=== PATIENT | male | born 1975 | race Caucasian/White ===

== ENCOUNTER 2017-12-09 19:39 | Emergency (ER) | payer MEDICAID, SELFPAY ==
[2017-12-09 19:40] VITALS: BP 151/96; PULSE 83; RESP 18; TEMP 36.4; O2SAT 95; BMI 36.0
--- NOTE | 2017-12-09 20:23 | ED.DCSUM_ITS ---
- ER Visit Summary Date of Service: 12/09/17 Chief Complaint: Redness of his nose and right ear History of Present Illness: The patient is a 42 M who presents with redness and swelling to his nose and right ear that has been getting worse over the past few days. Patient denies any fevers or chills. Patient denies any discharge or drainage. Patient states he did have some redness in his eyes but this has resolved. Patient denies any visual or hearing changes. Patient denies any rhinorrhea. Patient denies any difficulty breathing or difficulty swallowing. Physical Examination: Vital signs are stable. Patient is afebrile. Patient is in no acute distress. Pupils are equal, round, and reactive to light bilaterally. Extra ocular muscles are intact. Conjunctiva is clear. There is no evidence of any stye. There is no edema of the upper or lower eyelids. Oral mucosa is pink and moist. Tympanic membranes are clear bilaterally. Neck is supple. Trachea is midline. Is no JVD or lymphadenopathy. Heart was regular rate and rhythm. Lungs are clear and equal bilateral. Skin is warm dry. There is a small pustule on the tip of his nose with some surrounding erythema. There is also some mild erythema of the right postauricular area. There is no active discharge or drainage. Patient is alert and oriented ?3. Cranial nerves II through XII are intact. There are no focal motor or sensory deficits noted. Treatment Plan: Patient was given a prescription for Keflex. Patient was instructed to use warm compresses to his nose. Patient was instructed to follow -up with his primary care physician in 7-10 days. Patient understood and was agreeable with the plan. All questions were answered. Disposition: Discharge home Impression: Cellulitis of nose This note was generated with [employer] dictation software. It may contain incorrect words, spelling, and punctuation that were not noted in review of the chart prior to signing ED Disposition - Plan for ED Patient: Disposition: Home or Assisted Living Chief Complaint: General Illness Diagnosis: Cellulitis of nose, external Instructions: ED Cyst Sebaceous Infec Abx Tx Prescriptions: Cephalexin [Keflex] 500 mg PO Q6 #40 cap Referrals: Care Physician,No Primary [Primary Care Provider] -
[2017-12-09 20:28] VITALS: BP 148/70; PULSE 80; RESP 14; O2SAT 99
== END 2017-12-09 20:30 | disposition home or self-care (01) ==
PROVIDERS: Emergency Provider Emergency Medicine
DX: J34.0 Abscess, furuncle and carbuncle of nose (principal); Z87.891 Personal history of nicotine dependence
CPT/HCPCS: 99282

== ENCOUNTER 2018-03-27 15:21 | Emergency (ER) | payer MEDICARE, MEDICAID, SELFPAY ==
[2018-03-27 15:22] VITALS: BP 170/108; PULSE 111; RESP 20; TEMP 37.1; O2SAT 97; BMI 32.5
--- NOTE | 2018-03-27 15:33 | ED.VISSUMM ---
- ER Visit Summary Date of Service: 03/27/18 Chief Complaint: Elevated blood pressure History of Present Illness: The patient is a 42 M presents to the emergency department with asymptomatic elevated blood pressure. The patient states that he went to his dentist today. He was scheduled to have some teeth pulled. He states when he took his blood pressure, it was elevated. He states his dentist made him come in for evaluation. He states that his blood pressures were approximately 150/100. He states that he has never been diagnosed with hypertension. He takes no daily medications. He states that he was very anxious about going to the dentist, but really had no symptoms. He denies headache, visual changes, chest pain, shortness of breath, weakness, numbness, tingling, or other systemic symptoms. He does not have a primary care physician. Physical Examination: Vital signs reviewed General: Well-nourished, well-developed Head: Normocephalic, atraumatic Eyes: Pupils equal and reactive, extraocular muscles intact Neck, supple, no lymphadenopathy Heart: Regular rate and rhythm Respiratory: No distress, clear bilaterally Abdomen: Soft, nontender, nondistended, no peritoneal signs Back: Nontender Extremities: Nontender, no edema, no cords Skin: Normal color no rash Neuro: Alert and oriented, no focal or lateralizing deficits Test Results: [] Emergency Department Course and Treatment: The patient presents with asymptomatic elevated blood pressure. Initially, he was 170/110. Without any intervention, his blood pressure was down to 146/91. EKG was obtained which was unremarkable. Screening labs are also. He did have a long conversation with the patient. He is concerned that with his elevated blood pressure, he will not be able to have his dental procedure done. He has no evidence of Azar angina. He has widespread dental caries. We did discuss option of starting a low-dose antihypertensive which the patient wants to try. He will be given outpatient primary care follow-up. I will also prescribe him anti-inflammatories for his dental pain. He is comfortable with this plan of care. He has no symptoms of hypertensive emergency or other dangerous process. He has no symptoms of heart failure and he has no acute coronary syndrome. I do feel that he is safe for outpatient therapy. Treatment Plan: [] Disposition: Discharge Impression: 1. Hypertension 2. Dental pain This note was generated with [employer] software. It may contain incorrect words, spelling, and punctuation that were not noted in review of the chart prior to signing ED Disposition - Plan for ED Patient: Chief Complaint: Hypertension Instructions: ED Hypertension New Begin Tx Prescriptions: Hydrochlorothiazide [Hctz] 12.5 mg PO DAILY #30 tab Naproxen [Naprosyn] 500 mg PO BID PRN #20 tab Referrals: Ludy Gray [NON-STAFF] -
[2018-03-27 15:54] LABS: Absolute Lymphocyte Count 3.67 X10^3/ul (0.83-4.51); Absolute Neutrophil Count 7.6 X10^3/uL (2.0-7.7); Basophil# 0.07 X10^3/uL; Basophil% 0.6 % (0-1); Eosinophils% 0.8 % (0-5); Hematocrit 48.8 % (40-54); Hemoglobin 17.3 g/dl (13.0-16.5); Lymphocyte # 3.67 X10^3/ul (4.0); Lymphocyte % 29.9 % (19-41); Mean Corp Hgb Conc 35.5 g/gl (32-36); Mean Corpuscular Hgb 33.6 pg (27.0-32.0); Mean Corpuscular Volume 94.8 fL (80-94); Mean Platelet Vol. 8.5 fl (6.2-12.0); Monocyte# 0.76 X10^3/uL; Monocyte% 6.2 % (0-10); Neutrophil # 7.64 X10^3/uL (2.7-7.7); Neutrophil % 62.3 % (47-70); POSITIVE COUNT NO; POSITIVE DIFFERENTIAL NO; POSITIVE MORPHOLOGY NO; Platelet Count 300 K/mm3 (150-450); RBC Distribution Width CV 12.6 % (11.6-14.6); Red Blood Count 5.15 M/mm3 (4.6-6.2); White Blood Count 12.3 K/mm3 (4.4-11.0)
[2018-03-27 16:09] LABS: Anion Gap 9 (5-15); BUN 10 mg/dL (7-18); BUN/Creat Ratio 9.6 RATIO (10-20); Calcium,Total 8.8 mg/dL (8.5-10.1); Chloride 102 mmol/L (98-107); Creatinine, Serum 1.04 mg/dL (0.70-1.30); EST Glomerular Filtration Rate 82 mL/min (>60); Est Glom Filt Rate - Afr Amer 100 mL/min (>60); Estimated Creatinine Clearance 93.59 ml/min; Glucose 127 mg/dL (74-106); Potassium 3.4 mmol/L (3.5-5.1); Sodium Level 139 mmol/L (136-145)
[2018-03-27] MEDS: HYDROcodone Bitartrate/Apap 5/325 Tablet PO (16:50)
[2018-03-27 16:51] VITALS: BP 134/86; RESP 18; O2SAT 95
== END 2018-03-27 16:53 | disposition home or self-care (01) ==
LOC: ED 16:04
PROVIDERS: Emergency Provider Emergency Medicine
DX: I10 Essential (primary) hypertension (principal); K08.89 Other specified disorders of teeth and supporting structures; K02.9 Dental caries, unspecified
CPT/HCPCS: 80048; 85025; 93005; 99284; A4216

== ENCOUNTER → 2019-02-18 | Outpatient (CLI) | payer MEDICARE, MEDICAID, SELFPAY ==
--- NOTE | 2019-02-18 15:51 | EKG12_ITS ---
Test Reason : Blood Pressure : / mmHG Vent. Rate : 077 BPM Atrial Rate : 077 BPM P-R Int : 136 ms QRS Dur : 090 ms QT Int : 360 ms P-R-T Axes : 050 069 021 degrees QTc Int : 407 ms Normal sinus rhythm with sinus arrhythmia Normal ECG Confirmed by DANNIELLE OLEA, KENDRICK ([id number]), avid editor SOHAM MORROW ([id number]) on 02/19/2019 1:41:25 PM Referred By: OUT DOCTOR Confirmed By:MARIA A SPICER MD
[2019-02-18 16:29] LABS: Hemoglobin A1c 5.6 % (4.2-6.3)
[2019-02-18 16:43] LABS: ALB/GLOB Ratio 0.8 RATIO (0.9-2.4); AST(SGOT) 66 U/L (15-37); Alanine Aminotransfer ALT/SGPT 114 U/L (16-61); Albumin, Serum 3.4 g/dL (3.2-5.0); Alkaline Phosphatase 90 U/L (45-117); Anion Gap 5 (5-15); BUN 8 mg/dL (7-18); Bilirubin, Direct 0.12 mg/dL (0.00-0.30); Calcium,Total 8.4 mg/dL (8.5-10.1); Chloride 106 mmol/L (98-107); Cholesterol 204 mg/dL (200); Creatinine, Serum 0.89 mg/dL (0.70-1.30); EST Glomerular Filtration Rate 99 mL/min (>60); Est Glom Filt Rate - Afr Amer 119 mL/min (>60); Globulin 4.1 g/dL (2.2-4.2); Glucose 104 mg/dL (74-106); High Density Lipoprotein 29 mg/dL; Potassium 3.8 mmol/L (3.5-5.1); Protein, Total 7.5 g/dL (6.4-8.2); Sodium Level 140 mmol/L (136-145); Thyroid Stim Hormone (TSH) 2.23 uIU/mL (0.358-3.74); Triglycerides 248 mg/dL; Very Low Density Lipoprotein 50 mg/dL (5-40)
== END | disposition home or self-care (01) ==
DX: F19.10 Other psychoactive substance abuse, uncomplicated (principal); R53.83 Other fatigue; Z79.899 Other long term (current) drug therapy
CPT/HCPCS: 36415; 80053; 80061; 82140; 82248; 83036; 84443; 93005

== ENCOUNTER 2020-08-02 01:14 | Emergency (ER) | payer MEDICARE, MEDICAID, SELFPAY ==
[2020-08-02 01:16] VITALS: BP 177/113; PULSE 94; RESP 16; TEMP 37.3; O2SAT 96; BMI 33.3
--- NOTE | 2020-08-02 01:31 | ED.VIS.GEN ---
History of Present Illness Chief Complaint: Eye Problem Informant: Patient Narrative: Presents with ocular bleeding. Patient stated tonight when he was reading while sitting down he developed subconjunctival hemorrhage. He is never had this before. He did take aspirin for headache earlier in the day. Does not take this chronically. Does have hypertension but has not been on medication for the last year. He stated his blood pressures have been under control. He denies any symptoms at this time just bleeding on the outside portion of his right side. No visual difficulties or pain. Current severity is mild. Past Medical History - Allergies and Home Meds Allergies/Adverse Reactions: Allergies No Known Allergies Allergy (Verified 08/02/20 01:15) Primary Care Physician: Care Physician,No Primary [Primary Care Provider] - Prior records reviewed: Yes Past Medical History: - - Hypertension Surgical History: - - Reviewed Lives: With Family Smoking Status: Current every day smoker Alcohol: None Drugs: None Review of Systems General: Denies: Chills, Fever, Sweats Eyes: Reports: - - See HPI. Denies: Visual changes - left, Visual changes - right, Visual changes - bilaterally, Diplopia ENT: Denies: Rhinorrhea, Sore throat Cardiovascular: Denies: Chest pain, Palpitations Respiratory: Denies: Dyspnea, Cough, Dyspnea on exertion Gastrointestinal: Denies: Abdominal pain, Nausea, Vomiting, Diarrhea, Melena, Hematochezia Genitourinary: Denies: Dysuria, Hematuria, Frequency Musculoskeletal: Denies: Back pain, Extremity Pain Skin: Denies: Rash, Wounds Neurological: Denies: Headache, Weakness, Numbness Physical Exam Vital Signs/Narrative: Vital Signs Temp Pulse Resp BP Pulse Ox 08/02/20 01:16 99.1 F 94 16 177/113 H 96 General: Well nourished, Well developed, No Acute Distress Head: Normocephalic, Atraumatic Eyes: Perrl, EOMI, - - She has a very small subconjunctival hemorrhage right lateral sclera. Pupils are normal. No hyphema. Irises normal. Normal exam otherwise.. Negative for: Pale conjunctiva ENT: Moist mucous membranes, No rhinorrhea Neck: Supple, Nontender Cardiovascular: Regular rate, Regular rhythm, No murmurs Respiratory: No distress, CTA bilaterally, Chest nontender Abdomen: Soft, Nontender, Nondistended, Normal bowel sounds Back: Nontender, Normal Inspection Extremities: Nontender, No edema Skin: Normal color, No rash Neurological: Alert, Oriented x3, Cranial nerves II-XII grossly intact, Normal Strength, Normal Sensation Psychological: Normal affect, Normal Mood Diagnostic/Tx/Re-eval - Medical Decision Making Patient has a small subconjunctival hemorrhage right eye. Is a benign condition. Patient reassured. He does have hypertension upon arrival with a systolic blood pressure 177 over diastolic blood pressure 113. He does not want to stay for further monitoring of this. He will like to follow-up with his family doctor for recheck. He has been on blood pressure medications in the past but does not want a at this time even though offered. He would like to wait and see. I feel this is reasonable given the fact that he does have chronic hypertension. He will avoid aspirin and blood thinners and follow-up as an outpatient ED Disposition - Plan for ED Patient: Disposition: Home or Assisted Living Diagnosis: Subconjunctival hemorrhage of right eye, Hypertension Instructions: ED Subconjunctival Hemorrhage, Taking Your Blood Pressure Referrals: Leoncio Galan MD [STAFF PHYSICIAN] -
== END 2020-08-02 02:10 | disposition home or self-care (01) ==
LOC: ED 01:40
PROVIDERS: Emergency Provider Emergency Medicine
DX: H11.31 Conjunctival hemorrhage, right eye (principal); I10 Essential (primary) hypertension; F17.200 Nicotine dependence, unspecified, uncomplicated
CPT/HCPCS: 99282

== ENCOUNTER 2021-01-05 23:18 | Emergency (ER) | payer MEDICARE, MEDICAID, SELFPAY ==
[2021-01-05 23:18] VITALS: BP 150/80; PULSE 93; RESP 16; TEMP 38.3; O2SAT 96; BMI 30.9
--- NOTE | 2021-01-05 23:28 | EX.ED.DYSGE1 ---
HPI History of Present Illness Chief Complaint: Dental Informant: patient Narrative Narrative: 45-year-old male states that on Friday he began to have a left upper tooth pain. He then developed sinus pressure and purulent drainage on the left side of his face. Now he notes fever. He denies any shortness of breath or significant cough. He is a smoker. No rashes. PFSH PFSH Home Medications asenapine maleate 2.5 mg PO DAILY 08/02/20 [History Last Taken Unknown] amoxicillin-pot clavulanate 875 mg PO Q12H #20 tablet 01/05/21 [Rx Last Taken Unknown] Allergy/AdvReac Type Severity Reaction Status Date / Time No Known Allergies Allergy Verified 01/05/21 23:19 Social History (Updated 01/05/21 @ 23:[address] Sincere Robles, DO) Smoking Status: Current every day smoker substance use type: does not use ROS ROS ED Constitutional Constitutional ED: Reports chills and fever(s); Denies weight loss Eyes Eyes: Denies change in vision or diplopia ENT ENT ED: Reports other Details: Left upper dental pain, left maxillary soreness, purulent drainage from left nares ; Denies ear pain, rhinorrhea or sore throat Cardiovascular Cardiovascular: Denies chest pain, orthopnea, palpitations or racing heartbeat Respiratory/Chest Respiratory/Chest: Denies cough, dyspnea or orthopnea Gastrointestinal Gastrointestinal: Denies abdominal pain, diarrhea, nausea or vomiting Genitourinary Genitourinary ED: Denies dysuria, hematuria or urinary frequency Musculoskeletal Musculoskeletal: Denies arthralgias or myalgias Integumentary Denies abscess or rash Neurologic Neurologic: Denies headache(s) or weakness Psychiatric Psychiatric: Denies anxiety, depression, suicidal ideation or suicidal thoughts Endocrine Endocrinology: Denies polydipsia, polyphagia or polyuria Allergic/Immunologic Allergic/Immunologic ED: Denies mouth swelling, tongue swelling or urticaria EXAM Physical Exam Const Vital Signs: 01/05/21 23:18 Temperature 101 F H Temperature Source Oral Pulse Rate 93 Respiratory Rate 16 Blood Pressure 150/80 H Blood Pressure Mean 103 Pulse Ox 96 Oxygen Delivery Method Room Air Positive well nourished and well developed General Appearance ED: well developed HEENT Reports normocephalic, head/scalp atraumatic and moist mucous membranes HEENT Narrative: Patient with widespread dental decay. There is no focal gum swelling or significant erythema. The left upper tooth that he points to does show some focal decay. The left maxillary sinus is tender to palpation. There is purulence from the left nares. Eyes PERRL and EOMs intact bilaterally Neck no lymphadenopathy, supple and no JVD Resp normal respiratory effort and clear to auscultation bilaterally Cardio regular rate, regular rhythm and no murmurs GI normal to inspection, nondistended, normoactive bowel sounds and non-tender Palpation: soft Back/Spine no CVA tenderness and normal ROM Extremity normal to inspection General Extremety ED: Negative for edema General Extremity: Negative for edema Neuro oriented x3 and CN's II-XII intact bilaterally Sensorium / Orientation: alert Motor Exam: strength 5/5 throughout Psych mental status grossly normal Mood & Affect: Negative for depressed or tearful Skin no rashes or lesions noted and no wounds MDM MDM MDM Narrative Medical decision making narrative: Patient will be given Motrin for fever and a dose of Augmentin. He will be discharged home on the same. Directions to return if worsening or concerns and follow-up with dentistry as soon as possible. This time I think is most likely a sinusitis. Discharge Plan Triage Chief Complaint: Dental ED Provider: Sincere Robles Dx/Rx/DC Orders Clinical Impression: Acute sinusitis Instructions: ED Sinusitis (Antibiotic Treatment) Prescriptions: New amoxicillin-pot clavulanate [amoxicillin-pot clavulanate] 875 MG tablet 875 mg PO Q12H Qty: 20 RF: 0 No Action asenapine maleate 2.5 MG tablet, sublingual 2.5 mg PO DAILY RF: 0 Primary Care Provider: Care Physician,No Primary Referrals: Yogesh Solitario III, MD [STAFF PHYSICIAN] - As Needed (for primary care) Care Physician,No Primary [Primary Care Provider] - Disposition Disposition: Home, self care
[2021-01-05] MEDS: Ibuprofen 400 MG Tablet 800 MG PO (23:37)
[2021-01-05] MEDS: Amox/Clavulanate 875 MG Tablet PO (23:37)
== END 2021-01-05 23:51 | disposition home or self-care (01) ==
LOC: ED 23:43
PROVIDERS: Emergency Provider Emergency Medicine
DX: J01.90 Acute sinusitis, unspecified (principal); F17.200 Nicotine dependence, unspecified, uncomplicated
CPT/HCPCS: 99283

== ENCOUNTER 2022-05-02 20:23 | Emergency (ER) | payer MEDICARE, MEDICAID, SELFPAY ==
[2022-05-02 20:24] VITALS: BP 137/95; PULSE 80; RESP 15; TEMP 36.9; O2SAT 94; BMI 34.2
[2022-05-02 20:41] VITALS: RESP 18
--- NOTE | 2022-05-02 20:42 | ED.VIS.DENTA ---
HPI History of Present Illness Chief Complaint: Other, Pain/Inj Detail of Chief Complaint: Patient concerned he has had an infection Informant: patient Onset/Context/Timing Onset: Days Context: Sudden Onset Timing: Continuous Quality: Pain and swelling right side of the face Location: Right periorbital pain that radiates to the right frontal area Current Severity: Mild Maximum Severity: Moderate Worsened by: Nothing specifically Relieved by: NSAIDs and Topicals Associated Symptoms Assocated Symptom - Dental: face swelling; Negative for fever, jaw swelling, cold sensitivity or hot sensitivity Narrative Narrative: Patient is a 46-year-old male presents with facial pain and swelling. This started several days ago. He states he has poor dentition. He denies fever, chills night sweats. Eyes atraumatic fever, heart murmur, SBE or being immune suppressed. He denies difficulty opening closing his mouth completely. He does not have a dentist. He denies change in voice. Nuys difficulty swallowing. Prior similar symptoms: No Recent Illness/Hospitalization: No PFSH PFS Medical History Schizophrenia Home Medications asenapine maleate 2.5 mg sublingual tablet 2.5 mg PO DAILY 08/02/20 [History Last Taken Unknown] amoxicillin 875 mg-potassium clavulanate 125 mg tablet 875 mg PO Q12H #20 TABLETS 01/05/21 [Rx Last Taken Unknown] clindamycin HCl 300 mg capsule (Cleocin HCl) 300 mg PO Q6H #28 CAPSULES 05/02/22 [Rx Last Taken Unknown] hydrocodone-acetaminophen 5-325mg 5mg-325mg 1 tab PO Q6H PRN PRN Pain 3 days #10 TABLETS 05/02/22 [Rx Last Taken Unknown] naproxen 500 mg tablet 500 mg PO BID #14 tabs 05/02/22 [Rx Last Taken Unknown] Allergy/AdvReac Type Severity Reaction Status Date / Time No Known Allergies Allergy Verified 01/05/21 23:19 Surgical History no surgical history no surgical history Social History (Updated 05/02/22 @ 20:[address] Felix Jacobs MD) household members: none Smoking Status: Current every day smoker tobacco type: cigarettes substance use type: does not use ROS ROS ED Constitutional Constitutional ED: Denies chills, fever(s), subjective or sweats Eyes Eyes: Denies blurry vision or change in vision ENT ENT ED: Reports other Details: Please read HPI narrative ; Denies ear pain, rhinorrhea or sore throat Cardiovascular Cardiovascular: Denies chest pain, palpitations or racing heartbeat Respiratory/Chest Respiratory/Chest: Denies cough or dyspnea Gastrointestinal Gastrointestinal: Denies nausea or vomiting Genitourinary Genitourinary ED: Denies dysuria, hematuria or urinary frequency Musculoskeletal Musculoskeletal: Denies arthralgias, back pain, myalgias or neck pain Psychiatric Psychiatric: Denies anxiety or depression Endocrine Endocrinology: Denies cold intolerance or heat intolerance Hematologic/Lymphatic Hematologic/Lymphatic: Denies easy bleeding or easy bruising Allergic/Immunologic Allergic/Immunologic ED: Denies mouth swelling or tongue swelling EXAM Physical Exam Const Vital Signs: 05/02/22 20:24 Temperature 98.4 F Temperature Source Temporal Pulse Rate 80 Respiratory Rate 15 Blood Pressure 137/95 H Blood Pressure Mean 109 Pulse Ox 94 Oxygen Delivery Method Room Air Positive well nourished, well developed, obese and unkempt General Appearance ED: unkempt, well developed and NAD Nutritional Appearance: obese HEENT HEENT Narrative: Atraumatic normocephalic. Patient does have facial swelling on the right. There is no tenderness over the frontal or maxillary sinuses. Face and Sinus: Negative for sinuses nontender Mouth ED: Yes oral and palatal mucosa normal, Yes lips normal, Yes tongue normal, Yes salivary gland normal, No mouth trauma and No salivary gland abnormal Mouth: oral and palatal mucosa normal, lips normal, tongue normal, salivary gland normal, No mouth trauma and No salivary gland abnormal Teeth and Gingiva: abnormal tooth and associated gingiva, caries, gingiva abnormal, poor dentition and teeth discoloration Throat: posterior oropharynx normal Eyes PERRL and EOMs intact bilaterally General Eye ED: Negative for pale conjunctiva or scleral icterus Neck no lymphadenopathy, supple and no JVD Lymph Lymphatic: no lymphadenopathy noted Chest Wall inspection of chest normal and palpation of chest normal Resp normal respiratory effort, no retractions and clear to auscultation bilaterally Cardio regular rate, regular rhythm, S1 normal heart sound, S2 normal heart sound and no murmurs Psych Appearance: unkempt Skin no rashes or lesions noted and no wounds MDM MDM MDM Narrative Medical decision making narrative: Patient has numerous caries. Tooth #3, 4, 5, 6, 7 have caries involving the pulp. Tooth #3 and 4 are decayed/eroded to the gumline. There is evidence of gingivitis. There is no specific fluctuance appreciated. Patient has no trismus. There is no evidence of facial cellulitis. Patient was treated with clindamycin and oral analgesics for his dental caries and dental abscess. He was given dental sheet for follow-up. Discharge Plan Triage Chief Complaint: Other, Pain/Inj ED Provider: Felix Jacobs Dx/Rx/DC Orders Clinical Impression: Dental abscess, Dental caries extending into pulp, Dental caries extending into dentin, Periodontal disease, Gingivitis due to dental plaque Instructions: ED Dental Cavity, ED Dental Abscess Prescriptions: New clindamycin HCl [Cleocin HCl] 300 mg capsule 300 mg PO Q6H Qty: 28 0RF hydrocodone-acetaminophen [hydrocodone-acetaminophen] 5-325 mg tablet 1 tab PO Q6H PRN PRN (Reason: Pain) 3 Days Qty: 10 0RF naproxen 500 mg tablet 500 mg PO BID Qty: 14 0RF No Action asenapine maleate 2.5 MG tablet, sublingual 2.5 mg PO DAILY amoxicillin-pot clavulanate [amoxicillin-pot clavulanate] 875 MG tablet 875 mg PO Q12H Qty: 20 0RF Primary Care Provider: Care Physician,No Primary Referrals: Care Physician,No Primary [Primary Care Provider] - Dentist,Your [STAFF PHYSICIAN] - As soon as possible Disposition Disposition: Home, Self Care
[2022-05-02] MEDS: HYDROcodone Bitartrate/Apap 5/325 Tablet PO (21:02)
[2022-05-02] MEDS: Clindamycin HCl 150 MG Capsule 300 MG PO (21:02)
[2022-05-02] MEDS: Naproxen 250 MG Tablet 500 MG PO (21:02)
== END 2022-05-02 21:08 | disposition home or self-care (01) ==
LOC: ED 20:57
PROVIDERS: Emergency Provider Emergency Medicine; Visit Provider Emergency Medicine
DX: K04.7 Periapical abscess without sinus (principal); K02.9 Dental caries, unspecified; K05.10 Chronic gingivitis, plaque induced; F17.210 Nicotine dependence, cigarettes, uncomplicated; E66.9 Obesity, unspecified
CPT/HCPCS: 99283

== ENCOUNTER 2022-07-27 05:24 | Emergency (ER) | payer MEDICARE, MEDICAID, SELFPAY ==
[2022-07-27 05:25] VITALS: BP 175/105; PULSE 89; RESP 24; TEMP 35.9; O2SAT 95
[2022-07-27 05:26] VITALS: BP 175/105; PULSE 89; RESP 24; TEMP 35.9; O2SAT 95; BMI 31.5
--- NOTE | 2022-07-27 05:42 | CT_ITS ---
STUDY: CT ABDOMEN AND PELVIS WITHOUT CONTRAST REASON FOR EXAM: Male, 46 years old. flank pain RADIATION DOSAGE (If Supplied By Facility): CTDIvol = ( 14.33 ) mGy, DLP = ( 730.52 ) mGycm TECHNIQUE: Transaxial images were obtained from the dome of the diaphragm to the symphysis pubis without oral contrast, and without intravenous contrast. Sagittal and coronal images were reconstructed. Individualized dose optimization techniques were used for this CT. COMPARISON: None. FINDINGS: The visualized lung bases are unremarkable. The visualized portions of the heart are within normal limits. There is decreased attenuation of the liver consistent with steatosis. Normal gallbladder and extrahepatic biliary system. Normal spleen. Normal pancreas. Normal bilateral adrenal glands. There is severe right hydronephrosis and hydroureter due to 10 mm stone in the distal right ureter at the UVJ. There is also a stone in the lower pole calyx of right kidney measuring 3 mm. Normal left kidney. Normal visualized stomach. Normal small intestine. There are multiple colonic diverticula consistent with diverticulosis. The appendix is visualized and appears normal. Normal abdominal aorta. Normal inferior vena cava. Normal retroperitoneum. Normal urinary bladder. Normal abdominal wall. Normal osseous structures. CT/Abdomen/Pelvis without Cont IMPRESSION: There is decreased attenuation of the liver consistent with steatosis. There is severe right hydronephrosis and hydroureter due to 10 mm stone in the distal right ureter at the UVJ. There is also a stone in the lower pole calyx of right kidney measuring 3 mm. Electronically Signed: Joey Curiel MD at 6:34 EST ,
[2022-07-27 05:52] LABS: Absolute Lymphocyte Count 2.34 X10^3/uL (0.83-4.51); Absolute Neutrophil Count 9.2 X10^3/uL (2.0-7.7); Basophil# 0.08 X10^3/uL; Basophil% 0.6 % (0-1); Eosinophil# 0.14 X10^3/uL; Eosinophils% 1.1 % (0-5); Hematocrit 52.4 % (40-54); Hemoglobin 17.2 g/dL (13.0-16.5); Lymphocyte # 2.34 X10^3/ul (0.83-4.51); Lymphocyte % 18.4 % (19-41); Mean Corp Hgb Conc 32.8 g/dL (32-36); Mean Corpuscular Hgb 31.9 pg (27.0-32.0); Mean Corpuscular Volume 97.2 fL (80-94); Mean Platelet Vol. 8.7 fl (6.2-12.0); Monocyte# 0.88 X10^3/uL; Monocyte% 6.9 % (0-10); NRBC Flagged by Analyzer 0 % (0-5); Neutrophil # 9.19 X10^3/uL (2.7-7.7); Neutrophil % 72.5 % (47-70); Platelet Count 277 K/mm3 (150-450); RBC Distribution Width CV 12.9 % (11.6-14.6); RBC Distribution Width SD 46.4 fl (35.1-43.9); Red Blood Count 5.39 M/mm3 (4.6-6.2); White Blood Count 12.7 K/mm3 (4.4-11.0)
[2022-07-27] MEDS: 0.9% Normal Saline 1,000 ML 999 ML IV (05:57)
[2022-07-27] MEDS: Ondansetron 4 MG/2 ML Vial IV (05:57)
--- NOTE | 2022-07-27 05:57 | EDS_ITS ---
HPI History of Present Illness Chief Complaint: Flank Pain Narrative Narrative: Patient is a 46-year-old male with past medical history of smoking and COPD.. He states that he consider late once his girlfriend gets off work at midnight he reports that he went and got [employer] for dinner this evening and after eating he developed pain in the right flank/back region. He states that the pain radiates into the right side of his abdomen and has caused nausea without vomiting. He denies any hematuria dysuria diarrhea or constipation. He states that there is nothing that makes the pain better or worse and that despite trying [id number] medications the pains been persistent for the past 4 hours and secondary to this he comes in for evaluation [facility] Medical History Schizophrenia Home Medications ketorolac 10 mg tablet 10 mg PO Q6H PRN pain 5 days #20 tabs 07/27/22 [Rx Last Taken Unknown] ondansetron 4 mg disintegrating tablet 4 mg PO TID PRN nausea and vomiting #21 tabs 07/27/22 [Rx Last Taken Unknown] oxycodone-acetaminophen 5 mg-325 mg tablet (Percocet) 1 tab PO Q6H PRN pain 5 days #20 tabs 07/27/22 [Rx Last Taken Unknown] tamsulosin 0.4 mg capsule (Flomax) 0.4 mg PO DAILY #14 caps 07/27/22 [Rx Last Taken Unknown] Allergy/AdvReac Type Severity Reaction Status Date / Time No Known Allergies Allergy Verified 01/05/21 23:19 Social History (Updated 05/02/22 @ 20:[address] Felix Jacobs MD) household members: none Smoking Status: Current every day smoker tobacco type: cigarettes substance use type: does not use ROS ROS ED Constitutional Constitutional ED: Denies chills or fever(s) ENT ENT ED: Denies sore throat Cardiovascular Cardiovascular: Denies chest pain Respiratory/Chest Respiratory/Chest: Denies cough or dyspnea Gastrointestinal Gastrointestinal: Reports abdominal pain and nausea; Denies diarrhea or vomiting Genitourinary Genitourinary ED: Denies dysuria or hematuria Musculoskeletal Musculoskeletal: Reports back pain; Denies myalgias Integumentary Denies rash Neurologic Neurologic: Denies headache(s) Hematologic/Lymphatic Hematologic/Lymphatic: Denies easy bleeding or easy bruising EXAM Physical Exam Const Vital Signs: 07/27/22 05:26 07/27/22 05:25 Temperature 96.7 F L 96.7 F L Temperature Source Temporal Temporal Pulse Rate 89 89 Respiratory Rate 24 H 24 H Blood Pressure 175/105 H 175/105 H Blood Pressure Mean 128 128 Pulse Ox 95 95 Oxygen Delivery Method Room Air Room Air Positive well nourished, well developed and obese General Appearance ED: well developed Nutritional Appearance: obese Eyes PERRL and EOMs intact bilaterally General Eye ED: Negative for scleral icterus Neck supple Neck Narrative: Carotid pulses are equal and symmetric Resp normal respiratory effort Resp Narrative: Breath sounds are diminished throughout with diffuse expiratory wheeze consistent with history of smoking and COPD but no signs of respiratory distress Cardio regular rate and regular rhythm Rate: other Other Details: Radial pulses are +2-4 bilaterally are equal and symmetric GI normal to inspection, nondistended, normoactive bowel sounds, non-tender and non-distended GI Narrative: No voluntary guarding or rigidity. No pulsatile mass or fluid wave noted Auscultation: normoactive bowel sounds Palpation: soft Back/Spine Back/Spine Narrative: Positive right CVA pain Extremity normal to inspection Neuro oriented x3 and CN's II-XII intact bilaterally Sensorium / Orientation: alert Psych mental status grossly normal Skin no rashes or lesions noted Skin Narrative: No overlying soft tissue changes to suggest trauma or infection General Skin Exam: Negative for jaundice MDM MDM MDM Narrative Medical decision making narrative: Patient presented to the ER hypertensive but otherwise with stable vitals. His report of sudden onset pain radiating from the right back into the right side abdomen and nausea that was not changed with any type of motion or position is most consistent with kidney stone. Secondary to this basic labs and a CT scan were ordered. Patient has leukocytosis of 12.7 but there are no signs of infection on imaging or labs indicating this is stress response. The patient CT scan does show a large 10 mm stone in the right UVJ region consistent with his symptoms. He does not have acute kidney injury or severe electrolyte derangement. He was given IV fluids and Toradol and reported his pain reduced to a value of 3. We discussed that with a stone at 10 mm in size chance for passing this is low but not impossible especially as the stone is already migrated down to his UVJ. Therefore at this time as he does not have urosepsis or acute kidney injury and his pain has been controlled we will out the patient to go home on symptomatic medication and he can follow-up with urology in outpatient basis. He does voice understanding that he can return to the hospital anytime if his symptoms worsen despite outpatient therapy Lab Data Attestation: I reviewed the patient's lab results. Labs: Laboratory Results - last 24 hr 07/27/22 07/27/22 07/27/22 05:30 05:30 05:54 WBC 12.7 H RBC 5.39 Hgb 17.2 H Hct 52.4 MCV 97.2 H MCH 31.9 MCHC 32.8 RDW Std Deviation 46.4 H RDW Coeff of Carlene 12.9 Plt Count 277 MPV 8.7 Immature Gran % (Auto) 0.500 Neut % (Auto) 72.5 H Lymph % (Auto) 18.4 [place] % (Auto) 6.9 Eos % (Auto) 1.1 Baso % (Auto) 0.6 Absolute Neuts (auto) 9.2 H Absolute Lymphs (auto) 2.34 Nucleated RBC % 0 Sodium 138 Potassium 3.9 Chloride 105 Carbon Dioxide 28.0 Anion Gap 5 BUN 14 Creatinine 1.09 Estim Creat Clear Calc 85.58 Est GFR (MDRD) Af Amer 93 Est GFR (MDRD) Non-Af 77 BUN/Creatinine Ratio 12.8 Glucose 119 H Calcium 8.9 Total Bilirubin 0.50 Direct Bilirubin 0.16 AST 43 H ALT 80 H Alkaline Phosphatase 80 Total Protein 8.1 Albumin 3.7 Globulin 4.4 H Lipase 76 Urine Color Yellow Urine Clarity Clear Urine pH 5.0 Ur Specific [place] 1.025 Urine Protein 30 H Urine Glucose (UA) Normal Urine Ketones 5 H Urine Occult Blood 150 H Urine Nitrite Negative Urine Bilirubin Negative Urine Urobilinogen Normal Ur Leukocyte Esterase 25 H Urine RBC 0-5 SEEN Urine WBC 0-5 SEEN Ur Squamous Epith Cells 0-5 SEEN Urine Bacteria 0 SEEN Hyaline Casts 0-5 SEEN Urine Mucus 0 SEEN Radiography Diagnostic Testing: Clinical Impression(s) from Imaging Studies Abdomen/Pelvis CT 07/27/22 05:42 IMPRESSION: There is decreased attenuation of the liver consistent with steatosis. There is severe right hydronephrosis and hydroureter due to 10 mm stone in the distal right ureter at the UVJ. There is also a stone in the lower pole calyx of right kidney measuring 3 mm. Electronically Signed: Joey Curiel MD at 6:34 EST , Discharge Plan Triage Chief Complaint: Flank Pain ED Provider: Yobany Corley Dx/Rx/DC Orders Clinical Impression: Kidney stone on right side, Renal colic, Hydronephrosis Instructions: ED Kidney Stone w/ Colic Prescriptions: New tamsulosin [Flomax] 0.4 mg capsule 0.4 mg PO DAILY Qty: 14 0RF ondansetron 4 mg tablet,disintegrating 4 mg PO TID PRN (Reason: nausea and vomiting) Qty: 21 0RF oxycodone-acetaminophen [Percocet] 5-325 mg tablet 1 tab PO Q6H PRN (Reason: pain) 5 Days Qty: 20 0RF ketorolac 10 mg tablet 10 mg PO Q6H PRN (Reason: pain) 5 Days Qty: 20 0RF Primary Care Provider: Care Physician,No Primary Referrals: Amari Andrade MD [Med Staff - Active Staff] - Care Physician,No Primary [Primary Care Provider] - Activity Restrictions/Additional Instructions: Your work-up today shows a 10 mm kidney stone as a cause of your pain. Please take the medication as directed to help control your pain and help facilitate passing the stone. Please keep yourself well-hydrated and stay active as this could help pass the stone as well. If your pain is not controlled with the prescribed medication or you develop a fever over 100.4 please return to the ER for repeat evaluation. Disposition Disposition: Home, Self Care
[2022-07-27] MEDS: Ketorolac 30 MG/ML Syringe IV (05:58)
[2022-07-27 06:03] LABS: Bacteria 0 SEEN /hpf (None Seen); Mucous, Urine 0 SEEN /hpf (<or=2+)
[2022-07-27 06:08] LABS: Color, Urine Yellow (Yellow); Glucose, Dipstick Normal (Normal); Ketone-Dipstick 5 mg/dl (Negative); Leukocyte Esterase-Dipstick 25 /ul (Negative); Nitrite-Dipstick Negative (Negative); Occult Blood-Urine 150 /ul (Negative); Protein-Dipstick 30 mg/dl (Negative); Specific Gravity, Urine 1.025 (1.002-1.030); Urine Bilirubin Dipstick Negative (Negative); Urine Clarity Clear (Clear); Urine Urobilinogen Normal (Normal)
[2022-07-27 06:10] LABS: AST(SGOT) 43 U/L (15-37); Alanine Aminotransfer ALT/SGPT 80 U/L (16-61); Albumin, Serum 3.7 g/dL (3.2-5.0); Alkaline Phosphatase 80 U/L (45-117); Anion Gap 5 (5-15); BUN 14 mg/dL (7-18); BUN/Creat Ratio 12.8 RATIO (10-20); Bilirubin, Direct 0.16 mg/dL (0.00-0.30); Calcium,Total 8.9 mg/dL (8.5-10.1); Chloride 105 mmol/L (98-107); Creatinine, Serum 1.09 mg/dL (0.70-1.30); EST Glomerular Filtration Rate 77 mL/min (>60); Est Glom Filt Rate - Afr Amer 93 mL/min (>60); Estimated Creatinine Clearance 85.58 ml/min; Globulin 4.4 g/dL (2.2-4.2); Glucose 119 mg/dL (74-106); Lipase 76 U/L (73-393); Potassium 3.9 mmol/L (3.5-5.1); Protein, Total 8.1 g/dL (6.4-8.2); Sodium Level 138 mmol/L (136-145)
[2022-07-27 06:23] LABS: Hyaline Cast 0-5 SEEN /lpf (0-5); Red Blood Cells-Urine 0-5 SEEN /hpf (0-5); White Blood Cells 0-5 SEEN /hpf (0-5)
[2022-07-27 06:24] LABS: Squamous Epithelial Cells - UA 0-5 SEEN /hpf (0-5)
[2022-07-27 06:59] VITALS: BP 159/104; PULSE 76; RESP 18; O2SAT 95
== END 2022-07-27 07:29 | disposition home or self-care (01) ==
PROVIDERS: Emergency Provider Emergency Medicine; Visit Provider Emergency Medicine
DX: N13.2 Hydronephrosis with renal and ureteral calculous obstruction (principal); N23 Unspecified renal colic; F17.210 Nicotine dependence, cigarettes, uncomplicated; E66.9 Obesity, unspecified
CPT/HCPCS: 74176; 80048; 80076; 81001; 83690; 85025; 96374; 96375; 99283; J7030; A4216; J2405

== ENCOUNTER 2022-10-07 15:10 | Emergency (ER) | payer MEDICARE, MEDICAID, SELFPAY ==
[2022-10-07 15:11] VITALS: BP 165/89; PULSE 90; RESP 14; TEMP 36.8; O2SAT 93; BMI 33.4
--- NOTE | 2022-10-07 15:20 | CT_ITS ---
STUDY: CT ABDOMEN AND PELVIS WITHOUT CONTRAST REASON FOR EXAM: Male, 46 years old. Kidney Stone RADIATION DOSAGE (If Supplied By Facility): CTDIvol = ( 18.40 ) mGy, DLP = ( 888.05 ) mGycm TECHNIQUE: Transaxial images were obtained from the dome of the diaphragm to the symphysis pubis without oral contrast, and without intravenous contrast. Sagittal and coronal images were reconstructed. Individualized dose optimization techniques were used for this CT. COMPARISON: July 27, 2022 CT abdomen and pelvis FINDINGS: The visualized lung bases are unremarkable. The visualized portions of the heart are within normal limits. There is a diffuse contour abnormality of the liver consistent with cirrhotic changes. Normal gallbladder and extrahepatic biliary system. Normal spleen. Normal pancreas. Normal bilateral adrenal glands. Moderately severe hydronephrosis on the right due to a 7 x 4 mm ureterolith at the ureterovesicular junction unchanged. Punctate nonobstructive nephrolithiasis on the right. Normal left kidney. Normal visualized stomach. Normal small intestine. Normal colon. The appendix is visualized and appears normal. Normal abdominal aorta. Normal inferior vena cava. Normal retroperitoneum. Normal urinary bladder. Bilateral fat-containing inguinal hernias. There is a small umbilical hernia containing fat. Normal osseous structures. CT/Abdomen/Pelvis without Cont IMPRESSION: Moderately severe right hydronephrosis due to a distal right ureterolithiasis unchanged. Electronically Signed: Wayne Briceno MD at 17:45 EST ,
[2022-10-07] MEDS: 0.9% Normal Saline 1,000 ML 250 ML IV (15:33)
[2022-10-07] MEDS: Morphine 4 MG/ML Syringe IV (15:38)
[2022-10-07] MEDS: Ketorolac 15 MG/ML Vial IV (15:38)
[2022-10-07] MEDS: Ondansetron 4 MG/2 ML Vial IV (15:38)
--- NOTE | 2022-10-07 15:54 | EDS_ITS ---
HPI History of Present Illness Chief Complaint: Flank Pain Informant: patient Onset/Context/Timing Onset: Today Current Severity: Mild Maximum Severity: Moderate Narrative Narrative: Patient presents secondary to right flank pain. He states pain started this morning and wraps from the right lower back around into the right groin. This feels like his prior kidney stone. Patient was seen in July with a 10 mm right distal ureter stone. CT scan at that time also revealed a 3 mm stone in the lower pole of the right kidney. Patient denies nausea or vomiting but states he did have a near syncopal episode secondary to severe pain. He did take ibuprofen prior to arrival. [facility] Medical History COPD (chronic obstructive pulmonary disease) Kidney stone Schizophrenia Home Medications brexpiprazole 2 mg tablet (Rexulti) 2 mg PO DAILY 10/07/22 [History Last Taken Unknown] hydrocodone-acetaminophen 5-325mg 5mg-325mg 1 tab PO Q4H PRN PRN Pain 3 days #10 TABLETS 10/07/22 [Rx Last Taken Unknown] ibuprofen 600 mg tablet 600 mg PO Q8H PRN PRN pain #20 TABLETS 10/07/22 [Rx Last Taken Unknown] ondansetron 4 mg disintegrating tablet 4 mg PO Q8H PRN PRN Nausea #10 tabs 10/07 [Rx Last Taken Unknown] tamsulosin 0.4 mg capsule (Flomax) 0.4 mg PO DAILY #7 caps 10/07/22 [Rx Last Taken Unknown] Allergy/AdvReac Type Severity Reaction Status Date / Time No Known Allergies Allergy Verified 10/07/22 15:12 Social History household members: none Smoking Status: Current every day smoker tobacco type: cigarettes substance use type: does not use ROS ROS ED Constitutional Constitutional ED: Denies chills or fever(s) Eyes Eyes: Denies change in vision or discharge from eye(s) ENT ENT ED: Denies discharge from eye(s), rhinorrhea or sore throat Cardiovascular Cardiovascular: Denies chest pain or palpitations Respiratory/Chest Respiratory/Chest: Denies cough or dyspnea Gastrointestinal Gastrointestinal: Reports abdominal pain; Denies diarrhea, nausea or vomiting Genitourinary Genitourinary ED: Reports difficulty urinating; Denies dysuria Musculoskeletal Musculoskeletal: Reports back pain; Denies extremity pain Integumentary Denies Abrasions or rash Neurologic Neurologic: Denies headache(s) or weakness Psychiatric Psychiatric: Denies anxiety or depression Allergic/Immunologic Allergic/Immunologic ED: Denies lip swelling or urticaria EXAM Physical Exam Const Vital Signs: 10/07/22 15:11 Temperature 98.2 F Temperature Source Temporal Pulse Rate 90 Respiratory Rate 14 Blood Pressure 165/89 H Blood Pressure Mean 114 Pulse Ox 93 Oxygen Delivery Method Room Air Positive well nourished and well developed General Appearance ED: well developed HEENT Reports normocephalic and head/scalp atraumatic Eyes PERRL and EOMs intact bilaterally Neck supple Chest Wall inspection of chest normal and palpation of chest normal Resp normal respiratory effort and clear to auscultation bilaterally Cardio regular rate and regular rhythm GI GI Narrative: Mild right lower quadrant tenderness. No guarding or rebound. Palpation: soft Back/Spine General Back: CVA tenderness right Extremity normal to inspection Neuro oriented x3 and no sensory deficits noted Sensorium / Orientation: alert Motor Exam: strength 5/5 throughout Psych mental status grossly normal Skin no rashes or lesions noted MDM MDM MDM Narrative Medical decision making narrative: Patient was given morphine, Toradol, Zofran, IV fluids for pain control. Lab work obtained to evaluate for leukocytosis, anemia, electrolyte derangement, renal function. Urinalysis obtained to evaluate for infection. CT flank obtained given hypermobility of kidney stone. Lab Data Attestation: I reviewed the patient's lab results. Labs: Laboratory Results - last 24 hr 10/07/22 10/07/22 10/07/22 16:40 16:40 16:40 WBC 11.1 H RBC 5.53 Hgb 17.9 H Hct 54.1 H MCV 97.8 H MCH 32.4 H MCHC 33.1 RDW Std Deviation 45.1 H RDW Coeff of Carlene 12.4 Plt Count 242 MPV 9.6 Immature Gran % (Auto) 0.300 Neut % (Auto) 66.9 Lymph % (Auto) 22.3 [place] % (Auto) 8.3 Eos % (Auto) 1.6 Baso % (Auto) 0.6 Absolute Neuts (auto) 7.4 Absolute Lymphs (auto) 2.47 Nucleated RBC % 0 Sodium 140 Potassium 4.0 Chloride 104 Carbon Dioxide 30.0 Anion Gap 6 BUN 15 Creatinine 1.17 Estim Creat Clear Calc 74.70 Est GFR (MDRD) Af Amer 85 Est GFR (MDRD) Non-Af 70 BUN/Creatinine Ratio 12.8 Glucose 159 H Calcium 8.9 Urine Color Yellow Urine Clarity Clear Urine pH 5.0 Ur Specific [place] 1.025 Urine Protein 30 H Urine Glucose (UA) Normal Urine Ketones 5 H Urine Occult Blood 250 H Urine Nitrite Negative Urine Bilirubin Negative Urine Urobilinogen 1 H Ur Leukocyte Esterase 25 H Urine RBC 0-5 SEEN Urine WBC 0 SEEN Ur Squamous Epith Cells 0 SEEN Urine Bacteria 0 SEEN Urine Mucus 0 SEEN Radiography Diagnostic Testing: Clinical Impression(s) from Imaging Studies Abdomen/Pelvis CT 10/07/22 15:20 IMPRESSION: Moderately severe right hydronephrosis due to a distal right ureterolithiasis unchanged. Electronically Signed: Wayne Briceno MD at 17:45 EST Reading Location ID and State: [facility] / [place] , Service support , Treatment and Re-Evaluation :: On repeat evaluation patient is resting comfortably. CBC reveals a white count of 11.1 with no left shift. Hemoglobin is concentrated at 17.9. Chemistry studies reveal normal renal function. Urinalysis reveals blood but no sign of infection. CT flank reveals moderately severe right hydronephrosis due to distal right ureterolithiasis that is unchanged when compared to prior study in late July. Patient had thought he had passed the large kidney stone he had at that time, but appears unchanged in location. He still has a small renal stone noted on the right as well. With patient's pain well under control and normal renal function he will be discharged home with pain medication. He will be referred to Dr. Andrade for follow-up. Discharge Plan Triage Chief Complaint: Flank Pain ED Provider: Ana Jaquez Dx/Rx/DC Orders Clinical Impression: Kidney stone Instructions: ED Kidney Stone w/ Colic Prescriptions: New hydrocodone-acetaminophen 5-325 mg tablet 1 tab PO Q4H PRN PRN (Reason: Pain) 3 Days Qty: 10 0RF ondansetron 4 mg tablet,disintegrating 4 mg PO Q8H PRN PRN (Reason: Nausea) Qty: 10 0RF ibuprofen 600 mg tablet 600 mg PO Q8H PRN PRN (Reason: pain) Qty: 20 0RF tamsulosin [Flomax] 0.4 mg capsule 0.4 mg PO DAILY Qty: 7 0RF No Action Rexulti 2 mg tablet 2 mg PO DAILY Primary Care Provider: Care Physician,No Primary Referrals: Amair Andrade MD [Med Staff - Active Staff] - 3-5 Days Care Physician,No Primary [Primary Care Provider] - Disposition Disposition: Home, Self Care
[2022-10-07 16:47] LABS: Bacteria 0 SEEN /hpf (None Seen); Mucous, Urine 0 SEEN /hpf (<or=2+); Squamous Epithelial Cells - UA 0 SEEN /hpf (0-5); White Blood Cells 0 SEEN /hpf (0-5)
[2022-10-07 16:52] LABS: Absolute Lymphocyte Count 2.47 X10^3/uL (0.83-4.51); Absolute Neutrophil Count 7.4 X10^3/uL (2.0-7.7); Basophil# 0.07 X10^3/uL; Basophil% 0.6 % (0-1); Eosinophil# 0.18 X10^3/uL; Eosinophils% 1.6 % (0-5); Hematocrit 54.1 % (40-54); Hemoglobin 17.9 g/dL (13.0-16.5); Lymphocyte # 2.47 X10^3/ul (0.83-4.51); Lymphocyte % 22.3 % (19-41); Mean Corp Hgb Conc 33.1 g/dL (32-36); Mean Corpuscular Hgb 32.4 pg (27.0-32.0); Mean Corpuscular Volume 97.8 fL (80-94); Mean Platelet Vol. 9.6 fl (6.2-12.0); Monocyte# 0.92 X10^3/uL; Monocyte% 8.3 % (0-10); NRBC Flagged by Analyzer 0 % (0-5); Neutrophil % 66.9 % (47-70); Platelet Count 242 K/mm3 (150-450); RBC Distribution Width CV 12.4 % (11.6-14.6); RBC Distribution Width SD 45.1 fl (35.1-43.9); Red Blood Count 5.53 M/mm3 (4.6-6.2); White Blood Count 11.1 K/mm3 (4.4-11.0)
[2022-10-07 17:00] LABS: Color, Urine Yellow (Yellow); Glucose, Dipstick Normal (Normal); Ketone-Dipstick 5 mg/dl (Negative); Leukocyte Esterase-Dipstick 25 /ul (Negative); Nitrite-Dipstick Negative (Negative); Occult Blood-Urine 250 /ul (Negative); Protein-Dipstick 30 mg/dl (Negative); Specific Gravity, Urine 1.025 (1.002-1.030); Urine Bilirubin Dipstick Negative (Negative); Urine Clarity Clear (Clear); Urine Urobilinogen 1 mg/dl (Normal)
[2022-10-07 17:12] LABS: Red Blood Cells-Urine 0-5 SEEN /hpf (0-5)
[2022-10-07 17:15] LABS: Anion Gap 6 (5-15); BUN 15 mg/dL (7-18); BUN/Creat Ratio 12.8 RATIO (10-20); Calcium,Total 8.9 mg/dL (8.5-10.1); Chloride 104 mmol/L (98-107); Creatinine, Serum 1.17 mg/dL (0.70-1.30); EST Glomerular Filtration Rate 70 mL/min (>60); Est Glom Filt Rate - Afr Amer 85 mL/min (>60); Glucose 159 mg/dL (74-106); Sodium Level 140 mmol/L (136-145)
== END 2022-10-07 18:34 | disposition home or self-care (01) ==
PROVIDERS: Emergency Provider Emergency Medicine; Visit Provider Emergency Medicine
DX: N20.0 Calculus of kidney (principal); F17.210 Nicotine dependence, cigarettes, uncomplicated; Z79.899 Other long term (current) drug therapy
CPT/HCPCS: 74176; 80048; 81001; 85025; 96374; 96375; 99283; J7030; A4216; J2405

== ENCOUNTER 2022-12-11 19:37 | Emergency (ER) | payer MEDICARE, MEDICAID, SELFPAY ==
[2022-12-11 19:37] VITALS: BP 149/96; PULSE 87; RESP 15; TEMP 36.7; O2SAT 92; BMI 31.6
--- NOTE | 2022-12-11 19:55 | CT_ITS ---
EXAM: CT ABDOMEN AND PELVIS WITHOUT INTRAVENOUS CONTRAST CLINICAL INDICATION: right flank pain TECHNIQUE: Helically acquired images were obtained of the abdomen and pelvis without intravenous contrast. This CT exam was performed using one or more of the following dose reduction techniques: automated exposure control, adjustment of the mA and/or kV according to patient size, and/or use of iterative reconstruction technique. COMPARISON: 10/07/2022 FINDINGS: LOWER THORAX: Unremarkable. Lung bases are clear. No cardiomegaly. No significant pericardial effusion. ABDOMEN: LIVER: There is a slight nodularity of the liver margin which may represent early cirrhosis. GALLBLADDER AND BILE DUCTS: Unremarkable. No calcified gallstones. No gallbladder distention or wall edema. No intra- or extrahepatic biliary ductal dilation. PANCREAS: Unremarkable. No focal cystic mass. SPLEEN: Unremarkable. Normal size without focal cystic or solid mass. ADRENALS: Unremarkable. No nodules. KIDNEYS AND URETERS: There is right-sided hydronephrosis and hydroureter. There is a 9 mm stone at the right UVJ. This is unchanged from the reference exam. There is a nonobstructing calyceal stone in the right kidney. Normal renal size and position. STOMACH AND BOWEL: Unremarkable. No stomach or bowel distention. No focal inflammatory change. PELVIS: APPENDIX: No evidence of acute appendicitis. BLADDER: Unremarkable. REPRODUCTIVE: Unremarkable as visualized. No mass. ABDOMEN and PELVIS: INTRAPERITONEAL SPACE: Unremarkable. No ascites or other fluid collection. No free air. BONES/JOINTS: Unremarkable. No suspicious lytic or blastic abnormality. SOFT TISSUES: Unremarkable. No discrete abdominal or pelvic wall hernia. VASCULATURE: Unremarkable. Abdominal aorta is non-dilated. LYMPH NODES: Unremarkable. No enlarged lymph nodes. CT/Abdomen/Pelvis without Cont IMPRESSION: Obstruction right collecting system due to a 9 mm stone at the right UVJ. There is moderate to severe right-sided hydronephrosis and hydroureter. Electronically Signed: Rocky Monaco MD at 20:41 EDT ,
--- NOTE | 2022-12-11 19:56 | EX.ED.DYSGE1 ---
HPI History of Present Illness Chief Complaint: Flank Pain Detail of Chief Complaint: Flank pain Informant: patient Narrative Narrative: Patient presents with right-sided flank pain that started this morning around 10 AM. Pain came on rather suddenly. Patient has had 2 other kidney stone since July 2022. Patient thinks he is passing a kidney stone. He describes decreased urine output. He denies hematuria or frequency. He had nausea but no vomiting. Pain was a 10 out of 10 but after taking some Advil now rates it about an 8 out of 10. Patient denies any fevers. Prior similar symptoms: Yes PFSH PFSH Medical History COPD (chronic obstructive pulmonary disease) Kidney stone Schizophrenia Home Medications brexpiprazole 2 mg tablet (Rexulti) 2 mg PO DAILY 10/07/22 [History Last Taken Unknown] hydrocodone-acetaminophen 5-325mg 5mg-325mg 1 tab PO Q4H PRN PRN Pain 3 days #10 TABLETS 10/07/22 [Rx Last Taken Unknown] ibuprofen 600 mg tablet 600 mg PO Q8H PRN PRN pain #20 TABLETS 10/07/22 [Rx Last Taken Unknown] ondansetron 4 mg disintegrating tablet 4 mg PO Q8H PRN PRN Nausea #10 tabs 10/07/22 [Rx Last Taken Unknown] tamsulosin 0.4 mg capsule (Flomax) 0.4 mg PO DAILY #7 caps 10/07/22 [Rx Last Taken Unknown] hydrocodone-acetaminophen 5-325mg 5mg-325mg 1 tab PO Q4H PRN PRN Pain 3 days #15 TABLETS 12/11/22 [Rx Last Taken Unknown] ondansetron 4 mg disintegrating tablet 4 mg PO Q8H PRN PRN Nausea #10 tabs 12/11/22 [Rx Last Taken Unknown] Allergy/AdvReac Type Severity Reaction Status Date / Time No Known Allergies Allergy Verified 12/11/22 19:40 Social History household members: none Smoking Status: Current every day smoker tobacco type: cigarettes substance use type: does not use ROS ROS ED Review of Systems ROS Unobtainable: other Constitutional Constitutional ED: Reports lethargy; Denies chills, fever(s), sweats or weight loss Eyes Eyes: Denies blurry vision, change in vision or diplopia ENT ENT ED: Denies rhinorrhea or sore throat Cardiovascular Cardiovascular: Denies chest pain, orthopnea or racing heartbeat Respiratory/Chest Respiratory/Chest: Denies cough, dyspnea, dyspnea on exertion, orthopnea or sputum Gastrointestinal Gastrointestinal: Denies abdominal pain, diarrhea, nausea or vomiting Genitourinary Genitourinary ED: Denies dysuria, hematuria or urinary frequency Musculoskeletal Musculoskeletal: Reports back pain; Denies arthralgias, myalgias or neck pain Integumentary Denies abscess, Abrasions or rash Neurologic Neurologic: Denies headache(s) or weakness Psychiatric Psychiatric: Denies anxiety, depression or suicidal thoughts Endocrine Endocrinology: Denies polydipsia, polyphagia or polyuria Hematologic/Lymphatic Hematologic/Lymphatic: Denies easy bleeding, easy bruising or lymphadenopathy Allergic/Immunologic Allergic/Immunologic ED: Denies mouth swelling, tongue swelling or urticaria EXAM Physical Exam Const Vital Signs: 12/11/22 19:37 12/11/22 19:55 12/11/22 21:37 Temperature 98.1 F Temperature Source Temporal Pulse Rate 87 74 Respiratory Rate 15 18 Respiratory Effort Normal Non-Labored Respiratory Pattern Normal Blood Pressure 149/96 H Blood Pressure Mean 113 Pulse Ox 92 94 Oxygen Delivery Method Room Air Room Air Positive well nourished and well developed General Appearance ED: well developed and NAD HEENT Reports TM's clear and moist mucous membranes normocephalic and atraumatic; Negative for trauma or tenderness Tympanic Membrane ED: Yes TM's clear Eyes PERRL and EOMs intact bilaterally General Eye ED: Negative for pale conjunctiva or scleral icterus Neck no lymphadenopathy, supple and no JVD General: Negative for tenderness Chest Wall inspection of chest normal and palpation of chest normal Chest: Negative for tenderness Resp normal respiratory effort and clear to auscultation bilaterally Effort and Inspection: Negative for respiratory distress or pain with movement Auscultation: Negative for rhonchi, wheezes or diminished lung sounds Cardio regular rate, regular rhythm, S1 normal heart sound, S2 normal heart sound and no murmurs Peripheral Pulses: pulses 2+ throughout GI normal to inspection, nondistended, normoactive bowel sounds, soft to palpation, non-tender, non-distended and no masses Back/Spine no thoracic nor lumbar tenderness Back/Spine Narrative: Mild CVA tenderness on the right. Extremity normal to inspection General Extremety ED: Negative for edema General Extremity: Negative for edema Neuro oriented x3, CN's II-XII intact bilaterally, no sensory deficits noted and gait normal Sensorium / Orientation: awake, alert, oriented to person, oriented to place and oriented to time Motor Exam: strength 5/5 throughout and strength abnormal Psych mental status grossly normal Skin no rashes or lesions noted and no wounds MDM MDM MDM Narrative Medical decision making narrative: Patient presents with right flank pain suspicious for urolithiasis with history of urolithiasis. IV line was established. Patient was medicated with morphine and Zofran and Toradol and he had some pain relief with that however he continued to develop worsening pain and was medicated with Dilaudid 1 mg IV. Patient had a CBC with differential that showed an elevated white count of 12.78 with a hemoglobin of 18 and a hematocrit of 53.6. Platelets were 234. Chemistries were normal. Urinalysis showed 0-5 RBCs and +4 bacteria but negative for nitrites or leukocyte esterase. CT flank obtained showed a 9 mm stone at the right UVJ with hydroureter and hydronephrosis. Patient would like to try to go home to try to pass the stone as he has passed 10 mm stones in the past. He will receive a prescription for [place] and Zofran. I did discuss case with urologist on-call who would be happy to follow-up patient in the office in follow-up. Patient advised to return if worsening pain, fever, vomiting, or condition worsen anyway. Lab Data Attestation: I reviewed the patient's lab results. Labs: Laboratory Results - last 24 hr 12/11/22 12/11/22 12/11/22 20:10 20:10 20:13 WBC 12.7 H RBC 5.58 Hgb 18.1 H* Hct 53.6 MCV 96.1 H MCH 32.4 H MCHC 33.8 RDW Std Deviation 43.6 RDW Coeff of Carlene 12.2 Plt Count 234 MPV 8.6 Immature Gran % (Auto) 0.400 Neut % (Auto) 76.2 H Lymph % (Auto) 15.1 L Smyth % (Auto) 7.2 Eos % (Auto) 0.5 Baso % (Auto) 0.6 Absolute Neuts (auto) 9.7 H Absolute Lymphs (auto) 1.91 Nucleated RBC % 0 Sodium 137 Potassium 4.5 Chloride 103 Carbon Dioxide 26.0 Anion Gap 8 BUN 17 Creatinine 1.20 Estim Creat Clear Calc 74.46 Est GFR (MDRD) Af Amer 83 Est GFR (MDRD) Non-Af 68 BUN/Creatinine Ratio 14.2 Glucose 108 H Calcium 8.7 Urine Color Yellow Urine Clarity Turbid Urine pH 5.0 Ur Specific Sterling 1.020 Urine Protein 30 H Urine Glucose (UA) Normal Urine Ketones 5 H Urine Occult Blood 150 H Urine Nitrite Negative Urine Bilirubin Negative Urine Urobilinogen 1 H Ur Leukocyte Esterase 25 H Urine RBC 0-5 SEEN Urine WBC 0 SEEN Ur Squamous Epith Cells 0 SEEN Urine Bacteria 4+ Urine Mucus 0 SEEN Radiography Diagnostic Testing: Clinical Impression(s) from Imaging Studies Abdomen/Pelvis CT 12/11/22 19:55 IMPRESSION: Obstruction right collecting system due to a 9 mm stone at the right UVJ. There is moderate to severe right-sided hydronephrosis and hydroureter. Electronically Signed: Rocky Monaco MD at 20:41 EDT , Discharge Plan Triage Chief Complaint: Flank Pain ED Provider: Yoon Presley Dx/Rx/DC Orders Clinical Impression: Urolithiasis Instructions: ED Kidney Stone w/ Colic Prescriptions: New hydrocodone-acetaminophen [hydrocodone-acetaminophen] 5-325 mg tablet 1 tab PO Q4H PRN PRN (Reason: Pain) 3 Days Qty: 15 0RF ondansetron [ondansetron] 4 mg tablet,disintegrating 4 mg PO Q8H PRN PRN (Reason: Nausea) Qty: 10 0RF No Action Rexulti 2 mg tablet 2 mg PO DAILY hydrocodone-acetaminophen 5-325 mg tablet 1 tab PO Q4H PRN PRN (Reason: Pain) 3 Days Qty: 10 0RF ondansetron 4 mg tablet,disintegrating 4 mg PO Q8H PRN PRN (Reason: Nausea) Qty: 10 0RF ibuprofen 600 mg tablet 600 mg PO Q8H PRN PRN (Reason: pain) Qty: 20 0RF tamsulosin [Flomax] 0.4 mg capsule 0.4 mg PO DAILY Qty: 7 0RF Primary Care Provider: Care Physician,No Primary Referrals: Amari Andrade MD [Med Staff - Active Staff] - 1-2 Days if not improving Care Physician,No Primary [Primary Care Provider] - Disposition Disposition: Home, Self Care
[2022-12-11] MEDS: Ondansetron 4 MG/2 ML Vial IV (20:08)
[2022-12-11] MEDS: Ketorolac 15 MG/ML Vial IV (20:09)
[2022-12-11] MEDS: Morphine 4 MG/ML Syringe IV (20:10)
[2022-12-11] MEDS: 0.9% Normal Saline 1,000 ML 150 ML IV (20:11)
[2022-12-11 20:16] LABS: Absolute Lymphocyte Count 1.91 X10^3/uL (0.83-4.51); Absolute Neutrophil Count 9.7 X10^3/uL (2.0-7.7); Basophil# 0.08 X10^3/uL; Basophil% 0.6 % (0-1); Eosinophil# 0.06 X10^3/uL; Eosinophils% 0.5 % (0-5); Hematocrit 53.6 % (40-54); Lymphocyte # 1.91 X10^3/ul (0.83-4.51); Lymphocyte % 15.1 % (19-41); Mean Corp Hgb Conc 33.8 g/dL (32-36); Mean Corpuscular Hgb 32.4 pg (27.0-32.0); Mean Corpuscular Volume 96.1 fL (80-94); Mean Platelet Vol. 8.6 fl (6.2-12.0); Monocyte# 0.91 X10^3/uL; Monocyte% 7.2 % (0-10); NRBC Flagged by Analyzer 0 % (0-5); Neutrophil # 9.68 X10^3/uL (2.7-7.7); Neutrophil % 76.2 % (47-70); Platelet Count 234 K/mm3 (150-450); RBC Distribution Width CV 12.2 % (11.6-14.6); RBC Distribution Width SD 43.6 fl (35.1-43.9); Red Blood Count 5.58 M/mm3 (4.6-6.2); White Blood Count 12.7 K/mm3 (4.4-11.0)
[2022-12-11 20:19] LABS: Mucous, Urine 0 SEEN /hpf (<or=2+); Squamous Epithelial Cells - UA 0 SEEN /hpf (0-5); White Blood Cells 0 SEEN /hpf (0-5)
[2022-12-11 20:20] LABS: Hemoglobin 18.1 g/dL (13.0-16.5)
[2022-12-11 20:21] LABS: Color, Urine Yellow (Yellow); Glucose, Dipstick Normal (Normal); Ketone-Dipstick 5 mg/dl (Negative); Leukocyte Esterase-Dipstick 25 /ul (Negative); Nitrite-Dipstick Negative (Negative); Occult Blood-Urine 150 /ul (Negative); Protein-Dipstick 30 mg/dl (Negative); Urine Bilirubin Dipstick Negative (Negative); Urine Clarity Turbid (Clear); Urine Urobilinogen 1 mg/dl (Normal)
[2022-12-11 20:35] LABS: Anion Gap 8 (5-15); BUN 17 mg/dL (7-18); BUN/Creat Ratio 14.2 RATIO (10-20); Calcium,Total 8.7 mg/dL (8.5-10.1); Chloride 103 mmol/L (98-107); EST Glomerular Filtration Rate 68 mL/min (>60); Est Glom Filt Rate - Afr Amer 83 mL/min (>60); Estimated Creatinine Clearance 74.46 ml/min; Glucose 108 mg/dL (74-106); Potassium 4.5 mmol/L (3.5-5.1); Sodium Level 137 mmol/L (136-145)
[2022-12-11 20:37] LABS: Bacteria 4+ /hpf (None Seen); Red Blood Cells-Urine 0-5 SEEN /hpf (0-5)
[2022-12-11 21:37] VITALS: PULSE 74; RESP 18; O2SAT 94
[2022-12-11] MEDS: HYDROmorphone 1 MG/ML Syringe IV (21:45)
== END 2022-12-11 22:23 | disposition home or self-care (01) ==
PROVIDERS: Emergency Provider Emergency Medicine; Visit Provider Emergency Medicine
DX: N13.2 Hydronephrosis with renal and ureteral calculous obstruction (principal); F17.210 Nicotine dependence, cigarettes, uncomplicated
CPT/HCPCS: 74176; 80048; 81001; 85025; 96374; 96375; 99283; J7030; A4216; J2405

== ENCOUNTER → 2023-07-31 | Outpatient (CLI) | payer MEDICARE, MEDICAID, SELFPAY ==
--- OUTSIDE RECORDS SUMMARY | 2023-07-31 08:35 | XMS RPT_ITS | CCD ---
Author Name Unknown Address [address] [place] [address] Organization [facility] Care Team Providers Care Lens Cutter Name Role Phone Unavailable Primary Care Provider Unavailcamila e José Miguel Joe MD Unavailable [phone] JOSÉ MIGUEL JOE Attending Unavailable Medications Current Medications Medication Drug Class(es) Dates Sig (Normalized) Sig (Original) brexpiprazole 2 mg oral tablet (3 sources) Atypical Antipsychotic Start: 01-02-2023 Rexulti 2 MG tablet Completed/Discontinued Medications Medication Drug Class(es) Dates Sig (Normalized) Sig (Original) doxycycline monohydrate 100 mg oral tablet (1 source) Tetracycline-clas s Drug Start: 01-24-2020 take 1 tablet by mouth twice daily doxycycline monohydrate 100 mg tablet Take 1 tablet by mouth twice daily. 20 tablet 0 01/24/2020 Active Problems Problem Classification Problem Date Documented Date Episodic/Chronic Calculus of urinary tract (4 sources) Kidney stone; Translations: [Calculus of kidney] Onset: 01-10-2023 01-10-2023 Episodic Headache; including migraine (1 source) Headache; Translations: [Headache, unspecified headache type] Episodic Hepatitis (1 source) Nonalcoholic steatohepatitis; Translations: [Nonalcoholic steatohepatitis (KEITH)] Onset: 05-22-2019 05-22-2019 Chronic Other eye disorders (1 source) Disorder of eye; Translations: [Unspecified disorder of eye and adnexa] Episodic Schizophrenia and other psychotic disorders (1 source) Schizoaffective disorder; Translations: [Schizoaffective disorder, unspecified] Onset: 05-19-2019 05-19-2019 Chronic Results Test Name Value Interpretation Reference Range Facil ity Vital Signs Date Time Vital Sign Value Performing Clinician Katelynn jensen 01-10-2023 10:07-0400 Body height 175.3 cm José Miguel Joe MD Work Phone: [facility] 3sun 01-10-2023 10:07-0400 Body mass index (BMI) [Ratio] 31.9 kg/m2 José Miguel Joe MD Work Phone: [facility] 01-10-2023 10:07-0400 Body weight 97.98 kg José Miguel Joe MD Work Phone: [facility] 01-10-2023 10:07-0400 Diastolic blood pressure 79 mm[Hg] José Miguel Joe MD Work Phone: [facility] 01-10-2023 10:07-0400 Heart rate 84 /min José Miguel Joe MD Work Phone: [facility] 01-10-2023 10:07-0400 Systolic blood pressure 143 mm[Hg] José Miguel Joe MD Work Phone: [facility] 05-02-2022 19:28-0400 Body temperature 98.91 [degF] Akua Matilda [employer]ARN[employer] SUPPORT TEACHER.REPAIRER PUMP Work Phone: [facility] 05-02-2022 19:28-0400 Body weight 99.7 kg Akua Matilda [employer] LEARNING SUPPORT TEACHER.REPAIRER PUMP Work Phone: [facility] 05-02-2022 19:28-0400 Diastolic blood pressure 80 mm[Hg] Akua Matilda [employer] LEARNING SUPPORT TEACHER.REPAIRER PUMP Work Phone: [facility] 05-02-2022 19:28-0400 Heart rate 84 /min Akua Matilda [employer] LEARNING SUPPORT TEACHER.REPAIRER PUMP Work Phone: [facility] 05-02-2022 19:28-0400 Respiratory rate 16 /min Akua Matilda [employer]CHO[employer] LEARNING SUPPORT TEACHER.REPAIRER PUMP Work Phone: [facility] 05-02-2022 19:28-0400 SaO2% (BldA) [Mass fraction] 96 % Akua Matilda [employer] LEARNING SUPPORT TEACHER.REPAIRER PUMP Work Phone: [facility] 05-02-2022 19:28-0400 Systolic blood pressure 142 mm[Hg] Akua Matilda [employer] LEARNING SUPPORT TEACHER.REPAIRER PUMP Work Phone: [facility] Encounters Encounter Date Encounter Type Care Provider Facility Start: 01-10-2023 End: 01-10-2023 ambulatory JOSÉ MIGUEL JOE [facility] Start: 01-10-2023 End: 01-10-2023 Office outpatient new 30 minutes José Miguel Joe MD Work Phone: [facility] Urology Plan of Treatment Date Care Activity Detail Author Start: 02-19-2024 LIPID SCREEN LIPID SCREEN [facility] Start: 10-17-2023 Zoster Vaccines (1 of 2) Zoste r Vaccines (1 of 2) [facility] Start: 04-04-2023 Influenza vaccination Influenz a Vaccine (Season Ended) [facility] Start: 01-10-2023 End: 01-11-2024 Calcium, Urine Calcium, Urine Lab Routine Calculus, kidney Expected: 01/10/2023 (Approximate), Expires: 01/11/2024 [facility] Work Phone: Payers Date Payer Category Payer Medicare [id number] 2021 Medicare [id number] 2016 Medicaid [place] [id number] 2016-Present [phone] [address] [place] [address] Medicaid [id number] 2016 Medicaid [id number] Social History Date Type Detail Facility Start: [facility]02[facility]22 [facility] Start: 05-02-2022 Tobacco use and exposure Smokeless t obacco non-user [facility] Start: 05-02-2022 Alcohol intake Current drinke r of alcohol (finding) [facility] Start: 05-19-2019 History SDOH Alcohol Comment may have 2 shots of a liquor once a month or even less often. [facility] Start: 1975 Sex Assigned At Not on file [facility] consumption unknown [facility] Gender identity Not on file [facility] Start: 12-31-2022 End: 01-10-2023 Exposure to SARS-CoV-2 (event) Not sure [facility] History of Present illness Narrative 01-10-2023 José Miguel Joe MD - 01/10/2023 10:00 AM Nadya Epps - 01/10/2023 10:00 AM Nadya Epps - 01/10/2023 10:00 AM EDT Note Date & Type Note Facility 01-10-2023 History of Presen t illness Narrative Images from the original note were not included. José Miguel Joe MD 01/10/2023 at 3:54 PM UROLOGY INITIAL OFFICE VISIT Based on review of the 2020 CPT Evaluation and Management Guidelines, I have assigned what I feel to be the correct level of service based on the following : A medically appropriate history was obtained (this may or may not have included review of information obtained from the patient by other personnel). A medically appropriate physical examination was performed. Medical decision-making was performed concerning the diagnoses that were assessed, the clinical data that was reviewed (both in volume & complexity), and risk of morbidity of the conditions treated and therapies proposed. José Miguel Joe M.D. PATIENT NAME: Karl Ramsey DATE OF : 1975 TODAY'S DATE: 01/10/2023 Chief Complaint: Chief Complaint Patient presents with New Patient Hx Kidney stones, Pt states they passed stones in July, October and December, Pt currently asymptomatic HISTORY OF PRESENT ILLNESS: Mr. Ramsey is a 47 y.o. male who presents with renal calculi. He was seen at [facility]. Pain gone now. REVIEW OF SYSTEMS: Review of Systems Past Medical History: No past medical history on file. PastSurgical History: No past surgical history on file. CurrentMedications: Prior to Admission medications Medication Sig Start Date End Date Taking? Authorizing Provider ibuprofen 600 MG tablet Take 1 tablet by mouth every 8 hours as needed. 10/07/22 Yes Historical Provider, Rexulti 2 MG tablet 01/02/23 Yes Historical Provider, Allergies: Patient has no known allergies. Social History: Social History Socioeconomic History Marital status: Single Spouse name: Not on file Number of children: Not on file Years of education: Not on file Highest education level: Not on file Occupational History Not on file Tobacco Use Smoking status: Not on file Smokeless tobacco: Not on file Substance and Sexual Activity Alcohol use: Not on file Drug use: Not on file Sexual activity: Not on file Other Topics Concern Not on file Social History Narrative Not on file Social Determinants of Health Financial Resource Strain: Not on file Food Insecurity: Not on file Transportation Needs: Not on file Physical Activity: Not on file Stress: Not on file Social Connections: Not on file Intimate Partner Violence: Not on file Housing Stability: Not on file Family History: No family history on file. PHYSICAL EXAM: VITALS: BP (!) 143/79 Pulse 84 Ht 5' 9 (1.753 m) Wt 216 lb (98 kg) BMI 31.90 kg/m Physical Exam Constitutional: Appearance: Normal appearance. HENT: Head: Normocephalic and atraumatic. Eyes: Extraocular Movements: Extraocular movements intact. Pulmonary: Effort: Pulmonary effort is normal. Musculoskeletal: General: Normal range of motion. Cervical back: Normal range of motion. Neurological: General: No focal deficit present. Mental Status: He is alert and oriented to person, place, and time. Psychiatric: Mood and Affect: Mood normal. Behavior: Behavior normal. Thought Content: Thought content normal. Judgment: Judgment normal. DATA: Radiology Review: Impression/Plan Karl was seen today for new patient. Diagnoses and all orders for this visit: Calculus, kidney (Primary) - Calcium, Urine; Future - Citric Acid, Urine; Future - Creatinine, urine, 24 hour; Future - Oxalate, urine, 24 hour; Future - Sodium, urine, 24 hour; Future - Uric acid, urine, 24 hour; Future Follow up if symptoms worsen or fail to improve. We will get 24 hr. Urine collections We will try to get the CT report from [facility] Check KUB to see if stones are visible - could possibly do ESWL if so The patient should : Increase oral fluid intake, especially in warmer weather or when physically active Drink lemonade daily (made out of real tana or real lemon juice) Try to make at least 2 quarts of urine per day Reduce salt intake and processed foods Reduce intake of animal protein, while increasing protein intake via other sources José Miguel Joe MD 01/10/23 3:54 PM Faxed record release 01-10-23, 2nd attempt 01-15-23 After multiple faxed requests, CT added to media documented in this encounter [facility] Progress note 05-02-2022 Note Date & Type Note Facility 05-02-2022 Note HNO ID: [id number] Author: Akua Grey APRN.REPAIRER PUMP Service: ? Author Type: Nurse Practitioner Type: Progress Notes Filed: 05/02/2022 7:38 PM Note Text: Triage Note: Patient presented to [facility] with sever headache and pain behind right eye. He denies any blurred vision, loss of vision, or sinus drainage or pressure. He has not been ill in the past month. He has recently been treated by an urgent care for a dental infection, he has not seen a dentist, and is still having a lot of dental pain. BP 142/80 Pulse 84 Temp 37.2 ?C (98.9 ?F) (Tympanic) Resp 16 Wt 99.7 kg (219 lb 12.8 oz) SpO2 96% Due to severity of pain and location and recent dental infection, referred to ED for further imaging and treatment. ASSESSMENT/PLAN: 1. Headache, unspecified headache type - ICD9: 784.0, ICD10: R51.9 (primary diagnosis) 2. Eye pressure - ICD9: 379.99, ICD10: H57.9 Due to nature of patient's complaint and lack of investigative tools available at [facility], and pain out of proportion for sinusitis, recommend patient be seen at nearest ED for further work up. Patient will go to [facility] ED Diagnosis and treatment plan were discussed and questions were answered to the patient's satisfaction. Pt acknowledged understanding of concepts and follow up plan. Specific signs and symptoms that would indicate the need for higher level of care were discussed in detail warranting prompt ER evaluation. Akua Grey APRN.REPAIRER PUMP [facility] History of Present illness Narrative 05-02-2022 Akua Grey APRN.CNP - 05/02/2022 7:34 PM EDT Note Date & Type Note Facility 05-02-2022 History of Presen t illness Narrative Triage Note: Patient presented to [facility] with sever headache and pain behind right eye. He denies any blurred vision, loss of vision, or sinus drainage or pressure. He has not been ill in the past month. He has recently been treated by an urgent care for a dental infection, he has not seen a dentist, and is still having a lot of dental pain. BP 142/80 Pulse 84 Temp 37.2 C (98.9 F) (Tympanic) Resp 16 Wt 99.7 kg (219 lb 12.8 oz) SpO2 96% Due to severity of pain and location and recent dental infection, referred to ED for further imaging and treatment. ASSESSMENT/PLAN: 1. Headache, unspecified headache type - ICD9: 784.0, ICD10: R51.9 (primary diagnosis) 2. Eye pressure - ICD9: 379.99, ICD10: H57.9 Due to nature of patient's complaint and lack of investigative tools available at [facility], and pain out of proportion for sinusitis, recommend patient be seen at nearest ED for further work up. Patient will go to [facility] ED Diagnosis and treatment plan were discussed and questions were answered to the patient's satisfaction. Pt acknowledged understanding of concepts and follow up plan. Specific signs and symptoms that would indicate the need for higher level of care were discussed in detail warranting prompt ER evaluation. Akua Grey APRN.CNP documented in this encounter [facility] Evaluation note Note Date & Type Note Facility documented in this encounter [facility] Evaluation note Note Date & Type Note Facility documented in this encounter [facility] Summary Purpose Family History No Family History Records FoundNo Family History Records Found Advance Directives No Advanced Directives Records FoundNo Advanced Directives Records Found Additional Source Comments Source Comments (unrecognize d section and content) In the event this informatio n is protected by the Federal Confidentiality of Alcohol and Drug Abuse Patient Records regulations: The Federal rules restrict any use of the information to criminally investigate or prosecute any alcohol or drug abuse patient.[facility] Reason for Visit (unrecogniz ed section and content) Reason Comments New Patient Hx Kidney stones, Pt states they passed stones in July, and December, Pt currently asymptomatic (unrecognized sect ion and content) No Status Records FoundNo Status Records Found INFORMATION SOURCE (unrecogn ized section and content) DATE CREATED AUTHOR AUTHOR'S ORGANIZ ATION 01/28/2023 [facility] Care Teams (unrecognized sec tion and content) FOR RECORDS PERTAINING TO PATIENTS WHO ARE OR HAVE BEEN ENROLLED IN A CHEMICAL DEPENDENCY/SUBSTANCEABUSE PROGRAM, SOME INFORMATION MAY BE OMITTED. This clinical summary was aggregated from multiple sources. Caution should be exercised in using it in the provision of clinical care. This summary normalizes information from multiple sources, and as a consequence, information in this document may materially change the coding, format and clinical context of patient data. In addition, data may be omitted in some cases. CLINICAL DECISIONS SHOULD BE BASED ON THE PRIMARY CLINICAL RECORDS. [facility]. provides no warranty or guarantee of the accuracy or completeness of information in this document.
[2023-07-31 08:48] LABS: Absolute Lymphocyte Count 2.91 X10^3/uL (0.83-4.51); Basophil# 0.11 X10^3/uL; Basophil% 1.1 % (0-1); Eosinophil# 0.24 X10^3/uL; Eosinophils% 2.3 % (0-5); Hematocrit 50.4 % (40-54); Hemoglobin 16.3 g/dL (13.0-16.5); Lymphocyte # 2.91 X10^3/ul (0.83-4.51); Lymphocyte % 28.5 % (19-41); Mean Corp Hgb Conc 32.3 g/dL (32-36); Mean Platelet Vol. 8.7 fl (6.2-12.0); Monocyte# 0.94 X10^3/uL; Monocyte% 9.2 % (0-10); NRBC Flagged by Analyzer 0 % (0-5); Neutrophil # 5.95 X10^3/uL (2.7-7.7); Neutrophil % 58.2 % (47-70); Platelet Count 248 K/mm3 (150-450); RBC Distribution Width CV 12.6 % (11.6-14.6); Red Blood Count 5.09 M/mm3 (4.6-6.2); White Blood Count 10.2 K/mm3 (4.4-11.0)
[2023-07-31 09:11] LABS: Vitamin D,25 Hydroxy 13.1 ng/mL
[2023-07-31 09:16] LABS: ALB/GLOB Ratio 0.7 RATIO (0.9-2.4); AST(SGOT) 70 U/L (15-37); Alanine Aminotransfer ALT/SGPT 119 U/L (16-61); Albumin, Serum 3.3 g/dL (3.2-5.0); Alkaline Phosphatase 100 U/L (45-117); Anion Gap 5 (5-15); BUN 11 mg/dL (7-18); BUN/Creat Ratio 12.8 RATIO (10-20); Calcium,Total 8.6 mg/dL (8.5-10.1); Chloride 105 mmol/L (98-107); Cholesterol 192 mg/dL (200); Creatinine, Serum 0.86 mg/dL (0.70-1.30); EST Glomerular Filtration Rate 100 mL/min (>60); Est Glom Filt Rate - Afr Amer 121 mL/min (>60); Free T3 3.1 pg/mL (2.18-3.98); Globulin 4.6 g/dL (2.2-4.2); Glucose 96 mg/dL (74-106); High Density Lipoprotein 32 mg/dL; Potassium 3.8 mmol/L (3.5-5.1); Prolactin 9.7 ng/mL; Protein, Total 7.9 g/dL (6.4-8.2); Sodium Level 140 mmol/L (136-145); T4 Free Direct 0.93 ng/dL (0.76-1.46); Thyroid Stim Hormone (TSH) 3.31 uIU/mL (0.358-3.74); Triglycerides 210 mg/dL; Very Low Density Lipoprotein 42 mg/dL (5-40)
== END | disposition home or self-care (01) ==
LOC: LAB 08:32
PROVIDERS: Referring Provider Registered Nurse; Visit Provider Registered Nurse
DX: F25.9 Schizoaffective disorder, unspecified (principal); F19.10 Other psychoactive substance abuse, uncomplicated; R53.83 Other fatigue; E55.9 Vitamin D deficiency, unspecified; Z79.899 Other long term (current) drug therapy
CPT/HCPCS: 36415; 80053; 80061; 82140; 82306; 84146; 84439; 84443; 84481; 85025

== ENCOUNTER 2023-08-03 11:18 | Emergency (ER) | payer MEDICARE, MEDICAID, SELFPAY ==
[2023-08-03 11:19] VITALS: BP 175/94; PULSE 94; RESP 16; TEMP 36.9; O2SAT 94; BMI 34.6
--- NOTE | 2023-08-03 11:32 | EDS_ITS ---
HPI History of Present Illness Chief Complaint: Cold Sx Informant: patient Narrative Narrative: Patient presents with 1 week history of cold symptoms. He reports sore throat and some sinus congestion, worse around the right frontal and maxillary area. He does not believe he has had fever. He has had a mild cough. He also complains of tenderness over the right breast area and thinks it is slightly swollen. He does not remember striking the area or any injury. [facility] Medical History COPD (chronic obstructive pulmonary disease) Kidney stone Schizophrenia Home Medications brexpiprazole 2 mg tablet (Rexulti) 2 mg PO DAILY 10/07/22 [History Last Taken Unknown] hydrocodone-acetaminophen 5-325mg 5mg-325mg 1 tab PO Q4H PRN PRN Pain 3 days #10 TABLETS 10/07/22 [Rx Last Taken Unknown] ibuprofen 600 mg tablet 600 mg PO Q8H PRN PRN pain #20 TABLETS 10/07/22 [Rx Last Taken Unknown] ondansetron 4 mg disintegrating tablet 4 mg PO Q8H PRN PRN Nausea #10 tabs 10/07/22 [Rx Last Taken Unknown] tamsulosin 0.4 mg capsule (Flomax) 0.4 mg PO DAILY #7 caps 10/07/22 [Rx Last Taken Unknown] hydrocodone-acetaminophen 5-325mg 5mg-325mg 1 tab PO Q4H PRN PRN Pain 3 days #15 TABLETS 12/11/22 [Rx Last Taken Unknown] ondansetron 4 mg disintegrating tablet 4 mg PO Q8H PRN PRN Nausea #10 tabs 12/11/22 [Rx Last Taken Unknown] amoxicillin 875 mg-potassium clavulanate 125 mg tablet 1 tab PO BID #20 tabs 08/03/23 [Rx Last Taken Unknown] Allergy/AdvReac Type Severity Reaction Status Date / Time No Known Allergies Allergy Verified 08/03/23 11:19 Social History household members: none Smoking Status: Current every day smoker tobacco type: cigarettes substance use type: does not use ROS ROS ED Constitutional Constitutional ED: Denies chills or fever(s) Eyes Eyes: Denies change in vision or discharge from eye(s) ENT ENT ED: Reports sore throat and other Details: Sinus pressure ; Denies discharge from eye(s) or rhinorrhea Cardiovascular Cardiovascular: Reports chest pain; Denies palpitations Respiratory/Chest Respiratory/Chest: Reports cough; Denies dyspnea Gastrointestinal Gastrointestinal: Denies abdominal pain, nausea or vomiting Genitourinary Genitourinary ED: Denies dysuria Musculoskeletal Musculoskeletal: Denies back pain or extremity pain Integumentary Denies Abrasions or rash Neurologic Neurologic: Denies headache(s) or weakness Psychiatric Psychiatric: Denies anxiety or depression Allergic/Immunologic Allergic/Immunologic ED: Denies lip swelling or urticaria EXAM Physical Exam Const Vital Signs: 08/03/23 11:19 08/03/23 11:21 Temperature 98.4 F Temperature Source Oral Pulse Rate 94 Respiratory Rate 16 Respiratory Effort Normal Respiratory Pattern Irregular Blood Pressure 175/94 H Blood Pressure Mean 121 Pulse Ox 94 Oxygen Delivery Method Room Air Positive well nourished and well developed General Appearance ED: well developed HEENT Reports moist mucous membranes HEENT Narrative: Posterior pharynx examination reveals uvula midline. Tonsils 3+ bilaterally and symmetric. No exudate noted. Eyes EOMs intact bilaterally Chest Wall inspection of chest normal Chest Narrative: Mild right breast tenderness around the areola. No palpable masses. No erythema or sign of infection. No discharge from the nipple. Resp normal respiratory effort Resp Narrative: Minimal expiratory wheezes at the bases. GI non-tender Palpation: soft Extremity normal to inspection Neuro oriented x3 and no sensory deficits noted Motor Exam: strength 5/5 throughout Psych mental status grossly normal Skin no rashes or lesions noted MDM MDM MDM Narrative Medical decision making narrative: Rapid strep obtained. 2 view chest x-ray obtained to evaluate for lung pathology as well as soft tissue pathology. Radiography Diagnostic Testing: Clinical Impression(s) from Imaging Studies Chest X-Ray 08/03/23 11:40 IMPRESSION: No acute cardiopulmonary disease. Electronically Signed: Baron De La Cruz MD at 12:00 EST , Treatment and Re-Evaluation :: 2 view chest x-ray per my interpretation reveals chronic changes with no focal infiltrate. No obvious masses in the soft tissue noted. Rapid strep returns negative. Patient has had a week of significant pressure to the right maxillary and right frontal sinus. I will cover him with a course of Augmentin for sinusitis. I did recommend that he follow-up with his PCP for potential ultrasound of the right breast as men can develop breast cancer. He voices understanding and agreement. He understands that I was not able to rule this out at today's visit. Discharge Plan Triage Chief Complaint: Cold Sx ED Provider: Ana Jaquez Dx/Rx/DC Orders Clinical Impression: Acute sinusitis Instructions: ED Sinusitis (Antibiotic Treatment) Prescriptions: New amoxicillin-pot clavulanate 875-125 mg tablet 1 tab PO BID Qty: 20 0RF No Action Rexulti 2 mg tablet 2 mg PO DAILY hydrocodone-acetaminophen 5-325 mg tablet 1 tab PO Q4H PRN PRN (Reason: Pain) 3 Days Qty: 10 0RF ondansetron 4 mg tablet,disintegrating 4 mg PO Q8H PRN PRN (Reason: Nausea) Qty: 10 0RF ibuprofen 600 mg tablet 600 mg PO Q8H PRN PRN (Reason: pain) Qty: 20 0RF tamsulosin [Flomax] 0.4 mg capsule 0.4 mg PO DAILY Qty: 7 0RF hydrocodone-acetaminophen [hydrocodone-acetaminophen] 5-325 mg tablet 1 tab PO Q4H PRN PRN (Reason: Pain) 3 Days Qty: 15 0RF ondansetron [ondansetron] 4 mg tablet,disintegrating 4 mg PO Q8H PRN PRN (Reason: Nausea) Qty: 10 0RF Primary Care Provider: Care Physician,No Primary Referrals: Tremaine Gill DO [Med Staff - Accountant Cost] - 1-2 Weeks Care Physician,No Primary [Primary Care Provider] - Disposition Disposition: Home, Self Care
--- NOTE | 2023-08-03 11:40 | RAD_ITS ---
EXAM: XR CHEST, 2 VIEWS CLINICAL INDICATION: pain TECHNIQUE: Frontal and lateral views of the chest. COMPARISON: No relevant prior studies available. FINDINGS: LUNGS AND PLEURAL SPACES: Normal. No consolidation or edema. No pneumothorax. No effusion. HEART: Normal heart size. MEDIASTINUM: No mediastinal or hilar mass. BONES/JOINTS: No acute abnormality. RAD/Chest PA and Lateral IMPRESSION: No acute cardiopulmonary disease. Electronically Signed: Baron De La Cruz MD at 12:00 EST ,
--- OUTSIDE RECORDS SUMMARY | 2023-08-03 11:40 | XMS RPT_ITS | CCD ---
Author Name Unknown Address [address] [place] [address] Organization [facility] Care Team Providers Care Profiling Machine Setup Operator Name Role Phone Unavailable Primary Care Provider Unavailcamila e José Miguel Joe MD Unavailable [phone] JOSÉ MIGUEL JOE Attending Unavailable Medications Current [...] cm José Miguel Joe MD Work Phone: [facility] 01-10-2023 10:07-0400 Body mass index (BMI) [Ratio] 31.9 kg/m2 José Miguel Joe MD Work Phone: [facility] 01-10-2023 10:07-0400 Body weight 97.98 kg José Miguel Joe MD Work Phone: [facility] 01-10-2023 10:07-0400 Diastolic blood pressure 79 mm[Hg] José Miguel Joe MD Work Phone: [facility] 01-10-2023 10:07-0400 Heart rate 84 /min José Miguel Joe MD Work Phone: [facility] 01-10-2023 10:07-0400 Systolic blood pressure 143 mm[Hg] José Miguel Joe MD Work Phone: [facility] 05-02-2022 19:28-0400 Body temperature 98.91 [degF] Akua Matilda CASE MANAGEMENT COORDINATOR.BOTTLING ATTENDANT Work Phone: [facility] 05-02-2022 19:28-0400 Body weight 99.7 kg Akua Matilda CASE MANAGEMENT COORDINATOR.BOTTLING ATTENDANT Work Phone: [facility] 05-02-2022 19:28-0400 Diastolic blood pressure 80 mm[Hg] Akua Matilda CASE MANAGEMENT COORDINATOR.BOTTLING ATTENDANT Work Phone: [facility] 05-02-2022 19:28-0400 Heart rate 84 /min Akua Matilda CASE MANAGEMENT COORDINATOR.BOTTLING ATTENDANT Work Phone: [facility] 05-02-2022 19:28-0400 Respiratory rate 16 /min Akua Matilda CASE MANAGEMENT COORDINATOR.BOTTLING ATTENDANT Work Phone: [facility] 05-02-2022 19:28-0400 SaO2% (BldA) [Mass fraction] 96 % Akua Matilda CASE MANAGEMENT COORDINATOR.BOTTLING ATTENDANT Work Phone: [facility] 05-02-2022 19:28-0400 Systolic blood pressure 142 mm[Hg] Akua Matilda CASE MANAGEMENT COORDINATOR.BOTTLING ATTENDANT Work Phone: [facility] Encounters Encounter Date Encounter Type Care Provider Facility Start: 01-10-2023 End: 01-10-2023 ambulatory JOSÉ MIGUEL JOE [facility] Start: 01-10-2023 End: 01-10-2023 Office outpatient new 30 minutes José Miguel Joe MD Work Phone: [facility] Plan of Treatment Date Care Activity Detail Author Start: 02-19-2024 LIPID SCREEN LIPID SCREEN [facility] Start: 10-17-2023 Zoster Vaccines (1 of 2) Zoste r Vaccines (1 of 2) [facility] Start: 04-04-2023 Influenza vaccination Influenz a Vaccine (Season Ended) [facility] Start: 01-10-2023 End: 01-11-2024 Calcium, Urine Calcium, Urine Lab Routine Calculus, kidney Expected: 01/10/2023 (Approximate), Expires: 01/11/2024 [facility] Work Phone: Payers Date Payer Category Payer Medicare [id number] 2021 Medicare [id number] 2016 Medicaid [place] [id number] 2016-Present [phone] [address] [place] [address] Medicaid [id number] 2016 Medicaid [id number] Social History Date Type Detail Facility [facility]: [facility] Start: 05-02-2022 Tobacco use and exposure Smokeless t obacco non-user [facility] Start: 05-02-2022 Alcohol intake Current drinke r of alcohol (finding) [facility] Start: 05-19-2019 History SDOH Alcohol Comment may have 2 shots of a liquor once a month or even less often. [facility] Start: 1975 Sex Assigned At Not on file [facility] smoking consumption unknown [facility] Gender identity Not on file [facility] Start: 12-31-2022 End: 01-10-2023 Exposure to SARS-CoV-2 (event) Not sure [facility] History of Present illness Narrative 01-10-2023 José [...] with renal calculi. He was seen at [facility]. Pain gone now. REVIEW OF SYSTEMS: [...] try to get the CT report from [place] Check KUB to see if stones are [...] added to media documented in this encounter [facility] Progress note 05-02-2022 Note Date & Type Note Facility 05-02-2022 Note HNO ID: [id number] Author: Akua Grey APRN.BOTTLING ATTENDANT Service: ? Author Type: Nurse Practitioner Type: Progress Notes Filed: 05/02/2022 7:38 PM Note Text: Triage Note: [facility] with sever headache and pain behind [...] and lack of investigative tools available at [facility], and pain out of proportion for sinusitis, recommend patient be seen at nearest ED for further work up. Patient will go to [place] ED Diagnosis and treatment plan were discussed and questions were answered to the patient's satisfaction. Pt acknowledged understanding of concepts and follow up plan. Specific signs and symptoms that would indicate the need for higher level of care were discussed in detail warranting prompt ER evaluation. Akua Grey APRN.BOTTLING ATTENDANT [facility] History of Present illness Narrative 05-02-2022 Akua Grey APRN.CNP - 05/02/2022 7:34 PM EDT Note Date & Type Note Facility 05-02-2022 History of Presen t illness Narrative Triage Note: Patient [facility] with sever headache and pain behind [...] and lack of investigative tools available at [facility], and pain out of proportion for sinusitis, recommend patient be seen at nearest ED for further work up. Patient will go to [place] ED Diagnosis and treatment plan were discussed and questions were answered to the patient's satisfaction. Pt acknowledged understanding of concepts and follow up plan. Specific signs and symptoms that would indicate the need for higher level of care were discussed in detail warranting prompt ER evaluation. Akua Grey APRN.CNP documented in this encounter [facility] Evaluation note Note Date & Type Note Facility documented in this encounter [facility] Evaluation note Note Date & Type Note [...] or prosecute any alcohol or drug abuse patient.[facility] Reason for Visit (unrecogniz ed section and content) Reason Comments New Patient Hx Kidney stones, Pt states they passed stones in July, and December, Pt currently asymptomatic (unrecognized sect ion and content) No Status Records FoundNo Status Records Found INFORMATION SOURCE (unrecogn ized section and content) DATE CREATED AUTHOR AUTHOR'S ORGANIZ ATION 01/28/2023 [facility] Care Teams (unrecognized sec tion and content) [...] BE BASED ON THE PRIMARY CLINICAL RECORDS. [employer] [facility]. provides no warranty or guarantee of the accuracy or completeness of information in this document.
[2023-08-03] MEDS: Amox/Clavulanate 875 MG Tablet PO (12:44)
[2023-08-03 12:45] VITALS: BP 165/86; PULSE 90; RESP 16; O2SAT 94
== END 2023-08-03 12:47 | disposition home or self-care (01) ==
PROVIDERS: Emergency Provider Emergency Medicine; Visit Provider Emergency Medicine
DX: J01.90 Acute sinusitis, unspecified (principal); J44.9 Chronic obstructive pulmonary disease, unspecified; F17.210 Nicotine dependence, cigarettes, uncomplicated
CPT/HCPCS: 71046; 87880; 99283

== ENCOUNTER 2023-11-02 09:15 | Inpatient (IN) | payer MEDICARE, MEDICAID, SELFPAY ==
[2023-11-02] VITALS (19 sets, daily range): BP systolic 115–146; BP diastolic 73–91; PULSE 91–115; RESP 16–33; TEMP 36.3–37; O2SAT 71–96; BMI 35.2; BMI 35.5
--- NOTE | 2023-11-02 09:29 | EKG12_ITS ---
Test Reason : SOB Blood Pressure : / mmHG Vent. Rate : 093 BPM Atrial Rate : 093 BPM P-R Int : 126 ms QRS Dur : 088 ms QT Int : 384 ms P-R-T Axes : 063 075 049 degrees QTc Int : 477 ms Sinus rhythm with marked sinus arrhythmia Otherwise normal ECG Confirmed by Robson Pathak ([id number]), editor at large JOSÉ LUIS LEE ([id number]) on 11/04/2023 10:21:46 AM Referred By: Confirmed By:Robson Pathak
[2023-11-02] MEDS: MethylPREDNISolone 125 MG/2 ML Vial IV (09:35)
[2023-11-02] MEDS: Ipratropium/Albuterol Sulfate 3 ML AMPUL.NEB INHALATION ×2 (09:35→20:05)
[2023-11-02] MEDS: Albuterol 2.5 MG/3 ML VIAL.NEB. INHALATION ×3 (09:39)
--- NOTE | 2023-11-02 09:40 | EDS_ITS ---
HPI History of Present Illness Chief Complaint: Shortness of Breath Informant: patient Onset/Context/Timing Onset: Days (5 days) Context: Gradual Onset Timing: Waxes and wanes Narrative Narrative: Patient presents with a 5-day history of increasing shortness of breath and cough. He is bringing up some yellow-tinged sputum. He states he has some slight left posterior lower chest pain with coughing. No blood in his sputum. Patient does have a history of COPD. He states he does not have any inhalers at home. He continues to smoke. Patient's pulse ox in triage was noted to be 84%. Nursing staff states in the room prior to initiation of oxygen he was 71%. [facility] Medical History COPD (chronic obstructive pulmonary disease) Kidney stone Schizophrenia Home Medications brexpiprazole 2 mg tablet (Rexulti) 2 mg PO DAILY 10/07/22 [History Last Taken Unknown] bupropion HCl 150 mg 24 hr tablet, extended release 150 mg PO DAILY 11/02/23 [History Last Taken Unknown] cholecalciferol (vitamin D3) 50 mcg (2,000 unit) capsule (Vitamin D3) 50 mcg PO DAILY 11/02/23 [History Last Taken Unknown] Allergy/AdvReac Type Severity Reaction Status Date / Time No Known Allergies Allergy Verified 11/02/23 09:19 Social History household members: none Smoking Status: Current every day smoker tobacco type: cigarettes substance use type: does not use ROS ROS ED Constitutional Constitutional ED: Denies chills or fever(s) Eyes Eyes: Denies discharge from eye(s) ENT ENT ED: Denies discharge from eye(s), rhinorrhea or sore throat Cardiovascular Cardiovascular: Reports chest pain; Denies palpitations Respiratory/Chest Respiratory/Chest: Reports cough, dyspnea and sputum Gastrointestinal Gastrointestinal: Denies abdominal pain, nausea or vomiting Musculoskeletal Musculoskeletal: Reports back pain; Denies extremity pain Integumentary Denies Abrasions or rash Neurologic Neurologic: Denies headache(s) or weakness Psychiatric Psychiatric: Denies anxiety or depression Allergic/Immunologic Allergic/Immunologic ED: Denies lip swelling or urticaria EXAM Physical Exam Const Vital Signs: 11/02/23 09:16 11/02/23 09:15 11/02/23 09:17 Temperature 97.6 F L 97.6 F L Temperature Source Temporal Temporal Pulse Rate 115 H 114 H Respiratory Rate 24 H 22 H Respiratory Effort Short of Breath Respiratory Pattern Tachypnea Blood Pressure 146/91 H 115/80 Blood Pressure Mean 109 91 Pulse Ox 84 71 Oxygen Delivery Method Room Air Room Air Room Air Oxygen Flow Rate (L/min) 11/02/23 09:50 11/02/23 10:17 11/02/23 10:00 Temperature 98.1 F Temperature Source Temporal Pulse Rate 100 101 H 102 H Respiratory Rate 16 26 H 18 Respiratory Effort Respiratory Pattern Blood Pressure 132/81 H 118/73 Blood Pressure Mean 98 87 Pulse Ox 92 87 Oxygen Delivery Method Nasal Cannula Oxygen Flow Rate (L/min) 5 11/02/23 10:30 11/02/23 10:45 11/02/23 11:00 Temperature Temperature Source Pulse Rate 102 H 101 H 101 H Respiratory Rate 30 H 24 H 33 H Respiratory Effort Respiratory Pattern Blood Pressure 132/81 H 119/77 133/78 H Blood Pressure Mean 94 92 92 Pulse Ox 90 90 89 Oxygen Delivery Method Oxygen Flow Rate (L/min) 11/02/23 11:00 Temperature 97.4 F L Temperature Source Temporal Pulse Rate 109 H Respiratory Rate 17 Respiratory Effort Respiratory Pattern Blood Pressure 132/85 H Blood Pressure Mean 100 Pulse Ox 92 Oxygen Delivery Method Nasal Cannula Oxygen Flow Rate (L/min) 5 Positive well nourished and well developed General Appearance ED: well developed HEENT Reports moist mucous membranes Eyes EOMs intact bilaterally Chest Wall inspection of chest normal and palpation of chest normal Resp Resp Narrative: Mild tachypnea with decreased air movement bilaterally. Cardio regular rhythm Rate: tachycardic GI non-tender Palpation: soft Extremity normal to inspection Extremity Narrative: No calf tenderness or edema. Neuro oriented x3 and no sensory deficits noted Motor Exam: strength 5/5 throughout Psych mental status grossly normal Skin no rashes or lesions noted MDM MDM MDM Narrative Medical decision making narrative: Patient is on 5 L nasal cannula at the time of my exam with O2 sats in the low 90s. IV line initiated. Aerosol started. Chest x-ray obtained to evaluate for acute lung pathology, cardiac size, or mediastinal abnormality. Labwork obtained to evaluate for leukocytosis, anemia, and electrolyte derangement. Swab for COVID, influenza, and RSV will be obtained. Patient given IV Solu- Medrol secondary to COPD flare. History & Record Review Discussion w/independent historian: Patient and Significant other Lab Data Attestation: I reviewed the patient's lab results. Labs: Laboratory Results - last 24 hr 11/02/23 09:37 WBC 21.6 H RBC 4.89 Hgb 16.1 Hct 50.4 MCV 103.1 H MCH 32.9 H MCHC 31.9 L RDW Std Deviation 49.2 H RDW Coeff of Carlene 12.9 Plt Count 285 MPV 8.8 Immature Gran % (Auto) 0.900 Neut % (Auto) 71.2 H Lymph % (Auto) 16.3 L Hand % (Auto) 10.4 H Eos % (Auto) 0.4 Baso % (Auto) 0.8 Absolute Neuts (auto) 15.4 H Absolute Lymphs (auto) 3.51 Nucleated RBC % 0 Platelet Estimate ADEQUATE Macrocytosis 1+ Sodium 138 Potassium 3.2 L Chloride 100 Carbon Dioxide 33.0 H Anion Gap 5 BUN 9 Creatinine 0.95 Estim Creat Clear Calc 105.87 Est GFR (MDRD) Af Amer 108 Est GFR (MDRD) Non-Af 89 BUN/Creatinine Ratio 9.5 L Glucose 121 H Calcium 8.5 Troponin I High Sens 15 B-Natriuretic Peptide 22.6 Radiography Chest X-Ray - ED: 1 View, Read by ED Physician, Chronic Changes and No Infiltrates Diagnostic Testing: Clinical Impression(s) from Imaging Studies Chest X-Ray 11/02/23 10:05 IMPRESSION: No acute process Electronically Signed: Conrad Velázquez MD at 11:10 EDT Reading Location ID and State: [facility] / [place] , Service support , EKG Initial EKG: Attestation: I personally reviewed and interpreted this EKG as follows: Interpretation: Sinus Rhythm (Sinus at 93 with no acute ischemia.) Treatment and Re-Evaluation :: CBC reveals a white count of 21.6 with 71% neutrophils. Hemoglobin 16.1. Chemistry studies significant for potassium of 3.2. This is replaced orally. Renal function is normal. Glucose is 121. Troponin is normal at 15 and BNP is normal at 22. Swab for COVID, influenza, and RSV is negative. Portable chest x-ray per my interpretation was chronic changes with no obvious infiltrate. Radiology interpretation reviewed and agrees. On repeat examination patient appears much more comfortable. He continues to have decreased air movement bilaterally with mild expiratory wheeze. Overall he does have better air movement than prior to his treatments. Patient is still requiring 5 L nasal cannula with O2 sat of 92%. He will be given Rocephin and Zithromax for his COPD exacerbation and has already received steroids. I will speak with hospitalist regarding admission. Discharge Plan Triage Chief Complaint: Shortness of Breath ED Provider: Ana Jaquez Dx/Rx/DC Orders Clinical Impression: Respiratory failure, COPD exacerbation Prescriptions: No Action Rexulti 2 mg tablet 2 mg PO DAILY bupropion HCl 150 mg tablet extended release 24 hr 150 mg PO DAILY cholecalciferol (vitamin D3) [Vitamin D3] 50 mcg (2,000 unit) capsule 50 mcg PO DAILY Primary Care Provider: Care Physician,No Primary Referrals: Care Physician,No Primary [Primary Care Provider] - Disposition Disposition: Acute Care Hospital [facility]
[2023-11-02 09:53] LABS: Absolute Lymphocyte Count 3.51 X10^3/uL (0.83-4.51); Absolute Neutrophil Count 15.4 X10^3/uL (2.0-7.7); Basophil# 0.17 X10^3/uL; Basophil% 0.8 % (0-1); Eosinophil# 0.09 X10^3/uL; Eosinophils% 0.4 % (0-5); Hematocrit 50.4 % (40-54); Hemoglobin 16.1 g/dL (13.0-16.5); Lymphocyte # 3.51 X10^3/ul (0.83-4.51); Lymphocyte % 16.3 % (19-41); Mean Corp Hgb Conc 31.9 g/dL (32-36); Mean Corpuscular Hgb 32.9 pg (27.0-32.0); Mean Corpuscular Volume 103.1 fL (80-94); Mean Platelet Vol. 8.8 fl (6.2-12.0); Monocyte# 2.24 X10^3/uL; Monocyte% 10.4 % (0-10); NRBC Flagged by Analyzer 0 % (0-5); Neutrophil # 15.37 X10^3/uL (2.7-7.7); Neutrophil % 71.2 % (47-70); POSITIVE DIFFERENTIAL YES; Platelet Count 285 K/mm3 (150-450); RBC Distribution Width CV 12.9 % (11.6-14.6); RBC Distribution Width SD 49.2 fl (35.1-43.9); Red Blood Count 4.89 M/mm3 (4.6-6.2); White Blood Count 21.6 K/mm3 (4.4-11.0)
[2023-11-02 09:54] LABS: Differential Indicated SCAN CRITERIA MET
--- NOTE | 2023-11-02 10:05 | RAD_ITS ---
STUDY: X-RAY CHEST REASON FOR EXAM: Male, 48 years old. sob TECHNIQUE: Single AP portable view of the chest. COMPARISON: August 03, 2023 FINDINGS: The lungs are clear and expanded. There is no demonstrated pleural abnormality. Normal size heart. Normal mediastinum and breezy. Normal visualized pulmonary arteries. Normal visualized aortic arch and descending thoracic aorta. There are diffuse degenerative changes of the visualized thoracic spine. Normal visualized ribs, clavicles, and shoulders. There is no demonstrated abnormality of the visualized soft tissue structures of the upper abdomen. RAD/Chest 1 View (Portable) IMPRESSION: No acute process Electronically Signed: Conrad Velázquez MD at 11:10 EDT ,
[2023-11-02 10:06] LABS: Anion Gap 5 (5-15); BUN 9 mg/dL (7-18); BUN/Creat Ratio 9.5 RATIO (10-20); Calcium,Total 8.5 mg/dL (8.5-10.1); Chloride 100 mmol/L (98-107); Creatinine, Serum 0.95 mg/dL (0.70-1.30); EST Glomerular Filtration Rate 89 mL/min (>60); Est Glom Filt Rate - Afr Amer 108 mL/min (>60); Estimated Creatinine Clearance 105.87 ml/min; Glucose 121 mg/dL (74-106); Potassium 3.2 mmol/L (3.5-5.1); Sodium Level 138 mmol/L (136-145); Troponin-I HS (w/2H Reflex) 15 pg/mL (3.0-78.0)
[2023-11-02 10:57] LABS: BNP,B-Type NATRIURETIC PEPTIDE 22.6 pg/mL (0-100)
[2023-11-02] MEDS: Potassium Chloride Oral Tablet 20 MEQ 40 MEQ PO (11:07)
[2023-11-02 11:13] LABS: Macrocytosis 1+; Platelet Estimate ADEQUATE (ADEQ)
[2023-11-02 11:45] LABS: Reflex Troponin-HS? (from REC) Y
[2023-11-02] MEDS: Ceftriaxone 2 GM in 0.9% Normal Saline (50mL MB+) 50 ML IV (12:24)
--- NOTE | 2023-11-02 12:26 | PCM.HP.STD ---
[facility] - General General Date of Admission: 11/02/23 HPI Narrative HERVE STOCKTON, is a 48 M who presents to the hospital with increasing shortness of breath over the last week or so. He states he does have a history of COPD but he does not use any inhalers. Denies any fevers or chills but he was noted to have a white count of 21,000 when he presented to the ER. Chest x-ray was unremarkable. He has not been on any steroids as an outpatient so he did receive a dose of Rocephin and azithromycin in the ER. He does not chronically wear oxygen at home and when he presented to the hospital he was 71% on room air and is currently maintaining his oxygen saturations on 5 L nasal cannula. [facility] Medical History COPD (chronic obstructive pulmonary disease) Kidney stone Schizophrenia Home Medications brexpiprazole 2 mg tablet (Rexulti) 2 mg PO DAILY uns 10/07/22 [History Last Taken 11/02/23 05:00] bupropion HCl 150 mg 24 hr tablet, extended release 150 mg PO DAILY depres 11/02/23 [History Last Taken Unknown] bupropion HCl 75 mg tablet 75 mg PO DAILY depresison 11/02/23 [History Last Taken 11/02/23 05:00] cholecalciferol (vitamin D3) 50 mcg (2,000 unit) capsule (Vitamin D3) 50 mcg PO DAILY 11/02/23 [History Last Taken Unknown] Allergy/AdvReac Type Severity Reaction Status Date / Time No Known Allergies Allergy Verified 11/02/23 09:19 Social History household members: none Smoking Status: Current every day smoker tobacco type: cigarettes substance use type: does not use ROS Constitutional Constitutional: Denies chills, fatigue, fever(s) or malaise Eyes Eyes: Denies blurry vision ENT HEENT: Denies headache(s) or nasal discharge Cardiovascular Cardiovascular: Reports chest pain; Denies dyspnea on exertion or syncope Respiratory/Chest Respiratory/Chest: Reports productive cough, shortness of breath at rest and shortness of breath with exertion; Denies cough Gastrointestinal Gastrointestinal: Denies constipation, diarrhea, nausea or vomiting Genitourinary Genitourinary: Denies dysuria Neurologic Neurologic: Denies focal weakness, numbness or tremor(s) Psychiatric Psychiatric: Denies anxiety or depression Vital Signs Vital Signs Vital Signs: 11/02/23 09:16 11/02/23 09:15 11/02/23 09:17 Temperature 97.6 F L 97.6 F L Temperature Source Temporal Temporal Pulse Rate 115 H 114 H Respiratory Rate 24 H 22 H Respiratory Effort Short of Breath Respiratory Pattern Tachypnea Blood Pressure 146/91 H 115/80 Blood Pressure Mean 109 91 Pulse Ox 84 71 Oxygen Delivery Method Room Air Room Air Room Air Oxygen Flow Rate (L/min) 11/02/23 09:50 11/02/23 10:17 11/02/23 10:00 Temperature 98.1 F Temperature Source Temporal Pulse Rate 100 101 H 102 H Respiratory Rate 16 26 H 18 Respiratory Effort Respiratory Pattern Blood Pressure 132/81 H 118/73 Blood Pressure Mean 98 87 Pulse Ox 92 87 Oxygen Delivery Method Nasal Cannula Oxygen Flow Rate (L/min) 5 11/02/23 10:30 11/02/23 10:45 11/02/23 11:00 Temperature Temperature Source Pulse Rate 102 H 101 H 101 H Respiratory Rate 30 H 24 H 33 H Respiratory Effort Respiratory Pattern Blood Pressure 132/81 H 119/77 133/78 H Blood Pressure Mean 94 92 92 Pulse Ox 90 90 89 Oxygen Delivery Method Oxygen Flow Rate (L/min) 11/02/23 11:00 11/02/23 12:00 11/02/23 11:30 Temperature 97.4 F L 97.8 F Temperature Source Temporal Temporal Pulse Rate 109 H 97 98 Respiratory Rate 17 26 H 27 H Respiratory Effort Respiratory Pattern Blood Pressure 132/85 H 134/85 H 132/86 H Blood Pressure Mean 100 101 100 Pulse Ox 92 94 91 Oxygen Delivery Method Nasal Cannula Nasal Cannula Oxygen Flow Rate (L/min) 5 5 11/02/23 12:00 Temperature Temperature Source Pulse Rate 95 Respiratory Rate 20 H Respiratory Effort Respiratory Pattern Blood Pressure 134/85 H Blood Pressure Mean 99 Pulse Ox 89 Oxygen Delivery Method Oxygen Flow Rate (L/min) Weight Weight: 224 lb 13.944 oz Body Mass Index (BMI) 35.2 Physical Exam Narrative General: Alert, Oriented x3, Cooperative, mild to moderate respiratory distress HEENT: Atraumatic, PERRLA, EOMI, Normocephalic, left eye with mucousy discharge and what appears to be a hematoma denies trauma Oral: Moist Mucosa, poor dentition Neck: Supple, No JVD Lungs: Diminished, poor air movement, No rhonchi, No wheeze, No rales, tachypneic Cardiovascular: Tachycardic, Regular Rhythm, Normal S1, Normal S2, No murmurs Abdomen: Soft, Non Tender, Non-Distended, No Hepato-splenomegaly Extremities: No edema, Capillary Refill Less than 3 Seconds Skin: No rashes, No breakdown Musculoskeletal: No Tenderness to Palpation of Joints or Extremities Neurological: No focal neurological deficits, Motor Exam 5/5 strength throughout, Sensory exam intact to light touch and pain Psych/Mental Status: Normal Affect, Appropriate Results Lab / Micro Data 11/02/23 09:37 11/02/23 09:37 Labs: Laboratory Results - last 24 hr 11/02/23 09:37: WBC 21.6 H, RBC 4.89, Hgb 16.1, Hct 50.4, MCV 103.1 H, MCH 32.9 H, MCHC 31.9 L, RDW Std Deviation 49.2 H, RDW Coeff of Carlene 12.9, Plt Count 285, MPV 8.8, Immature Gran % (Auto) 0.900, Neut % (Auto) 71.2 H, Lymph % (Auto) 16.3 L, Brewster % (Auto) 10.4 H, Eos % (Auto) 0.4, Baso % (Auto) 0.8, Absolute Neuts (auto) 15.4 H, Absolute Lymphs (auto) 3.51, Nucleated RBC % 0, Platelet Estimate ADEQUATE, Macrocytosis 1+, Sodium 138, Potassium 3.2 L, Chloride 100, Carbon Dioxide 33.0 H, Anion Gap 5, BUN 9, Creatinine 0.95, Estim Creat Clear Calc 105.87, Est GFR (MDRD) Af Amer 108, Est GFR (MDRD) Non-Af 89, BUN/Creatinine Ratio 9.5 L, Glucose 121 H, Calcium 8.5, Troponin I High Sens 15, B-Natriuretic Peptide 22.6 Micro: Microbiology 11/02/23 09:42 Mucosa - Nose SARS-CoV-2, Influenza & RSV (PCR) - Final Imaging Radiology Impression Chest X-Ray 11/02/23 10:05 IMPRESSION: No acute process Electronically Signed: Conrad Velázquez MD at 11:10 EDT Reading Location ID and State: [facility] / [place] , Service support , Assessment & Plan Assessment/Plan (1) COPD exacerbation: (2) Acute respiratory failure with hypoxia: PLAN: Plan 1. Acute hypoxic respiratory failure secondary to COPD exacerbation/tobacco abuse ? Continue with inhalers and steroids ? Will obtain a sputum culture ? Given his elevated white count we will empirically treat with Rocephin and azithromycin ? Viral studies with COVID, flu, RSV were negative ? He will need to follow-up with pulmonology as an outpatient and discontinue tobacco use ? Discussed cessation, he does not feel he will need a nicotine patch ? Does not appear to have conjunctivitis, will provide artificial tears 2. Mood disorder ? He is on Rexulti and Wellbutrin ? Stable, will continue ? Family to bring in Rexulti DVT: Lovenox 75 minutes was spent on direct patient care, including documentation as well as chart review and collaboration with colleagues Charges/Coding Visit Charges Inpatient E&M: 08249 Init Hosp L3
[2023-11-02 12:29] LABS: Troponin-I HS 16 pg/mL (3.0-78.0)
[2023-11-02] MEDS: Azithromycin 500 MG in Dextrose 5%-Water (250mL Bag) 250 ML 250 MG IV (13:53)
[2023-11-02] MEDS: 0.9% Saline Lock 10 ML Syringe IV ×2 (16:43→23:00)
[2023-11-03] VITALS (11 sets, daily range): BP systolic 103–126; BP diastolic 64–96; PULSE 73–115; RESP 16–22; TEMP 36.4–36.9; O2SAT 91–94
[2023-11-03] MEDS: 0.9% Saline Lock 10 ML Syringe IV ×2 (05:45→13:54)
[2023-11-03] MEDS: Ipratropium/Albuterol Sulfate 3 ML AMPUL.NEB INHALATION ×3 (06:58→19:05)
[2023-11-03 07:04] LABS: Absolute Lymphocyte Count 2.01 X10^3/uL (0.83-4.51); Absolute Neutrophil Count 22.5 X10^3/uL (2.0-7.7); Basophil# 0.13 X10^3/uL; Basophil% 0.5 % (0-1); Eosinophil# 0.05 X10^3/uL; Eosinophils% 0.2 % (0-5); Hematocrit 50.2 % (40-54); Hemoglobin 15.7 g/dL (13.0-16.5); Lymphocyte # 2.01 X10^3/ul (0.83-4.51); Lymphocyte % 7.6 % (19-41); Mean Corp Hgb Conc 31.3 g/dL (32-36); Mean Corpuscular Hgb 32.4 pg (27.0-32.0); Mean Corpuscular Volume 103.5 fL (80-94); Mean Platelet Vol. 8.9 fl (6.2-12.0); Monocyte# 1.56 X10^3/uL; Monocyte% 5.9 % (0-10); NRBC Flagged by Analyzer 0 % (0-5); Neutrophil % 84.5 % (47-70); POSITIVE DIFFERENTIAL YES; Platelet Count 316 K/mm3 (150-450); RBC Distribution Width CV 12.8 % (11.6-14.6); RBC Distribution Width SD 49.5 fl (35.1-43.9); Red Blood Count 4.85 M/mm3 (4.6-6.2); White Blood Count 26.6 K/mm3 (4.4-11.0)
[2023-11-03 07:21] LABS: Differential Indicated SCAN CRITERIA MET
[2023-11-03 07:41] LABS: Anion Gap 2 (5-15); BUN 12 mg/dL (7-18); BUN/Creat Ratio 13.6 RATIO (10-20); Calcium,Total 8.8 mg/dL (8.5-10.1); Chloride 101 mmol/L (98-107); Creatinine, Serum 0.88 mg/dL (0.70-1.30); EST Glomerular Filtration Rate 97 mL/min (>60); Est Glom Filt Rate - Afr Amer 117 mL/min (>60); Estimated Creatinine Clearance 114.84 ml/min; Glucose 192 mg/dL (74-106); Sodium Level 139 mmol/L (136-145)
[2023-11-03 07:42] LABS: Reactive Lymphocyte 1+
[2023-11-03] MEDS: Cholecalciferol (VIT D3) 25 MCG TABLET (1,000 UNITS) 50 MCG PO (08:47)
[2023-11-03] MEDS: buPROPion 75 MG Tablet PO (08:47)
[2023-11-03] MEDS: BREXPIPRAZOLE 2 MG TABLET PO (08:47)
[2023-11-03] MEDS: Ceftriaxone 1 GM/50 ML BAG IV (08:48)
[2023-11-03] MEDS: 0.9% Normal Saline (250mL Bag) 250 ML 15 ML IV (08:56)
[2023-11-03] MEDS: Azithromycin 500 MG in Dextrose 5%-Water (250mL Bag) 250 ML 250 MG IV (09:55)
--- NOTE | 2023-11-03 10:05 | CASEMGMT ---
MELANI BRADLEY Assessment Face to Face with patient for initial transition planning/care coordination assessment. MELANI BRADLEY introduced self and role at [facility], pt voices understanding. Pt is A&Ox4 and is resting comfortably in bed and is calm. Pt is currently on 3.5L of O2. Care providers, pharmacy, and demographics verified. Admitting dx: COPD Exacerbation LACE Strata: 2 PCP: None - List given Specialists: Pt states that he sees a Psychiatrist for Schizoaffective disorder Preferred Pharmacy: [facility] During this stay Insurance: [place] [facility] Comm plan [employer] Prescription Benefit: Yes LNOK: Patience Chepe (SO) Living Arrangements: Pt lives with his SO in a single story home with a BM with HR with 3 steps to enter with no issues ADLs/IADLs: Ind. If pt needs help his SO can assist Transportation: Self, SO DME: Denies all DME at home. Pt is currently on 3.5L of Oxygen. A verbal list of local in-network DME companies provided to the pt. Pt chose [facility] for potential home oxygen needs. HHC/SNF: Denies history or needs Pt?s goal: Home Plan: 6-Click is 24. Pt denies the need for HHC or OP therapy at this time. CM to follow oxygen needs for safe DC home from [facility]. Rosana Be RN, CM
--- NOTE | 2023-11-03 12:35 | PCM.PN.HOSP ---
Reason for Visit Reason for Visit: Diagnoses Chronic obstructive pulmonary disease with (acute) exacerbation (11/02/23) Acute respiratory failure with hypoxia (11/02/23) Subjective Subjective No acute events overnight. Patient seen at bedside this morning. Patient sitting comfortably at the edge of the bed, conversing normally, no acute distress. Breathing comfortably on 3 L nasal cannula at rest. Patient reports feeling significantly improved from yesterday from a breathing standpoint. Denies any shortness of breath at rest. Does have some dyspnea on exertion but this is improved. Denies any wheezing. States the inhalers and Pep therapy has been very helpful for him. No other acute concerns at this time. Objective Data Objective Data Vital Signs: Vital Signs Temp Pulse Resp BP Pulse Ox O2 Del Method O2 Flow Rate 97.9 F 92 16 103/64 91 Nasal Cannula 3.5 11/03/23 08:38 11/03/23 11:18 11/03/23 11:18 11/03/23 08:38 11/03/23 11:18 11/03/23 11:18 11/03/23 11:18 Oxygen Flow Rate (L/min) 3.5 Oxygen Delivery Method Nasal Cannula Weight: 102.965 kg Body Mass Index (BMI) 35.5 Intake & Output: Intake and Output for Last 24 Hours 11/01/23 11/02/23 11/03/23 23:59 23:59 23:59 Intake Total 665 / 665 555 / 555 Balance 665 / 665 555 / 555 Lab / Micro Data 11/03/23 06:13 11/03/23 06:13 Labs: Laboratory Results - last 24 hr 11/03/23 06:13: WBC 26.6 H, RBC 4.85, Hgb 15.7, Hct 50.2, MCV 103.5 H, MCH 32.4 H, MCHC 31.3 L, RDW Std Deviation 49.5 H, RDW Coeff of Carlene 12.8, Plt Count 316, MPV 8.9, Immature Gran % (Auto) 1.300 H, Neut % (Auto) 84.5 H, Lymph % (Auto) 7.6 L, Emmons % (Auto) 5.9, Eos % (Auto) 0.2, Baso % (Auto) 0.5, Absolute Neuts (auto) 22.5 H, Absolute Lymphs (auto) 2.01, Nucleated RBC % 0, Diff Path Review May foll, Reactive Lymphocytes 1+, Sodium 139, Potassium 4.0, Chloride 101, Carbon Dioxide 36.0 H, Anion Gap 2 L, BUN 12, Creatinine 0.88, Estim Creat Clear Calc 114.84, Est GFR (MDRD) Af Amer 117, Est GFR (MDRD) Non-Af 97, BUN/Creatinine Ratio 13.6, Glucose 192 H, Calcium 8.8 Micro: Microbiology 11/02/23 14:32 Sputum, Expectorated/Coughed Gram Stain - Final 11/02/23 14:32 Sputum, Expectorated/Coughed Respiratory Culture - Preliminary Appears to be normal respiratory ann-marie. Further studies to follow. 11/02/23 09:42 Mucosa - Nose SARS-CoV-2, Influenza & RSV (PCR) - Final Physical Exam Const alert, oriented x3 and no apparent distress Constitutional Narrative: Middle-age male, obese, unkempt appearing, otherwise sitting up comfortably in bed, conversing normally, no acute distress. General Appearance: cooperative and comfortable HEENT normocephalic, head/scalp atraumatic, hearing grossly normal bilaterally, nasal mucous membranes and turbinates normal and moist oral mucous membranes Eyes PERRL, EOMs intact bilaterally and conjunctivae normal Neck full ROM Chest inspection of chest normal Resp normal respiratory effort and no use of accessory muscles Resp Narrative: Breathing comfortably on 3 L nasal cannula with good oxygen saturations. Mild to moderately decreased breath sounds bilaterally throughout, no wheezing or crackles noted. Cardio regular rate, regular rhythm, no murmurs and peripheral pulses 2+ throughout GI normal to inspection, nondistended, normoactive bowel sounds, soft to palpation, non-tender and non-distended Back/Spine normal ROM Extremity normal to inspection, full ROM and no pedal edema Skin no rashes or lesions noted Neuro moves all extremities and no focal motor deficits Speech: speech normal Psych mental status grossly normal Assessment & Plan Assessment/Plan (1) Acute respiratory failure with hypoxia: (2) COPD exacerbation: PLAN: Plan Patient is a 48-year-old male who presented to [facility] ED on 11/02/2023 with worsening shortness of breath. 1. Acute hypoxic respiratory failure secondary to COPD exacerbation, improving ? Presented with worsening shortness of breath at rest. Reported history of COPD and is a current cigarette smoker, not on any home inhalers. ? Oxygen saturation noted to be in the low 70s on room air at rest in the ED, maintained above 90% on 5 L nasal cannula. Otherwise hemodynamically stable. Chest x-ray with mild hyperinflation, otherwise nonacute. Labs with white count 21,000, otherwise nonacute. COVID/flu/RSV negative. Respiratory culture and Gram stain negative. ? Continue treatment with IV steroids, scheduled DuoNebs and IV ceftriaxone and azithromycin. Requiring 3 L nasal cannula at rest on 11/02. Suspect patient may be ready for discharge in next 1 to 2 days, will likely need supplemental oxygen on discharge. 2. Tobacco abuse ? Current cigarette smoker. Nicotine patch ordered as requested. Chronic medical conditions: ? Obesity: BMI 35 on admit. Complicates hospital course, care and prognosis. ? Mood disorder: Stable. Continue home Wellbutrin and Rexulti. DVT prophylaxis: Lovenox CODE STATUS: Full code, verified Expected disposition: Home, 1 to 2 days Total clinical time spent by myself addressing the patient's medical issues, reviewing all the data, and collaborating with patient's care team: 35 minutes. Charges/Coding Visit Charges Inpatient E&M: 24652 Subs Hosp L2
[2023-11-03 13:11] LABS: Pathologist Review Reviewed
--- NOTE | 2023-11-03 14:50 | CHAPLAIN ---
Type of Pastoral Visit _x__ Initial Visit ___ Follow-up Visit ___ On-call Visit ___ General Patient Visit ___ Spiritual Assessment ___ Family Conference ___ Bereavement ___ Rapid Response ___ Code Blue ___ Other (describe below) Pastoral Care Referral From _x__ Patient ___ Family ___ Nurse ___ Physician ___ Ornamental Metal Erector Apprentice ___ Executive Coach ___ Other (describe below) Sacrament/Intervention _x__ Active listening ___ Anointing ___ Mormon ___ Bereavement ___ Communion ___ Mirta exploration ___ _x__ Life review ___ Prayer ___ Reconciliation ___ Sacrament of Sick _x__ Supportive presence ___ Wedding ___ Other (describe below) Pastoral Comments patient is talkative and gives information on his life and health; pt admits to smoking which has caused some of his health issues; pt talks openly about being in a psych ferrari about 2009 and his new understanding and acceptance of diagnosis; pt wants to ask questions to and also continue talk on casual topics; pt welcomes future visits
[2023-11-04 03:16] VITALS: BP 116/70; PULSE 77; RESP 20; TEMP 36.9; O2SAT 94
[2023-11-04] MEDS: Haloperidol 1 MG Tablet PO (03:54)
[2023-11-04 06:51] LABS: Hematocrit 48.4 % (40-54); Hemoglobin 15.3 g/dL (13.0-16.5); Mean Corp Hgb Conc 31.6 g/dL (32-36); Mean Corpuscular Hgb 32.3 pg (27.0-32.0); Mean Corpuscular Volume 102.3 fL (80-94); Mean Platelet Vol. 8.9 fl (6.2-12.0); Platelet Count 328 K/mm3 (150-450); RBC Distribution Width CV 12.8 % (11.6-14.6); RBC Distribution Width SD 48.4 fl (35.1-43.9); Red Blood Count 4.73 M/mm3 (4.6-6.2); White Blood Count 23.9 K/mm3 (4.4-11.0)
[2023-11-04 08:05] VITALS: BP 122/85; PULSE 69; RESP 18; TEMP 36.8; O2SAT 87; O2SAT 92; O2SAT 94
[2023-11-04] MEDS: BREXPIPRAZOLE 2 MG TABLET PO (08:09)
[2023-11-04] MEDS: Cholecalciferol (VIT D3) 25 MCG TABLET (1,000 UNITS) 50 MCG PO (08:10)
[2023-11-04] MEDS: predniSONE 20 MG Tablet 40 MG PO (08:10)
[2023-11-04] MEDS: buPROPion 75 MG Tablet PO (08:10)
[2023-11-04] MEDS: Azithromycin 500 MG in Dextrose 5%-Water (250mL Bag) 250 ML 250 MG IV (09:42)
[2023-11-04] MEDS: 0.9% Saline Lock 10 ML Syringe IV (09:42)
[2023-11-04] MEDS: Ceftriaxone 1 GM/50 ML BAG IV (11:02)
[2023-11-04] MEDS: Ipratropium/Albuterol Sulfate 3 ML AMPUL.NEB INHALATION (11:18)
--- NOTE | 2023-11-04 11:33 | CASEMGMT ---
Addendum entered by Iraida Be 11/04/23 11:52: [facility] states to take a tank from the floor stock. This RN CM delivered the tank to the pt room at this time. Pt is aware that he is to call [facility] once he gets home for the concentrator to be delivered. Pt RN updated and to provide the pt with education on how to use the oxygen accordingly. Pt denies further needs at this time. Original Note: Pt qualified for home O2 per the engine testing supervisor (4L with exertion). Referral sent to [facility] via [facility] at this time with O2 order (Signed by Dr. Araujo) and O2 testing. DC plan updated.
[2023-11-04 11:55] VITALS: PULSE 101; RESP 19
--- NOTE | 2023-11-04 12:11 | PCM.DC.SUM ---
Providers Date of Admission: 11/02/23 Date of Discharge: 11/04/23 Primary Care Physician: No Primary Care Phys Reason For Visit: COPD EXACERBATION Diagnosis Discharge Diagnosis (1) Acute respiratory failure with hypoxia: Status: Acute Code(s): J96.01 - Acute respiratory failure with hypoxia (2) COPD exacerbation: Status: Chronic Code(s): J44.1 - Chronic obstructive pulmonary disease with (acute) exacerbation Medications at Discharge Home Medications brexpiprazole 2 mg tablet (Rexulti) 2 mg PO DAILY uns 10/07/22 bupropion HCl 75 mg tablet 75 mg PO DAILY depresison 11/02/23 cholecalciferol (vitamin D3) 50 mcg (2,000 unit) capsule (Vitamin D3) 50 mcg PO DAILY 11/02/23 albuterol sulfate 90 mcg/actuation aerosol inhaler 1 inh inhalation Q6H PRN shortness of breath or wheezing #8.5 grams 11/04/23 azithromycin 500 mg tablet 500 mg PO DAILY 3 days #3 tabs 11/04/23 prednisone 20 mg tablet 40 mg (2 x 20 mg) PO BREAKFAST 3 days #6 tabs 11/04/23 Hospital Course Operations None Procedures EKG and - (Chest x-ray) Summary of Care Provided Minutes Spent on Discharge: 35 Hospital Course: Patient is a 48-year-old male who presented to [facility] ED on 11/02/2023 with worsening shortness of breath. Hospital course as noted below. Patient discharged home with no therapy needs in stable condition on 11/03. 1. Acute hypoxic respiratory failure secondary to COPD exacerbation, improving Presented with worsening shortness of breath at rest. Reported history of COPD and is a current cigarette smoker, not on any home inhalers. No PFTs available in the chart. Oxygen saturation noted to be in the low 70s on room air at rest in the ED, maintained above 90% on 5 L nasal cannula. Otherwise hemodynamically stable. Chest x-ray with mild hyperinflation, otherwise nonacute. Labs with white count 21,000, otherwise nonacute. COVID/flu/RSV negative. Respiratory culture and Gram stain negative. ? Treated with IV steroids, scheduled DuoNebs and IV ceftriaxone and azithromycin while inpatient. Completed O2 ambulatory test on day of discharge, required 4 L nasal cannula with exertion, oxygen prescription sent on discharge. Patient is ambulatory at home and in the community. Discharged on prednisone 40 mg daily and p.o. azithromycin for 3 more days each to complete 5-day courses total. Albuterol inhaler as needed also ordered on discharge. Recommended that patient establish with pulmonology in the outpatient setting to have formal PFTs done soon and to get started on a long-acting inhaler for COPD maintenance therapy. 2. Tobacco abuse ? Current cigarette smoker. Nicotine patch worn while inpatient. Encouraged cessation. Chronic medical conditions: ? Obesity: BMI 35 on admit. Complicated hospital course, care and prognosis. ? Mood disorder: Stable. Continue home Wellbutrin and Rexulti. Total clinical time spent by myself addressing the patient's medical issues, reviewing all the data, and collaborating with patient's care team: 35 minutes. Physical Exam Const alert, oriented x3 and no apparent distress Constitutional Narrative: Middle-age male, obese, unkempt appearing, otherwise sitting up comfortably in bed, conversing normally, no acute distress. General Appearance: cooperative and comfortable HEENT normocephalic, head/scalp atraumatic, hearing grossly normal bilaterally, nasal mucous membranes and turbinates normal and moist oral mucous membranes Eyes PERRL, EOMs intact bilaterally and conjunctivae normal Neck full ROM Chest inspection of chest normal Resp normal respiratory effort and no use of accessory muscles Resp Narrative: Breathing comfortably on 2 L nasal cannula at rest with good oxygen saturations. Mild to moderately decreased breath sounds bilaterally throughout, no wheezing or crackles noted, improved from admission. Cardio regular rate, regular rhythm, no murmurs and peripheral pulses 2+ throughout GI normal to inspection, nondistended, normoactive bowel sounds, soft to palpation, non-tender and non-distended Back/Spine normal ROM Extremity normal to inspection, full ROM and no pedal edema Skin no rashes or lesions noted Neuro moves all extremities and no focal motor deficits Speech: speech normal Psych mental status grossly normal Weight / BMI Weight Weight: 102.965 kg Body Mass Index (BMI) 35.5 ABG / Lab / Microbiology Data 11/04/23 06:02 11/03/23 06:13 Laboratory: Laboratory Results - last 24 hr 11/03/23 06:13: Diff Path Review Reviewed 11/04/23 06:02: WBC 23.9 H, RBC 4.73, Hgb 15.3, Hct 48.4, MCV 102.3 H, MCH 32.3 H, MCHC 31.6 L, RDW Std Deviation 48.4 H, RDW Coeff of Carlene 12.8, Plt Count 328, MPV 8.9 Microbiology: Microbiology 11/02/23 14:32 Sputum, Expectorated/Coughed Gram Stain - Final 11/02/23 14:32 Sputum, Expectorated/Coughed Respiratory Culture - Preliminary Appears to be normal respiratory ann-marie. Further studies to follow. 11/02/23 09:42 Mucosa - Nose SARS-CoV-2, Influenza & RSV (PCR) - Final Meaningful Use Info Meaningful Use Diagnoses (Choose all that apply): None applicable Discharge Plan Admission Admit Date/Time: 11/02/23 12:02 Primary Reason for Your Visit: Shortness of breath Attending Provider: Eber Araujo Primary Care Provider: Care Physician,Samantha Primary Consulting Providers: Mik Rodriguez Instructions Additional Instructions / Restrictions: Please take 3 more days worth of prednisone and azithromycin to complete 5-day courses of steroids and antibiotics total. Use the albuterol inhaler as needed for shortness of breath. Please discuss with your PCP about them placing a pulmonology consult to establish with a lung doctor in the office. Discharge Orders/Prescriptions Prescriptions: New prednisone 20 mg Tablet 40 mg PO BREAKFAST 3 Days Qty: 6 0RF azithromycin 500 mg tablet 500 mg PO DAILY 3 Days Qty: 3 0RF albuterol sulfate 90 mcg/actuation HFA aerosol inhaler 1 inh inhalation Q6H PRN (Reason: shortness of breath or wheezing) Qty: 8.5 1RF Continued Rexulti 2 mg tablet 2 mg PO DAILY cholecalciferol (vitamin D3) [Vitamin D3] 50 mcg (2,000 unit) capsule 50 mcg PO DAILY bupropion HCl 75 mg tablet 75 mg PO DAILY Discontinued bupropion HCl 150 mg tablet extended release 24 hr 150 mg PO DAILY Referrals / Follow Up: Care Physician,No Primary [Primary Care Provider] - Disposition Disposition (needs filled in before D/C Order can be placed): Home, Self Care Charges/Coding Visit Charges Inpatient E&M: 50241 Disch Hosp >30min
[2023-11-04 13:50] VITALS: BP 149/87; PULSE 84; RESP 18; TEMP 36.8; O2SAT 92
== END 2023-11-04 13:55 | disposition home or self-care (01) | DRG 190 ==
LOC: ED 12:04 → MS3 12:37
PROVIDERS: Admitting Provider Family Medicine; Emergency Provider Emergency Medicine; Visit Provider Hospitalist
DX: J44.1 Chronic obstructive pulmonary disease with (acute) exacerbation (principal); J96.01 Acute respiratory failure with hypoxia; F39 Unspecified mood [affective] disorder; F17.210 Nicotine dependence, cigarettes, uncomplicated; E66.9 Obesity, unspecified; Z79.899 Other long term (current) drug therapy; Z68.35 Body mass index [BMI] 35.0-35.9, adult
CPT/HCPCS: 36415; 71045; 80048; 83880; 84484; 85025; 85027; 87070; 87205; 87631; 93005; 94640; 94668; 94762; 99252; 99285; J7050; A4216; G0463

== ENCOUNTER → 2023-12-09 | Outpatient (CLI) | payer MEDICARE, MEDICAID, SELFPAY ==
--- NOTE | 2023-12-09 13:52 | CT_ITS ---
STUDY: LOW DOSE CT LUNG CANCER SCREENING REASON FOR EXAM: Male, 48 years old. Lung cancer screening -- 70 pk yr hx; former smoker; asymptomatic RADIATION DOSAGE (If Supplied By Facility): CTDIvol = ( 4.02 ) mGy, DLP = ( 143.96 ) mGycm TECHNIQUE: No contrast was administered. Low dose technique was utilized (average mAS-38 and kVp 120). 1.25 mm axial source images with a slice interval of 1.25-mm were reconstructed in lung windows. 2.5 mm axial source images with a slice interval of 2.5-mm were reconstructed in lung windows. 5.0 mm axial source images with a slice interval of 5.0-mm were reconstructed in soft tissue windows. COMPARISON: Comparison is made with prior chest radiograph dated November 02, 2023. NODULES: There is a 1 cm x 0.6 cm noncalcified nodule in the posterior medial segment of the left lower lobe as seen on axial image #2015 and coronal image #229. Emphysema: Mild scattered linear scarring in the anteromedial aspect of the right middle lobe. Endobronchial lesion: None Aorta: Unremarkable CORONARY ARTERIES: Coronary artery calcification is not seen. Heart: Unremarkable Pulmonary artery: Remarkable Mediastinal nodes: Small mediastinal lymph nodes. Other chest and abdominal findings: CT/Low Dose CT Lung Screening IMPRESSION: Lung-RADS category 4B - Chest CT with or without contrast, PET/CT and/or tissue sampling can be obtained depending on the probability of malignancy and comorbidities. IMPORTANT NOTES FOR USE: ACR Lung-RADS Version 1.1 Assessment Categories Release Date: 2018 Category: Coded 0-4 bases on nodule(s) with highest degree of suspicion. Negative screen is defined as categories 1 and 2; a positive screen is defined as categories 3 and 4. Category 3 and 4A nodules that are unchanged on interval CT should be coded as category 2, and individuals returned to screening in 12 months. Category 4X: Category 3 or 4 nodules with additional imaging findings that increase the suspicion of lung cancer, such as spiculation, GGN that doubles in size in 1 year, enlarged lymph notes, etc. Category Modifiers: S (significant finding unrelated to lung cancer) Electronically Signed: Too Montana MD at 14:18 EDT ,
== END | disposition home or self-care (01) ==
LOC: CT 12:45
PROVIDERS: PCP Family Medicine; Referring Provider Nurse Practitioner Family; Visit Provider Nurse Practitioner Family
DX: Z12.2 Encounter for screening for malignant neoplasm of respiratory organs (principal); Z87.891 Personal history of nicotine dependence
CPT/HCPCS: 71271

== ENCOUNTER → 2023-12-10 | Outpatient (CLI) | payer MEDICARE, MEDICAID, SELFPAY ==
[2023-12-10 12:48] LABS: Platelet Count 211 K/mm3 (150-450)
[2023-12-10 13:08] LABS: Partial Thromboplast Time 24.9 Seconds (24.1-36.2); Prothrombin Time (Protime)PT. 13.5 SECONDS (11.7-14.9)
== END | disposition home or self-care (01) ==
PROVIDERS: PCP Family Medicine; Referring Provider Internal Medicine Critical Care Medicine; Visit Provider Internal Medicine Critical Care Medicine
DX: J44.1 Chronic obstructive pulmonary disease with (acute) exacerbation (principal)
CPT/HCPCS: 36415; 85049; 85610; 85730

== ENCOUNTER → 2023-12-17 | Outpatient (CLI) | payer MEDICARE, MEDICAID, SELFPAY | END | disposition home or self-care (01) | LOC: PSN 12:52 | PROVIDERS: PCP Family Medicine; Referring Provider Internal Medicine Critical Care Medicine; Visit Provider Internal Medicine Critical Care Medicine | DX: R91.1 Solitary pulmonary nodule (principal); F17.211 Nicotine dependence, cigarettes, in remission | CPT/HCPCS: 94060; 94726; 94729 ==

== ENCOUNTER → 2023-12-18 | Outpatient (CLI) | payer MEDICARE, MEDICAID, SELFPAY ==
[2023-12-18 12:30] VITALS: PULSE 107; PULSE 108; PULSE 114; PULSE 116; PULSE 95; PULSE 99; O2SAT 87; O2SAT 89; O2SAT 90; O2SAT 93
--- NOTE | 2023-12-18 12:56 | CPS ---
Pt was placed on 1 lpm of oxygen 1 minute into walk. Pt needed to take a break at 3 minutes into walk. Pt resumed walk at minute 5. Walk was finished on 1 lpm. Pt states he does not walk this much at any one time. He states that he usually just sits in front of computer. Pt states he currently has oxygen at home and wears it occasionally.
--- NOTE | 2023-12-22 07:22 | PCM.PSN.6M ---
PSN 6 Minute Walk Test 6 Minute Walk Test 6 Minute Walk Test: 6 Minute Walk Test PSN:6-Minute Walk Test Start: 12/18/23 12:53 Freq: Status: Active Protocol: [id number] Document 12/18/23 12:30 AEH (Rec: 12/18/23 13:01 AE [id number]) 6 Minute Walk Test Date Performed 12/18/23 Time Performed 12:30 Height 5 ft 7 in Weight: 230 lb Weight in Pounds 230.[address]: Dr Zhuo Assistive device used: None Pre-test Oxygen Delivery Method Room Air Pulse Ox (%) 90 Pulse Rate (60-100 beats/min) 95 Dyspnea Concetta Scale (0-10) 0 Exertion Concetta Scale (6-20) 6 1st minute Oxygen Delivery Method Room Air Pulse Ox (%) 87 Pulse Rate (60-100 beats/min) 116 H Dyspnea Concetta Scale (0-10) 2 Reported Symptoms Increased Work of Breathing 2nd minute Oxygen Flow Rate (L/min) (L/min) 1 Oxygen Delivery Method Nasal Cannula Pulse Ox (%) 90 Pulse Rate (60-100 beats/min) 108 H Dyspnea Concetta Scale (0-10) 3 Exertion Concetta Scale (6-20) 1 Reported Symptoms Increased Work of Breathing 3rd minute Oxygen Flow Rate (L/min) (L/min) 1 Oxygen Delivery Method Nasal Cannula Dyspnea Concetta Scale (0-10) 3 Number of Rests Taken 1 Reported Symptoms Increased Work of Breathing 4th minute Oxygen Flow Rate (L/min) (L/min) 1 Oxygen Delivery Method Nasal Cannula Dyspnea Concetta Scale (0-10) 2 Number of Rests Taken 1 Reported Symptoms Increased Work of Breathing 5th minute Oxygen Flow Rate (L/min) (L/min) 1 Oxygen Delivery Method Nasal Cannula Pulse Ox (%) 90 Pulse Rate (60-100 beats/min) 107 H 6th minute Oxygen Flow Rate (L/min) (L/min) 1 Oxygen Delivery Method Nasal Cannula Pulse Ox (%) 89 Pulse Rate (60-100 beats/min) 114 H Dyspnea Concetta Scale (0-10) 2 Exertion Concetta Scale (6-20) 14 Post-test Oxygen Flow Rate (L/min) (L/min) 1 Oxygen Delivery Method Nasal Cannula Pulse Ox (%) 93 Pulse Rate (60-100 beats/min) 99 Full Laps Walked 10 Partial Lap, Number of Tiles Walked 0 Total Distance Walked (ft) 590 12/18/23 12:56 Cardiopulmonary Services by Waleska Bui Pt was placed on 1 lpm of oxygen 1 minute into walk. Pt needed to take a break at 3 minutes into walk. Pt resumed walk at minute 5. Walk was finished on 1 lpm. Pt states he does not walk this much at any one time. He states that he usually just sits in front of computer. Pt states he currently has oxygen at home and wears it occasionally. Initialized on 12/18/23 12:56 - END OF NOTE Interpretation Interpretation: The patient ambulated 590 feet over the course of 6 minutes beginning on room air without assistive devices. Pretesting oxygen saturation was noted to be 90% on room air. With ambulation, the nancy oxygen saturation was 87%, requiring 1 L/min of supplemental oxygen. The patient took an approximate 2-minute break in the middle of testing. This testing indicated the presence of exertional oxygen desaturation and impaired walk distance. Recommendations Recommendations: 2 L/min of supplemental oxygen should be utilized with exertion.
== END | disposition home or self-care (01) ==
LOC: PSN 12:31
PROVIDERS: PCP Family Medicine; Referring Provider Internal Medicine Critical Care Medicine; Visit Provider Internal Medicine Critical Care Medicine
DX: F17.211 Nicotine dependence, cigarettes, in remission (principal); R91.1 Solitary pulmonary nodule
CPT/HCPCS: 94618

== ENCOUNTER → 2024-01-27 | Outpatient (CLI) | payer MEDICARE, MEDICAID, SELFPAY ==
--- NOTE | 2024-01-27 10:30 | PET_ITS ---
EXAMINATION: FDG PET/CT ? INDICATIONS: 48-year-old male with a history of pulmonary nodularity. ? COMPARISON EXAMINATION: CT of the chest report dated 12/09/2023. ? TECHNIQUE: Following the intravenous administration of mCi of F-18 deoxyglucose via the , multiplanar image acquisitions of the head, neck, chest, abdomen and pelvis to the level of the midthigh, obtained at one-hour post radiopharmaceutical administration contemporaneously interpreted with the current CT of the chest, abdomen and pelvis dated 01/27/[address] of the chest report dated 12/09/2023 via coregistration reveal: ? SERUM GLUCOSE LEVEL:? 94 mg/dL? HEIGHT:?? 67 inches WEIGHT:?? 233 pounds ? FINDINGS: ? HEAD/NECK:? There is no evidence of abnormal increased glucose metabolism in the pharyngeal mucosal space, parapharyngeal space, oropharynx, bilateral-lateral and anterior neck, hypopharynx and distribution of the larynx. Facilitated uptake is noted in the bilateral strap musculature; muscle tension artifact is demonstrated. ? The visualized portion of the cerebral cortical-subcortical structures demonstrate symmetric and preserved glucose metabolism. ? CHEST:? There is no quantitative scintigraphic evidence of abnormal increased glucose metabolism within the context of the bilateral hemithorax pulmonary parenchyma, right and left hemithorax at the pleural interface, mediastinal structures, and left-right thoracic perihilum. The left ventricular myocardium visualization is consistent with the [place]. ? CT of the chest demonstrates the following anatomic characteristics: Parenchymal density defined in the right lower posteromedial lung zone is ametabolic. Right and left axillary soft tissue densities with fatty hilus formation are ametabolic. ? ABDOMEN/PELVIS:? Normal physiologic distribution of the radiopharmaceutical is identified in the hepatic and splenic parenchyma, both renal units, urinary bladder, and visualized intestinal tract. Prominent uptake is noted in the bilateral upper abdomen-diaphragmatic crura. ? CT of the abdomen and pelvis is remarkable for the following: Cholelithiasis is defined. Calcification is noted within the right renal unit. Dystrophic prostatic calcification is demonstrated. Right and left inguinal soft tissue densities are nonglucose avid. Colonic diverticulosis is noted without evidence of diverticulitis. ? SKELETAL:? There is no evidence of quantitatively significant enhanced glucose metabolism on meticulous inspection of the appendicular and axial skeletal structures. ? Degenerative changes defined in the thoracic and lumbar spine demonstrate no evidence of increased glucose metabolism. There are no sclerotic, mixed sclerotic-lytic, or primarily lytic changes defined in the axial skeletal structures with evidence of increased FDG uptake. ? PET/PET/CT Tumor Base -Thigh Init IMPRESSION: ? 1. NEGATIVE EXAMINATION. There is no definitive quantitative scintigraphic evidence of viable neoplasm. 2. Anatomic stability may be ensured with repeat FDG-PET CT of the thorax in 3-6 months if clinically indicated. (Corrina, Seminars in Thoracic and Cardiovascular surgery, 14:292, 2002). Electronic Signature Dany Kelley D.O. Accurate Quantification of SUVs for this report are calculated using the exclusive [employer]. ([place] Patent No. [id number] [phone] B2 [phone] [place] patent [phone]). Standardization and correction of the FDG SUV metric via [employer] technology allow for vendor non-specific objective quantitative examination comparison and optimization of the sensitivity and specificity of the FDG PET-CT examination. . [email or web address] Electronically Signed: Dany Kelley DO at 22:43 EDT ,
== END | disposition home or self-care (01) ==
PROVIDERS: PCP Family Medicine; Referring Provider Internal Medicine Critical Care Medicine; Visit Provider Internal Medicine Critical Care Medicine
DX: R91.8 Other nonspecific abnormal finding of lung field (principal); R91.1 Solitary pulmonary nodule
CPT/HCPCS: 78815; A9552

== ENCOUNTER → 2024-05-12 | Outpatient (CLI) | payer MEDICARE, MEDICAID, SELFPAY ==
[2024-05-12 09:21] LABS: Vitamin B12 806 pg/mL (211-911); Vitamin D,25 Hydroxy 29.5 ng/mL
[2024-05-20 13:08] LABS: PROLACTIN 20.2 ng/mL (3.9-22.7); Testosterone, % Free 2.08 % (1.50-4.20); Testosterone, Free 7.51 ng/dL (5.00-21.00); Testosterone, Total 361 ng/dL (264-916); Transferrin 205 mg/dL (177-329)
== END | disposition home or self-care (01) ==
LOC: LAB.FUTURE 07:56 → LAB 07:57
PROVIDERS: PCP Family Medicine; Referring Provider Registered Nurse; Visit Provider Registered Nurse
DX: F25.0 Schizoaffective disorder, bipolar type (principal); E55.9 Vitamin D deficiency, unspecified; Z79.899 Other long term (current) drug therapy; E29.1 Testicular hypofunction
CPT/HCPCS: 36415; 82140; 82306; 82533; 82607; 84146; 84402; 84403; 84443; 84466

== ENCOUNTER → 2024-05-17 | Outpatient (CLI) | payer MEDICARE, MEDICAID, SELFPAY ==
--- NOTE | 2024-05-17 14:39 | CT_ITS ---
HISTORY: FOLLOW NODULE HIGH RISK PATIENT. TECHNIQUE: Helically acquired images were obtained of the chest without contrast. A radiation dose optimization technique was used for this scan. 898 images. COMPARISON: CT 12/09/2023. PET-CT 01/27/2024. FINDINGS: LARGE AIRWAYS: Patent. LUNGS: Mild emphysema. 2 mm left lower lobe nodule medially with mild linear scarring, 6 mm on prior PET and [address] Chronic mild tree-in-bud nodular opacities in the right lower lobe and small calcified granuloma. No new suspicious nodule or acute alveolar consolidation. PLEURA: No pneumothorax or significant pleural effusion. HEART/PERICARDIUM: Heart within normal limits in size with trace coronary artery calcification. No pericardial effusion. VESSELS: Thoracic aorta nondilated. MEDIASTINUM/LIANNA: No pathologically enlarged adenopathy. UPPER ABDOMEN: Nodular liver with varices. Gallstones. BONES: Intact. CT/Chest without Contrast IMPRESSION: Mild emphysema with further interval decrease in size of left lower lobe pulmonary nodule. Lung-RADS category 2: Continue annual screening with low dose CT. Electronically Signed: Tomasa Ribeiro MD at 9:40 EDT ,
== END | disposition home or self-care (01) ==
LOC: CT 14:37
PROVIDERS: PCP Family Medicine; Referring Provider Nurse Practitioner Acute Care; Visit Provider Nurse Practitioner Acute Care
DX: R91.1 Solitary pulmonary nodule (principal)
CPT/HCPCS: 71250

== ENCOUNTER → 2024-05-19 | Outpatient (CLI) | payer MEDICARE, MEDICAID, SELFPAY ==
[2024-05-19 09:25] LABS: AST(SGOT) 78 U/L (15-37); Alanine Aminotransfer ALT/SGPT 97 U/L (16-61); Albumin, Serum 3.4 g/dL (3.2-5.0); Alkaline Phosphatase 97 U/L (45-117); Bilirubin, Direct 0.18 mg/dL (0.00-0.30); Ferritin 590 ng/mL (26-388); Free T3 3.9 pg/mL (2.18-3.98); Globulin 4.3 g/dL (2.2-4.2); Protein, Total 7.7 g/dL (6.4-8.2); T4 Free Direct 1.11 ng/dL (0.76-1.46)
[2024-05-26 00:07] LABS: PROLACTIN 24.1 ng/mL (3.9-22.7); Testosterone, % Free 1.26 % (1.50-4.20); Testosterone, Total 365 ng/dL (264-916)
[2024-05-26 15:09] LABS: Transferrin 207 mg/dL (177-329)
== END | disposition home or self-care (01) ==
LOC: LAB 07:41
PROVIDERS: PCP Family Medicine; Referring Provider Family Medicine; Visit Provider Family Medicine
DX: E29.1 Testicular hypofunction (principal); K76.0 Fatty (change of) liver, not elsewhere classified; R79.89 Other specified abnormal findings of blood chemistry
CPT/HCPCS: 36415; 80076; 82728; 84146; 84402; 84403; 84439; 84443; 84466; 84481

== ENCOUNTER → 2024-06-03 | Outpatient (CLI) | payer MEDICARE, MEDICAID, SELFPAY ==
--- NOTE | 2024-06-03 09:49 | US_ITS ---
STUDY: ABDOMINAL ULTRASOUND - RIGHT UPPER QUADRANT; ELASTOGRAPHY REASON FOR VISIT: Male, 48 years old. NAFL D TECHNIQUE: Ultrasound evaluation of the right upper quadrant was performed with real-time and static mccain-scale imaging. Point quantification shear wave elastography was performed ([employer]). TECHNICAL QUALITY: Limited. Examination limited due to a combination of factors including obesity and bowel gas. COMPARISON: None. FINDINGS: Liver: The liver is mildly enlarged measures 18.5 cm. There is a heterogeneous echogenicity of the liver. The bile ducts are within normal limits. There is hepatic color flow. The direction of portal flow is hepatopetal. There is no demonstrated mass lesion. Median liver stiffness measured 11.3 kPa. Gallbladder: Normal distended gallbladder. The gallbladder wall measures 4 mm. There is a negative sonographic Antonio''s sign. There is no pericholecystic fluid. There are multiple echogenic structures within the gallbladder, consistent with multiple gallstones. Common Bile Duct (C.B.D.): The common bile duct measures 4 mm. Pancreas: The pancreas is not well visualized due to overlying bowel gas. Right Kidney: Normal size of the right kidney. The right kidney measures 12.1 cm x 5.7 cm x 5.2 cm. Normal renal cortex. The right cortex measures 1.8 cm. There is no demonstrated renal mass or cyst. There is no right hydronephrosis. US/ABD Limited w/ Elastography IMPRESSION: 1. Liver stiffness measures 11.3 kPa compatible with F2-F3 (Mild to moderate liver fibrosis) Metavir score. Electronically Signed: Too Montana MD at 14:07 EDT ,
--- OUTSIDE RECORDS SUMMARY | 2024-06-03 10:50 | XMS RPT_ITS | CCD ---
Author Organization [facility] Care Team Providers Care Business Development Engineer Name Role Phone Unavailable Primary Care Provider José Miguel Mendieta MD Unavailable JOSÉ MIGUEL JOE Attending Unavailable Medications Current Medications Medication Drug Class(es) Dates Sig (Normalized) Sig (Original) brexpiprazole 2 mg oral tablet (3 sources) Atypical Antipsychotic Start: 01-02-2023 Rexulti 2 MG tablet Start: 08-31-2019 take 1 tablet by mikhail th once daily REXULTI 2 mg tab Take 1 tablet by mouth once daily. 0 08/31/2019 Active Start: 05-19-2019 take 1 tablet by mikhail th once daily brexpiprazole (REXULTI) 1 mg tablet Take 1 tablet by mouth once daily. 0 05/19/2019 Active Comment on above: Take 1 tablet by mikhail th once daily. ibuprofen 600 mg oral tablet (1 source) Nonsteroidal Anti-inflammatory Drug Start: 10-07-2022 take 1 tablet by mouth every eight hours as needed ibuprofen 600 MG tablet Take 1 tablet by mouth every 8 hours as needed. 0 10/07/2022 Active Completed/Discontinued Medications Medication Drug Class(es) Dates Sig (Normalized) Sig (Original) doxycycline monohydrate 100 mg oral tablet (1 source) Tetracycline-class Drug Start: 01-24-2020 take 1 tablet by mouth twice daily doxycycline monohydrate 100 mg tablet Take 1 tablet by mouth twice daily. 20 tablet 0 01/24/2020 Active Comment on above: Take 1 tablet by mikhail th twice daily. naproxen 500 mg oral tablet (1 source) Nonsteroidal Anti-inflammatory Drug Start: 12-17-2019 take 1 tablet by mouth once daily naproxen (NAPROSYN) 500 mg tablet Take 1 tablet by mouth once daily. 10 tablet 0 12/17/2019 Active Comment on above: Take 1 tablet by mikhail th once daily. Problems Problem Classification Problem Date Documented Date [...] Name Value Interpretation Reference Range Facil ity Office Visiton 01-10-2023 Follow-up visit [id number] Pako Stockton 1975 M Date Provider Department Center 01/10/2023 [id number] MIGUEL JOE [facility] None No family history on file Level of Service:35860 DC OFFICE/OUTPATIENT NEW LOW MDM 30-44 MINUTES Reason for Visit and Comments: New Patient [542] - Hx Kidney stones, Pt states they passed stones in July, October and December, Pt currently asymptomatic Progress Noteon 01-10-2023 Progress Note Faxed record release 01-10-23, 2nd attempt 01-15-23 Progress Note After multiple faxed requests, CT added to media Progress Note José Miguel Joe MD 01/10/2023 at 3:54 [...] José Miguel Joe M.D. PATIENT NAME: Karl Stockton DATE OF : 1975 TODAY'S DATE: 01/10/2023 Chief Complaint: Chief Complaint Patient presents with New Patient Hx Kidney stones, Pt states they passed stones in July, October and December, Pt currently asymptomatic HISTORY OF PRESENT ILLNESS: Mr. Stockton is a 47 y.o. male who presents with renal calculi. He was seen at [facility]. Pain gone now. REVIEW OF SYSTEMS: [...] Wt 216 lb (98 kg) BMI 31.90 kg/m? Physical Exam Constitutional: Appearance: Normal appearance. HENT: [...] try to get the CT report from [place] Check KUB to see if stones are [...] José Miguel Joe MD [facility]10[facility]23 3[facility] Office Visit (UCWSTR ) KARL STOCKTON JR. ([id number]) 1975 M Date Time Provider Department 05/02/22 7:30 PM AKUA GREY [facility] During your visit today, we recorded the following information about you: Temperature Pulse Respiration Blood pressure 98.9 degrees 84/minute 16/minute 142/80 Weight 99.7 kg Akua Grey APRN.CNP 05/02/2022 7:38 PM Signed Triage Note: Patient [facility] with sever headache and pain behind right [...] and lack of investigative tools available at [facility], and pain out of proportion for sinusitis, recommend patient be seen at nearest ED for further work up. Patient will go to [place] ED Diagnosis and treatment plan were discussed and questions were answered to the patient's satisfaction. Pt acknowledged understanding of concepts and follow up plan. Specific signs and symptoms that would indicate the need for higher level of care were discussed in detail warranting prompt ER evaluation. Akua Grey APRN.LOAN ANALYST Referring Provider: SELF [[id number]] Allergies As of Date: 05/02/2022 (No Known Allergies) Date Reviewed: 05/02/2022 Reviewed by: Elo Acosta LPN - Fully Assessed Reason for Visit: pain right side of face [Other] Cmt: X 4 days Primary Visit Diagnosis:Headache, unspecified headache type [R51.9] Other Visit Diagnosis:Eye pressure [H57.9] Prescriptions as of 05/02/2022 - doxycycline monohydrate 100 mg tablet Take 1 tablet by mouth twice daily. - naproxen (NAPROSYN) 500 mg tablet Take 1 tablet by mouth once daily. - REXULTI 2 mg tab Take 1 tablet by mouth once daily. - brexpiprazole (REXULTI) 1 mg tablet Take 1 tablet by mouth once daily. Problem List As Of Date 05/02/2022 Noted Resolved Schizoaffective disorder (HCC) [F25.9] 05/19/2019 KEITH (nonalcoholic steatohepatitis) [K75.81] 05/22/2019 Encounter Status:Closed by AKUA GREY on 05/02/22 Normal [facility] Vital Signs Date Time Vital Sign Value Performing Clinician Faci lity 01-10-2023 10:07-0400 Body height 175.3 cm José Miguel Joe MD Work Phone: [facility] 01-10-2023 10:07-0400 Body mass index (BMI) [Ratio] 31.9 kg/m2 José Miguel Joe MD Work Phone: [facility] 01-10-2023 10:07-0400 Body weight 97.98 kg José Miguel Joe MD Work Phone: [facility] 01-10-2023 10:07-0400 Diastolic blood pressure 79 mm[Hg] José Miguel Joe MD Work Phone: [facility] 01-10-2023 10:07-0400 Heart rate 84 /min José Miguel Joe MD Work Phone: [facility] 01-10-2023 10:07-0400 Systolic blood pressure 143 mm[Hg] José Miguel Joe MD Work Phone: [facility] 05-02-2022 19:28-0400 Body temperature 98.91 [degF] Akua Matilda MINK RANCHER.LOAN ANALYST Work Phone: [facility] 05-02-2022 19:28-0400 Body weight 99.7 kg Akua Grey MINK RANCHER.LOAN ANALYST Work Phone: [facility] 05-02-2022 19:28-0400 Diastolic blood pressure 80 mm[Hg] Akua Matilda MINK RANCHER.LOAN ANALYST Work Phone: [facility] 05-02-2022 19:28-0400 Heart rate 84 /min Akua Matilda MINK RANCHER.LOAN ANALYST Work Phone: [facility] 05-02-2022 19:28-0400 Respiratory rate 16 /min Akua Matilda MINK RANCHER.LOAN ANALYST Work Phone: [facility] 05-02-2022 19:28-0400 SaO2% (BldA) [Mass fraction] 96 % Akua Matilda MINK RANCHER.LOAN ANALYST Work Phone: [facility] 05-02-2022 19:28-0400 Systolic blood pressure 142 mm[Hg] Akua Matilda MINK RANCHER.LOAN ANALYST Work Phone: [facility] Encounters Encounter Date Encounter Type Care Provider Facility Start: 01-10-2023 End: 01-10-2023 ambulatory JOSÉ MIGUEL JOE [facility] Start: 01-10-2023 End: 01-10-2023 Office outpatient new 30 minutes José Miguel Joe MD Work Phone: [facility] Comment on above: Calculus, kidney (Pr imary Dx) Start: 05-02-2022 End: 05-02-2022 ambulatory Facility:[facility] Start: 05-02-2022 End: 05-02-2022 Patient encounter procedure Akua Grey MINK RANCHER.LOAN ANALYST Work Phone: [facility] Comment on above: Headache, unspecifie d headache type (Primary Dx); Eye pressure Plan of Treatment Date Care Activity Detail Author Start: 02-19-2024 LIPID SCREEN LIPID SCREEN [facility] Start: 10-17-2023 Zoster Vaccines (1 of 2) Zoster Vacc malina (1 of 2) [facility] Start: 04-04-2023 Influenza vaccination Influenz a Vaccine (Season Ended) [facility] Start: 01-10-2023 End: 01-11-2024 Calcium, Urine Calcium, Urine Lab Routine Calculus, kidney Expected: 01/10/2023 (Approximate), Expires: 01/11/2024 [facility] Work Phone: Comment on above: Expected: 01/10/2023 (Approximate), Expires: 01/11/2024 Start: 01-10-2023 End: 01-11-2024 Citric Acid, Urine Citric Acid, Urine Lab Routine Calculus, kidney Expected: 01/10/2023 (Approximate), Expires: 01/11/2024 [facility] Comment on above: Expected: 01/10/2023 (Approximate), Expires: 01/11/2024 Start: 01-10-2023 End: 01-11-2024 Creatinine, urine, 24 hour Creatinine, urine, 24 hour Lab Routine Calculus, kidney Expected: 01/10/2023 (Approximate), Expires: 01/11/2024 [facility] Comment on above: Expected: 01/10/2023 (Approximate), Expires: 01/11/2024 Start: 01-10-2023 End: 01-11-2024 Oxalate, urine, 24 hour Oxalate, urine, 24 hour Lab Routine Calculus, kidney Expected: 01/10/2023 (Approximate), Expires: 01/11/2024 [facility] Comment on above: Expected: 01/10/2023 (Approximate), Expires: 01/11/2024 Start: 01-10-2023 End: 01-11-2024 Sodium, urine, 24 hour Sodium, urine, 24 hour Lab Routine Calculus, kidney Expected: 01/10/2023 (Approximate), Expires: 01/11/2024 [facility] Comment on above: Expected: 01/10/2023 (Approximate), Expires: 01/11/2024 Start: 01-10-2023 End: 01-11-2024 Uric acid, urine, 24 hour Uric acid, urine, 24 hour Lab Routine Calculus, kidney Expected: 01/10/2023 (Approximate), Expires: 01/11/2024 [facility] Comment on above: Expected: 01/10/2023 (Approximate), Expires: 01/11/2024 Start: 04-04-2022 Influenza vaccination INFLUENZA (#1) [facility] Start: 02-18-2022 DIABETES SCREEN DIABETES SCREEN [facility] Start: 08-04-2021 DEPRESSION ASSESSMENT DEPRESSION ASS ESSMENT [facility] Start: 01-18-2021 COVID-19 Vaccine (2 - Booster for Moderna series) COVID-19 Vaccine (2 - Booster for Moderna series) [facility] Start: 12-21-2020 COVID-19 VACCINE (2 - Moderna series) COVID-19 VACCINE (2 - Moderna series) [facility] Start: 2018 COLOGUARD (FIT-DNA) COLOGUARD (FIT-D NA) [facility] Start: 2018 Colonoscopy COLONOSCOPY [facility] Start: 2018 COLORECTAL CANCER SCREENING COLORECTAL CANCER SCREENING [facility] Start: [address] COLONOGRAPHY [facility] Start: 2018 FECAL OCCULT BLOOD FECAL OCCULT BLOO D [facility] Start: 2018 SIGMOIDOSCOPY SIGMOIDOSCOPY [facility] Start: 1992 DTaP/Tdap/Td Vaccine s (1 - Tdap) DTaP/Tdap/Td Vaccines (1 - Tdap) [facility] Start: 1992 Hepatitis A Vaccines (1 of 2 - Risk 2-dose series) Hepatitis A Vaccines (1 of 2 - Risk 2-dose series) [facility] Start: 1992 Urine microalbumin profile DTAP,TDAP,TD (1 - Tdap) [facility] Start: 10-17-1991 Hepatitis C screening Hepatitis C Sc reening [facility] Start: 10-17-1991 HIV SCREENING HIV SCREENING [facility] Start: 1985 Depression Screening Depression Scre ening [facility] Start: 10-17-1979 PNEUMOCOCCAL (1 - PCV) PNEUMOCOCCAL (1 - PCV) [facility] Start: 1974 MMR Vaccines (1 of 1 - Standard series) MMR Vaccines (1 of 1 - Standard series) [facility] Start: 1975 HEPATITIS B (1 of 3 - 3-dose series) HEPATITIS B (1 of 3 - 3-dose series) [facility] Start: 1973 Hepatitis B Vaccines (1 of 3 - 3-dose series) Hepatitis B Vaccines (1 of 3 - 3-dose series) [facility] Start: 1975 HIV screening HIV Screening [facility] Start: 1973 Lipid panel Lipid Panel [facility] Start: 1975 Screening for malign ant neoplasm of colon [facility] Payers Date Payer Category Payer Medicare [id number] 2021 Medicare [id number] 2016 [place] [id number] 2016-Present [phone] [address] [place] [address] Medicaid [id number] 2016 Medicaid [id number] Social History Date Type Detail Facility Start: 05-02-2022 Tobacco smoking stat us MIIS Smokes tobacco daily [facility] Start: 05-02-2022 Tobacco use and exposure Smokeless t obacco non-user [facility] Start: 05-02-2022 Alcohol intake Current drinke r of alcohol (finding) [facility] Start: 05-19-2019 History SDOH Alcohol Comment may have 2 shots of a liquor once a month or even less often. [facility] Start: 1975 Sex Assigned At Not on file [facility] Tobacco smoking stat [facility] Tobacco smoking consumption unknown [facility] Gender identity Not on file [facility] Start: 12-31-2022 End: 01-10-2023 Exposure to SARS-CoV-2 (event) Not sure [facility] History of Present illness Narrative 01-10-2023 José Miguel Joe MD - 01/10/2023 10:00 AM Nadya Epps - 01/10/2023 10:00 AM Nadya Epps - 01/10/2023 10:00 AM EDT Note Date & Type Note Facility 01-10-2023 History of Presen t illness Narrative Images from the original note were not included. José Miguel oJe MD 01/10/2023 at 3:54 PM UROLOGY INITIAL [...] José Miguel Joe M.D. PATIENT NAME: Karl Stockton DATE OF : 1975 TODAY'S DATE: 01/10/2023 Chief Complaint: Chief Complaint Patient presents with New Patient Hx Kidney stones, Pt states they passed stones in July, October and December, Pt currently asymptomatic HISTORY OF PRESENT ILLNESS: Mr. Stockton is a 47 y.o. male who presents with renal calculi. He was seen at [facility]. Pain gone now. REVIEW OF SYSTEMS: Review of Systems Past Medical History: No past medical history on file. PastSurgical History: No past surgical history on file. CurrentMedications: Prior to Admission medications Medication Sig Start Date End Date Taking? Authorizing Provider ibuprofen 600 MG tablet Take 1 tablet by mouth every 8 hours as needed. 10/07/22 Yes Historical Provider, MD Lunaulti 2 MG tablet 01/02/23 Yes Historical Provider, [...] try to get the CT report from [place] Check KUB to see if stones are [...] added to media documented in this encounter [facility] Progress note 05-02-2022 Note Date & Type Note Facility 05-02-2022 Note HNO ID: [id number] Author: Akua Grey APRN.LOAN ANALYST Service: ? Author Type: Nurse Practitioner Type: Progress Notes Filed: 05/02/2022 7:38 PM Note Text: Triage Note: Patient presented to [facility] with sever headache and pain behind [...] and lack of investigative tools available at [facility], and pain out of proportion for sinusitis, recommend patient be seen at nearest ED for further work up. Patient will go to [facility] Diagnosis and treatment plan were discussed and questions were answered to the patient's satisfaction. Pt acknowledged understanding of concepts and follow up plan. Specific signs and symptoms that would indicate the need for higher level of care were discussed in detail warranting prompt ER evaluation. Akua Grey APRN.CNP [facility] History of Present illness Narrative 05-02-2022 Akua Grey APRN.CNP - 05/02/2022 7:34 PM EDT Note Date & Type Note Facility 05-02-2022 History of Presen t illness Narrative Triage Note: Patient presented to [facility] with sever headache and pain behind [...] and lack of investigative tools available at [facility], and pain out of proportion for sinusitis, recommend patient be seen at nearest ED for further work up. Patient will go to [place] ED Diagnosis and treatment plan were discussed and questions were answered to the patient's satisfaction. Pt acknowledged understanding of concepts and follow up plan. Specific signs and symptoms that would indicate the need for higher level of care were discussed in detail warranting prompt ER evaluation. Akua Grey APRN.CNP documented in this encounter [facility] Evaluation note Note Date & Type Note Facility Evaluation note Diagnosis Headache, unspecified headache type- Primary Eye pressure Other ill-defined disorder of eye documented in this encounter [facility] Evaluation note Note Date & Type Note Facility Evaluation note Diagnosis Calculus, kidney- Primary Calculus of kidney documented in this encounter [facility] Summary Purpose Family History No Family History [...] or prosecute any alcohol or drug abuse patient.[facility] Reason for Visit (unrecogniz ed section and content) Reason Comments pain right side of face X 4 days Reason Comments New Patient Hx Kidney stones, Pt states they passed stones in July, October and December, Pt currently asymptomatic (unrecognized sect ion and content) No Status Records FoundNo Status Records Found INFORMATION SOURCE (unrecogn ized section and content) DATE CREATED AUTHOR 05/06/2022 [facility] DATE CREATED AUTHOR AUTHOR'S ORGANIZ ATION 01/28/2023 [facility] Care Teams (unrecognized sec tion and content) Business Development Engineer Relationship Specialty Start Date End Date José Miguel Joe MD [address] [id number] Surgeon Urology 01/10/23 FOR RECORDS PERTAINING TO PATIENTS WHO ARE [...] BE BASED ON THE PRIMARY CLINICAL RECORDS. [employer] [facility]. provides no warranty or guarantee of the accuracy or completeness of information in this document.
== END | disposition home or self-care (01) ==
LOC: US 09:46
PROVIDERS: PCP Family Medicine; Referring Provider Family Medicine; Visit Provider Family Medicine
DX: K76.0 Fatty (change of) liver, not elsewhere classified (principal)
CPT/HCPCS: 76705; 76981

== ENCOUNTER → 2024-06-17 | Outpatient (CLI) | payer MEDICARE, MEDICAID, SELFPAY | END | disposition home or self-care (01) | LOC: SL 09:20 | PROVIDERS: PCP Family Medicine; Referring Provider Nurse Practitioner Family; Visit Provider Nurse Practitioner Family | DX: G47.10 Hypersomnia, unspecified (principal) | CPT/HCPCS: 95806 ==

== ENCOUNTER → 2024-07-20 | Outpatient (CLI) | payer MEDICARE, MEDICAID, SELFPAY | END | disposition home or self-care (01) | LOC: SL 11:36 | PROVIDERS: PCP Family Medicine; Visit Provider Nurse Practitioner Family | DX: Z46.89 Encounter for fitting and adjustment of other specified devices (principal) ==

== ENCOUNTER → 2024-11-12 | Outpatient (CLI) | payer MEDICARE, MEDICAID, SELFPAY ==
[2024-11-12 09:12] LABS: Absolute Lymphocyte Count 2.99 X10^3/uL (0.83-4.51); Basophil# 0.09 X10^3/uL; Basophil% 0.8 % (0-1); Eosinophil# 0.21 X10^3/uL; Eosinophils% 1.9 % (0-5); Hematocrit 45.1 % (40-54); Hemoglobin 15.5 g/dL (13.0-16.5); Lymphocyte # 2.99 X10^3/ul (0.83-4.51); Lymphocyte % 26.9 % (19-41); Mean Corp Hgb Conc 34.4 g/dL (32-36); Mean Corpuscular Hgb 33.8 pg (27.0-32.0); Mean Corpuscular Volume 98.5 fL (80-94); Mean Platelet Vol. 8.9 fl (6.2-12.0); Monocyte# 0.83 X10^3/uL; Monocyte% 7.5 % (0-10); NRBC Flagged by Analyzer 0 % (0-5); Neutrophil # 6.95 X10^3/uL (2.7-7.7); Neutrophil % 62.4 % (47-70); Platelet Count 246 K/mm3 (150-450); RBC Distribution Width CV 13.1 % (11.6-14.6); Red Blood Count 4.58 M/mm3 (4.6-6.2); White Blood Count 11.1 K/mm3 (4.4-11.0)
[2024-11-12 09:21] LABS: International Normalized Ratio 1.1
[2024-11-12 09:29] LABS: Hemoglobin A1c 5.6 % (<=5.6)
[2024-11-12 09:59] LABS: FOLATES,SERUM (FOLIC ACID) 7.39 ng/mL (4.60-34.80)
[2024-11-12 10:11] LABS: ALB/GLOB Ratio 1.2 RATIO (0.9-2.4); AST(SGOT) 69 U/L (<=37); Alanine Aminotransfer ALT/SGPT 86 U/L (<=46); Alkaline Phosphatase 109 U/L (40-129); Anion Gap 11 (5-15); BUN 11 mg/dL (4-19); BUN/Creat Ratio 14.4 RATIO (10-20); Calcium,Total 9.1 mg/dL (7.6-11.0); Carbon Dioxide 26.3 mmol/L (21.0-32.0); Chloride 105 mmol/L (98-108); Cholesterol 209 mg/dL (<=200); Creatinine, Serum 0.74 mg/dL (0.70-1.20); EST Glomerular Filtration Rate 110 (>60); Ferritin 871 ng/mL (37-417); Globulin 3.4 g/dL (2.2-4.2); Glucose 88 mg/dL (70-99); HIV Nonreactive (Nonreactive); Hepatitis B Surface Antibody Nonreactive; High Density Lipoprotein 41 mg/dL; Low Density Lipoprotein Calc. 133 mg/dL; Potassium 3.9 mmol/L (3.3-5.1); Protein, Total 7.4 g/dL (5.9-8.4); Sodium Level 143 mmol/L (133-145); Total Bilirubin 0.82 mg/dL (0.00-1.30); Triglycerides 177 mg/dL; Very Low Density Lipoprotein 35 mg/dL (5-40); Vitamin B12 857 pg/mL (180-914); cholesterol:hdl ratio screen 5.16
[2024-11-12 10:32] LABS: CRP 6.42 mg/L (0.0-3.0); Iron 110 ug/dL (65-175); Iron Binding Capacity,Total 240 ug/dL (250-450); Iron Binding Capacity,Unsat 130 ug/dL (228-428); LDH 173 U/L (87-241)
[2024-11-15 10:07] LABS: ANTINUCLEAR ANTIBODIES DIRECT Negative (Negative); Anti-Mitochondrial AB <20.0 Units (0.0-20.0)
== END | disposition home or self-care (01) ==
LOC: LAB 08:30
PROVIDERS: PCP Family Medicine; Referring Provider Internal Medicine; Visit Provider Internal Medicine
DX: E78.5 Hyperlipidemia, unspecified (principal); E88.01 Alpha-1-antitrypsin deficiency; K74.60 Unspecified cirrhosis of liver; E11.9 Type 2 diabetes mellitus without complications; R74.8 Abnormal levels of other serum enzymes; K76.0 Fatty (change of) liver, not elsewhere classified; R91.1 Solitary pulmonary nodule; E03.9 Hypothyroidism, unspecified; R79.89 Other specified abnormal findings of blood chemistry; D69.6 Thrombocytopenia, unspecified
CPT/HCPCS: 80053; 80061; 80074; 82105; 82390; 82525; 82607; 82728; 82746; 82784; 82785; 82977; 83036; 83516; 83540; 83550; 83615; 84165; 84439; 84443; 85025; 85610; 86038; 86140; 86225; 86235; 86334; 86703; 86706

== ENCOUNTER → 2024-11-26 | Outpatient (CLI) | payer MEDICARE, MEDICAID, SELFPAY ==
--- NOTE | 2024-11-26 08:31 | US_ITS ---
PROCEDURE: ABD LIMITED W/ ELASTOGRAPHY REASON FOR EXAM: ADVANCED FIBROSIS, OCC RUQ PAIN COMPARISON: June 03, 2024. TECHNIQUE: Right upper quadrant abdominal ultrasound. [facility] ElastQ Imaging shear wave elastography for non-invasive assessment of liver tissue stiffness. [facility] EPIQ Elite. FINDINGS: LIVER: Size: Enlarged (hepatomegaly) Length: 17.9 cm Echotexture: Diffusely echogenic suggesting fatty infiltration Contour: Nodular Lesions: None identified Elastography: EQI Med: 13.2 kPa EQI Med Joshua: 2.09 m/s IQR/Med: 20 %* GALLBLADDER: Multiple echogenic gallstones are identified. COMMON BILE DUCT: Normal 5 mm. PANCREAS: Obscured by bowel gas. Visualized portions of the right kidney are unremarkable. No right upper quadrant ascites. The spleen measures 13.5 cm x 6.2 cm x 5.4 cm. US/ABD Limited w/ Elastography IMPRESSION: SEVERE HEPATIC FIBROSIS / CIRRHOSIS F3/F4 Reference Values: SRU <1.37 m/s (5.7kPa): No to mild fibrosis 1.37 m/s - 2.2 m/s: Moderate to severe fibrosis >2.2 m/s (15kPa): Significant fibrosis / cirrhosis METAVIR Score F2 or higher: 1.34 m/s (5.7kPa) F3 or higher: 1.55 m/s (7.3kPa) F4: 1.80 m/s (10kPa) * If the IQR/Med is >30%, the variance in the measurements is a large and the a ccuracy of the measurement may be in question. Reading Location: [place] [address]
== END | disposition home or self-care (01) ==
LOC: US 08:28
PROVIDERS: PCP Family Medicine; Referring Provider Internal Medicine; Visit Provider Internal Medicine
DX: K76.0 Fatty (change of) liver, not elsewhere classified (principal); R74.8 Abnormal levels of other serum enzymes; R10.11 Right upper quadrant pain
CPT/HCPCS: 76705; 76981

== ENCOUNTER 2024-12-15 17:08 | Emergency (ER) | payer MEDICARE, MEDICAID, SELFPAY ==
[2024-12-15 17:08] VITALS: BP 159/96; PULSE 113; RESP 18; TEMP 37.3; O2SAT 94; BMI 36.0
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
[2024-12-15 18:32] LABS: Absolute Lymphocyte Count 2.05 X10^3/uL (0.83-4.51); Absolute Neutrophil Count 5.5 X10^3/uL (2.0-7.7); Basophil# 0.08 X10^3/uL; Basophil% 0.9 % (0-1); Eosinophil# 0.15 X10^3/uL; Eosinophils% 1.8 % (0-5); Hematocrit 46.8 % (40-54); Lymphocyte # 2.05 X10^3/ul (0.83-4.51); Lymphocyte % 23.9 % (19-41); Mean Corp Hgb Conc 34.2 g/dL (32-36); Mean Corpuscular Hgb 34.3 pg (27.0-32.0); Mean Corpuscular Volume 100.2 fL (80-94); Mean Platelet Vol. 9.7 fl (6.2-12.0); Monocyte# 0.76 X10^3/uL; Monocyte% 8.9 % (0-10); NRBC Flagged by Analyzer 0 % (0-5); Neutrophil # 5.47 X10^3/uL (2.7-7.7); Neutrophil % 63.8 % (47-70); Platelet Count 199 K/mm3 (150-450); RBC Distribution Width SD 48.1 fl (35.1-43.9); Red Blood Count 4.67 M/mm3 (4.6-6.2); White Blood Count 8.6 K/mm3 (4.4-11.0)
[2024-12-15 18:46] LABS: Amphetamine Urine NEGATIVE (<1000 ng/mL); Barbiturate Urine NEGATIVE (< 200 ng/mL); Benzodiazepine Urine NEGATIVE (< 200 ng/mL); Buprenorphine Urine NEGATIVE (< 200 ng/mL); Cocaine Urine NEGATIVE (< 300 ng/mL); Fentanyl, Urine NEGATIVE; Methadone Urine NEGATIVE (< 300 ng/mL); Opiates Urine NEGATIVE (< 300 ng/mL); Oxycodone, Urine NEGATIVE (< 100 ng/mL); PCP Urine NEGATIVE (< 25 ng/mL); THC Urine NEGATIVE (< 50 ng/mL)
--- NOTE | 2024-12-15 18:48 | CM.ED ---
Social Work Psychiatric Assessment Reason for consult: Mental health Informant(s): ?Patient, medical record, police statement Chief Complaint: Patients family went to patients home, when the family members were there he was talking about how sad he has been lately and then pulled a gun out of his pocket and placed it in his mouth.? Police were called and Patient eventually threw the gun across the room, then told the police that he no longer wanted to live.? When patient arrived at the emergency department, he downplayed incident stating he was upset because he and his girlfriend of 16 years broke up.?? Patient denies any prior suicidal thoughts, plan or intent, stating it was an impulsive behavior.? Patient states that he has had one prior suicide attempt in 2009 where he also did not have a plan or intent but impulsively took pills in an attempt to OD.? Patient states that he has been experiencing an increase in depressive symptoms, he states he is sleeping too much, eating too much and generally feels despondent and cannot find kieth in his life.? Patient reports to stopping his medication over 3 months ago because he felt it was curbing his creativity and not allowing him to dream.? Patient also reports to missing his last counseling appointment and has not seen his psychiatrist in roughly 6 months.? Marital/Social History/Sexual Orientation/Gender Identity: patient is single, straight Living Situation: ?patient has been living with his girlfriend, girlfriends daughter, her brother, brothers girlfriend and brothers baby Support/Resources: sister History: ?none Education and Employment History: ?patient has his GED.? Has not worked since 2009, is on disability.? Mental Health Treatment/History: ?Patient states he has a counselor and a psychiatrist. Patient states he missed his last counseling appointment and has not seen his psychiatrist in roughly 6 months.? Has had two previous psychiatric hospitalizations in 2010, both at [facility].? Patient is prescribed Rexulti but has not been taking it for the last 3-4 months as he feels it curbs his ability to dream and his creativity.? Triggers/Stressors to mental health: ?fights with girlfriend Coping Skills: ?patient reports to watching videos and scrolling facebook History of Abuse (physical/sexual/verbal/emotional): denies Substance Abuse Current/Historical: ?patient denies any drug or alcohol abuse Risk to Self/Others: ? Suicidal (thought/plan/intent/attempt): ?patient had gun in mouth threatening to kill self ? Access to Lethal Means: yes ? Homicidal (thought/plan/intent/attempt): denies ? History of Violence (self/others/objects): denies Mental Status Exam: ??? Orientation: alert and oriented x 3 ??? Memory: intact Appearance/General Behavior: unclean, disheveled, ?calm Mood/Affect: depressed Communication Pattern: ?responds to questions Thought Process: ?appropriate but did downplay incident General Intellectual Functioning: average Judgment: fair Insight: fair [place] SSRS SUICIDAL IDEATION Ask questions 1 and 2. If both are negative, proceed to ?Suicidal Behavior? section. If the answer question 2 is yes, ask questions 3, 4, 5.? If the answer to question 1 and/or 2 is ?yes?, complete ?Intensity of Ideation? section below. 1. Wish to be ? Subject endorses thoughts about a wish to be or not alive anymore or wish to fall asleep and not wake up. Have you wished you were or wished you could go to sleep and not wake up? Lifetime: Time He/She [place] Most Suicidal: ?yes Past 1 month: denies Please Describe if yes: ?patient was suicidal in 2009 2. Non-Specific Active Suicidal Thoughts General, non-specific thoughts of wanting to end one?s life/commit suicide (e.g., ?I?ve thought about killing myself?) without thoughts of ways to kills oneself/associated methods, intent, or plan during the assessment period.? Have you actually had any thoughts of killing yourself? Lifetime: Time He/She [place] Most Suicidal: ?yes Past 1 month: denies Please Describe if yes: had thoughts of harm when things were not going well 3. Active Suicidal Ideation with Any Methods (Not Plan) without Intent to Act Subject endorses thoughts of suicide and has thought of at least one method during the assessment period.? This is different than a specific plan with time, place, or method details worked out (e.g., thought of method to kills self but not a specific plan).? Includes person who would say ?I thought about thanking an overdose, but I never made a specific plan as to when, where or how. I would actually do it, and I would never go through with it.? Have you been thinking about how you might do this? Lifetime: Time He/She [place] Most Suicidal: ?no Past 1 month:? no Please Describe if yes: 4. Active Suicidal Ideation with Some Intent to Act, without Specific Plan Active suicidal thoughts of kills oneself fand subject reports having some intent to act on such thoughts, as opposed to ?I have the thoughts but I definitely will not do anything about them.? Have you had these thoughts and had some intention of acting on them? Lifetime: Time He/She [place] Most Suicidal: no Past 1 month: no Please Describe if yes: 5. Active Suicidal Ideation with Specific Plan and Intent Thoughts of kills oneself with details of plan fully or partially worked out and subject has some intent to care it out. Have you started to work out or worked out the details of how to kill yourself? Do you intend to carry out this plan? Lifetime: Time He/She [place] Most Suicidal: no Past 1 month: ???no Please Describe if yes: INTENSITY OF IDEATION The following feature should be rated with respect to the most sever type of ideation (i.e., 1-5 from above, with 1 being the least severe and 5 being the most severe). Ask about time he/she/they were feeling the most suicidal.? Lifetime - Most Severe Ideation: Type # (1-5): Description: Recent - Most Severe Ideation: Type # (1-5): Description: Frequency How many times have you had these thoughts? Lifetime: (1) Less than once a week??? (2) Once a week?? (3)? 2-5 times in week??? (4) Daily or almost daily??? (5) Many times each day Recent, Past 1 month:? (1) Less than once a week??? (2) Once a week?? (3)? 2-5 times in week??? (4) Daily or almost daily??? (5) Many times each day Duration When you have the thoughts, how long do they last? Lifetime: (1) Fleeting - few seconds or minutes? (2) Less than 1 hour/some of the time? (3) 1-4 hours/a lot of time? 4) 4-8 hours/most of day? (5) More than 8 hours/persistent or continuous Recent, Past 1 month:? (1) Fleeting - few seconds or minutes? (2) Less than 1 hour/some of the time? (3) 1-4 hours/a lot of time? 4) 4-8 hours/most of day? (5) More than 8 hours/persistent or continuous Controllability Could/can you stop thinking about killing yourself or wanting to if you want to? Lifetime:? (1) Easily able to control thoughts?? (2) Can control thoughts with little difficulty??? (3) Can control thoughts with some difficulty??? 4) Can control thoughts with a lot of difficulty? (5) Unable to control thoughts?? (0) Does not attempt to control thoughts Recent, Past 1 month: (1) Easily able to control thoughts?? (2) Can control thoughts with little difficulty??? (3) Can control thoughts with some difficulty??? 4) Can control thoughts with a lot of difficulty? (5) Unable to control thoughts?? (0) Does not attempt to control thoughts Deterrents Are there things - anyone or anything (e.g., family, sikh, pain of ) - that stopped you from wanting to or acting on thoughts of committing suicide? Lifetime:? (1) Deterrents definitely stopped you from attempting suicide? (2) Deterrents probably stopped you?? (3) Uncertain that deterrents stopped you? (4) Deterrents most likely did not stop you? (5) Deterrents definitely did not stop you?? 0) Does not apply??? Recent:??? (1) Deterrents definitely stopped you from attempting suicide? (2) Deterrents probably stopped you?? (3) Uncertain that deterrents stopped you? (4) Deterrents most likely did not stop you? (5) Deterrents definitely did not stop you?? 0) Does not apply??? Reasons for Ideation What sort of reasons did you have for thinking about wanting to or killing yourself? Was it to end the pain or stop the way you were feeling (in other words you couldn?t go on living with this pain or how you were feeling) or was it to get attention, revenge or a reaction from others? Or both? Lifetime: (1) Completely to get attention, revenge or a reaction from?? (2) Mostly to get attention, revenge or a reaction from others? (3) Equally to get attention, revenge or a reaction from others? and to end/stop the pain?? ( 4) Mostly to end or stop the pain (you couldn?t go on living with the pain or how you were feeling)??? (5) Completely to end or stop the pain (you couldn?t go on living with the pain or? how you were feeling)??? (0)? Does not apply? Recent: (1) Completely to get attention, revenge or a reaction from?? (2) Mostly to get attention, revenge or a reaction from others? (3) Equally to get attention, revenge or a reaction from others? and to end/stop the pain??? (4) Mostly to end or stop the pain (you couldn?t go on living with the pain or how you were feeling)?? (5) Completely to end or stop the pain (you couldn?t go on living with the pain or? how you were feeling)?? (0)? Does not apply? SUICIDAL BEHAVIOR Actual Attempt: A potentially self-injurious act committed with at least some wish to , as a result of act.? Behavior was in part thought of as method to kill oneself.? Intent does not have to be 100%.? If there is any intent/desire to associated with the act, then it can be considered an actual suicide attempt.? There does not have to be any injury of harm, just the potential for injury or harm.? If person pulls trigger while gun is in mouth, but gun is broken so no injury results, this is considered an attempt.? Inferring intent:? Even if an individual denies intent/wish to , it may be inferred clinically from the behavior or circumstances.? For example, a highly lethal act that is clearly not an accident so no other intent but suicide can be inferred (e.g. gunshot to head, jumping from window of a high floor/story).? Also, if someone denies intent to , but they thought that what they did could be lethal, intent may be inferred.? Have you made a suicide attempt? Have you done anything to harm yourself? Have you done anything dangerous where you could have ? What did you do? Did you as a way to end your life? Did you want to (even a little) when you ? Were you trying to end your life when you ? Or did you think it was possible you could have from ? Or did you do it purely for other reasons/without ANY intention of killing yourself like to relieve stress, feel better, get sympathy, or get something else to happen)? (Self -Injurious Behavior without suicidal intent) Lifetime: yes Past 3 months: no If yes, describe: patient attempted suicide in 2009 by OD Total # of Attempts in His/Her Lifetime: Total # of attempts in Past 3 months: Has person engaged in Non-Suicidal Self-Injurious Behavior? Lifetime: no Past 3 months: no Interrupted Attempt: When the person is interrupted (by an outside circumstance) from starting the potentially self-injurious act (if not for that, actual attempt would have occurred).? Overdose: Person has pills in hand but is stopped from ingesting. Once they ingest any pills, this becomes an attempt rather than an interrupted attempt. Shooting: Person has gun pointed toward self, gun is taken away by someone else, or is somehow prevented from pulling trigger. Once they pull the trigger, even if the gun fails to fire, it is an attempt. Jumping: Person is poised to jump, is grabbed and taken down from ledge.? Hanging: Person has noose around neck but has not yet started to hang self -is stopped from doing so.? Has there been a time when you started to do something to end your life but someone or something stopped you before you did anything? Lifetime: no Past 3 months: yes If yes, describe: ?patient was interrupted tonight when he had gun in mouth Total # of interrupted attempts in His/Her Lifetime: Total # of interrupted attempts in Past 3 months: Aborted or Self-Interrupted Attempt:? When person begins to take steps toward making a suicide attempt, but stops themselves before they have actually engaged in any self-destructive behavior. Examples are like interrupted attempts, except that the individual stops him/herself, instead of being stopped by something else. Has there been a time when you started to do something to try to end your life, but you stopped yourself before you did anything? Lifetime: no Past 3 months: no If yes, describe: Total # of aborted or self-interrupted attempts in His/Her Lifetime: Total # of aborted or self-interrupted attempts in Past 3 months: Preparatory Acts or Behavior:? Acts or preparation towards imminently making a suicide attempt. This can include anything beyond a verbalization or thought, such as assembling a specific method (e.g., buying pills, purchasing a gun) or preparing for one?s by suicide (e.g., giving things away, writing a suicide note). Have you taken any steps towards making a suicide attempt or preparing to kill yourself (such as collecting pills, getting a gun, giving valuables away or writing a suicide note)? Lifetime: yes Past 3 months: no If yes, describe: ?wrote suicide attemtp in 2009 Total # of preparatory acts in His/Her Lifetime: Total # of preparatory acts in Past 3 months: Lethality/Medical Damage:??? 0. No physical damage or very minor physical damage (e.g., surface scratches). 1. Minor physical damage (e.g., lethargic speech; first-degree walden; mild bleeding; sprains). 2. Moderate physical damage; medical attention needed (e.g., conscious but sleepy, somewhat responsive; second-degree walden; bleeding of major vessel). 3. Moderately severe physical damage; medical hospitalization and likely intensive care required (e.g., comatose with reflexes intact; third-degree walden less than 20% of body; extensive blood loss but can recover; major fractures). 4. Severe physical damage; medical hospitalization with intensive care required (e.g., comatose without reflexes; third-degree walden over 20% of body; extensive blood loss with unstable vital signs; major damage to a vital area). 5. Most Recent attempt Date: Code: Most Lethal Attempt Date: Code: Initial/First Attempt Date: Code: Potential Lethality: Only Answer if Actual Lethality=0 Likely lethality of actual attempt if no medical damage (the following examples, while having no actual medical damage, had potential for very serious lethality: put gun in mouth and pulled the trigger but gun fails to fire so no medical damage; laying on train tracks with oncoming train but pulled away before run over). 0 = Behavior not likely to result in injury 1 = Behavior likely to result in injury but not likely to cause 2 = Behavior likely to result in despite available medical care Most Recent Attempt Code: Most Lethal Attempt Code: Initial/First Attempt Code: Assessment Summary: Due to patients impulsivity, prior suicide attempt, and increase in depressive symptoms including feelings of despondency, inpatient psychiatric hospitalization is recommended to decrease suicidal and depressive symptoms. Plan: inpatient psychaitric hospitalization pending acceptance. Shannan Pressley, MARKETING FINANCIAL ANALYST, KEYING MACHINE OPERATOR ?
[2024-12-15 18:49] LABS: Anion Gap 13 (5-15); BUN 13 mg/dL (4-19); Calcium,Total 8.8 mg/dL (7.6-11.0); Carbon Dioxide 18.9 mmol/L (21.0-32.0); Chloride 103 mmol/L (98-108); EST Glomerular Filtration Rate 107 (>60); Estimated Creatinine Clearance 125.76 ml/min (50-250); Glucose 292 mg/dL (70-99); Potassium 3.8 mmol/L (3.3-5.1); Sodium Level 136 mmol/L (133-145)
[2024-12-15 18:53] LABS: Alcohol, Blood (Medical)-Serum < 10.1 mg/dL (<=10.0)
--- NOTE | 2024-12-15 19:06 | CM.ED ---
Social Work SW called [facility] to see if they had a male bed available, was informed they were full for this evening and accepting referrals for tomorrow [facility], male bed is available. Referral sent. Plan: Inpatient psychiatric hospitalization pending acceptance. Shannan Pressley, VOLUNTEER ASSISTANT, BUFFING WHEEL OPERATOR
--- NOTE | 2024-12-15 20:22 | CM.ED ---
Social Work SW [facility]. Admitting physician is Dr. Sinclair, patient will be going to [address] [place] [address]. [id number] [phone]. [facility] slip was faxed. Patient notified of accepting facility. No further needs at this time. Shannan Pressley, TRANSPORT AIDE, STATE FARM AGENT
[2024-12-15 20:27] VITALS: BP 143/92; PULSE 95; RESP 18; TEMP 37.1; O2SAT 94
--- NOTE | 2024-12-15 21:48 | ED.RN ---
attempted to call report x3 without answer.
[2024-12-16 00:28] VITALS: BP 143/92; PULSE 95; RESP 18; TEMP 37.1; O2SAT 94
[2024-12-16] MEDS: Ibuprofen 600 MG Tablet PO (00:37)
== END 2024-12-16 00:51 ==
PROVIDERS: Emergency Provider Emergency Medicine; PCP Family Medicine; Visit Provider Emergency Medicine
DX: R45.851 Suicidal ideations (principal); E88.01 Alpha-1-antitrypsin deficiency; F20.9 Schizophrenia, unspecified; J44.9 Chronic obstructive pulmonary disease, unspecified; F32.A Depression, unspecified; K76.9 Liver disease, unspecified; Z87.891 Personal history of nicotine dependence; Z79.899 Other long term (current) drug therapy; Z91.148 Patient's other noncompliance with medication regimen for other reason
CPT/HCPCS: 36415; 80048; 80307; 82077; 85025; 99284

== ENCOUNTER 2025-01-10 23:15 | Emergency (ER) | payer MEDICARE, MEDICAID, SELFPAY ==
[2025-01-10 23:18] VITALS: BP 100/60; PULSE 82; RESP 16; TEMP 36.8; O2SAT 95; BMI 36.3
[2025-01-10 23:19] VITALS: BP 100/60; PULSE 82; RESP 16; TEMP 36.8; O2SAT 95
--- NOTE | 2025-01-10 23:33 | RAD_ITS ---
PROCEDURE: CHEST PA AND LATERAL 01/11/2025 REASON FOR EXAM: CHEST PAIN TECHNIQUE: Frontal and lateral views of the chest. COMPARISON: CT scan of the chest on 05/17/2024. FINDINGS: The lungs are emphysematous. There is no demonstrated acute parenchymal abnormality. There is no demonstrated pleural abnormality. Normal heart and pericardium. Normal mediastinum and breezy. Normal visualized pulmonary arteries. Normal visualized aortic arch and descending thoracic aorta. Normal visualized thoracic spine. Normal visualized ribs, clavicles, and shoulders. There is no demonstrated abnormality of the visualized soft tissue structures of the upper abdomen. RAD/Chest PA and Lateral IMPRESSION: No radiographic evidence of an acute abnormality. Reading Location: [facility]
--- NOTE | 2025-01-10 23:33 | EKG12_ITS ---
Test Reason : DYSRHYTHMIA Blood Pressure : */* mmHG Vent. Rate : 77 BPM Atrial Rate : 77 BPM P-R Int : 142 ms QRS Dur : 90 ms QT Int : 382 ms P-R-T Axes : 54 66 47 degrees QTcB Int : 432 ms Normal sinus rhythm Normal ECG Confirmed by Robson Pathak ([id number]), art editor JAMIA DIEHL ([id number]) on 01/11/2025 11:17:40 AM Referred By: TB Confirmed By: Robson Pathak
[2025-01-10 23:58] VITALS: PULSE 80; RESP 20
[2025-01-10] MEDS: Ipratropium/Albuterol Sulfate 3 ML AMPUL.NEB INHALATION (23:58)
[2025-01-11] VITALS (7 sets, daily range): BP systolic 121–131; BP diastolic 77–89; PULSE 76–92; RESP 10–21; TEMP 36.8; O2SAT 90–94
[2025-01-11 00:10] LABS: Absolute Lymphocyte Count 3.11 X10^3/uL (0.83-4.51); Absolute Neutrophil Count 5.8 X10^3/uL (2.0-7.7); Basophil# 0.07 X10^3/uL; Basophil% 0.7 % (0-1); Eosinophil# 0.24 X10^3/uL; Eosinophils% 2.4 % (0-5); Hematocrit 43.7 % (40-54); Hemoglobin 14.8 g/dL (13.0-16.5); Lymphocyte # 3.11 X10^3/ul (0.83-4.51); Lymphocyte % 30.7 % (19-41); Mean Corp Hgb Conc 33.9 g/dL (32-36); Mean Corpuscular Hgb 33.9 pg (27.0-32.0); Mean Platelet Vol. 8.8 fl (6.2-12.0); Monocyte# 0.79 X10^3/uL; Monocyte% 7.8 % (0-10); NRBC Flagged by Analyzer 0 % (0-5); Neutrophil # 5.82 X10^3/uL (2.7-7.7); Neutrophil % 57.3 % (47-70); Platelet Count 195 K/mm3 (150-450); RBC Distribution Width CV 12.6 % (11.6-14.6); RBC Distribution Width SD 46.9 fl (35.1-43.9); Red Blood Count 4.37 M/mm3 (4.6-6.2); White Blood Count 10.1 K/mm3 (4.4-11.0)
[2025-01-11] MEDS: Ipratropium/Albuterol Sulfate 3 ML AMPUL.NEB INHALATION ×2 (00:10→00:17)
--- NOTE | 2025-01-11 00:10 | ED.VIS.CHEST ---
HPI History of Present Illness Chief Complaint: Shortness of Breath Narrative Narrative: Patient is a 49-year-old male with past medical history of depression, COPD, schizophrenia, kidney stones, alpha 1 antitrypsin deficiency, PAT who presents to the emergency department with a chief complaint of cough, chest pain and shortness of breath. Patient states that he recently was released from a mental health facility and several individuals there were sick. He states that he tried to isolate himself from these people however he states that will after he got home he noted that he had a scratchy throat and then developed worsening symptoms from there. Patient states that he has been coughing up stuff more than normal and notes that tonight when he got a shower and attempted to put his pajamas on he felt very short of breath he checked his pulse ox and noted that it was 85% prompting him to come here for further evaluation management. When inquiring about the patient's chest pain he states that is when he coughs. [facility] Medical History Depression Fatty liver Abnormal CT lung screening Lung nodule History of tobacco use Encounter for screening for malignant neoplasm of lung COPD (chronic obstructive pulmonary disease) Kidney stone Schizophrenia Home Medications ?Medication ?Instructions ?Recorded ?Last Taken ?Type brexpiprazole 2 mg tablet (Rexulti) 2 mg PO DAILY uns 10/07/22 11/02/23 05:00 History albuterol sulfate 90 mcg/actuation 1 inh inhalation Q6H PRN shortness 11/04/23 Unknown Rx aerosol inhaler of breath or wheezing #8.5 grams cholecalciferol (vitamin D3) 1,250 1,250 mcg PO QWEEK 4 weeks #4 tabs 06/30/24 Unknown Rx mcg (50,000 unit) tablet doxycycline hyclate 100 mg capsule 100 mg PO BID #14 caps 01/11/25 Unknown Rx prednisone 50 mg tablet 50 mg PO DAILY 5 days #5 tabs 01/11/25 Unknown Rx Allergy/AdvReac Type Severity Reaction Status Date / Time brexpiprazole (From Rexulti) Allergy Other Verified 01/10/25 23:20 Family History Father Lymphoma Mother Kidney disease Social History household members: none Smoking Status: Former smoker quit date: 10/30/23 Tobacco: How many years used: 35 alcohol intake: current alcohol intake frequency: holidays/special occasions only substance use type: does not use ROS ROS ED ROS Narrative Constitutional: Complains of chills denies fevers Eyes: Denies changes double vision blurry vision Cardiovascular: Complaint of chest pain as noted above denies palpitations Respiratory: Planes of cough and shortness of breath as noted above Abdomen: Denies abdominal pain nausea vomit diarrhea : Denies urinary symptoms Neurological: Denies numbness, weakness, tingling Musculoskeletal: Denies back pain Skin: Denies any rashes or lesions EXAM Physical Exam Narrative Exam Narrative: General: Patient lying in bed rest comfortably did not appear to be in acute distress Head: Atraumatic, normocephalic Eyes: PERRL bilaterally, EOMI bilaterally, no conjunctival injection noted Neck: Soft, supple, trachea midline Cardiovascular: Regular in rhythm no murmurs gallops rubs noted Respiratory: Patient has diminished breath sounds bilaterally Abdomen: Soft, nondistended, tender to palpation Extremities: +5/5 strength noted in the bilateral upper and lower extremities, no pedal edema on exam Neurological: Patient following commands knew that he was at [facility] the year is 2024 Skin: Warm, dry, intact no rashes or lesions noted Const Vital Signs: 01/10/25 23:18 01/10/25 23:19 01/10/25 23:52 Temperature 98.2 F 98.2 F Temperature Source Oral Oral Pulse Rate 82 82 Respiratory Rate 16 16 Respiratory Effort Respiratory Depth Respiratory Pattern Blood Pressure 100/60 100/60 Blood Pressure Mean 73 73 Pulse Ox 95 95 Oxygen Delivery Method Room Air Room Air Room Air 01/10/25 23:55 01/10/25 23:56 01/10/25 23:58 Temperature Temperature Source Pulse Rate 80 Respiratory Rate 20 H Respiratory Effort Normal Normal Respiratory Depth Normal Respiratory Pattern Normal Tachypnea Blood Pressure Blood Pressure Mean Pulse Ox Oxygen Delivery Method Room Air 01/11/25 00:15 01/11/25 00:19 01/11/25 01:00 Temperature 98.2 F Temperature Source Oral Pulse Rate 78 76 80 Respiratory Rate 20 H 21 H 10 L Respiratory Effort Respiratory Depth Respiratory Pattern Blood Pressure 131/89 H 131/89 H Blood Pressure Mean 103 103 Pulse Ox 92 94 92 Oxygen Delivery Method Room Air Room Air Room Air 01/11/25 01:15 01/11/25 02:00 Temperature Temperature Source Pulse Rate 92 84 Respiratory Rate 20 H 18 Respiratory Effort Respiratory Depth Respiratory Pattern Normal Blood Pressure 123/77 H Blood Pressure Mean 92 Pulse Ox 90 Oxygen Delivery Method Room Air MDM MDM MDM Narrative Medical decision making narrative: Patient is a 49-year-old male who presented to the Emergency Department chief complaint of cough and shortness of breath. On the differential diagnosis includes but not limited to COPD exacerbation, upper respiratory feck second viral etiology, pneumonia, ACS, pneumothorax. Once workup is obtained reviewed he will be reevaluated. Patient given 3 DuoNebs and oral prednisone Patient's CBC reviewed and showed a white blood count of 10,000, hemoglobin 14.8, platelet count was noted to be 195. Patient sodium was 140, potassium 3.8, creatinine normal at 0.82. Patient's troponin was 9 with a delta troponin obtained at 9. Patient's EKG reviewed and showed sinus rhythm with a rate of 77 bpm. Patient proBNP normal at 68. Patient's chest x-ray reviewed and showed no radiographic evidence of acute abnormality. This was reviewed by myself and by radiology. Reevaluation the patient he had some expiratory wheezing noted therefore was given another albuterol treatment. Patient ambulated well here in the emergency department no hypoxia no tachycardia he felt well at baseline. He would like to go home at this point time he is advised to follow-up his doctor in outpatient setting and return with worsening symptoms or concerns. He will be given prescription for prednisone, doxycycline. He states that he has enough inhalers at home. He was advised to return with worsening symptoms or concerns he is agreeable this plan all questions and concerns answered at bedside. Lab Data Labs: Laboratory Results - last 24 hr 01/10/25 01/11/25 23:52 01:59 WBC 10.1 RBC 4.37 L Hgb 14.8 Hct 43.7 MCV 100.0 H MCH 33.9 H MCHC 33.9 RDW Std Deviation 46.9 H RDW Coeff of Carlene 12.6 Plt Count 195 MPV 8.8 Immature Gran % (Auto) 1.100 H Neut % (Auto) 57.3 Lymph % (Auto) 30.7 [place] % (Auto) 7.8 Eos % (Auto) 2.4 Baso % (Auto) 0.7 Absolute Neuts (auto) 5.8 Absolute Lymphs (auto) 3.11 Nucleated RBC % 0 Sodium 140 Potassium 3.8 Chloride 106 Carbon Dioxide 25.0 Anion Gap 9 BUN 11 Creatinine 0.82 Estim Creat Clear Calc 123.27 Est GFR (MDRD) Non-Af 106 BUN/Creatinine Ratio 13.2 Glucose 120 H Calcium 8.7 Troponin T High Sens 9 Troponin T Hi Sens 2 Hr 9 NT pro BNP II 68 Radiography Diagnostic Testing: Clinical Impression(s) from Imaging Studies Chest X-Ray 01/10/25 23:33 IMPRESSION: No radiographic evidence of an acute abnormality. [facility] [address] Discharge Plan Triage Chief Complaint: Shortness of Breath Other Complaint: Chest Pain ED Provider: Anderson Reddy Dx/Rx/DC Orders Clinical Impression: COPD exacerbation Prescriptions: New doxycycline hyclate 100 mg capsule 100 mg PO BID Qty: 14 0RF prednisone 50 mg tablet 50 mg PO DAILY 5 Days Qty: 5 0RF No Action cholecalciferol (vitamin D3) 1,250 mcg (50,000 unit) tablet 1,250 mcg PO QWEEK 28 Days Qty: 4 2RF Rexulti 2 mg tablet 2 mg PO DAILY albuterol sulfate 90 mcg/actuation HFA aerosol inhaler 1 inh inhalation Q6H PRN (Reason: shortness of breath or wheezing) Qty: 8.5 1RF Primary Care Provider: Alma Rosa Cornelius Referrals: Alma Rosa Cornelius MD [Primary Care Provider] - Activity Restrictions/Additional Instructions: Follow-up with your doctor in the outpatient setting. Return with worsening symptoms or any concerns. Take the antibiotics and steroids that were sent to your pharmacy as prescribed. Use inhaler as prescribed Print Language: Japanese Disposition Disposition: Home, Self Care
[2025-01-11 00:33] LABS: Pro- Brain NATRIURETIC PEPTIDE 68 pg/mL (<=900); Troponin T High Sensitivity 9 ng/L (<=22)
[2025-01-11 00:34] LABS: Anion Gap 9 (5-15); BUN 11 mg/dL (4-19); BUN/Creat Ratio 13.2 RATIO (10-20); Calcium,Total 8.7 mg/dL (7.6-11.0); Chloride 106 mmol/L (98-108); Creatinine, Serum 0.82 mg/dL (0.70-1.20); EST Glomerular Filtration Rate 106 (>60); Estimated Creatinine Clearance 123.27 ml/min (50-250); Glucose 120 mg/dL (70-99); Potassium 3.8 mmol/L (3.3-5.1); Sodium Level 140 mmol/L (133-145)
--- NOTE | 2025-01-11 00:40 | CPS ---
[2358] x3 Duoneb given to pt. in ER
[2025-01-11] MEDS: Albuterol 2.5 MG/3 ML VIAL.NEB. INHALATION (01:15)
[2025-01-11] MEDS: predniSONE 20 MG Tablet 60 MG PO (01:34)
--- OUTSIDE RECORDS SUMMARY | 2025-01-11 02:18 | XMS RPT_ITS | CCD ---
Author Organization [facility]ini[facility] Care Team Providers Care Detective [facility] Name Role Phone Unavailable Primary Care Provider UnavailJosé Miguel Salinas MD Unavailable JOSÉ MIGUEL JOE Attending Unavailable Care Physician, No Primary Primary Care Provider Unavailable Dr. Ana Jaquez Emergency Provider Dr. Mik Rodriguez Admit Provider Dr. Mik Rodriguez Attending Provider Dr. Mik Rodriguez Other Provider Dr. Eber Araujo Attending Provider [phone] Dr. Eber Araujo Other Provider Dr. Alma Rosa Cornelius MD Primary Care Provider Niki Munoz Attending Provider Dr. Alma Rosa Cornelius MD Referring Provider Dr. Get Boggs MD Attending Provider Dr. Get Boggs MD Referring Provider Dr. Alma Rosa Cornelius MD Primary Care Provider Niki Munoz Attending Provider Dr. Chilango Nielsen DO Emergency Provider Alma Rosa Cornelius Primary Care Unavailable Cole Zhou Referring Unavailable Cole Zhou Attending Unavailable Alma Rosa Cornelius Primary Care Unavailable Chilango Nielsen Attending Unavailable Alma Rosa Cornelius Primary Care Unavailable Niki Maza Referring Unavailable Niki Maza Attending Unavailable Miedel, Alma Rosa Primary Care Unavailable Niki Maza Attending Unavailable Miedel, Alma Rosa Primary Care Unavailable Get Boggs Referring Unavailable Get Boggs Attending Unavailable Miedel, Alma Rosa Primary Care Unavailable Ishan FAMILY PSYCHOLOGIST, Elva Referring Unavailable Ishan FAMILY PSYCHOLOGIST, Elva Attending Unavailable Miedel, Alma Rosa Primary Care Unavailable Blanquita FAMILY PSYCHOLOGIST, Laura Referring Unavailable Blanquita FAMILY PSYCHOLOGISTLaura Attending Unavailable Miedel, Alma Rosa Primary Care Unavailable Miedel, Alma Rsoa Referring Unavailable Get Boggs Attending Unavailable Miedel, Alma Rosa Primary Care Unavailable Miedel, Alma Rosa Referring Unavailable Niki Maza Attending Unavailable Miedel, Alma Rosa Primary Care Unavailable Miedel, Alma Rosa Referring Unavailable Get Boggs Attending Unavailable Miedel, Alma Rosa Primary Care Unavailable Miedel, Alma Rosa Referring Unavailable Ishan FAMILY PSYCHOLOGIST, Elva Attending Unavailable Miedel, Alma Rosa Primary Care Unavailable Miedel, Alma Rosa Referring Unavailable Miedel, Alma Rosa Attending Unavailable Miedel, Alma Rosa Primary Care Unavailable Miedel, Alma Rosa Referring Unavailable Miedel, Alma Rosa Attending Unavailable Miedel, Alma Rosa Primary Care Unavailable Miedel, Alma Rosa Referring Unavailable Ishan FAMILY PSYCHOLOGIST, Elva Attending Unavailable Miedel, Alma Rosa Primary Care Unavailable Get Boggs Attending Unavailable Get Boggs Referring Unavailable Medications Current Medications Medication Drug Class(es) Dates Sig (Normalized) Sig (Original) acetaminophen 325 mg / oxyCODONE hydrochloride 5 mg oral tablet (1 source) Opioid Agonist Start: 07-27-2022 take 1 tablet by mouth every six hours Oxycodone-Acetami nophen (Percocet) 5-325 mg tablet Active 1 TABLET PO EVERY 6 HOURS 21 12July 27, 2022 Start: 07-27-2022 take 1 tablet by mikhail th every six hours Oxycodone-Acetaminophen (Percocet) 5-325 mg tablet Active 1 TABLET PO EVERY 6 HOURS 21 12July 27, 2022 [id number] 200 actuat albuterol 0.09 mg/actuat metered dose inhaler (3 sources) beta2-Adrenergic Agonist Start: 11-04-2023 Albut glen Sulfate 90 mcg/actuation HFA aerosol inhaler Active 1 NMA INHALATION EVERY 6 HOURS as needed for shortness of breath or wheezing 8.November 04, 2023 12:00am Start: 11-04-2023 Albuterol Sulf ate Active 1 INH INHALATION EVERY 6 HOURS 8.November 04, 2023 12:00am asenapine 2.5 mg sublingual tablet (1 source) Atypical Antipsychotic Start: 08-02-2020 take 2.5 mg by mouth once daily Asenapine Maleate Active 2.5 MG PO DAILY August 02, 2020 1:00am brexpiprazole 2 mg oral tablet (11 sources) Atypical Antipsychotic Start: 10-07-2022 take 1 tablet by mouth once daily Brexpiprazole (Rexulti) 2 mg tablet Active 2 mg PO DAILY October 07, 2022 1:00am Start: 08-31-2019 take 1 tablet by mikhail th once daily REXULTI 2 mg tab Take 1 tablet by mouth once daily. 0 08/31/2019 Active Start: 05-19-2019 take 1 tablet by mikhail th once daily brexpiprazole (REXULTI) 1 mg tablet Take 1 tablet by mouth once daily. 0 05/19/2019 Active Comment on above: Take 1 tablet by mikhail th once daily. Cholecalciferol (6 sources) Vitamin D Start: 06-30-2024 take 1 tablet by mouth every week Cholecalciferol (Vitamin D3) 1,250 mcg (50,000 unit) tablet Active 1250 ug PO EVERY WEEK 4 June 30, 2024 1:00am Start: 11-02-2023 End: 06-30-2024 take 1 capsule by mouth once daily Cholecalciferol (Vitamin D3) (Vitamin D3) 50 mcg (2,000 unit) capsule Discontinued 50 ug PO DAILY November 02, 2023 12:00am June 30, 2024 3:03pm clindamycin 300 mg oral capsule (1 source) Lincosamide Antibacterial Start: 05-02-2022 take 1 capsule by mouth every six hours Clindamycin Hcl (Cleocin Hcl) 300 mg capsule Active 300 MG PO EVERY 6 HOURS May 02, 2022 12:00am ketorolac tromethamine 10 mg oral tablet (1 source) Nonsteroidal Anti-inflammatory Drug, Cyclooxygenase Inhibitor Start: 07-27-2022 take 10 mg by mouth every six hours Ketorolac Active 10 MG PO EVERY 6 HOURS 20 July 27, 2022 6:51am naproxen 500 mg oral tablet (2 sources) Nonsteroidal Anti-inflammatory Drug Start: 05-02-2022 take 500 mg by mouth twice daily Naproxen Active 500 MG PO TWICE A DAY May 02, 2022 12:00am Start: 12-17-2019 take 1 tablet by mikhail th once daily naproxen (NAPROSYN) 500 mg tablet Take 1 tablet by mouth once daily. 10 tablet 0 12/17/2019 Active Comment on above: Take 1 tablet by mikhail th once daily. Completed/Discontinued Medications Medication Drug Class(es) Dates Sig (Normalized) Sig (Original) acetaminophen 325 mg / HYDROcodone bitartrate 5 mg oral tablet (16 sources) Opioid Agonist Start: 10-07-2022 End: 11-02-2023 Hydrocodone-Acetami nophen 5-325 mg tablet Discontinued 1 {tbl} PO EVERY 4 HOURS NEEDED as needed for Pain 15 December 11, 2022 November 02, 2023 9:29am Start: 10-07-2022 End: 11-02-2023 take 1 tablet by mouth every four hours as needed Hydrocodone-Acetaminophen Discontinued 1 TABLET PO EVERY 4 HOURS NEEDED 15 December 11, 2022 November 02, 2023 9:29am Start: 05-02-2022 take 1 tablet by mikhail th every six hours as needed Hydrocodone-Acetaminophen Active 1 TABLE T PO EVERY 6 HOURS NEEDED 10 May 02, 2022 amoxicillin 875 mg / clavulanate 125 mg oral tablet (7 sources) Penicillin-class Antibacterial Start: 08-03-2023 End: 11-02-2023 Amoxicillin-Pot Clavulanate 875-125 mg tablet Discontinued 1 {tbl} PO TWICE A DAY August 03, 2023 1:00am November 02, 2023 9:29am Start: 08-03-2023 End: 11-02-2023 take 1 tablet by mouth twice daily Amoxicillin-Pot Clavulanate Discontinued 1 TABLET PO TWICE A DAY August 03, 2023 1:00am November 02, 2023 9:29am Start: 01-05-2021 take 875 mg by mouth every twelve hours Amoxicillin-Pot Clavulanate Active 875 MG PO Q12H January 05, 2021 12:00am azithromycin 500 mg oral tablet (3 sources) Macrolide Antimicrobial Start: 11-04-2023 End: 12-09-2023 take 1 tablet by mouth once daily Azithromycin 500 mg tablet Discontinued 500 mg PO DAILY 3 November 04, 2023 12:00am December 09, 2023 1:22pm Budesonide-Glycopyr- Formoterol (2 sources) Corticosteroid, beta2-Adrenergic Agonist Start: 02-02-2024 End: 11-10-2024 Budesonide-Glycopy r-Formoterol (Breztri Aerosphere) 160-9-4.8 mcg/actuation HFA aerosol inhaler Discontinued 2 NMA INHALATION TWICE A DAY February 02, 2024 12:00am November 10, 2024 12:59pm 24 hr buPROPion hydrochloride 150 mg extended release oral tablet (7 sources) Aminoketone Start: 11-02-2023 End: 11-04-2023 take 1 tablet by mouth once daily Bupropion Hcl 150 mg tablet extended release 24 hr Discontinued 150 mg PO DAILY November 02, 2023 12:00am November 04, 2023 1:06pm Start: 11-02-2023 End: 12-09-2023 take 1 tablet by mouth once daily Bupropion Hcl 75 mg tablet Discontinued 75 mg PO DAILY November 02, 2023 12:00am December 09, 2023 1:22pm doxycycline monohydrate 100 mg oral tablet (1 source) Tetracycline-class Drug Start: 01-24-2020 take 1 tablet by mouth twice daily doxycycline monohydrate 100 mg tablet Take 1 tablet by mouth twice daily. 20 tablet 0 01/24/2020 Active Comment on above: Take 1 tablet by mikhail th twice daily. ibuprofen 600 mg oral tablet (9 sources) Nonsteroidal Anti-inflammatory Drug Start: 10-07-2022 End: 11-02-2023 take 1 tablet by mouth every eight hours as needed for pain Ibuprofen 600 mg tablet Discontinued 600 mg PO EVERY 8 HOURS NEEDED as needed for pain October 07, 2022 1:00am November 02, 2023 9:29am lamoTRIgine 25 mg oral tablet (2 sources) Mood Stabilizer, Anti-epileptic Agent Start: 06-08-2024 End: 11-10-2024 take 1 tablet by mouth once daily Lamotrigine 25 mg tablet Discontinued 25 mg PO daily June 08, 2024 1:00am November 10, 2024 1:00pm ondansetron 4 mg disintegrating oral tablet (16 sources) Serotonin-3 Receptor Antagonist Start: 10-07-2022 End: 11-02-2023 take 1 tablet by mouth every eight hours as needed for nausea Ondansetron 4 mg tablet,disintegra ting Discontinued 4 mg PO EVERY 8 HOURS NEEDED as needed for Nausea December 11, 2022 12:00am November 02, 2023 9:29am Start: 07-27-2022 take 4 mg by mouth t hree times daily Ondansetron Active 4 MG PO THREE TIMES A DAY July 27, 2022 6:50am predniSONE 20 mg oral tablet (3 sources) Start: 11-04-2023 End: 12-09-2023 take 2 tablets by mouth at breakfast Prednisone 20 mg Tablet Discontinued 40 mg PO WITH BREAKFAST 6 November 04, 2023 12:00am December 09, 2023 1:23pm Start: 11-04-2023 take 40 mg by mouth at breakfa st Prednisone Active 40 MG PO WITH BREAKFAST 6 3 November 04, 2023 12:00am tamsulosin hydrochloride 0.4 mg oral capsule (9 sources) alpha-Adrenergic Iqra Start: 10-07-2022 End: 11-02-2023 take 1 capsule by mouth once daily Tamsulosin (Flomax) 0.4 mg capsule Discontinued 0.4 mg PO DAILY October 07, 2022 1:00am November 02, 2023 9:29am Start: 07-27-2022 take 1 capsule by [facility] once daily Tamsulosin (Flomax) 0.4 mg capsule Active 0.4 MG PO DAILY July 27, 2022 12:00am Problems Active Problems Problem Classification Problem Date Documented Date Episodic/Chronic Abdominal pain (4 sources) Right upper quadrant pain; Translations: [Right upper quadrant pain] 11-10-2024 Episodic Asthma (4 sources) Asthma-chronic obstructive pulmonary disease overlap syndrome; Translations: [Asthma-chronic obstructive pulmonary disease overlap syndrome] 02-02-2024 Chronic Comment on above: FEV1 37% of predicte d Calculus of urinary tract (20 sources) Renal colic; Translations: [Unspecified renal colic] Onset: 01-10-2023 08-04-2022 Episodic Chronic obstructive pulmonary disease and bronchiectasis (6 sources) Acute exacerbation of chronic obstructive airways disease; Translations: [Chronic obstructive pulmonary disease with (acute) exacerbation] 11-02-2023 Chronic Chronic obstructive pulmonary disease and bronchiectasis (1 source) Chronic obstructive pulmonary disease and bronchiectasis; Translations: [Other specified chronic obstructive pulmonary disease] Onset: 06-18-2024 Disorders of lipid metabolism (1 source) Hyperlipidemia, unspecified; Translations: [Hyperlipidemia, unspecified] Onset: 12-31-2024 Chronic Disorders of teeth and jaw (10 sources) Dental plaque induced gingivitis; Translations: [Chronic gingivitis, plaque induced] 05-10-2022 Chronic Disorders of teeth and jaw (20 sources) Carious exposure of pulp ; Translations: [Dental caries, unspecified] 05-10-2022 Episodic Essential hypertension (10 sources) Hypertensive disorder; Translations: [Essential (primary) hypertension] 08-03-2020 Chronic Headache; including migraine (1 source) Headache; Translations: [Headache, unspecified headache type] Episodic Hepatitis (1 source) Nonalcoholic steatohepatitis; Translations: [Nonalcoholic steatohepatitis (KEITH)] Onset: 05-22-2019 05-22-2019 Chronic Other diseases of kidney and ureters (9 sources) Hydronephrosis; Translations: [Unspecified hydronephrosis] 08-04-2022 Episodic Other endocrine disorders (1 source) Testicular hypofunction; Translations: [Testicular hypofunction] Onset: 06-11-2024 Chronic Other eye disorders (6 sources) Subconjunctival hemorrhage; Translations: [Conjunctival hemorrhage, right eye] 08-03-2020 Episodic Other eye disorders (1 source) Disorder of eye; Translations: [Unspecified disorder of eye and adnexa] Episodic Other eye disorders (4 sources) Subconjunctival hemorrhage of right eye; Translations: [Conjunctival hemorrhage, right eye] 08-03-2020 Episodic Other liver diseases (5 sources) Fatty (change of) liver, not elsewhere classified; Translations: [Metabolic dysfunction-associate d steatotic liver disease (MASLD)] Onset: 11-30-2024 11-10-2024 Chronic Other liver diseases (4 sources) Elevated liver enzymes level; Translations: [Abnormal levels of other serum enzymes] 06-30-2024 Episodic Other lower respiratory disease (4 sources) Nodule of lung; Translations: [Solitary pulmonary nodule] 02-02-2024 Episodic Other lower respiratory disease (2 sources) Computed tomography result abnormal; Translations: [Other nonspecific abnormal finding of lung field] 12-09-2023 Episodic Other nutritional; endocrine; and metabolic disorders (4 sources) Kncap-0-miwhqbwglrs deficiency; Translations: [Bufxr-6-yjpwzsdsfss deficiency] 06-08-2024 Chronic Comment on above: Screening M/Z Other nutritional; endocrine; and metabolic disorders (1 source) Wgvix-7-rrlqivfxgiv deficiency; Translations: [Qrrji-4-uiogtygsszf deficiency] Onset: 06-18-2024 Chronic Other screening for suspected conditions (not mental disorders or infectious disease) (2 sources) Patient encounter status; Translations: [Encounter for screening for malignant neoplasm of respiratory organs] 12-09-2023 Episodic Other upper respiratory disease (10 sources) Cellulitis of external nose ; Translations: [Abscess, furuncle and carbuncle of nose] 12-10-2017 Episodic Other upper respiratory infections (10 sources) Acute sinusitis; Translations: [Acute sinusitis, unspecified] 01-05-2021 Episodic Rehabilitation care; fitting of prostheses; and adjustment of devices (1 source) Encounter for fitting and adjustment of other specified devices; Translations: [Encounter for fitting and adjustment of other specified devices] Onset: 08-20-2024 Chronic Residual codes; unclassified (4 sources) Obstructive sleep apnea syndrome; Translations: [Obstructive sleep apnea (adult) (pediatric)] 09-29-2024 Chronic Residual codes; unclassified (2 sources) Daytime hypersomnia; Translations: [Hypersomnia, unspecified] 06-09-2024 Chronic Residual codes; unclassified (1 source) Hypersomnia, unspecified; Translations: [Hypersomnia, unspecified] Onset: 07-15-2024 Chronic Respiratory failure; insufficiency; arrest (adult) (10 sources) Acute respiratory failure; Translations: [Acute respiratory failure with hypoxia] 11-02-2023 Episodic Schizophrenia and other psychotic disorders (2 sources) Schizoaffective disorder; Translations: [Schizoaffective disorder, unspecified] Onset: 05-19-2019 05-19-2019 Chronic Screening and history of mental health and substance abuse codes (2 sources) Tobacco use and exposure - finding; Translations: [Personal history of nicotine dependence] 12-09-2023 Episodic Substance-related disorders (2 sources) 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; Translations: [Nicotine dependence, cigarettes, in remission] 12-10-2023 Chronic Suicide and intentional self-inflicted injury (1 source) Suicidal ideations; Translations: [Suicidal ideations] Onset: 12-21-2024 Episodic Past or Other Problems Problem Classification Problem Date Documented Da te Episodic/Chronic Other lower respiratory disease (1 source) Solitary pulmonary nodule; Translations: [Solitary pulmonary nodule] Onset: 06-18-2024 Episodic Other lower respiratory disease (1 source) Wheezing; Translations: [Wheezing] Onset: 06-18-2024 Episodic Other lower respiratory disease (1 source) Other nonspecific abnormal finding of lung field; Translations: [Other nonspecific abnormal finding of lung field] Onset: 02-10-2024 Episodic Results Test Name Value Interpretation Reference Range Facility Absolute lymphocyte countOrd ered By: Chilango Nielsen on 12-15-2024 Lymphocytes Auto (Unsp spec) [#/Vol] 2.05 10*3/uL 0.83-4.51 [facility] Absolute neutrophil countOrd ered By: Chilango Nielsen on 12-15-2024 Neutrophils (Bld) [#/Vol] 5.5 10*3/uL 2.0-7.7 [facility] Alcohol, Blood (Medical)-Ser umon 12-15-2024 SERUM ETOH < 10.1 Normal <=10.0 [facility] Comment on above: Result Comment: This test is for medical purposes only. The legal definition of intoxication varies according to local law. Performed By: #### L 501.9100, L505.5000, L100.0100, L500.2500 ####[facility] [address] [place], [place], [id number] Amphetamine detection with 1 000 ng/mL as cutoffOrdered By: Chilango Nielsen on 12-15-2024 Amphetamines Screen method >1000 ng/mL Ql (U) Negative < 200 ng/mL [facility] Anion gap in Serum or Plasma Ordered By: Chilango Nielsen on 12-15-2024 Anion gap [Moles/Vol] 13 mmol/L 12-16 [facility] Automated lymphocyte count a s percentage of total leukocytesOrdered By: Chilango Nielsen on 12-15-2024 Lymphocytes/100 WBC Auto (Unsp spec) 23.9 % [facility] BUN/creatinine ratioOrdered By: Chilango Nielsen on 12-15-2024 Urea nitrogen/Creatinine [Mass ratio] 16.0 mg/mg - [facility] Basic Metabolic Profile (BMP )on 12-15-2024 BUN/CRE 16.0 RATIO Normal - [facility] Comment on above: Performed By: #### L 501.9100, L505.5000, L100.0100, L500.2500 ####[facility] [address] [place], [address] Calcium [Mass/Vol] 8.8 mg/dL Normal 7.6-11.0 [facility] Comment on above: Performed By: #### L 501.9100, L505.5000, L100.0100, L500.2500 ####[facility] [address] [place], [address] Chloride [Moles/Vol] 103 mmol/L Normal 98-[address] [facility] Comment on above: Performed By: #### L 501.9100, L505.5000, L100.0100, L500.2500 ####[facility] [address] [place], [address] CO2 [Moles/Vol] 18.9 mmol/L Low 21.0-32.0 [facility] Comment on above: Performed By: #### L 501.9100, L505.5000, L100.0100, L500.2500 ####[facility] [address] [place], [address] Creatinine [Mass/Vol] 0.80 mg/dL Normal 0.70-1.20 [facility] Comment on above: Performed By: #### L 501.9100, L505.5000, L100.0100, L500.2500 ####[facility] [address] [place], [address] ECRCL 125.76 ml/min Normal 50-250 [facility] Comment on above: Performed By: #### L 501.9100, L505.5000, L100.0100, L500.2500 ####[facility] [address] [place], [address] GAP 13 Normal 5-15 [facility] Comment on above: Performed By: #### L 501.9100, L505.5000, L100.0100, L500.2500 ####[facility] [address] [place], [address] GFR/1.73 sq M.predicted among non-blacks MDRD (S/P/Bld) [Vol rate/Area] 107 mL/min/{1.73_m2} Normal >60 [facility] Comment on above: Result Comment: mL/m in/1.73m2 CKD-EPI Creatinine Equation (2020) Performed By: #### L 501.9100, L505.5000, L100.0100, L500.2500 ####[facility] [address] [place], [address] Glucose [Mass/Vol] 292 mg/dL High 70-99 [facility] Comment on above: Performed By: #### L 501.9100, L505.5000, L100.0100, L500.2500 ####[facility] [address] [place], [address] Potassium [Moles/Vol] 3.8 mmol/L Normal 3.3-5.1 [facility] Comment on above: Result Comment: Hemo lysis present, Results??could be affected. ?? Performed By: #### L 501.9100, L505.5000, L100.0100, L500.2500 ####[facility] [address] [place], [address] Sodium [Moles/Vol] 136 mmol/L Normal 133-145 [facility] Comment on above: Performed By: #### L 501.9100, L505.5000, L100.0100, L500.2500 ####[facility] [address] [place], [address] Urea nitrogen [Mass/Vol] 13 mg/dL Normal 4-19 [facility] Comment on above: Performed By: #### L 501.9100, L505.5000, L100.0100, L500.2500 ####[facility] [address] [place], [address] Basophil percentageOrdered B y: Chilango Nielsen on 12-15-2024 Basophils/100 WBC (Bld) 0.9 % 0-1 [facility] CBC W/Diff, Automatedon 12-02 Absolute Lymph 2.05 X10 3/uL Normal 0.83-4.51 [facility] Comment on above: Performed By: #### L 501.9100, L505.5000, L100.0100, L500.2500 ####[facility] [address] [place], [address] Absolute Neut 5.5 X10 3/uL Normal 2.0-7.7 [facility] Comment on above: Performed By: #### L 501.9100, L505.5000, L100.0100, L500.2500 ####[facility] [address] [place], [address] Basophils/100 WBC (Bld) 0.9 % Normal 0-1 [facility] Comment on above: Performed By: #### L 501.9100, L505.5000, L100.0100, L500.2500 ####[facility] [address] [place], [address] Eosinophils/100 WBC (Bld) 1.8 % Normal 0-5 [facility] Comment on above: Performed By: #### L 501.9100, L505.5000, L100.0100, L500.2500 ####[facility] [address] [place], [address] Erythrocyte distribution width (RBC) [Ratio] 13.0 % Normal 11.6-14.6 [facility] Comment on above: Performed By: #### L 501.9100, L505.5000, L100.0100, L500.2500 ####[facility] [address] [place], [address] Hematocrit (Bld) [Volume fraction] 46.8 % Normal 40-54 [facility] Comment on above: Performed By: #### L 501.9100, L505.5000, L100.0100, L500.2500 ####[facility] [address] [place], [address] Hemoglobin (Bld) [Mass/Vol] 16.0 g/dL Normal 13.0-16.5 [facility] Comment on above: Performed By: #### L 501.9100, L505.5000, L100.0100, L500.2500 ####[facility] [address] [place], [address] IG% 0.700 Normal 0.0-0.9 [facility] Comment on above: Result Comment: IG% - Immature Granulocytes (promyelocytes, myelocytes and metamyelocytes) > 1% indicates that a LEFT SHIFT is Present. Performed By: #### L 501.9100, L505.5000, L100.0100, L500.2500 ####[facility] [address] [place], [address] Lymphocytes/100 WBC (Bld) 23.9 % Normal 19-41 [facility] Comment on above: Performed By: #### L 501.9100, L505.5000, L100.0100, L500.2500 ####[facility] [address] [place], [address] MCH (RBC) [Entitic mass] 34.3 pg High 27.0-32.0 [facility] Comment on above: Performed By: #### L 501.9100, L505.5000, L100.0100, L500.2500 ####[facility] [address] [place], [address] MCHC (RBC) [Mass/Vol] 34.2 g/dL Normal 32-36 [facility] Comment on above: Performed By: #### L 501.9100, L505.5000, L100.0100, L500.2500 ####[facility] [address] [place], [address] MCV (RBC) [Entitic vol] 100.2 fL High 80-94 [facility] Comment on above: Performed By: #### L 501.9100, L505.5000, L100.0100, L500.2500 ####[facility] [address] [place], [address] Monocytes/100 WBC (Bld) 8.9 % Normal 0-10 [facility] Comment on above: Performed By: #### L 501.9100, L505.5000, L100.0100, L500.2500 ####[facility] [address] [place], [address] Neutrophils/100 WBC (Bld) 63.8 % Normal 47-70 [facility] Comment on above: Performed By: #### L 501.9100, L505.5000, L100.0100, L500.2500 ####[facility] [address] [place], [address] Nucleated RBC (Bld) [#/Vol] 0 10*3/uL Normal 0-5 [facility] Comment on above: Performed By: #### L 501.9100, L505.5000, L100.0100, L500.2500 ####[facility] [address] [place], [address] Platelet mean volume (Bld) [Entitic vol] 9.7 fL Normal 6.2-12.0 [facility] Comment on above: Performed By: #### L 501.9100, L505.5000, L100.0100, L500.2500 ####[facility] [address] [place], [address] Platelets (Bld) [#/Vol] 199 10*3/uL Normal 150-450 [facility] Comment on above: Performed By: #### L 501.9100, L505.5000, L100.0100, L500.2500 ####[facility] [address] [place], [address] RBC (Bld) [#/Vol] 4.67 10*6/uL Normal 4.6-6.2 [facility] Comment on above: Performed By: #### L 501.9100, L505.5000, L100.0100, L500.2500 ####[facility] [address] [place], [address] RDW SD 48.1 fl High 35.1-43.9 [facility] Comment on above: Performed By: #### L 501.9100, L505.5000, L100.0100, L500.2500 ####[facility] [address] [place], [address] WBC (Bld) [#/Vol] 8.6 10*3/uL Normal 4.4-11.0 [facility] Comment on above: Performed By: #### L 501.9100, L505.5000, L100.0100, L500.2500 ####[facility] [address] [place], [address] Carbon dioxide, total [Moles /volume] in Central venous bloodOrdered By: Chilango Nielsen on 12-15-2024 CO2 [Moles/Vol] 18.9 mmol/L Low 21.0-32.0 [facility] Chloride assayOrdered By: Favian osiris Lynrus on 12-15-2024 Chloride [Moles/Vol] 103 mmol/L 98-[address] [facility] Emergency Department Summary on 12-15-2024 Emergency Department Summary [facility] Medical Records Department [address] [place] [address] Emergency Department Summary 12/15/24 MR#: [id number] Acct: [id number] Name: HERVE RAMSEY Jr. Rep #: [id number] : 1975 49 From: Chilango Nielsen DO PCP: Dr. Alma oRsa Cornelius MD Status:REG ER Location: ED HPI History of Present Illness Chief Complaint: Suicidal PFSH PFSH Medical History Depression Fatty liver Abnormal CT lung screening Lung nodule History of tobacco use Encounter for screening for malignant neoplasm of lung COPD (chronic obstructive pulmonary disease) Kidney stone Schizophrenia Home Medications ???Medication ???Instructions ???Recorded ???Last Taken ???Type brexpiprazole 2 mg tablet (Rexulti) 2 mg PO DAILY uns 10/07/2210/04 05:00 History albuterol sulfate 90 mcg/actuation 1 inh inhalation Q6H PRN shortne ss 11/04/23 Unknown Rx aerosol inhaler of breath or wheezing #8.5 grams cholecalciferol (vitamin D3) 1,250 1,250 mcg PO QWEEK 4 weeks #4 ta bs 06/30/24 Unknown Rx mcg (50,000 unit) tablet Allergy/AdvReac Type Severity Reaction Status Date / Time No Known Allergies Allergy Verified 11/10/24 12:58 Family History Father Lymphoma Mother Kidney disease Social History household members: none Smoking Status: Former smoker quit date: 10/30/23 Tobacco: How many years used: 35 alcohol intake: current alcohol intake frequency: holidays/special occasions only substance use type: does not use EXAM Physical Exam Const Vital Signs: 12/15/24 17:08 12/15/24 20:27 Temperature 99.1 F 98.7 F Temperature Source Oral Oral Pulse Rate 113 H 95 Respiratory Rate 18 18 Blood Pressure 159/96 H 143/92 H Blood Pressure Mean 117 109 Pulse Ox 94 94 Oxygen Delivery Method Room Air Room Air [facility] Narrative Medical decision making narrative: HISTORY OF PRESENT ILLNESS: Chief complaint: Suicidal ideation 49-year-old male history of schizophrenia, liver disease, alpha-1 antitrypsin deficiency, asthma/COPD presents with concern for suicide ideation. Per [place] [employer] patient was found with a gun to his mouth. States he went to kill himself. Patient then states is a misunderstanding. Notes some domestic issues with his ex. Notes med noncompliance. REVIEW OF SYSTEMS: Pertinent positives: Suicidal ideation Pertinent negatives: Homicidal ideation, auditory visual hallucinations PHYSICAL EXAM: Nursing triage notes reviewed, Vital signs reviewed [facility] HENT: MMM Eyes: Pupils equal round and reactive to light, Extraocular muscles intact Neck: No stridor, no JVD, full neck ROM Lungs: Clear to auscultation, No wheezing or rales. No increased work of breathing, no conversational dyspnea, no accessory muscle use, no nasal flaring. No respiratory distress noted Heart: Regular rate and rhythm, No murmurs, No rubs and No gallops, 2+ distal pulses (radial, femoral, posterior tibial) in all extremities Abdomen: Soft, there is no tenderness, rigidity, rebound or guarding, no obvious peritoneal signs, no palpable pulsatile abdominal masses, no auscultated abdominal bruit : No CVAT Extremities: No edema Neuro: No new focal neurological deficits, cranial nerves II through XII intact, 5/5 strength in all present extremities. Intact sensation to light touch in all present extremities, 2+ reflexes bilateral patella tendons. Skin: No rash or lesions noted Psych: Ordered thought process, not disheveled, normal affect, does not appear to respond to internal stimuli MEDICAL DECISION MAKING: Chief Complaint: please see [facility] External records reviewed: Reviewed prior ED records Factors affecting care: Schizophrenia Social determinants of health: Schizophrenia History obtained from others: [place] [employer] Consults: behavioral health social secretary [facility] Narrative: The patient was initially tachycardic otherwise afebrile and nontoxic-appearing. Exam reassuring. Medical clearance labs were obtained. Medical clearance labs showed the patient was medically cleared. He was excepted to inpatient psychiatric unit per behavioral health report. The patient and/or family, caregivers express understanding. The patient and/or family, caregivers agrees with the plan. Shared decision making: I will have a discussion with the patient and or visitors regarding risk/benefits of further testing or admission. They will be made aware of of the risk/benefits inherent in this decision they will be given the opportunity to voice understanding. Total critical care time today provided was at least 0 minutes. This excludes (more content not included)... Normal [facility] Eosinophil percentageOrdered By: Chilango Nielsen on 12-15-2024 Eosinophils/100 WBC (Bld) 1.8 % 0-5 [facility] Erythrocyte distribution wid th ratioOrdered By: Chilango Nielsen on 12-15-2024 Erythrocyte distribution width (RBC) [Ratio] 13.0 % 11.6-14.6 [facility] Erythrocyte distribution wid th standard deviationOrdered By: Chilango Nielsen on 12-15-2024 Erythrocyte distribution width (RBC) [Ratio] 48.1 fl High 35.1-43.9 [facility] Glomerular filtration rate ( GFR) estimation/1.73 sq m using serum, plasma, or whole bOrdered By: Chilango Nielsen on 12-15-2024 GFR/1.73 sq M.predicted among non-blacks MDRD (S/P/Bld) [Vol rate/Area] 107 mL/min/{1.73_m2} >60 [facility] Comment on above: mL/min/1.73m2 CKD-EP I Creatinine Equation (2020) Hematocrit Auto (Bld) [Volum e fraction]Ordered By: Chilango Nielsen on 12-15-2024 Hematocrit (Bld) [Volume fraction] 46.8 % 40-54 [facility] Hemoglobin measurementOrdere d By: Chilango Nielsen on 12-15-2024 Hemoglobin (Bld) [Mass/Vol] 16.0 g/dL 13.0-16.5 [facility] Immature granulocytes/100 WB C Auto (Bld)Ordered By: Chilango Nielsen on 12-15-2024 Immature granulocytes/100 WBC (Bld) 0.700 % 0.0-0.9 [facility] Comment on above: IG% - Immature Granu locytes (promyelocytes, myelocytes and metamyelocytes) > 1% indicates that a LEFT SHIFT is Present. MCV (mean corpuscular volume ) determinationOrdered By: Chilango Nielsen on 12-15-2024 MCV (RBC) [Entitic vol] 100.2 fL High 80-94 [facility] Mean corpuscular hemoglobin (MCH) determinationOrdered By: Chilango Nielsen on 12-15-2024 MCH (RBC) [Entitic mass] 34.3 pg High 27.0-32.0 [facility] Mean corpuscular hemoglobin concentration (MCHC) determinationOrdered By: Chilango Nielsen on 12-15-2024 MCHC (RBC) [Mass/Vol] 34.2 g/dL 32-36 [facility] Mean platelet volume determi nationOrdered By: Chilango Nielsen on 12-15-2024 Platelet mean volume (Bld) [Entitic vol] 9.7 fL 6.2-12.0 [facility] Monocyte percentageOrdered B y: Chilango Nielsen on 12-15-2024 Monocytes/100 WBC (Bld) 8.9 % 0-10 [facility] Neutrophil percentageOrdered By: Chilango Nielsen on 12-15-2024 Neutrophils/100 WBC (Bld) 63.8 % 47-70 [facility] No Panel InformationOrdered By: Chilango Nielsen on 12-15-2024 Urine Buprenorphine Qualitative Negative < 200 ng/mL [facility] Urine Oxycodone Screen Negative < 100 ng/mL [facility] Nucleated red blood cell per centageOrdered By: Chilango Nielsen on 12-15-2024 Nucleated RBC/100 WBC (Bld) [Ratio] 0 % 0-5 [facility] Platelet countOrdered By: Favian Nielsen on 12-15-2024 Platelets (Bld) [#/Vol] 199 10*3/uL 150-450 [facility] Potassium measurement (mass/ volume)Ordered By: Chilango Nielsen on 12-15-2024 Potassium (Unsp spec) [Mass/Vol] 3.8 mmol/L 3.3-5.1 [facility] Comment on above: Hemolysis present, R esults could be affected. Quantitative urine opiates m easurementOrdered By: Chilango Nielsen on 12-15-2024 Opiates Ql (U) Negative < 300 ng/mL [facility] RBC Auto (Bld) [#/Vol]Ordere d By: Chilango Nielsen on 12-15-2024 RBC (Bld) [#/Vol] 4.67 10*6/uL 4.6-6.2 [facility] Screening urine fentanyl lisa surementOrdered By: Chilango Nielsen on 12-15-2024 fentaNYL Screen Ql (U) Negative [facility] Serum creatinine measurement (mass/volume)Ordered By: Chilango Nielsen on 12-15-2024 Creatinine [Mass/Vol] 0.80 mg/dL 0.70-1.20 [facility] Serum glucose measurement (m ass/volume)Ordered By: Chilango Nielsen on 12-15-2024 Glucose [Mass/Vol] 292 mg/dL High 70-99 [facility] Serum or plasma calcium vladimir urement (mass/volume)Ordered By: Chilango Nielsen on 12-15-2024 Calcium [Mass/Vol] 8.8 mg/dL 7.6-11.0 [facility] Serum or plasma ethanol vladimir urement (mass/volume)Ordered By: Chilango Nielsen on 12-15-2024 Ethanol [Mass/Vol] mg/dL <10.1 [facility] Comment on above: This test is for med ical purposes only. The legal definition of intoxication varies according to local law. Serum or plasma urea nitroge n measurement (mass/volume)Ordered By: Chilango Nielsen on 12-15-2024 Urea nitrogen [Mass/Vol] 13 mg/dL 4-19 [facility] Sodium levelOrdered By: Sha Nielsen on 12-15-2024 Sodium [Moles/Vol] 136 mmol/L 133-145 [facility] Urine Drug Screen (VISTA)on 12-15-2024 AMPHETAMINES Negative Normal <1000 ng/mL [facility] Comment on above: Performed By: #### L 501.9100, L505.5000, L100.0100, L500.2500 ####[facility] [address] [place], [address] BARBITIURATES Negative Normal < 200 ng/mL [facility] Comment on above: Performed By: #### L 501.9100, L505.5000, L100.0100, L500.2500 ####[facility] [address] [place], [address] BENZODIAZIPINE Negative Normal < 200 ng/mL [facility] Comment on above: Performed By: #### L 501.9100, L505.5000, L100.0100, L500.2500 ####[facility] [address] [place], [place], [phone] [facility] Ur Drug Scr Negative Normal < 200 ng/mL [facility] Comment on above: Performed By: #### L 501.9100, L505.5000, L100.0100, L500.2500 ####[facility] [address] [place], [place], [phone] COCAINE Negative Normal < 300 ng/mL [facility] Comment on above: Performed By: #### L 501.9100, L505.5000, L100.0100, L500.2500 ####[facility] [address] [place], [place], [phone] Fentanyl Negative Normal [facility] Comment on above: Performed By: #### L 501.9100, L505.5000, L100.0100, L500.2500 ####[facility] [address] [place] [address] METHADONE Negative Normal < 300 ng/mL [facility] Comment on above: Performed By: #### L 501.9100, L505.5000, L100.0100, L500.2500 ####[facility] [address] [place] [address] OPIATES Negative Normal < 300 ng/mL [facility] Comment on above: Performed By: #### L 501.9100, L505.5000, L100.0100, L500.2500 ####[facility] [address] [place], [address] OXYCODONE Negative Normal < 100 ng/mL [facility] Comment on above: Performed By: #### L 501.9100, L505.5000, L100.0100, L500.2500 ####[facility] [address] [place], [address] PCP Negative Normal < 25 ng/mL [facility] Comment on above: Performed By: #### L 501.9100, L505.5000, L100.0100, L500.2500 ####[facility] [address] [place], [address] THC Negative Normal < 50 ng/mL [facility] Comment on above: Performed By: #### L 501.9100, L505.5000, L100.0100, L500.2500 ####[facility] [address] [place], [address] Urine benzodiazepine levelOr dered By: Chilango Nielsen on 12-15-2024 Benzodiazepines Ql (U) Negative < 200 ng/mL [facility] Urine cocaine levelOrdered B y: Chilango Nielsen on 12-15-2024 Cocaine Ql (U) Negative < 300 ng/mL [facility] Urine reffb-3-eudnsbfxnesdcb abinol (THC) measurementOrdered By: Chilango Nielsen on 12-15-2024 Cannabinoids Screen Ql (U) Negative < 50 ng/mL [facility] Urine phencyclidine (PCP) de tectionOrdered By: Chilango Nielsen on 12-15-2024 Phencyclidine Ql (U) Negative < 25 ng/mL [facility] White blood cell (WBC) count Ordered By: Chilango Nielsen on 12-15-2024 WBC (Bld) [#/Vol] 8.6 10*3/uL 4.4-11.0 [facility] ABD Limited w/ Elastographyo n 11-26-2024 ABD Limited w/ Elastography [facility] [address] [place], [place] [address] ABD Limited w/ Elastography MR#: [id number] Acct: [id number] Name: HERVE RAMSEY Jr. Rep #: [id number] : 1975 M 49 From: Too caceres MD PCP: Dr. Alma Rosa Cornelius MD Status: REG CLI Study: ABD Limited w/ Elastography Date of Exam: 11/03 12/26 Exam# [id number] Ordering Dr: Get Boggs MD PROCEDURE: ABD LIMITED W/ ELASTOGRAPHY REASON FOR EXAM: ADVANCED FIBROSIS, OCC RUQ PAIN COMPARISON: June 03, 2024. TECHNIQUE: Right upper quadrant abdominal ultrasound. [facility] ElastQ Imaging shear wave elastography for non- invasive assessment of liver tissue stiffness. [facility] EPIQ Elite. FINDINGS: LIVER: Size: Enlarged (hepatomegaly) Length: 17.9 cm Echotexture: Diffusely echogenic suggesting fatty infiltration Contour: Nodular Lesions: None identified Elastography: EQI Med: 13.2 kPa EQI Med Joshua: 2.09 m/s IQR/Med: 20 %* GALLBLADDER: Multiple echogenic gallstones are identified. COMMON BILE DUCT: Normal 5 mm. PANCREAS: Obscured by bowel gas. Visualized portions of the right kidney are unremarkable. No right upper quadrant ascites. The spleen measures 13.5 cm x 6.2 cm x 5.4 cm. US/ABD Limited w/ Elastography IMPRESSION: SEVERE HEPATIC FIBROSIS / CIRRHOSIS F3/F4 Reference Values: SRU <1.37 m/s (5.7kPa): No to mild fibrosis 1.37 m/s - 2.2 m/s: Moderate to severe fibrosis >2.2 m/s (15kPa): Significant fibrosis / cirrhosis METAVIR Score F2 or higher: 1.34 m/s (5.7kPa) F3 or higher: 1.55 m/s (7.3kPa) F4: 1.80 m/s (10kPa) * If the IQR/Med is >30%, the variance in the measurements is a large and the accuracy of the measurement may be in question. Reading Location: [place] [address] CC: Dr. Alma Rosa Cornelius MD; Dr. Get Boggs MD Public Health Technologist: Signed Normal [facility] AFP, Tumor Markeron 11-21-19 AFP TUMOR PAIGE 4.7 ng/mL Normal 0.0-8.4 [facility] Comment on above: Order Comment: Test( s) 266545-Ouxqqa, Serum or Plasmawas developed and its performance characteristicsdetermined by [employer]. It has not been cleared or approvedby the Food and Drug Administration.N Result Comment: [facility] [employer] Electrochemiluminescence Immunoassay (ECLIA) Values obtained with different assay methods or kits cannot be used interchangeably. Results cannot be interpreted as absolute evidence of the presence or absence of malignant disease. This test is not interpretable in females. Performed By: #### L 800.1280, L506.0200, L100.0100, L3100.5450, L803.2200, L3400.0700, L501.5101, L3890.6006, L501.9985, L506.0400, L500.4050, L300.3900, L3300.0700, L3100.3425, L503.6550, L504.2610, L503.0106, L503.6030, L3000.0375, L500.4100, L501.6710, L501.9520, L3410.9998, L3890.6202, L3300.0100, L3200.1100 ####[facility] [address] [place], [place], [id number] Anti-Smooth Muscle ABSon ANTISMOOTH MUSC 6 Units Normal 0-19 [facility] Comment on above: Order Comment: Test( s) 764378-Vexmmg, Serum or Plasmawas developed and its performance characteristicsdetermined by [facility]. It has not been cleared or approvedby the Food and Drug Administration. Result Comment: Nega tive 0 - 19 Weak positive 20 - 30 Moderate to strong positive >30 Actin Antibodies are found in 52-85% of patients with autoimmune hepatitis or chronic active hepatitis and in 22% of patients with primary biliary cirrhosis. Performed By: #### L 800.1280, L506.0200, L100.0100, L3100.5450, L803.2200, L3400.0700, L501.5101, L3890.6006, L501.9985, L506.0400, L500.4050, L300.3900, L3300.0700, L3100.3425, L503.6550, L504.2610, L503.0106, L503.6030, L3000.0375, L500.4100, L501.6710, L501.9520, L3410.9998, L3890.6202, L3300.0100, L3200.1100 ####[facility] [address] [facility] [place], [address] Ceruloplasminon 11-20-2024 CERULOPLASMIN 23.4 mg/dL Normal 16.0-31.0 [facility] Comment on above: Order Comment: Test( s) 570085-Pocxwg, Serum or Plasmawas developed and its performance characteristicsdetermined by [facility]. It has not been cleared or approvedby the Food and Drug Administration. Performed By: #### L 800.1280, L506.0200, L100.0100, L3100.5450, L803.2200, L3400.0700, L501.5101, L3890.6006, L501.9985, L506.0400, L500.4050, L300.3900, L3300.0700, L3100.3425, L503.6550, L504.2610, L503.0106, L503.6030, L3000.0375, L500.4100, L501.6710, L501.9520, L3410.9998, L3890.6202, L3300.0100, L3200.1100 ####[facility] [address] [facility] [place], [place], [address] Copper, Serum or Plasmaon COPPER, SERUM 92 ug/dL Normal 69-132 [facility] Comment on above: Order Comment: Test( s) 602765-Lautza, Serum or Plasmawas developed and its performance characteristicsdetermined by [employer]. It has not been cleared or approvedby the Food and Drug Administration. Result Comment: Dete ction Limit = 5 Performed at: [address] [id number] Mussel Farmer: Diaz Perdomo PhD, Phone: [phone] Performed at: [address] [id number] Mussel Farmer: Gabi Funes MD, Phone: [phone] Performed By: #### L 800.1280, L506.0200, L100.0100, L3100.5450, L803.2200, L3400.0700, L501.5101, L3890.6006, L501.9985, L506.0400, L500.4050, L300.3900, L3300.0700, L3100.3425, L503.6550, L504.2610, L503.0106, L503.6030, L3000.0375, L500.4100, L501.6710, L501.9520, L3410.9998, L3890.6202, L3300.0100, L3200.1100 ####[facility] [address] [place], [address] Hepatitis Panel Acuteon 11-02 COMMENT Comment Normal . [facility] Comment on above: Order Comment: Test( s) 976417-Bhamfg, Serum or Plasmawas developed and its performance characteristicsdetermined by [employer]. It has not been cleared or approvedby the Food and Drug Administration. Result Comment: Not infected with HCV unless early or acute infection is suspected (which may be delayed in an immunocompromised individual), or other evidence exists to indicate HCV infection. Performed By: #### L 800.1280, L506.0200, L100.0100, L3100.5450, L803.2200, L3400.0700, L501.5101, L3890.6006, L501.9985, L506.0400, L500.4050, L300.3900, L3300.0700, L3100.3425, L503.6550, L504.2610, L503.0106, L503.6030, L3000.0375, L500.4100, L501.6710, L501.9520, L3410.9998, L3890.6202, L3300.0100, L3200.1100 ####[facility] [address] [facility]. [place], [place], [address] HEP B CORE,IgM Negative Normal Negative [facility] Comment on above: Order Comment: Test( s) 170231-Iddken, Serum or Plasmawas developed and its performance characteristicsdetermined by [facility]. It has not been cleared or approvedby the Food and Drug Administration. Performed By: #### L 800.1280, L506.0200, L100.0100, L3100.5450, L803.2200, L3400.0700, L501.5101, L3890.6006, L501.9985, L506.0400, L500.4050, L300.3900, L3300.0700, L3100.3425, L503.6550, L504.2610, L503.0106, L503.6030, L3000.0375, L500.4100, L501.6710, L501.9520, L3410.9998, L3890.6202, L3300.0100, L3200.1100 ####[facility] [address] [place], [place], [address] HEP B SURF AG Negative Normal Negative [facility] Comment on above: Order Comment: Test( s) 442121-Pmkhpo, Serum or Plasmawas developed and its performance characteristicsdetermined by [facility]. It has not been cleared or approvedby the Food and Drug Administration. Performed By: #### L 800.1280, L506.0200, L100.0100, L3100.5450, L803.2200, L3400.0700, L501.5101, L3890.6006, L501.9985, L506.0400, L500.4050, L300.3900, L3300.0700, L3100.3425, L503.6550, L504.2610, L503.0106, L503.6030, L3000.0375, L500.4100, L501.6710, L501.9520, L3410.9998, L3890.6202, L3300.0100, L3200.1100 ####[facility] [address] [facility] [place], [address] HEP C VIRUS AB Non-Reactive Normal Non Reactive [facility] Comment on above: Order Comment: Test( s) 800634-Ffbhwt, Serum or Plasmawas developed and its performance characteristicsdetermined by [facility]. It has not been cleared or approvedby the Food and Drug Administration. Performed By: #### L 800.1280, L506.0200, L100.0100, L3100.5450, L803.2200, L3400.0700, L501.5101, L3890.6006, L501.9985, L506.0400, L500.4050, L300.3900, L3300.0700, L3100.3425, L503.6550, L504.2610, L503.0106, L503.6030, L3000.0375, L500.4100, L501.6710, L501.9520, L3410.9998, L3890.6202, L3300.0100, L3200.1100 ####[facility] [address] [facility] [place], [address] HEPATITIS A-IgM Negative Normal Negative [facility] Comment on above: Order Comment: Test( s) 320036-Qooyvr, Serum or Plasmawas developed and its performance characteristicsdetermined by [facility] [employer]. It has not been cleared or approvedby the Food and Drug Administration. Result Comment: A ne gative anti-HAV IgM result suggests no recent or current HAV infection. Performed By: #### L 800.1280, L506.0200, L100.0100, L3100.5450, L803.2200, L3400.0700, L501.5101, L3890.6006, L501.9985, L506.0400, L500.4050, L300.3900, L3300.0700, L3100.3425, L503.6550, L504.2610, L503.0106, L503.6030, L3000.0375, L500.4100, L501.6710, L501.9520, L3410.9998, L3890.6202, L3300.0100, L3200.1100 ####[facility] [address] [place], [address] HERBERT + Protein Elect, Serumon 11-20-2024 Albumin [Mass/Vol] 3.4 g/dL Normal 2.9-4.4 [facility] Comment on above: Order Comment: Test( s) 348461-Oxipbe, Serum or Plasmawas developed and its performance characteristicsdetermined by [facility]. It has not been cleared or approvedby the Food and Drug Administration.N Performed By: #### L 800.1280, L506.0200, L100.0100, L3100.5450, L803.2200, L3400.0700, L501.5101, L3890.6006, L501.9985, L506.0400, L500.4050, L300.3900, L3300.0700, L3100.3425, L503.6550, L504.2610, L503.0106, L503.6030, L3000.0375, L500.4100, L501.6710, L501.9520, L3410.9998, L3890.6202, L3300.0100, L3200.1100 ####[facility] [address] [place], [place], [address] Albumin/Globulin [Mass ratio] 1.0 {ratio} Normal 0.7-1.7 [facility] Comment on above: Order Comment: Test( s) 319764-Qmjkbj, Serum or Plasmawas developed and its performance characteristicsdetermined by [facility] [employer]. It has not been cleared or approvedby the Food and Drug Administration.N Performed By: #### L 800.1280, L506.0200, L100.0100, L3100.5450, L803.2200, L3400.0700, L501.5101, L3890.6006, L501.9985, L506.0400, L500.4050, L300.3900, L3300.0700, L3100.3425, L503.6550, L504.2610, L503.0106, L503.6030, L3000.0375, L500.4100, L501.6710, L501.9520, L3410.9998, L3890.6202, L3300.0100, L3200.1100 ####[facility] [address] [place], [address] EXLOQ-8-BWTL 0.2 g/dL Normal 0.0-0.4 [facility] Comment on above: Order Comment: Test( s) 735709-Qffbjk, Serum or Plasmawas developed and its performance characteristicsdetermined by [employer]. It has not been cleared or approvedby the Food and Drug Administration.N Performed By: #### L 800.1280, L506.0200, L100.0100, L3100.5450, L803.2200, L3400.0700, L501.5101, L3890.6006, L501.9985, L506.0400, L500.4050, L300.3900, L3300.0700, L3100.3425, L503.6550, L504.2610, L503.0106, L503.6030, L3000.0375, L500.4100, L501.6710, L501.9520, L3410.9998, L3890.6202, L3300.0100, L3200.1100 ####[facility] [address] [facility], [address] XOHTO-3-LQQG 0.7 g/dL Normal 0.4-1.0 [facility] Comment on above: Order Comment: Test( s) 363690-Imqwnv, Serum or Plasmawas developed and its performance characteristicsdetermined by [facility]. It has not been cleared or approvedby the Food and Drug Administration.N Performed By: #### L 800.1280, L506.0200, L100.0100, L3100.5450, L803.2200, L3400.0700, L501.5101, L3890.6006, L501.9985, L506.0400, L500.4050, L300.3900, L3300.0700, L3100.3425, L503.6550, L504.2610, L503.0106, L503.6030, L3000.0375, L500.4100, L501.6710, L501.9520, L3410.9998, L3890.6202, L3300.0100, L3200.1100 ####[facility] [address] [facility] [place], [address] BETA GLOBULIN 1.4 g/dL High 0.7-1.3 [facility] Comment on above: Order Comment: Test( s) 987997-Ejooiy, Serum or Plasmawas developed and its performance characteristicsdetermined by [facility]. It has not been cleared or approvedby the Food and Drug Administration.N Performed By: #### L 800.1280, L506.0200, L100.0100, L3100.5450, L803.2200, L3400.0700, L501.5101, L3890.6006, L501.9985, L506.0400, L500.4050, L300.3900, L3300.0700, L3100.3425, L503.6550, L504.2610, L503.0106, L503.6030, L3000.0375, L500.4100, L501.6710, L501.9520, L3410.9998, L3890.6202, L3300.0100, L3200.1100 ####[facility] [address] [place], [place], [id number] GAMMA GLOBULIN 1.4 g/dL Normal 0.4-1.8 [facility] Comment on above: Order Comment: Test( s) 352593-Ufjdwh, Serum or Plasmawas developed and its performance characteristicsdetermined by [employer]. It has not been cleared or approvedby the Food and Drug Administration.N Performed By: #### L 800.1280, L506.0200, L100.0100, L3100.5450, L803.2200, L3400.0700, L501.5101, L3890.6006, L501.9985, L506.0400, L500.4050, L300.3900, L3300.0700, L3100.3425, L503.6550, L504.2610, L503.0106, L503.6030, L3000.0375, L500.4100, L501.6710, L501.9520, L3410.9998, L3890.6202, L3300.0100, L3200.1100 ####[facility] [address] [facility] [place], [address] Globulin (S) [Mass/Vol] 3.7 g/dL Normal 2.2-3.9 [facility] Comment on above: Order Comment: Test( s) 218258-Qqcxwy, Serum or Plasmawas developed and its performance characteristicsdetermined by [employer]. It has not been cleared or approvedby the Food and Drug Administration.N Performed By: #### L 800.1280, L506.0200, L100.0100, L3100.5450, L803.2200, L3400.0700, L501.5101, L3890.6006, L501.9985, L506.0400, L500.4050, L300.3900, L3300.0700, L3100.3425, L503.6550, L504.2610, L503.0106, L503.6030, L3000.0375, L500.4100, L501.6710, L501.9520, L3410.9998, L3890.6202, L3300.0100, L3200.1100 ####[facility] [address] [place], [place], [address] HERBERT RESULT,S Comment Normal . [facility] Comment on above: Order Comment: Test( s) 414410-Mjgarm, Serum or Plasmawas developed and its performance characteristicsdetermined by [employer] [facility]. It has not been cleared or approvedby the Food and Drug Administration.N Result Comment: No m onoclonality detected. Performed By: #### L 800.1280, L506.0200, L100.0100, L3100.5450, L803.2200, L3400.0700, L501.5101, L3890.6006, L501.9985, L506.0400, L500.4050, L300.3900, L3300.0700, L3100.3425, L503.6550, L504.2610, L503.0106, L503.6030, L3000.0375, L500.4100, L501.6710, L501.9520, L3410.9998, L3890.6202, L3300.0100, L3200.1100 ####[facility] [address] [place], [place], [id number] IMMUNOGLOB A QN 590 mg/dL High 90-386 [facility] Comment on above: Order Comment: Test( s) 187556-Vvqwsp, Serum or Plasmawas developed and its performance characteristicsdetermined by [employer]. It has not been cleared or approvedby the Food and Drug Administration.N Performed By: #### L 800.1280, L506.0200, L100.0100, L3100.5450, L803.2200, L3400.0700, L501.5101, L3890.6006, L501.9985, L506.0400, L500.4050, L300.3900, L3300.0700, L3100.3425, L503.6550, L504.2610, L503.0106, L503.6030, L3000.0375, L500.4100, L501.6710, L501.9520, L3410.9998, L3890.6202, L3300.0100, L3200.1100 ####[facility] [address] [facility] [place], [address] IMMUNOGLOB G QN 1517 mg/dL Normal 603-1613 [facility] Comment on above: Order Comment: Test( s) 354976-Dtpcsi, Serum or Plasmawas developed and its performance characteristicsdetermined by [employer]. It has not been cleared or approvedby the Food and Drug Administration.N Performed By: #### L 800.1280, L506.0200, L100.0100, L3100.5450, L803.2200, L3400.0700, L501.5101, L3890.6006, L501.9985, L506.0400, L500.4050, L300.3900, L3300.0700, L3100.3425, L503.6550, L504.2610, L503.0106, L503.6030, L3000.0375, L500.4100, L501.6710, L501.9520, L3410.9998, L3890.6202, L3300.0100, L3200.1100 ####[facility] [address] [place], [place], [id number] IMMUNOGLOB M QN 213 mg/dL High 20-172 [facility] Comment on above: Order Comment: Test( s) 378444-Rbygde, Serum or Plasmawas developed and its performance characteristicsdetermined by [employer]. It has not been cleared or approvedby the Food and Drug Administration.N Performed By: #### L 800.1280, L506.0200, L100.0100, L3100.5450, L803.2200, L3400.0700, L501.5101, L3890.6006, L501.9985, L506.0400, L500.4050, L300.3900, L3300.0700, L3100.3425, L503.6550, L504.2610, L503.0106, L503.6030, L3000.0375, L500.4100, L501.6710, L501.9520, L3410.9998, L3890.6202, L3300.0100, L3200.1100 ####[facility] [address] [facility] [place], [address] M-Mustapha Not Observed Normal Not Observed [facility] Comment on above: Order Comment: Test( s) 270971-Xescwc, Serum or Plasmawas developed and its performance characteristicsdetermined by [employer]. It has not been cleared or approvedby the Food and Drug Administration.N Performed By: #### L 800.1280, L506.0200, L100.0100, L3100.5450, L803.2200, L3400.0700, L501.5101, L3890.6006, L501.9985, L506.0400, L500.4050, L300.3900, L3300.0700, L3100.3425, L503.6550, L504.2610, L503.0106, L503.6030, L3000.0375, L500.4100, L501.6710, L501.9520, L3410.9998, L3890.6202, L3300.0100, L3200.1100 ####[facility] [address] [place], [address] NOTE: Comment Normal . [facility] Comment on above: Order Comment: Test( s) 540231-Qvmtbq, Serum or Plasmawas developed and its performance characteristicsdetermined by [employer]. It has not been cleared or approvedby the Food and Drug Administration.N Result Comment: Prot ein electrophoresis scan will follow via computer, mail, or corporate travel consultant delivery. Performed By: #### L 800.1280, L506.0200, L100.0100, L3100.5450, L803.2200, L3400.0700, L501.5101, L3890.6006, L501.9985, L506.0400, L500.4050, L300.3900, L3300.0700, L3100.3425, L503.6550, L504.2610, L503.0106, L503.6030, L3000.0375, L500.4100, L501.6710, L501.9520, L3410.9998, L3890.6202, L3300.0100, L3200.1100 ####[facility] [address] [facility]. [place], [place], [address] Protein [Mass/Vol] 7.1 g/dL Normal 6.0-8.5 [facility] Comment on above: Order Comment: Test( s) 337313-Yvytys, Serum or Plasmawas developed and its performance characteristicsdetermined by [employer]. It has not been cleared or approvedby the Food and Drug Administration.N Performed By: #### L 800.1280, L506.0200, L100.0100, L3100.5450, L803.2200, L3400.0700, L501.5101, L3890.6006, L501.9985, L506.0400, L500.4050, L300.3900, L3300.0700, L3100.3425, L503.6550, L504.2610, L503.0106, L503.6030, L3000.0375, L500.4100, L501.6710, L501.9520, L3410.9998, L3890.6202, L3300.0100, L3200.1100 ####[facility] [address] [facility]. [place], [place], [id number] Immunoglobulins G/A/M/Meliton IMMUNOGLOB E QN 56 IU/mL Normal 6-495 [facility] Comment on above: Order Comment: Test( s) 432011-Wsnjgv, Serum or Plasmawas developed and its performance characteristicsdetermined by [employer]. It has not been cleared or approvedby the Food and Drug Administration.N Performed By: #### L 800.1280, L506.0200, L100.0100, L3100.5450, L803.2200, L3400.0700, L501.5101, L3890.6006, L501.9985, L506.0400, L500.4050, L300.3900, L3300.0700, L3100.3425, L503.6550, L504.2610, L503.0106, L503.6030, L3000.0375, L500.4100, L501.6710, L501.9520, L3410.9998, L3890.6202, L3300.0100, L3200.1100 ####[facility] [address] [place], [address] L501.5101on 11-20-2024 GGTP 69 IU/L Abnormal 0-65 [facility] Comment on above: Order Comment: Test( s) 264766-Ipjydu, Serum or Plasmawas developed and its performance characteristicsdetermined by [employer]. It has not been cleared or approvedby the Food and Drug Administration. Performed By: #### L 800.1280, L506.0200, L100.0100, L3100.5450, L803.2200, L3400.0700, L501.5101, L3890.6006, L501.9985, L506.0400, L500.4050, L300.3900, L3300.0700, L3100.3425, L503.6550, L504.2610, L503.0106, L503.6030, L3000.0375, L500.4100, L501.6710, L501.9520, L3410.9998, L3890.6202, L3300.0100, L3200.1100 ####[facility] [address] [place], [address] [facility]. COMMENT Normal . [facility] Comment on above: Order Comment: 39579 3RED SERUM RT POUR OFF Result Comment: Test Ordered: [id number] Qnvjk-1-Lwdovbvphld Phenotyp Hadkp-6-Svchqsglszh, Serum mg/dL CB Reference Range: . Please refer to the following specimen for additional lab results. Please refer to [phone] for results. Phenotype (PI) NOLAB Reference Range: . Test not performed Performed at: [address] [id number] Mussel Farmer: Diaz Perdomo PhD, Phone: [phone]. AMENDED REPORT 11/19/24 1146 [facility].4 previously reported as: COMMENT Test Ordered: [id number] Unqjw-2-Ihxvfkqvlwg Phenotyp Uzsmk-1-Rnxwqaafucl, Serum mg/dL CB Reference Range: . Please refer to the following specimen for additional lab results. Please refer to [phone] for results. Phenotype (PI) NOLAB Reference Range: . Test not performed Performed at: [address] [id number] Mussel Farmer: Diaz Perdomo PhD, Phone: [phone] Performed By: #### L 800.1280, L506.0200, L100.0100, L3100.5450, L803.2200, L3400.0700, L501.5101, L3890.6006, L501.9985, L506.0400, L500.4050, L300.3900, L3300.0700, L3100.3425, L503.6550, L504.2610, L503.0106, L503.6030, L3000.0375, L500.4100, L501.6710, L501.9520, L3410.9998, L3890.6202, L3300.0100, L3200.1100 ####[facility] [address] [facility]. [place], [place], [address] MILTON w/ Reflex Mult Confirmon 11-15-2024 MILTON,DIRECT Negative Normal Negative [facility] Comment on above: Result Comment: Perf ormed at: [facility] [id number] Mussel Farmer: Diaz Perdomo PhD, Phone: [phone] Performed By: #### L 800.1280, L506.0200, L100.0100, L3100.5450, L803.2200, L3400.0700, L501.5101, L3890.6006, L501.9985, L506.0400, L500.4050, L300.3900, L3300.0700, L3100.3425, L503.6550, L504.2610, L503.0106, L503.6030, L3000.0375, L500.4100, L501.6710, L501.9520, L3410.9998, L3890.6202, L3300.0100, L3200.1100 #### [facility] [address] [facility]. [place], [place], [address] Anti-Mitochondrial ABon 11-02 ANTIMITOCHON AB <20.0 Normal 0.0-20.0 [facility] Comment on above: Result Comment: Nega tive 0.0 - 20.0 Equivocal 20.1 - 24.9 Positive >24.9 Mitochondrial (M2) Antibodies are found in 90-96% of patients with primary biliary cirrhosis. Performed By: #### L 800.1280, L506.0200, L100.0100, L3100.5450, L803.2200, L3400.0700, L501.5101, L3890.6006, L501.9985, L506.0400, L500.4050, L300.3900, L3300.0700, L3100.3425, L503.6550, L504.2610, L503.0106, L503.6030, L3000.0375, L500.4100, L501.6710, L501.9520, L3410.9998, L3890.6202, L3300.0100, L3200.1100 ####[facility] [address] [place], [address] MILTON serumOrdered By: Get Boggs on 11-12-2024 Anti-Nuclear Antibody Screen Negative Negative [facility] Comment on above: Performed at: [facility] [employer] [address] [id number] Director: Diaz Perdomo PhD, Phone: [phone] Absolute lymphocyte countOrd ered By: Get Boggs on 11-12-2024 Lymphocytes Auto (Unsp spec) [#/Vol] 2.99 10*3/uL 0.83-4.51 [facility] Absolute neutrophil countOrd ered By: Get Boggs on 11-12-2024 Neutrophils (Bld) [#/Vol] 7.0 10*3/uL 2.0-7.7 [facility] Albumin Elph [Mass/Vol]Order ed By: Get Boggs on 11-12-2024 Albumin [Mass/Vol] 3.4 g/dL 2.9-4.4 [facility] Anion gap in Serum or Plasma Ordered By: Get Boggs on 11-12-2024 Anion gap [Moles/Vol] 11 mmol/L 5-15 [facility] Automated lymphocyte count a s percentage of total leukocytesOrdered By: Get Boggs on 11-12-2024 Lymphocytes/100 WBC Auto (Unsp spec) 26.9 % 19-41 [facility] BUN/creatinine ratioOrdered By: Get Boggs on 11-12-2024 Urea nitrogen/Creatinine [Mass ratio] 14.4 mg/mg 10-20 [facility] Basophil percentageOrdered B y: Get Boggs on 11-12-2024 Basophils/100 WBC (Bld) 0.8 % 0- [facility] Bilirubin, totalOrdered By: Get Boggs on 11-12-2024 Bilirubin [Mass/Vol] 0.82 mg/dL 0.00-1.[address] [facility] CBC W/Diff, Automatedon 11-02 Absolute Lymph 2.99 X10 3/uL Normal 0.83-4.51 [facility] Comment on above: Performed By: #### L 800.1280, L506.0200, L100.0100, L3100.5450, L803.2200, L3400.0700, L501.5101, L3890.6006, L501.9985, L506.0400, L500.4050, L300.3900, L3300.0700, L3100.3425, L503.6550, L504.2610, L503.0106, L503.6030, L3000.0375, L500.4100, L501.6710, L501.9520, L3410.9998, L3890.6202, L3300.0100, L3200.1100 ####[facility] [address] [place], [address] Absolute Neut 7.0 X10 3/uL Normal 2.0-7.7 [facility] Comment on above: Performed By: #### L 800.1280, L506.0200, L100.0100, L3100.5450, L803.2200, L3400.0700, L501.5101, L3890.6006, L501.9985, L506.0400, L500.4050, L300.3900, L3300.0700, L3100.3425, L503.6550, L504.2610, L503.0106, L503.6030, L3000.0375, L500.4100, L501.6710, L501.9520, L3410.9998, L3890.6202, L3300.0100, L3200.1100 ####[facility] [address] [place], [address] Basophils/100 WBC (Bld) 0.8 % Normal 0-1 [facility] Comment on above: Performed By: #### L 800.1280, L506.0200, L100.0100, L3100.5450, L803.2200, L3400.0700, L501.5101, L3890.6006, L501.9985, L506.0400, L500.4050, L300.3900, L3300.0700, L3100.3425, L503.6550, L504.2610, L503.0106, L503.6030, L3000.0375, L500.4100, L501.6710, L501.9520, L3410.9998, L3890.6202, L3300.0100, L3200.1100 ####[facility] [address] [facility]. [place], [place], [address] Eosinophils/100 WBC (Bld) 1.9 % Normal 0-5 [facility] Comment on above: Performed By: #### L 800.1280, L506.0200, L100.0100, L3100.5450, L803.2200, L3400.0700, L501.5101, L3890.6006, L501.9985, L506.0400, L500.4050, L300.3900, L3300.0700, L3100.3425, L503.6550, L504.2610, L503.0106, L503.6030, L3000.0375, L500.4100, L501.6710, L501.9520, L3410.9998, L3890.6202, L3300.0100, L3200.1100 ####[facility] [address] [facility]. [place], [place], [id number] Erythrocyte distribution width (RBC) [Ratio] 13.1 % Normal 11.6-14.6 [facility] Comment on above: Performed By: #### L 800.1280, L506.0200, L100.0100, L3100.5450, L803.2200, L3400.0700, L501.5101, L3890.6006, L501.9985, L506.0400, L500.4050, L300.3900, L3300.0700, L3100.3425, L503.6550, L504.2610, L503.0106, L503.6030, L3000.0375, L500.4100, L501.6710, L501.9520, L3410.9998, L3890.6202, L3300.0100, L3200.1100 ####[facility] [address] [facility]. [place], [place], [address] Hematocrit (Bld) [Volume fraction] 45.1 % Normal 40-54 [facility] Comment on above: Performed By: #### L 800.1280, L506.0200, L100.0100, L3100.5450, L803.2200, L3400.0700, L501.5101, L3890.6006, L501.9985, L506.0400, L500.4050, L300.3900, L3300.0700, L3100.3425, L503.6550, L504.2610, L503.0106, L503.6030, L3000.0375, L500.4100, L501.6710, L501.9520, L3410.9998, L3890.6202, L3300.0100, L3200.1100 ####[facility] [address] [facility]. [place], [place], [address] Hemoglobin (Bld) [Mass/Vol] 15.5 g/dL Normal 13.0-16.5 [facility] Comment on above: Performed By: #### L 800.1280, L506.0200, L100.0100, L3100.5450, L803.2200, L3400.0700, L501.5101, L3890.6006, L501.9985, L506.0400, L500.4050, L300.3900, L3300.0700, L3100.3425, L503.6550, L504.2610, L503.0106, L503.6030, L3000.0375, L500.4100, L501.6710, L501.9520, L3410.9998, L3890.6202, L3300.0100, L3200.1100 ####[facility] [address] [facility]. [place], [place], [address] IG% 0.500 Normal 0.0-0.9 [facility] Comment on above: Result Comment: IG% - Immature Granulocytes (promyelocytes, myelocytes and metamyelocytes) > 1% indicates that a LEFT SHIFT is Present. Performed By: #### L 800.1280, L506.0200, L100.0100, L3100.5450, L803.2200, L3400.0700, L501.5101, L3890.6006, L501.9985, L506.0400, L500.4050, L300.3900, L3300.0700, L3100.3425, L503.6550, L504.2610, L503.0106, L503.6030, L3000.0375, L500.4100, L501.6710, L501.9520, L3410.9998, L3890.6202, L3300.0100, L3200.1100 ####[facility] [address] [facility]. [place], [place], [address] Lymphocytes/100 WBC (Bld) 26.9 % Normal 19-41 [facility] Comment on above: Performed By: #### L 800.1280, L506.0200, L100.0100, L3100.5450, L803.2200, L3400.0700, L501.5101, L3890.6006, L501.9985, L506.0400, L500.4050, L300.3900, L3300.0700, L3100.3425, L503.6550, L504.2610, L503.0106, L503.6030, L3000.0375, L500.4100, L501.6710, L501.9520, L3410.9998, L3890.6202, L3300.0100, L3200.1100 ####[facility] [address] [place], [address] MCH (RBC) [Entitic mass] 33.8 pg High 27.0-32.0 [facility] Comment on above: Performed By: #### L 800.1280, L506.0200, L100.0100, L3100.5450, L803.2200, L3400.0700, L501.5101, L3890.6006, L501.9985, L506.0400, L500.4050, L300.3900, L3300.0700, L3100.3425, L503.6550, L504.2610, L503.0106, L503.6030, L3000.0375, L500.4100, L501.6710, L501.9520, L3410.9998, L3890.6202, L3300.0100, L3200.1100 ####[facility] [address] [place], [address] MCHC (RBC) [Mass/Vol] 34.4 g/dL Normal 32-36 [facility] Comment on above: Performed By: #### L 800.1280, L506.0200, L100.0100, L3100.5450, L803.2200, L3400.0700, L501.5101, L3890.6006, L501.9985, L506.0400, L500.4050, L300.3900, L3300.0700, L3100.3425, L503.6550, L504.2610, L503.0106, L503.6030, L3000.0375, L500.4100, L501.6710, L501.9520, L3410.9998, L3890.6202, L3300.0100, L3200.1100 ####[facility] [address] [place], [address] MCV (RBC) [Entitic vol] 98.5 fL High 80-94 [facility] Comment on above: Performed By: #### L 800.1280, L506.0200, L100.0100, L3100.5450, L803.2200, L3400.0700, L501.5101, L3890.6006, L501.9985, L506.0400, L500.4050, L300.3900, L3300.0700, L3100.3425, L503.6550, L504.2610, L503.0106, L503.6030, L3000.0375, L500.4100, L501.6710, L501.9520, L3410.9998, L3890.6202, L3300.0100, L3200.1100 ####[facility] [address] [place], [place], [id number](275) Monocytes/100 WBC (Bld) 7.5 % Normal 0-10 [facility] Comment on above: Performed By: #### L 800.1280, L506.0200, L100.0100, L3100.5450, L803.2200, L3400.0700, L501.5101, L3890.6006, L501.9985, L506.0400, L500.4050, L300.3900, L3300.0700, L3100.3425, L503.6550, L504.2610, L503.0106, L503.6030, L3000.0375, L500.4100, L501.6710, L501.9520, L3410.9998, L3890.6202, L3300.0100, L3200.1100 ####[facility] [address] [facility] [place], [address]) Neutrophils/100 WBC (Bld) 62.4 % Normal 47-70 [facility] Comment on above: Performed By: #### L 800.1280, L506.0200, L100.0100, L3100.5450, L803.2200, L3400.0700, L501.5101, L3890.6006, L501.9985, L506.0400, L500.4050, L300.3900, L3300.0700, L3100.3425, L503.6550, L504.2610, L503.0106, L503.6030, L3000.0375, L500.4100, L501.6710, L501.9520, L3410.9998, L3890.6202, L3300.0100, L3200.1100 ####[facility] [address] [facility]. [place], [place], [id number] Nucleated RBC (Bld) [#/Vol] 0 10*3/uL Normal 0-5 [facility] Comment on above: Performed By: #### L 800.1280, L506.0200, L100.0100, L3100.5450, L803.2200, L3400.0700, L501.5101, L3890.6006, L501.9985, L506.0400, L500.4050, L300.3900, L3300.0700, L3100.3425, L503.6550, L504.2610, L503.0106, L503.6030, L3000.0375, L500.4100, L501.6710, L501.9520, L3410.9998, L3890.6202, L3300.0100, L3200.1100 ####[facility] [address] [facility]. [place], [place], [id number] Platelet mean volume (Bld) [Entitic vol] 8.9 fL Normal 6.2-12.0 [facility] Comment on above: Performed By: #### L 800.1280, L506.0200, L100.0100, L3100.5450, L803.2200, L3400.0700, L501.5101, L3890.6006, L501.9985, L506.0400, L500.4050, L300.3900, L3300.0700, L3100.3425, L503.6550, L504.2610, L503.0106, L503.6030, L3000.0375, L500.4100, L501.6710, L501.9520, L3410.9998, L3890.6202, L3300.0100, L3200.1100 ####[facility] [address] [facility]. [place], [place], [id number] Platelets (Bld) [#/Vol] 246 10*3/uL Normal 150-450 [facility] Comment on above: Performed By: #### L 800.1280, L506.0200, L100.0100, L3100.5450, L803.2200, L3400.0700, L501.5101, L3890.6006, L501.9985, L506.0400, L500.4050, L300.3900, L3300.0700, L3100.3425, L503.6550, L504.2610, L503.0106, L503.6030, L3000.0375, L500.4100, L501.6710, L501.9520, L3410.9998, L3890.6202, L3300.0100, L3200.1100 ####[facility] [address] [facility] [place], [address] RBC (Bld) [#/Vol] 4.58 10*6/uL Low 4.6-6.2 [facility] Comment on above: Performed By: #### L 800.1280, L506.0200, L100.0100, L3100.5450, L803.2200, L3400.0700, L501.5101, L3890.6006, L501.9985, L506.0400, L500.4050, L300.3900, L3300.0700, L3100.3425, L503.6550, L504.2610, L503.0106, L503.6030, L3000.0375, L500.4100, L501.6710, L501.9520, L3410.9998, L3890.6202, L3300.0100, L3200.1100 ####[facility] [address] [place], [place], [id number] RDW SD 47.0 fl High 35.1-43.9 [facility] Comment on above: Performed By: #### L 800.1280, L506.0200, L100.0100, L3100.5450, L803.2200, L3400.0700, L501.5101, L3890.6006, L501.9985, L506.0400, L500.4050, L300.3900, L3300.0700, L3100.3425, L503.6550, L504.2610, L503.0106, L503.6030, L3000.0375, L500.4100, L501.6710, L501.9520, L3410.9998, L3890.6202, L3300.0100, L3200.1100 ####[facility] [address] [place], [place], [id number] WBC (Bld) [#/Vol] 11.1 10*3/uL High 4.4-11.0 [facility] Comment on above: Performed By: #### L 800.1280, L506.0200, L100.0100, L3100.5450, L803.2200, L3400.0700, L501.5101, L3890.6006, L501.9985, L506.0400, L500.4050, L300.3900, L3300.0700, L3100.3425, L503.6550, L504.2610, L503.0106, L503.6030, L3000.0375, L500.4100, L501.6710, L501.9520, L3410.9998, L3890.6202, L3300.0100, L3200.1100 ####[facility] [address] [place], [place], [id number] CRPon 11-12-2024 C-REACTIVE PROT 6.42 mg/L High 0.0-3.0 [facility] Comment on above: Performed By: #### L 800.1280, L506.0200, L100.0100, L3100.5450, L803.2200, L3400.0700, L501.5101, L3890.6006, L501.9985, L506.0400, L500.4050, L300.3900, L3300.0700, L3100.3425, L503.6550, L504.2610, L503.0106, L503.6030, L3000.0375, L500.4100, L501.6710, L501.9520, L3410.9998, L3890.6202, L3300.0100, L3200.1100 ####[facility] [address] [place], [place], [id number] CRP [Mass/Vol]Ordered By: Jaime Boggs on 11-12-2024 C-Reactive Protein Extended Range 6.42 mg/L High 0.0-3.0 [facility] Calculated total iron bindin g capacityOrdered By: Get Boggs on 11-12-2024 Total Iron Binding Capacity 240 ug/dL Low 250-450 [facility] Calculated very low density lipoprotein (VLDL) cholesterol measurementOrdered By: Get Boggs on 11-12-2024 Calculated very low density lipoprotein (VLDL) cholesterol measurement 35 mg/dL 5-40 [facility] VLDL Cholesterol 35 mg/dL 5-40 [facility] Carbon dioxide, total [Moles /volume] in Central venous bloodOrdered By: Get Boggs on 11-12-2024 CO2 [Moles/Vol] 26.3 mmol/L 21.0-32.0 [facility] Centromere B antibody assayO rdered By: Get Boggs on 11-12-2024 Centromere B Antibody TNP [facility] Comment on above: Test not performed Chloride assayOrdered By: Jaime Boggs on 11-12-2024 Chloride [Moles/Vol] 105 mmol/L 98-[address] [facility] Chromatin antibody assayOrde red By: Get Boggs on 11-12-2024 Antichromatin Antibodies TNP [facility] Comment on above: Test not performed Comprehensive Metabolic Prof ilon 11-12-2024 Albumin [Mass/Vol] 4.0 g/dL Normal 3.5-5.0 [facility] Comment on above: Performed By: #### L 800.1280, L506.0200, L100.0100, L3100.5450, L803.2200, L3400.0700, L501.5101, L3890.6006, L501.9985, L506.0400, L500.4050, L300.3900, L3300.0700, L3100.3425, L503.6550, L504.2610, L503.0106, L503.6030, L3000.0375, L500.4100, L501.6710, L501.9520, L3410.9998, L3890.6202, L3300.0100, L3200.1100 ####[facility] [address] [place], [place], [id number] Albumin/Globulin [Mass ratio] 1.2 {ratio} Normal 0.9-2.4 [facility] Comment on above: Performed By: #### L 800.1280, L506.0200, L100.0100, L3100.5450, L803.2200, L3400.0700, L501.5101, L3890.6006, L501.9985, L506.0400, L500.4050, L300.3900, L3300.0700, L3100.3425, L503.6550, L504.2610, L503.0106, L503.6030, L3000.0375, L500.4100, L501.6710, L501.9520, L3410.9998, L3890.6202, L3300.0100, L3200.1100 ####[facility] [address] [place], [address] ALK PHOS 109 U/L Normal 40-129 [facility] Comment on above: Performed By: #### L 800.1280, L506.0200, L100.0100, L3100.5450, L803.2200, L3400.0700, L501.5101, L3890.6006, L501.9985, L506.0400, L500.4050, L300.3900, L3300.0700, L3100.3425, L503.6550, L504.2610, L503.0106, L503.6030, L3000.0375, L500.4100, L501.6710, L501.9520, L3410.9998, L3890.6202, L3300.0100, L3200.1100 ####[facility] [address] [facility] [place], [address] ALT [Catalytic activity/Vol] 86 U/L High <=46 [facility] Comment on above: Performed By: #### L 800.1280, L506.0200, L100.0100, L3100.5450, L803.2200, L3400.0700, L501.5101, L3890.6006, L501.9985, L506.0400, L500.4050, L300.3900, L3300.0700, L3100.3425, L503.6550, L504.2610, L503.0106, L503.6030, L3000.0375, L500.4100, L501.6710, L501.9520, L3410.9998, L3890.6202, L3300.0100, L3200.1100 ####[facility] [address] [facility] [place], [address] AST [Catalytic activity/Vol] 69 U/L High <=37 [facility] Comment on above: Performed By: #### L 800.1280, L506.0200, L100.0100, L3100.5450, L803.2200, L3400.0700, L501.5101, L3890.6006, L501.9985, L506.0400, L500.4050, L300.3900, L3300.0700, L3100.3425, L503.6550, L504.2610, L503.0106, L503.6030, L3000.0375, L500.4100, L501.6710, L501.9520, L3410.9998, L3890.6202, L3300.0100, L3200.1100 ####[facility] [address] [facility] [address] [place], [place], [phone] Bilirubin [Mass/Vol] 0.82 mg/dL Normal 0.00-1.[address] [facility] Comment on above: Performed By: #### L 800.1280, L506.0200, L100.0100, L3100.5450, L803.2200, L3400.0700, L501.5101, L3890.6006, L501.9985, L506.0400, L500.4050, L300.3900, L3300.0700, L3100.3425, L503.6550, L504.2610, L503.0106, L503.6030, L3000.0375, L500.4100, L501.6710, L501.9520, L3410.9998, L3890.6202, L3300.0100, L3200.1100 ####[facility] [address] [place], [place], [id number] BUN/CRE 14.4 RATIO Normal 10-20 [facility] Comment on above: Performed By: #### L 800.1280, L506.0200, L100.0100, L3100.5450, L803.2200, L3400.0700, L501.5101, L3890.6006, L501.9985, L506.0400, L500.4050, L300.3900, L3300.0700, L3100.3425, L503.6550, L504.2610, L503.0106, L503.6030, L3000.0375, L500.4100, L501.6710, L501.9520, L3410.9998, L3890.6202, L3300.0100, L3200.1100 ####[facility] [address] [place], [place], [id number] Calcium [Mass/Vol] 9.1 mg/dL Normal 7.6-11.0 [facility] Comment on above: Performed By: #### L 800.1280, L506.0200, L100.0100, L3100.5450, L803.2200, L3400.0700, L501.5101, L3890.6006, L501.9985, L506.0400, L500.4050, L300.3900, L3300.0700, L3100.3425, L503.6550, L504.2610, L503.0106, L503.6030, L3000.0375, L500.4100, L501.6710, L501.9520, L3410.9998, L3890.6202, L3300.0100, L3200.1100 ####[facility] [address] [facility]. [place], [place], [id number] Chloride [Moles/Vol] 105 mmol/L Normal 98-[address] [facility] Comment on above: Performed By: #### L 800.1280, L506.0200, L100.0100, L3100.5450, L803.2200, L3400.0700, L501.5101, L3890.6006, L501.9985, L506.0400, L500.4050, L300.3900, L3300.0700, L3100.3425, L503.6550, L504.2610, L503.0106, L503.6030, L3000.0375, L500.4100, L501.6710, L501.9520, L3410.9998, L3890.6202, L3300.0100, L3200.1100 ####[facility] [address] [place], [place], [phone](122) CO2 [Moles/Vol] 26.3 mmol/L Normal 21.0-32.0 [facility] Comment on above: Performed By: #### L 800.1280, L506.0200, L100.0100, L3100.5450, L803.2200, L3400.0700, L501.5101, L3890.6006, L501.9985, L506.0400, L500.4050, L300.3900, L3300.0700, L3100.3425, L503.6550, L504.2610, L503.0106, L503.6030, L3000.0375, L500.4100, L501.6710, L501.9520, L3410.9998, L3890.6202, L3300.0100, L3200.1100 ####[facility] [address] [facility]. [place], [place], [phone] Creatinine [Mass/Vol] 0.74 mg/dL Normal 0.70-1.20 [facility] Comment on above: Performed By: #### L 800.1280, L506.0200, L100.0100, L3100.5450, L803.2200, L3400.0700, L501.5101, L3890.6006, L501.9985, L506.0400, L500.4050, L300.3900, L3300.0700, L3100.3425, L503.6550, L504.2610, L503.0106, L503.6030, L3000.0375, L500.4100, L501.6710, L501.9520, L3410.9998, L3890.6202, L3300.0100, L3200.1100 ####[facility] [address] [place], [place], [phone] GAP 11 Normal 5-15 [facility] Comment on above: Performed By: #### L 800.1280, L506.0200, L100.0100, L3100.5450, L803.2200, L3400.0700, L501.5101, L3890.6006, L501.9985, L506.0400, L500.4050, L300.3900, L3300.0700, L3100.3425, L503.6550, L504.2610, L503.0106, L503.6030, L3000.0375, L500.4100, L501.6710, L501.9520, L3410.9998, L3890.6202, L3300.0100, L3200.1100 ####[facility] [address] [facility] [place], [address] GFR/1.73 sq M.predicted among non-blacks MDRD (S/P/Bld) [Vol rate/Area] 110 mL/min/{1.73_m2} Normal >60 [facility] Comment on above: Result Comment: mL/m in/1.73m2 CKD-EPI Creatinine Equation (2020) Performed By: #### L 800.1280, L506.0200, L100.0100, L3100.5450, L803.2200, L3400.0700, L501.5101, L3890.6006, L501.9985, L506.0400, L500.4050, L300.3900, L3300.0700, L3100.3425, L503.6550, L504.2610, L503.0106, L503.6030, L3000.0375, L500.4100, L501.6710, L501.9520, L3410.9998, L3890.6202, L3300.0100, L3200.1100 ####[facility] [address] [facility] [place], [address] Globulin (S) [Mass/Vol] 3.4 g/dL Normal 2.2-4.2 [facility] Comment on above: Performed By: #### L 800.1280, L506.0200, L100.0100, L3100.5450, L803.2200, L3400.0700, L501.5101, L3890.6006, L501.9985, L506.0400, L500.4050, L300.3900, L3300.0700, L3100.3425, L503.6550, L504.2610, L503.0106, L503.6030, L3000.0375, L500.4100, L501.6710, L501.9520, L3410.9998, L3890.6202, L3300.0100, L3200.1100 ####[facility] [address] [facility]. [place], [place], [id number] Glucose [Mass/Vol] 88 mg/dL Normal 70-99 [facility] Comment on above: Performed By: #### L 800.1280, L506.0200, L100.0100, L3100.5450, L803.2200, L3400.0700, L501.5101, L3890.6006, L501.9985, L506.0400, L500.4050, L300.3900, L3300.0700, L3100.3425, L503.6550, L504.2610, L503.0106, L503.6030, L3000.0375, L500.4100, L501.6710, L501.9520, L3410.9998, L3890.6202, L3300.0100, L3200.1100 ####[facility] [address] [place], [place], [phone] Potassium [Moles/Vol] 3.9 mmol/L Normal 3.3-5.1 [facility] Comment on above: Performed By: #### L 800.1280, L506.0200, L100.0100, L3100.5450, L803.2200, L3400.0700, L501.5101, L3890.6006, L501.9985, L506.0400, L500.4050, L300.3900, L3300.0700, L3100.3425, L503.6550, L504.2610, L503.0106, L503.6030, L3000.0375, L500.4100, L501.6710, L501.9520, L3410.9998, L3890.6202, L3300.0100, L3200.1100 ####[facility] [address] [place], [place], [phone] Sodium [Moles/Vol] 143 mmol/L Normal 133-145 [facility] Comment on above: Performed By: #### L 800.1280, L506.0200, L100.0100, L3100.5450, L803.2200, L3400.0700, L501.5101, L3890.6006, L501.9985, L506.0400, L500.4050, L300.3900, L3300.0700, L3100.3425, L503.6550, L504.2610, L503.0106, L503.6030, L3000.0375, L500.4100, L501.6710, L501.9520, L3410.9998, L3890.6202, L3300.0100, L3200.1100 ####[facility] [address] [place], [place], [phone] T PROT 7.4 g/dL Normal 5.9-8.4 [facility] Comment on above: Performed By: #### L 800.1280, L506.0200, L100.0100, L3100.5450, L803.2200, L3400.0700, L501.5101, L3890.6006, L501.9985, L506.0400, L500.4050, L300.3900, L3300.0700, L3100.3425, L503.6550, L504.2610, L503.0106, L503.6030, L3000.0375, L500.4100, L501.6710, L501.9520, L3410.9998, L3890.6202, L3300.0100, L3200.1100 ####[facility] [address] [place], [place], [phone] Urea nitrogen [Mass/Vol] 11 mg/dL Normal 4-19 [facility] Comment on above: Performed By: #### L 800.1280, L506.0200, L100.0100, L3100.5450, L803.2200, L3400.0700, L501.5101, L3890.6006, L501.9985, L506.0400, L500.4050, L300.3900, L3300.0700, L3100.3425, L503.6550, L504.2610, L503.0106, L503.6030, L3000.0375, L500.4100, L501.6710, L501.9520, L3410.9998, L3890.6202, L3300.0100, L3200.1100 ####[facility] [address] [facility] [place], [address] DNA double strand Ab Qn (S)O rdered By: eGt oBggs on 11-12-2024 Anti-Double Strand DNA Antibody TNP [facility] Comment on above: Test not performed Eosinophil percentageOrdered By: Get Boggs on 11-12-2024 Eosinophils/100 WBC (Bld) 1.9 % 0-5 [facility] Erythrocyte distribution wid th (RBC) [Ratio]Ordered By: Get Boggs on 11-12-2024 Erythrocyte distribution width (RBC) [Entitic vol] 47.0 fL High 35.1-43.9 [facility] Erythrocyte distribution wid th ratioOrdered By: Get Boggs on 11-12-2024 Erythrocyte distribution width (RBC) [Ratio] 13.1 % 11.6-14.6 [facility] Erythrocyte distribution wid th standard deviationOrdered By: Get Boggs on 11-12-2024 Erythrocyte distribution width (RBC) [Ratio] 47.0 fl High 35.1-43.9 [facility] Ferritinon 11-12-2024 Ferritin [Mass/Vol] 871 ng/mL High 37-417 [facility] Comment on above: Performed By: #### L 800.1280, L506.0200, L100.0100, L3100.5450, L803.2200, L3400.0700, L501.5101, L3890.6006, L501.9985, L506.0400, L500.4050, L300.3900, L3300.0700, L3100.3425, L503.6550, L504.2610, L503.0106, L503.6030, L3000.0375, L500.4100, L501.6710, L501.9520, L3410.9998, L3890.6202, L3300.0100, L3200.1100 ####[facility] [address] [place], [place], [phone] Folate [Moles/Vol]Ordered By : Get Boggs on 11-12-2024 Serum Folate 7.39 ng/mL 4.60-34.80 [facility] Comment on above: Hemolysis, Results w ill be affected, Requires Recollection. Folate [Moles/volume] in Ser um or PlasmaOrdered By: Get Boggs on 11-12-2024 Folate [Moles/Vol] 7.39 ng/mL 4.60-34.80 [facility] Comment on above: Hemolysis, Results w ill be affected, Requires Recollection. Folates,Serum (Folic Acid)on 11-12-2024 FOLATES,SERUM 7.39 ng/mL Normal 4.60-34.80 [facility] Comment on above: Order Comment: N Result Comment: Hemo lysis, Results will be affected, Requires Recollection. Performed By: #### L 800.1280, L506.0200, L100.0100, L3100.5450, L803.2200, L3400.0700, L501.5101, L3890.6006, L501.9985, L506.0400, L500.4050, L300.3900, L3300.0700, L3100.3425, L503.6550, L504.2610, L503.0106, L503.6030, L3000.0375, L500.4100, L501.6710, L501.9520, L3410.9998, L3890.6202, L3300.0100, L3200.1100 ####[facility] [address] [place], [address] GFR/1.73 sq M.predicted berta g non-blacks MDRD (S/P/Bld) [Vol rate/Area]Ordered By: Get Boggs on 11-12-2024 Estimated GFR (MDRD) Non-Af Amer 110 >60 [facility] Comment on above: mL/min/1.73m2 CKD-EP I Creatinine Equation (2020) Gamma glutamyl transferase ( GGT) measurementOrdered By: Get Boggs on 11-12-2024 Amylase [Catalytic activity/Vol] 69 U/L High 0-65 [facility] Glomerular filtration rate ( GFR) estimation/1.73 sq m using serum, plasma, or whole bOrdered By: Get Boggs on 11-12-2024 GFR/1.73 sq M.predicted among non-blacks MDRD (S/P/Bld) [Vol rate/Area] 110 mL/min/{1.73_m2} >60 [facility] Comment on above: mL/min/1.73m2 CKD-EP I Creatinine Equation (2020) HBV surface Ab Ql (S)Ordered By: Get Boggs on 11-12-2024 Hepatitis B Surface Antibody Non-Reactive [facility] Comment on above: <8.5 mIU/mL: Non-Herminia ctive8.5<= x <11.5 mIU/mL: Indeterminate>=11.5 mIU/mL: Reactive Non Reactive: Inconsistent with immunity less than <10 mIU/mL Reactive: Consistent with immunity greater than or equal to 10 mIU/mL HIVon 11-12-2024 HIV Non-Reactive Normal Nonreactive [facility] Comment on above: Result Comment: Non- Reactive Reactive Repeatedly reactive samples must be confirmed according to CDC recommended confirmatory algorithms. The subresults for either HIVAG or AHIV can be used as an aid in the selection of the confirmation algorithm for reactive samples. Send out specimens with Reactive results to [facility] for confirmation. Order the HIV antibody detection and differentiation: [id number] Performed By: #### L 800.1280, L506.0200, L100.0100, L3100.5450, L803.2200, L3400.0700, L501.5101, L3890.6006, L501.9985, L506.0400, L500.4050, L300.3900, L3300.0700, L3100.3425, L503.6550, L504.2610, L503.0106, L503.6030, L3000.0375, L500.4100, L501.6710, L501.9520, L3410.9998, L3890.6202, L3300.0100, L3200.1100 ####[facility] [address] [place], [address] Hematocrit Auto (Bld) [Volum e fraction]Ordered By: Get Boggs on 11-12-2024 Hematocrit (Bld) [Volume fraction] 45.1 % 40-54 [facility] Hemoglobin A1con 11-12-2024 HbA1c (Bld) [Mass fraction] 5.6 % Normal <=5.6 [facility] Comment on above: Result Comment: Norm al < 5.7 % Prediabetic 5.7 - 6.4 % Diabetic >or= 6.5 % Please note range changes. Performed By: #### L 800.1280, L506.0200, L100.0100, L3100.5450, L803.2200, L3400.0700, L501.5101, L3890.6006, L501.9985, L506.0400, L500.4050, L300.3900, L3300.0700, L3100.3425, L503.6550, L504.2610, L503.0106, L503.6030, L3000.0375, L500.4100, L501.6710, L501.9520, L3410.9998, L3890.6202, L3300.0100, L3200.1100 ####[facility] [address] [place], [place], [phone] Hemoglobin A1c percentageOrd ered By: Get Boggs on 11-12-2024 HbA1c (Bld) [Mass fraction] 5.6 % <5.7 [facility] Comment on above: Normal < 5.7 % Predi abetic 5.7 - 6.4 % Diabetic >or= 6.5 % Please note range changes. Hemoglobin measurementOrdere d By: Get Boggs on 11-12-2024 Hemoglobin (Bld) [Mass/Vol] 15.5 g/dL 13.0-16.5 [facility] Hepatitis B Surface Antibody on 11-12-2024 HEP B Surf Ab Non-Reactive Normal [facility] Comment on above: Result Comment: <8.5 mIU/mL: Non-Reactive 8.5<= x <11.5 mIU/mL: Indeterminate >=11.5 mIU/mL: Reactive Non Reactive: Inconsistent with immunity less than <10 mIU/mL Reactive: Consistent with immunity greater than or equal to 10 mIU/mL Performed By: #### L 800.1280, L506.0200, L100.0100, L3100.5450, L803.2200, L3400.0700, L501.5101, L3890.6006, L501.9985, L506.0400, L500.4050, L300.3900, L3300.0700, L3100.3425, L503.6550, L504.2610, L503.0106, L503.6030, L3000.0375, L500.4100, L501.6710, L501.9520, L3410.9998, L3890.6202, L3300.0100, L3200.1100 ####[facility] [address] [place], [place], [phone] IgEOrdered By: Get Boggs on 11-12-2024 IgE 56 IU/mL 6-495 [facility] Immature granulocytes/100 WB C Auto (Bld)Ordered By: Get Boggs on 11-12-2024 Immature granulocytes/100 WBC (Bld) 0.500 % 0.0-0.9 [facility] Comment on above: IG% - Immature Granu locytes (promyelocytes, myelocytes and metamyelocytes) > 1% indicates that a LEFT SHIFT is Present. International normalized rat io (INR) calculationOrdered By: Get Boggs on 11-12-2024 INR Coag (Bld) [Relative time] 1.1 {INR} [facility] Interpretation of serum or p lasma protein pattern by immunofixation (narrative resultOrdered By: Get Boggs on 11-12-2024 Protein Fractions Immunofixation Cole [Interp] Not Observed g/dL Not Observed [facility] Iron (Unsp spec) [Mass/Mass] Ordered By: Get Boggs on 11-12-2024 Iron [Mass/Vol] 110 ug/dL 65-175 [facility] Iron measurement (mass/mass) Ordered By: Get Boggs on 11-12-2024 Iron (Unsp spec) [Mass/Mass] 110 ug/dL 65-175 [facility] Iron saturation [Mass fracti on]Ordered By: Get Boggs on 11-12-2024 Iron Saturation 46.0 % 9-55 [facility] Iron+Iron Binding Capacityon 11-12-2024 Iron [Mass/Vol] 110 ug/dL Normal 65-175 [facility] Comment on above: Performed By: #### L 800.1280, L506.0200, L100.0100, L3100.5450, L803.2200, L3400.0700, L501.5101, L3890.6006, L501.9985, L506.0400, L500.4050, L300.3900, L3300.0700, L3100.3425, L503.6550, L504.2610, L503.0106, L503.6030, L3000.0375, L500.4100, L501.6710, L501.9520, L3410.9998, L3890.6202, L3300.0100, L3200.1100 ####[facility] [address] [place], [place], [address] IRON SATURATION 46.0 Normal 9-55 [facility] Comment on above: Performed By: #### L 800.1280, L506.0200, L100.0100, L3100.5450, L803.2200, L3400.0700, L501.5101, L3890.6006, L501.9985, L506.0400, L500.4050, L300.3900, L3300.0700, L3100.3425, L503.6550, L504.2610, L503.0106, L503.6030, L3000.0375, L500.4100, L501.6710, L501.9520, L3410.9998, L3890.6202, L3300.0100, L3200.1100 ####[facility] [address] [place], [place], [id number] TIBC 240 ug/dL Low 250-450 [facility] Comment on above: Performed By: #### L 800.1280, L506.0200, L100.0100, L3100.5450, L803.2200, L3400.0700, L501.5101, L3890.6006, L501.9985, L506.0400, L500.4050, L300.3900, L3300.0700, L3100.3425, L503.6550, L504.2610, L503.0106, L503.6030, L3000.0375, L500.4100, L501.6710, L501.9520, L3410.9998, L3890.6202, L3300.0100, L3200.1100 ####[facility] [address] [place], [place], [phone] UIBC 130 ug/dL Low 228-428 [facility] Comment on above: Performed By: #### L 800.1280, L506.0200, L100.0100, L3100.5450, L803.2200, L3400.0700, L501.5101, L3890.6006, L501.9985, L506.0400, L500.4050, L300.3900, L3300.0700, L3100.3425, L503.6550, L504.2610, L503.0106, L503.6030, L3000.0375, L500.4100, L501.6710, L501.9520, L3410.9998, L3890.6202, L3300.0100, L3200.1100 ####[facility] [address] [facility] [place], [address] Tiana-1 antibody assayOrdered B y: Get Boggs on 11-12-2024 TIANA-1 Antibody TNP [facility] Comment on above: Test not performed LDHon 11-12-2024 LDH 173 U/L Normal 87-241 [facility] Comment on above: Order Comment: 1 Performed By: #### L 800.1280, L506.0200, L100.0100, L3100.5450, L803.2200, L3400.0700, L501.5101, L3890.6006, L501.9985, L506.0400, L500.4050, L300.3900, L3300.0700, L3100.3425, L503.6550, L504.2610, L503.0106, L503.6030, L3000.0375, L500.4100, L501.6710, L501.9520, L3410.9998, L3890.6202, L3300.0100, L3200.1100 ####[facility] [address] [place], [address] LDL calc ser/plasOrdered By: Get Boggs on 11-12-2024 Cholesterol in LDL [Mass/Vol] 133 mg/dL [facility] Comment on above: Swemngnptn=767-839 m g/dL & Higher Vbpq=632 mg/dL or greater LDL Cholesterol, Calculated 133 mg/dL [facility] Comment on above: Vfcafmkkvf=781-781 m g/dL & Higher Thkt=335 mg/dL or greater Laboratory - Chemistry and C hemistry - challengeOrdered By: Get Boggs on 11-12-2024 AST [Catalytic activity/Vol] 69 U/L High <38 [facility] Lactate dehydrogenase (LDH) measurementOrdered By: Get Boggs on 11-12-2024 LDH [Catalytic activity/Vol] 173 U/L 87-241 [facility] Lipid Profileon 11-12-2024 CHOL:HDL 5.16 Normal [facility] Comment on above: Performed By: #### L 800.1280, L506.0200, L100.0100, L3100.5450, L803.2200, L3400.0700, L501.5101, L3890.6006, L501.9985, L506.0400, L500.4050, L300.3900, L3300.0700, L3100.3425, L503.6550, L504.2610, L503.0106, L503.6030, L3000.0375, L500.4100, L501.6710, L501.9520, L3410.9998, L3890.6202, L3300.0100, L3200.1100 ####[facility] [address] [place], [address] Cholesterol [Mass/Vol] 209 mg/dL High <=200 [facility] Comment on above: Result Comment: Chol esterol level, Desirable <200 mg/dL Borderline high cholesterol 200-239 mg/dL High cholesterol >=240 mg/dL Recommendations of the NCEP Adult Treatment Panel for the following risk-cutoff thresholds for the [place] population. Performed By: #### L 800.1280, L506.0200, L100.0100, L3100.5450, L803.2200, L3400.0700, L501.5101, L3890.6006, L501.9985, L506.0400, L500.4050, L300.3900, L3300.0700, L3100.3425, L503.6550, L504.2610, L503.0106, L503.6030, L3000.0375, L500.4100, L501.6710, L501.9520, L3410.9998, L3890.6202, L3300.0100, L3200.1100 ####[facility] [address] [facility] [place], [address] Cholesterol in HDL [Mass/Vol] 41 mg/dL Normal [facility] Comment on above: Result Comment: Valerie onal Cholesterol Education Program (NCEP) guidelines: <40 mg/dL: Low HDL-cholesterol (major risk factor for CHD) >= 60 mg/dL: High HDL-cholesterol (negative risk factor for CHD) HDL-cholesterol is affected by a number of factors, e.g. smoking, exercise, hormones, sex and age. Performed By: #### L 800.1280, L506.0200, L100.0100, L3100.5450, L803.2200, L3400.0700, L501.5101, L3890.6006, L501.9985, L506.0400, L500.4050, L300.3900, L3300.0700, L3100.3425, L503.6550, L504.2610, L503.0106, L503.6030, L3000.0375, L500.4100, L501.6710, L501.9520, L3410.9998, L3890.6202, L3300.0100, L3200.1100 ####[facility] [address] [place], [place], [id number] Cholesterol in LDL [Mass/Vol] 133 mg/dL Normal [facility] Comment on above: Result Comment: Bord pjbkkf=428-425 mg/dL Higher Czpg=506 mg/dL or greater Performed By: #### L 800.1280, L506.0200, L100.0100, L3100.5450, L803.2200, L3400.0700, L501.5101, L3890.6006, L501.9985, L506.0400, L500.4050, L300.3900, L3300.0700, L3100.3425, L503.6550, L504.2610, L503.0106, L503.6030, L3000.0375, L500.4100, L501.6710, L501.9520, L3410.9998, L3890.6202, L3300.0100, L3200.1100 ####[facility] [address] [facility]. [place], [place], [id number] Cholesterol in VLDL [Mass/Vol] 35 mg/dL Normal 5-40 [facility] Comment on above: Performed By: #### L 800.1280, L506.0200, L100.0100, L3100.5450, L803.2200, L3400.0700, L501.5101, L3890.6006, L501.9985, L506.0400, L500.4050, L300.3900, L3300.0700, L3100.3425, L503.6550, L504.2610, L503.0106, L503.6030, L3000.0375, L500.4100, L501.6710, L501.9520, L3410.9998, L3890.6202, L3300.0100, L3200.1100 ####[facility] [address] [facility]. [place], [place], [phone]) Triglyceride [Mass/Vol] 177 mg/dL Normal [facility] Comment on above: Result Comment: The drugs N-Acetylcysteine and Metamizole may falsely depress this assay. Normal range: <150 mg/dL Borderline High: 150-199 mg/dL High: 200-499 mg/dL Very High: >500 mg/dL Performed By: #### L 800.1280, L506.0200, L100.0100, L3100.5450, L803.2200, L3400.0700, L501.5101, L3890.6006, L501.9985, L506.0400, L500.4050, L300.3900, L3300.0700, L3100.3425, L503.6550, L504.2610, L503.0106, L503.6030, L3000.0375, L500.4100, L501.6710, L501.9520, L3410.9998, L3890.6202, L3300.0100, L3200.1100 ####[facility] [address] [place], [address] Lymphocytes Auto (Unsp spec) [#/Vol]Ordered By: Get Boggs on 11-12-2024 Lymphocytes (Bld) [#/Vol] 2.99 10*3/uL 0.83-4.51 [facility] Lymphocytes/100 WBC Auto (Un sp spec)Ordered By: Get Boggs on 11-12-2024 Lymphocytes/100 WBC (Bld) 26.9 % 19-41 [facility] MCV (mean corpuscular volume ) determinationOrdered By: Get Boggs on 11-12-2024 MCV (RBC) [Entitic vol] 98.5 fL High 80-94 [facility] Mean corpuscular hemoglobin (MCH) determinationOrdered By: Get Boggs on 11-12-2024 MCH (RBC) [Entitic mass] 33.8 pg High 27.0-32.0 [facility] Mean corpuscular hemoglobin concentration (MCHC) determinationOrdered By: Get Boggs on 11-12-2024 MCHC (RBC) [Mass/Vol] 34.4 g/dL 32-36 [facility] Mean platelet volume determi nationOrdered By: Get Boggs on 11-12-2024 Platelet mean volume (Bld) [Entitic vol] 8.9 fL 6.2-12.0 [facility] Mitochondria Ab Ql (S)Ordere d By: Get Boggs on 11-12-2024 Anti-Mitochondrial Antibody <20.0 Units 0.0-20.0 [facility] Comment on above: Negative 0.0 - 20.0 Equivocal 20.1 - 24.9 Positive >24.9Mitochondrial (M2) Antibodies are found in 90-96% ofpatients with primary biliary cirrhosis. Monocyte percentageOrdered B y: Get Boggs on 11-12-2024 Monocytes/100 WBC (Bld) 7.5 % 0-10 [facility] Neutrophil percentageOrdered By: Get Boggs on 11-12-2024 Neutrophils/100 WBC (Bld) 62.4 % 47-70 [facility] No Panel InformationOrdered By: Get Boggs on 11-12-2024 Miscellaneous Test [address] [facility] Comment on above: Test Ordered: [id number] Hxdbe-3-Esqbwexrhan QbgsplhsFqvum-1-Xqpxijcfkis, Serum mg/dL CB Reference Range: .Please refer to the following specimen for additional labresults.Please refer to [phone] for results.Phenotype (PI) NOLAB Reference Range: .Test not performedPerformed at: [facility] [facility] [id number] Director: Diaz Perdomo PhD, Phone: [phone].Previous reported result: COMMENT Edited by: SAVANNAH on 11/19/24:1146 AMENDED REPORT 11/19/24 1146 [facility].4 previously reported as: COMMENT Test Ordered: [id number] Nhwsg-8-Lhxywgyxcpi SjkychbtNtufv-8-Mdywuhccddv, Serum mg/dL CB Reference Range: .Please refer to the following specimen for additional labresults.Please refer to [phone] for results.Phenotype (PI) NOLAB Reference Range: .Test not performedPerformed at: [facility] [id number] Director: Diaz Perdomo PhD, Phone: [phone] Addendum Document Comment . [facility] Comment on above: Protein electrophore sis scan will follow via computer,mail, or corporate travel consultant delivery. Hepatitis C Antibody Comment Comment . [facility] Comment on above: Not infected with HC V unless early or acute infection issuspected (which may be delayed in an immunocompromisedindividual), or other evidence exists to indicate HCVinfection. HIV (1&2) Antibody Non-Reactive Nonreactive [facility] Comment on above: Non-ReactiveReactive Repeatedly reactive samples must be confirmed according to CDC recommended confirmatory algorithms. The subresults for either HIVAG or AHIV can be used as an aid in the selection of the confirmation algorithm for reactive samples.Send out specimens with Reactive results to [facility] for confirmation.Order the HIV antibody detection and differentiation: lc#[id number] Unsaturated Iron Binding Capacity 130 ug/dL Low 228-428 [facility] Nucleated red blood cell per centageOrdered By: Get Boggs on 11-12-2024 Nucleated RBC/100 WBC (Bld) [Ratio] 0 % 0-5 [facility] Platelet countOrdered By: Jaime Boggs on 11-12-2024 Platelets (Bld) [#/Vol] 246 10*3/uL 150-450 [facility] Potassium (Unsp spec) [Mass/ Vol]Ordered By: Get Boggs on 11-12-2024 Potassium [Moles/Vol] 3.9 mmol/L 3.3-5.1 [facility] Potassium measurement (mass/ volume)Ordered By: Get Boggs on 11-12-2024 Potassium (Unsp spec) [Mass/Vol] 3.9 mmol/L 3.3-5.1 [facility] Prothrombin Time w/INRon INR Coag (PPP) [Relative time] 1.1 {INR} Normal [facility] Comment on above: Performed By: #### L 800.1280, L506.0200, L100.0100, L3100.5450, L803.2200, L3400.0700, L501.5101, L3890.6006, L501.9985, L506.0400, L500.4050, L300.3900, L3300.0700, L3100.3425, L503.6550, L504.2610, L503.0106, L503.6030, L3000.0375, L500.4100, L501.6710, L501.9520, L3410.9998, L3890.6202, L3300.0100, L3200.1100 ####[facility] [address] [place], [address] PT Coag (PPP) [Time] 14.0 s Normal 11.7-14.[address] [facility] Comment on above: Performed By: #### L 800.1280, L506.0200, L100.0100, L3100.5450, L803.2200, L3400.0700, L501.5101, L3890.6006, L501.9985, L506.0400, L500.4050, L300.3900, L3300.0700, L3100.3425, L503.6550, L504.2610, L503.0106, L503.6030, L3000.0375, L500.4100, L501.6710, L501.9520, L3410.9998, L3890.6202, L3300.0100, L3200.1100 ####[facility] [address] [place], [address] Prothrombin timeOrdered By: Get Boggs on 11-12-2024 PT Coag (PPP) [Time] 14.0 s 11.7-14.[address] [facility] RBC Auto (Bld) [#/Vol]Ordere d By: Get Boggs on 11-12-2024 RBC (Bld) [#/Vol] 4.58 10*6/uL Low 4.6-6.2 [facility] PRINTING ENGINEER abOrdered By: Get Marie and on 11-12-2024 PRINTING ENGINEER Antibody [facility] Comment on above: Test not performed SCL-70 extractable nuclear A b Qn (S)Ordered By: Get Boggs on 11-12-2024 Scl-70 (Scleroderma) Antibody [facility] Comment on above: Test not performed SS-A IgG antibody assayOrder ed By: Get Boggs on 11-12-2024 SS-A/Ro IgG Antibody [facility] Comment on above: Test not performed SS-B IgG antibody assayOrder ed By: Get Boggs on 11-12-2024 SS-B/La IgG Antibody [facility] Comment on above: Test not performed Screening total cholesterol/ high density lipoprotein (HDL) cholesterol ratioOrdered By: Get Boggs on 11-12-2024 Cholesterol.total/Chol esterol in HDL [Mass ratio] 5.16 {ratio} [facility] Serum DNA double strand anti body assay (units/volume)Ordered By: Get Boggs on 11-12-2024 DNA double strand Ab Qn (S) [facility] Comment on above: Test not performed Serum Scl-70 antibody assay (units/volume)Ordered By: Get Boggs on 11-12-2024 SCL-70 extractable nuclear Ab Qn (S) [facility] Comment on above: Test not performed Serum creatinine measurement (mass/volume)Ordered By: Get Boggs on 11-12-2024 Creatinine [Mass/Vol] 0.74 mg/dL 0.70-1.20 [facility] Serum globulin measurementOr dered By: Get Boggs on 11-12-2024 Globulin (S) [Mass/Vol] 3.4 g/dL 2.2-4.2 [facility] Serum globulin measurement ( mass/volume)Ordered By: Get Boggs on 11-12-2024 Globulin (S) [Mass/Vol] 3.7 g/dL 2.2-3.9 [facility] Serum glucose measurement (m ass/volume)Ordered By: Get Boggs on 11-12-2024 Glucose [Mass/Vol] 88 mg/dL 70-99 [facility] Serum hepatitis B virus surf winnie antibody detectionOrdered By: Get Boggs on 11-12-2024 HBV surface Ab Ql (S) Non-Reactive [facility] Comment on above: <8.5 mIU/mL: Non-Herminia ctive8.5<= x <11.5 mIU/mL: Indeterminate>=11.5 mIU/mL: Reactive Non Reactive: Inconsistent with immunity less than <10 mIU/mL Reactive: Consistent with immunity greater than or equal to 10 mIU/mL Serum mitochondria antibody detectionOrdered By: Get Boggs on 11-12-2024 Mitochondria Ab Ql (S) <20.0 Units 0.0-20.0 [facility] Comment on above: Negative 0.0 - 20.0 Equivocal 20.1 - 24.9 Positive >24.9Mitochondrial (M2) Antibodies are found in 90-96% ofpatients with primary biliary cirrhosis. Serum or plasma C reactive p rotein measurement (mass/volume)Ordered By: Get Boggs on 11-12-2024 CRP [Mass/Vol] 6.42 mg/L High 0.0-3.0 [facility] Serum or plasma IgA measurem ent (mass/volume)Ordered By: Get Boggs on 11-12-2024 IgA [Mass/Vol] 590 mg/dL High 90-386 [facility] Serum or plasma IgG measurem ent (mass/volume)Ordered By: Get Boggs on 11-12-2024 IgG [Mass/Vol] 1517 mg/dL 603-1613 [facility] Serum or plasma actin IgG an tibody assay (units/volume)Ordered By: Get Boggs on 11-12-2024 Actin IgG Qn 6 Units 0-19 [facility] Comment on above: Negative 0 - 19 Weak positive 20 - 30 Moderate to strong positive >30 Actin Antibodies are found in 52-85% of patients with autoimmune hepatitis or chronic active hepatitis and in 22% of patients with primary biliary cirrhosis. Serum or plasma alanine beltre otransferase (ALT) measurementOrdered By: Get Boggs on 11-12-2024 ALT [Catalytic activity/Vol] 86 U/L High <47 [facility] Serum or plasma albumin vladimir urement (mass/volume)Ordered By: Get Boggs on 11-12-2024 Albumin [Mass/Vol] 4.0 g/dL 3.5-5.0 [facility] Serum or plasma albumin/glob ulin mass ratioOrdered By: Get Boggs on 11-12-2024 Albumin/Globulin [Mass ratio] 1.2 {ratio} 0.9-2.4 [facility] Serum or plasma alkaline les sphatase measurementOrdered By: Get Boggs on 11-12-2024 ALP [Catalytic activity/Vol] 109 U/L 40-129 [facility] Serum or plasma alpha 1 glob ulin measurement by electrophoresis (mass/volume)Ordered By: Get Boggs on 11-12-2024 Alpha 1 globulin Elph [Mass/Vol] 0.2 g/dL 0.0-0.4 [facility] Alpha 1 globulin Elph [Mass/Vol] 0.7 g/dL 0.4-1.0 [facility] Serum or plasma beta globuli n measurement by electrophoresis (mass/volume)Ordered By: Get Boggs on 11-12-2024 Beta globulin Elph [Mass/Vol] 1.4 g/dL High 0.7-1.3 [facility] Serum or plasma calcium vladimir urement (mass/volume)Ordered By: Get Boggs on 11-12-2024 Calcium [Mass/Vol] 9.1 mg/dL 7.6-11.0 [facility] Serum or plasma cholesterol in HDL measurement (mass/volume)Ordered By: Get Boggs on 11-12-2024 Cholesterol in HDL [Mass/Vol] 41 mg/dL >40 [facility] Comment on above: National Cholesterol Education Program (NCEP) guidelines:<40 mg/dL: Low HDL-cholesterol (major risk factor for CHD)>= 60 mg/dL: High HDL-cholesterol (negative risk factor for CHD)HDL-cholesterol is affected by a number of factors, e.g. smoking, exercise, hormones, sex and age. Serum or plasma cholesterol measurement (mass/volume)Ordered By: Get Boggs on 11-12-2024 Cholesterol [Mass/Vol] 209 mg/dL High <201 [facility] Comment on above: Cholesterol level, D esirable <200 mg/dLBorderline high cholesterol 200-239 mg/dLHigh cholesterol >=240 mg/dLRecommendations of the NCEP Adult Treatment Panel for the following risk-cutoff thresholds for the [place] population. Serum or plasma ferritin lisa surement (mass/volume)Ordered By: Get Boggs on 11-12-2024 Ferritin [Mass/Vol] 871 ng/mL High 37-417 [facility] Serum or plasma gamma globul in measurement by electrophoresis (mass/volume)Ordered By: Get Boggs 11-12-2024 Gamma globulin Elph [Mass/Vol] 1.4 g/dL 0.4-1.8 [facility] Serum or plasma hepatitis B virus surface antigen detection by immunoassayOrdered By: Get Boggs on 11-12-2024 HBV surface Ag IA Ql Negative Negative [facility] Serum or plasma immunoelectr ophoresis interpretation (nominal result)Ordered By: Get Boggs on 11-12-2024 Interpretation IEP [Interp] Comment . [facility] Comment on above: No monoclonality det ected. Serum or plasma iron saturat ion measurement (mass fraction)Ordered By: Get Boggs on 11-12-2024 Iron saturation [Mass fraction] 46.0 % 9-55 [facility] Serum or plasma protein vladimir urement (mass/volume)Ordered By: Get Boggs on 11-12-2024 Protein [Mass/Vol] 7.1 g/dL 6.0-8.5 [facility] Serum or plasma urea nitroge n measurement (mass/volume)Ordered By: Get Boggs on 11-12-2024 Urea nitrogen [Mass/Vol] 11 mg/dL 4-19 [facility] Jack antibody assayOrdered By: Get Boggs on 11-12-2024 SM Antibody TNP [facility] Comment on above: Test not performed Sodium levelOrdered By: Cherise Boggs on 11-12-2024 Sodium [Moles/Vol] 143 mmol/L 133-145 [facility] T4 Free Directon 11-12-2024 T4 FREE DIRECT 0.90 ng/dL Normal 0.76-1.46 [facility] Comment on above: Performed By: #### L 800.1280, L506.0200, L100.0100, L3100.5450, L803.2200, L3400.0700, L501.5101, L3890.6006, L501.9985, L506.0400, L500.4050, L300.3900, L3300.0700, L3100.3425, L503.6550, L504.2610, L503.0106, L503.6030, L3000.0375, L500.4100, L501.6710, L501.9520, L3410.9998, L3890.6202, L3300.0100, L3200.1100 ####[facility] [address] [place], [place], [id number] T4 freeOrdered By: Get gresham on 11-12-2024 Free T4 [Mass/Vol] 0.90 ng/dL 0.76-1.46 [facility] TSH DL <= 0.005 mIU/L QnOrde red By: Get Boggs on 11-12-2024 Thyroid Stimulating Hormone (TSH) 3.340 uIU/mL 0.300-4.200 [facility] TSH Qn 3.340 uIU/mL 0.300-4.200 [facility] Thyroid Stim Hormone (TSH)on 11-12-2024 TSH 3.340 uIU/mL Normal 0.300-4.200 [facility] Comment on above: Performed By: #### L 800.1280, L506.0200, L100.0100, L3100.5450, L803.2200, L3400.0700, L501.5101, L3890.6006, L501.9985, L506.0400, L500.4050, L300.3900, L3300.0700, L3100.3425, L503.6550, L504.2610, L503.0106, L503.6030, L3000.0375, L500.4100, L501.6710, L501.9520, L3410.9998, L3890.6202, L3300.0100, L3200.1100 ####[facility] [address] [place], [address] Total proteinOrdered By: Jackelin Boggs on 11-12-2024 Protein [Mass/Vol] 7.4 g/dL 5.9-8.4 [facility] Triglycerides measurementOrd ered By: Get Boggs on 11-12-2024 Triglyceride [Mass/Vol] 177 mg/dL <199 [facility] Comment on above: The drugs N-Acetylcy steine and Metamizole may falsely depress this assay. Normal range: <150 mg/dLBorderline High: 150-199 mg/dLHigh: 200-499 mg/dLVery High: >500 mg/dL Vitamin B12on 11-12-2024 Cobalamin (Vitamin B12) [Mass/Vol] 857 pg/mL Normal 180-914 [facility] Comment on above: Performed By: #### L 800.1280, L506.0200, L100.0100, L3100.5450, L803.2200, L3400.0700, L501.5101, L3890.6006, L501.9985, L506.0400, L500.4050, L300.3900, L3300.0700, L3100.3425, L503.6550, L504.2610, L503.0106, L503.6030, L3000.0375, L500.4100, L501.6710, L501.9520, L3410.9998, L3890.6202, L3300.0100, L3200.1100 ####[facility] [address] [place], [address] Vitamin B12 ser/plasOrdered By: Get Boggs on 11-12-2024 Cobalamin (Vitamin B12) [Mass/Vol] 857 pg/mL 180-914 [facility] White blood cell (WBC) count Ordered By: Get Boggs on 11-12-2024 WBC (Bld) [#/Vol] 11.1 10*3/uL High 4.4-11.0 [facility] Gastroenterology Visit Repor ton 11-10-[address] [facility] [address] [place] [address] OFFICE VISIT Date of Service: 11/10/24 MR#: [id number] Acct: [id number] Name: HERVE RAMSEY Jr. Rep #: [id number] 1 : 1975 Provider: Dr. 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 Accompanied by: Is patient in pain?: No Allergies No Known Allergies Allergy (Verified 11/10/24 12:58) Medications ???Medication ???Instructions ???Recorded ???Confirmed ???Type brexpiprazole 2 mg tablet (Rexulti) 2 mg PO DAILY uns 10/07/2204/28 History albuterol sulfate 90 mcg/actuation 1 inh inhalation Q6H PRN shortne ss 11/04/23 11/10/24 Rx aerosol inhaler of breath or wheezing #8.5 grams cholecalciferol (vitamin D3) 1,250 1,250 mcg PO QWEEK 4 weeks #4 ta bs 06/30/24 11/10/24 Rx mcg (50,000 unit) tablet PFSH Medical History Depression Fatty liver Abnormal CT lung screening Lung nodule History of tobacco use Encounter for screening for malignant neoplasm of lung COPD (chronic obstructive pulmonary disease) Kidney stone Schizophrenia Family History Father Lymphoma Mother Kidney disease Social History household members: none Smoking Status: Former smoker (Quit smoking 10/30/23.) quit date: 10/30/23 Tobacco: How many years used: 35 alcohol intake: current alcohol intake frequency: holidays/special occasions only substance use type: does not use HPI HPI Details: HERVE RAMSEY, is a 49 M who presents to the office today for Abd Ltd Elastography 10.24 - The liver is mildly enlarged measures 18.5 cm. Median liver stiffness measured 11.3 kPa. OV 11..24 - Patient here for initial consultation. PCP referred for Fatty Liver. C/o RUQ/right side slight discomfort with certain positions or breathing occasionally last couple days. Denies hx alcohol abuse. alcohol with holidays and special occasions. Possible jaundice episode about a week ago x 1 day. Fatigued, occasional edema BLE. Denies abdominal bloating or distention, itching, confusion or brain fog. Working on diet and exercise. OV 11.10.24 - Patient occasionally complained of RUQ abdominal pain mainly after fatty meal may be once or twice a month for last 1 year. Very low intensity -09/25 CT lost for some 10 to 15 minutes. Not associated with nausea, vomiting/change in bowel movement. ROS Const Constitutional: Positive for fatigue; No fever(s), frequent falls, headache(s), weakness or weight change ENT ENT: No headache(s) or difficulty swallowing Resp Respiratory: Positive for wheezing; No shortness of breath Cardio Cardiology: No leg pain with exertion Gastro GI: No abdominal pain, belching, bloating, change in bowel habits, change in stool character, coffee ground emesis, constipation, cramping, diarrhea, heartburn, difficulty swallowing, feeling full early, excessive flatus, incontinent of stools, Vomiting blood/hematemesis, Blood in stool, loose stools, Black,tarry stools, nausea/dyspepsia, pain with swallowing, vomiting or other Genitourinary Male: No difficulty urinating or burning urination Musc Musculoskeletal: No joint pain, numbness, tingling, restless legs or leg pain with exertion Skin Skin: No yellowing of the eye or itchy eyes Neuro Neurology: No behavioral changes, unsteady gait/balance, weakness, frequent falls, headache(s), numbness, tingling, restless legs, tremor(s), Increased tone in limbs, paralysis or seizures Psych Psychiatric: No anxiety, No behavioral changes and Positive for depression Endo Endocrine: Positive for fatigue; No weight change Aller/Imm Allergy/Immunologic: Positive for wheezing; No itchy eyes J Luis/Lymp Hematologic/Lymphatic: No easy bleeding or easy bruising Exam Const General: cooperative, no acute distress and well developed Nutritional Appearance: obese Orientation: alert, awake and oriented x3 Other: BMI 35.0 kg/m??? body weight 224 pounds. Obesity grade 2 HENMT Head: normocephalic and atraumatic Nose: external nose normal Face and sinus: normal facial exam Mouth: moist mucous membranes Ey (more content not included)... Normal [facility] Pulmonary Visit Reporton Pulmonary Visit Report [facility] [address] [place] [address] OFFICE VISIT Date of Service: 09/29/24 MR#: [id number] Acct: [id number] Name: HERVE RAMSEY Jr. Rep #: [id number] 0 : 1975 Provider: Niki Maza NP Age/Sex: 48/M Location: [facility] [place].[facility] Status: Signed Assessment and Plan Assessment and Plan (1) Obstructive sleep apnea: Status: Acute Plan: Unfortunately the patient has not reattempted to use PAP therapy after the first night. I have recommended that his pressures be adjusted to 4 to 6 cm. I have also asked for him to work on adapting to the device by wearing it during the day so that way he is more comfortable when he approaches bedtime and can be come acclimated to the device. Follow-up in 3 months to review compliance download. The patient is to notify this practice if he is struggling with use of PAP therapy. The importance of treating sleep apnea was reviewed with patient today. I have reviewed his sleep testing. At this point I do not recommend a titration study as the patient was unable to sleep for the baseline PSG in the past even with hypnotic use. I have asked for him to become acclimated to the device and will consider a nocturnal oximetry once he has been able to utilize PAP therapy. Other options such as mandibular advancement device was reviewed with patient today but with shared decision making it was determined that this would not be the best treatment option at this time. (2) Asthma-COPD overlap syndrome: Status: Chronic Comment: FEV1 37% of predicted Plan: Stable, not exacerbating. The patient does not want to utilize inhaled therapy at this time. I have recommended ventilation for his work exposure. Notify this practice if worsening respiratory symptoms occur. (3) Umcvb-3-iwpvwteymnr deficiency: Status: Acute Comment: Screening M/Z Plan: Quantitative alpha-1 antitrypsin level is pending. (4) Lung nodule: Status: Chronic Plan: Noncontrasted chest CT in 12 months which would complete the follow-up for the solitary pulmonary nodule and then the patient will return to the low-dose screening lung CT program. This was previously ordered and is planned for June 2025 Plan Details Additional Comments: This note was generated with [employer]Cloud[employer] software. It may contain incorrect words, spelling, and punctuation that were not noted in checking the note before signing. Follow Up: 3 Months (LMR) HPI HPI Comments Details: Patient is a 48 year old male who presents to the office today to discuss test results. He is ambulatory on room air and accompanied today by his significant other. He reports that he had COVID last week. He reports that his symptoms are improved now. He did experience fever, body aches, cough. In the past 7 months he has had an improvement in his breathing over time since he has successfully quit smoking October 30, 2023. He did trial Breztri and reports that it was not beneficial. He indicates that he trialed it for a few days . He has also changed his diet with the recent diagnosis of fatty liver disease. He indicates that he has stopped drinking diet soda . Today he does report that he experiences shortness of breath when he exerts himself. He does have cough with clear sputum. He denies any hemoptysis. He denies any wheezing, chest tightness, chest pain or palpitations. He denies any fever, chills or body aches. The patient reports that he has supplemental oxygen and wears it at times with exertion but he has not utilized supplemental oxygen for daily activities. He will only use supplemental oxygen if he takes a long walk . He indicates that his oxygen saturation tends to be at 92 to 93%. 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 He does not use a mask when performing these tasks. He believes that this exposure does affect his breathing. He does not sleep with supplemental oxygen. He did have a PSG but he indicates it was not successful. He reports that a sleep aid was used but even with the sleep aid he was not able to sleep. He indicates that with his history of schizophrenia, performing an in lab sleep study even with use of a sleep aid was not successful. He reports that he had hallucinations during the study. He also reports that he has difficulty sleeping anywhere besides his own bed. He does awaken feeling groggy but has a cup of coffee and is able to function well during the day without excessive tiredness. He is on a different mood stabilizer and has also stopped utilizing edible marijuana for the last 2 months and reports that he has been able to fall asleep without overactive thoughts. He has a PAP device now with a nasal mask. He feels like it is too much pressure. He felt uncomfortable with tubes on his face. He did attempt to wear the device (more content not included)... Normal [facility] Gastroenterology Visit Repor ton 06-30-[address] [facility] [address] [place] [address] OFFICE VISIT Date of Service: 06/30/24 MR#: [id number] Acct: [id number] Name: HERVE RAMSEY Jr. Rep #: [id number] 1 : 1975 Provider: Dr. Get ahmadi MD Age/Sex: 48/M [place] [facility] [place]: Signed Intake Vital Signs 02/02/24 07:45 06/08/24 13:45 06/30/24 13:00 Height 5 ft 7 in 5 ft 7 in 5 ft 7 in Weight: 229 lb 224 lb BMI 35.9 35.0 BP 149/85 H 134/91 H Blood Pressure Location Lt brachial Rt brachial Position Sitting Sitting Respiration 20 H 16 Pulse 74 71 Pulse Source Monitor Monitor Temp 97.4 F L 97.8 F Temp Source Temporal Pulse Oximetry (%) 93 93 Oxygen Delivery Method room air room air Intake Visit Reasons: Fatty Liver Accompanied by: Significant Other Is patient in pain?: Yes (Right side abdomen) Pain scale (1-10): 2 Allergies No Known Allergies Allergy (Verified 06/08/24 15:12) Medications ???Medication ???Instructions ???Recorded ???Confirmed ???Type brexpiprazole 2 mg tablet (Rexulti) 2 mg PO DAILY uns 10/07/22 06/08/24 History albuterol sulfate 90 mcg/actuation 1 inh inhalation Q6H PRN shortness 11/04/23 06/08/24 Rx aerosol inhaler of breath or wheezing #8.5 grams budesonide 160 mcg-glycopyr 9 2 inh inhalation BID #3 ea 02/02/24 06/08/24 Rx mcg-formot 4.8 mcg/actuation HFA inhaler (Breztri Aerosphere) lamotrigine 25 mg tablet 25 mg PO QDAY 06/08/24 06/08/24 History cholecalciferol (vitamin D3) 1,250 1,250 mcg PO QWEEK 4 weeks #4 tabs 06/30/24 06/30/24 Rx mcg (50,000 unit) tablet PFSH Medical History Depression Fatty liver Abnormal CT lung screening Lung nodule History of tobacco use Encounter for screening for malignant neoplasm of lung COPD (chronic obstructive pulmonary disease) Kidney stone Schizophrenia Family History Father Lymphoma Mother Kidney disease Social History household members: none Smoking Status: Former smoker (Quit smoking 10/30/23.) quit date: 10/30/23 Tobacco: How many years used: 35 alcohol intake: current alcohol intake frequency: holidays/special occasions only substance use type: does not use HPI HPI Details: HERVE RAMSEY, is a 48 M who presents to the office today for fatty liver Abd Ltd Elastography 06.03.24 - The liver is mildly enlarged measures 18.5 cm. Median liver stiffness measured 11.3 kPa. OV 06.30.24 - Patient here for initial consultation. PCP referred for Fatty Liver. C/o RUQ/right side slight discomfort with certain positions or breathing occasionally last couple days. Denies hx alcohol abuse. alcohol with holidays and special occasions. Possible jaundice episode about a week ago x 1 day. Fatigued, occasional edema BLE. Denies abdominal bloating or distention, itching, confusion or brain fog. Working on diet and exercise. ROS Const Constitutional: Positive for fatigue; No fever(s), frequent falls, headache(s), weakness or weight change ENT ENT: No headache(s) or difficulty swallowing Resp Respiratory: Positive for wheezing; No shortness of breath Cardio Cardiology: No leg pain with exertion Gastro GI: Positive for constipation; No abdominal pain, bloating, change in bowel habits, diarrhea, heartburn, difficulty swallowing, excessive flatus, Vomiting blood/hematemesis, Blood in stool, nausea/dyspepsia or vomiting Genitourinary Male: No difficulty urinating or burning urination Musc Musculoskeletal: Positive for muscle cramps; No joint pain, back pain, joint swelling, muscle weakness, numbness, stiffness, tingling, Arthritis, sciatica, restless legs, leg pain at night or leg pain with exertion Skin Skin: No dry skin, lesions, itchy eyes or rash Neuro Neurology: No behavioral changes, unsteady gait/balance, weakness, frequent falls, headache(s), numbness, tingling, restless legs, tremor(s), Increased tone in limbs, paralysis or seizures Psych Psychiatric: Positive for anxiety, No behavioral changes, Positive for depression, Positive for paranoia, No Compulsive Behavior, No hyperactivity, No inattentiveness, No obsessions/compulsions, No Temper Tantrums and No suicidal ideation Endo Endocrine: Positive for fatigue; No weight change Aller/Imm Allergy/Immunologic: Positive for wheezing; No itchy eyes J Luis/Lymp Hematologic/Lymphatic: No easy bleeding or easy bruising Exam Const General: cooperative, no acute distress and well developed Nutritional Appearance: obese Orientation: alert, awake and oriented x3 Other: BMI 35.0 kg/m??? body weight 224 pounds. Obesity grade 2 HENDE Head: normocephalic and atraumatic Nose: external nose (more content not included)... Normal [facility] Pulmonary Visit Reporton Pulmonary Visit Report [facility] [address] [place] [address] OFFICE VISIT Date of Service: 06/08/24 MR#: [id number] Acct: [id number] Name: HERVE RAMSEY Rep #: [id number] : 1975 Provider: Niki Maza NP Age/Sex: 48/M Location: [facility] [place].PMW Status: Signed Assessment and Plan Assessment and Plan (1) Daytime hypersomnia: Status: Acute Plan: Due to the patient having a history of difficulty completing an in lab PSG, I have recommended a HST. Due to patient's schizophrenia, he believes that he would be able to complete a home sleep study as he was not able to fall asleep in lab. (2) Asthma-COPD overlap syndrome: Status: Chronic Comment: FEV1 37% of predicted Plan: Due to failure of Breztri I trialed patient on Trelegy inhaler and had the patient use the sample in the office today. The patient experienced gagging with inhaler use. He indicates that he could not tolerate the taste or delivery system of this particular inhaler. He does not want to pursue inhaled therapy at this time. He is willing to use a N95 mask for his work exposure. He has declined influenza vaccine today. (3) Cesak-2-edhxtbpwwta deficiency: Status: Acute Comment: Screening M/Z Plan: Quantitative alpha-1 antitrypsin level is pending. (4) Lung nodule: Status: Chronic Plan: Noncontrasted chest CT in 12 months which would complete the follow-up for the solitary pulmonary nodule and then the patient will return to the low-dose screening lung CT program. Orders: Orders Alpha 1 Anti-Trypsin 06/08/24 Elva Olmstead NP, FAMILY PSYCHOLOGIST-C E88.01 - Xlzoe-1-vubhvkjlfni deficiency NIOX 06/08/24 IMANI Flannery R06.2 - Wheezing Chest without Contrast 12 Months IMANI Flannery R91.1 - Solitary pulmonary nodule Unattended Sleep Study Today IMANI Flannery G47.10 - Hypersomnia, unspecified Plan Details Additional Comments: This note was generated with [employer] dictation software. It may contain incorrect words, spelling, and punctuation that were not noted in checking the note before signing. Follow Up: 6 Weeks (LMR) HPI 4 M FU Chief Complaint: test results HPI Comments Details: This patient presents to the office today to discuss test results. He is ambulatory on room air and accompanied today by his significant other. He has had no recent visits to the ED or urgent care. He has not received oral prednisone or antibiotics for his breathing. In the past 7 months he has had an improvement in his breathing over time since he has successfully quit smoking October 30, 2023. He did trial Breztri and reports that it was not beneficial. He indicates that he trialed it for a few days . He has also changed his diet with the recent diagnosis of fatty liver disease. He indicates that he has stopped drinking diet soda . Today he denies shortness of breath. He denies any cough, sputum production or hemoptysis. He denies any wheezing, chest tightness, chest pain or palpitations. He denies any fever, chills or body aches. The patient reports that he has supplemental oxygen and wears it at times with exertion but he has not utilized supplemental oxygen for daily activities. He will only use supplemental oxygen if he takes a long walk . He indicates that his oxygen saturation tends to be at 92 to 93%. 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 He does not use a mask when performing these tasks. He believes that this exposure does affect his breathing. He does not sleep with supplemental oxygen. He did have a PSG but he indicates it was not successful. He reports that a sleep aid was used but even with the sleep aid he was not able to sleep. He indicates that with his history of schizophrenia, performing an in lab sleep study even with use of a sleep aid was not successful. He reports that he had hallucinations during the study. He also reports that he has difficulty sleeping anywhere besides his own bed. He does awaken feeling groggy but has a cup of coffee and is able to function well during the day without excessive tiredness. He is on a different mood stabilizer and has also stopped utilizing edible marijuana for the last 2 months and reports that he has been able to fall asleep without overactive thoughts. STOP-BANG Assessment: 1. Do you snore? [] 2. Are you frequently tired during the day? [] 3. Have you been observed gasping or choking while asleep? [] 4. Do you have high blood pressure? [Y] 5. BMI - greater than 35kg/m2? [Y] 6. Age - over 50 years old? [Y] 7. Neck Circumference - greater than 37 cm for females or 40 cm for males? [] 8. Gender - male? [Y] Total STOP-BANG score = [4] which indicates [high] risk for obstructive sleep apnea (yes to 3 or more questions = high risk of sleep apnea). Test results pe (more content not included)... [facility] ABD Limited w/ Elastographyo n 06-03-2024 ABD Limited w/ Elastography [facility] [address] [place], [place] [id number] ABD Limited w/ Elastography MR#: [id number] Acct: [id number] Name: HERVE RAMSEY Jr. Rep #: [id number] : 1975 M 48 From: Too caceres MD PCP: Dr. Alma Rosa Cornelius MD Status: REG [facility] Study: ABD Limited w/ Elastography Date of Exam: 05/06 08/27 Exam# [id number] Ordering Dr: Alma Rosa Cornelius MD [id number] STUDY: ABDOMINAL ULTRASOUND - RIGHT UPPER QUADRANT; ELASTOGRAPHY REASON FOR VISIT: Male, 48 years old. NAFL D TECHNIQUE: Ultrasound evaluation of the right upper quadrant was performed with real-time and static mccain-scale imaging. Point quantification shear wave elastography was performed (Zumigo). TECHNICAL QUALITY: Limited. Examination limited due to a combination of factors including obesity and bowel gas. COMPARISON: None. FINDINGS: Liver: The liver is mildly enlarged measures 18.5 cm. There is a heterogeneous echogenicity of the liver. The bile ducts are within normal limits. There is hepatic color flow. The direction of portal flow is hepatopetal. There is no demonstrated mass lesion. Median liver stiffness measured 11.3 kPa. Gallbladder: Normal distended gallbladder. The gallbladder wall measures 4 mm. There is a negative sonographic Antonio''s sign. There is no pericholecystic fluid. There are multiple echogenic structures within the gallbladder, consistent with multiple gallstones. Common Bile Duct (C.B.D.): The common bile duct measures 4 mm. Pancreas: The pancreas is not well visualized due to overlying bowel gas. Right Kidney: Normal size of the right kidney. The right kidney measures 12.1 cm x 5.7 cm x 5.2 cm. Normal renal cortex. The right cortex measures 1.8 cm. There is no demonstrated renal mass or cyst. There is no right hydronephrosis. US/ABD Limited w/ Elastography IMPRESSION: 1. Liver stiffness measures 11.3 kPa compatible with F2-F3 (Mild to moderate liver fibrosis) Metavir score. Electronically Signed: Too Montana MD at 14:07 EDT Reading Location ID and State: [facility] / [place] , Service support , CC: Dr. Alma Rosa Cornelius MD Public Health Technologist: Signed Normal [facility] PROLACTIN 4465on 05-26-2024 PROLACTIN 24.1 ng/mL High 3.9-22.7 [facility] Comment on above: Order Comment: Speci men Comment: A duplicate report has been generateddue to demographicSpecimen Comment: updates.N Result Comment: Perf ormed at: - [facility] [id number] Mussel Farmer: Diaz Perdomo PhD, Phone: [phone] Performed at: - [facility] [address] [id number] Mussel Farmer: Gabi Funes MD, Phone: [phone] Performed By: #### L 3100.5400, L503.6550, L500.3400, L3100.5310, L3400.3800, L501.72942, L501.9520, L506.0400 ####[facility] [address] [place], [place], [id number] Testosterone, Total / Freeon 05-26-2024 TESTOSTER,FREE 4.60 ng/dL Abnormal 5.00-21.00 [facility] Comment on above: Order Comment: Speci men Comment: A duplicate report has been generateddue to demographicSpecimen Comment: updates.N Performed By: #### L 3100.5400, L503.6550, L500.3400, L3100.5310, L3400.3800, L501.43069, L501.9520, L506.0400 ####[facility] [address] [place], [place], [address] TESTOSTER,TOTAL 365 ng/dL Normal 264-916 [facility] Comment on above: Order Comment: Speci men Comment: A duplicate report has been generateddue to demographicSpecimen Comment: updates.N Result Comment: Adul t male reference interval is based on a population of healthy nonobese males (BMI <30) between 19 and 39 years old. matilde Skinner.al. JCEM 2017,102;1652-8092. PMID: 57597293. Performed By: #### L 3100.5400, L503.6550, L500.3400, L3100.5310, L3400.3800, L501.52073, L501.9520, L506.0400 ####[facility] [address] [place], [address] TESTOSTERONE,%F 1.26 Low 1.50-4.20 [facility] Comment on above: Order Comment: Speci men Comment: A duplicate report has been generateddue to demographicSpecimen Comment: updates.N Performed By: #### L 3100.5400, L503.6550, L500.3400, L3100.5310, L3400.3800, L501.12622, L501.9520, L506.0400 ####[facility] [address] [place], [address] Transferrinon 05-26-2024 Transferrin [Mass/Vol] 207 mg/dL Normal 177-329 [facility] Comment on above: Order Comment: Speci men Comment: A duplicate report has been generateddue to demographicSpecimen Comment: updates.N Performed By: #### L 3100.5400, L503.6550, L500.3400, L3100.5310, L3400.3800, L501.87251, L501.9520, L506.0400 ####[facility] [address] [place], [address] PROLACTIN 4465on 05-20-2024 PROLACTIN 20.2 ng/mL Normal 3.9-22.7 [facility] Comment on above: Order Comment: B12, VITD,NAMRATA,AM FOR DR BENNETT,PRO,TEST,TRANS FOR DR GUTIÉRREZ Performed By: #### L 506.1000, L3400.3800, L3100.5310, L3100.5400, L509.6000, L503.0105, L501.9520, L503.5510 ####[facility] [address] [place], [address] Testosterone, Total / Freeon 05-20-2024 TESTOSTER,FREE 7.51 ng/dL Normal 5.00-21.00 [facility] Comment on above: Order Comment: B12, VITD,NAMRATA,AM FOR DR BENNETTPRO,TEST,TRANS FOR DR GUTIÉRREZ Performed By: #### L 506.1000, L3400.3800, L3100.5310, L3100.5400, L509.6000, L503.0105, L501.9520, L503.5510 ####[facility] [address] [place], [address] TESTOSTER,TOTAL 361 ng/dL Normal 264-916 [facility] Comment on above: Order Comment: B12, VITD,NAMRATA,AM FOR PRO CORKY,TEST,TRANS FOR DR GUTIÉRREZ Result Comment: Adul t male reference interval is based on a population of healthy nonobese males (BMI <30) between 19 and 39 years old. matilde Skinner.al. JCEM 2017,102;4653-0301. PMID: [id number]. Performed By: #### L 506.1000, L3400.3800, L3100.5310, L3100.5400, L509.6000, L503.0105, L501.9520, L503.5510 ####[facility] [address] [place], [address] TESTOSTERONE,%F 2.08 Normal 1.50-4.20 [facility] Comment on above: Order Comment: B12, VITD,NAMRATA,AM FOR PRO CORKY,TEST,TRANS FOR DR GUTIÉRREZ Performed By: #### L 506.1000, L3400.3800, L3100.5310, L3100.5400, L509.6000, L503.0105, L501.9520, L503.5510 ####[facility] [address] [place], [place], [id number] Transferrinon 05-20-2024 Transferrin [Mass/Vol] 205 mg/dL Normal 177-329 [facility] Comment on above: Order Comment: B12, VITD,NAMRATA,AM FOR DR BENNETT,PRO,TEST,TRANS FOR DR GUTIÉRREZ Result Comment: Perf ormed at: - [facility] [id number] Mussel Farmer: Diaz Perdomo PhD, Phone: [phone] Performed at: - [facility] [id number] Mussel Farmer: Gabi Funes MD, Phone: [phone] Performed By: #### L 506.1000, L3400.3800, L3100.5310, L3100.5400, L509.6000, L503.0105, L501.9520, L503.5510 ####[facility] [address] [place], [place], [id number] Ferritinon 05-19-2024 Ferritin [Mass/Vol] 590 ng/mL High 26-388 [facility] Comment on above: Order Comment: N Performed By: #### L 3100.5400, L503.6550, L500.3400, L3100.5310, L3400.3800, L501.40759, L501.9520, L506.0400 ####[facility] [address] [place], [place], [phone] Free T3on 05-19-2024 Free T3 [Mass/Vol] 3.9 pg/mL Normal 2.18-3.98 [facility] Comment on above: Order Comment: N Performed By: #### L 3100.5400, L503.6550, L500.3400, L3100.5310, L3400.3800, L501.70033, L501.9520, L506.0400 ####[facility] [address] [place], [address] Liver Profileon 05-19-2024 Albumin [Mass/Vol] 3.4 g/dL Normal 3.2-5.0 [facility] Comment on above: Order Comment: N Performed By: #### L 3100.5400, L503.6550, L500.3400, L3100.5310, L3400.3800, L501.91539, L501.9520, L506.0400 ####[facility] [address] [place], [address] ALK P 97 U/L Normal 45-117 [facility] Comment on above: Order Comment: N Performed By: #### L 3100.5400, L503.6550, L500.3400, L3100.5310, L3400.3800, L501.75558, L501.9520, L506.0400 ####[facility] [address] [place], [address] ALT [Catalytic activity/Vol] 97 U/L High 16-61 [facility] Comment on above: Order Comment: N Performed By: #### L 3100.5400, L503.6550, L500.3400, L3100.5310, L3400.3800, L501.81727, L501.9520, L506.0400 ####[facility] [address] [place], [address] AST [Catalytic activity/Vol] 78 U/L High 15-37 [facility] Comment on above: Order Comment: N Performed By: #### L 3100.5400, L503.6550, L500.3400, L3100.5310, L3400.3800, L501.61380, L501.9520, L506.0400 ####[facility] [address] [place], [address] Bilirubin [Mass/Vol] 0.60 mg/dL Normal 0.20-1.[address] [facility] Comment on above: Order Comment: N Result Comment: For patients on eltrombopag therapy, use of Dimension [place] TBIL is not recommended. Performed By: #### L 3100.5400, L503.6550, L500.3400, L3100.5310, L3400.3800, L501.64397, L501.9520, L506.0400 ####[facility] [address] [place], [address] Bilirubin.direct [Mass/Vol] 0.18 mg/dL Normal 0.00-0.30 [facility] Comment on above: Order Comment: N Performed By: #### L 3100.5400, L503.6550, L500.3400, L3100.5310, L3400.3800, L501.88913, L501.9520, L506.0400 ####[facility] [address] [place], [address] Globulin (S) [Mass/Vol] 4.3 g/dL High 2.2-4.2 [facility] Comment on above: Order Comment: N Performed By: #### L 3100.5400, L503.6550, L500.3400, L3100.5310, L3400.3800, L501.50556, L501.9520, L506.0400 ####[facility] [address] [place], [address] T PROT 7.7 g/dL Normal 6.4-8.2 [facility] Comment on above: Order Comment: N Performed By: #### L 3100.5400, L503.6550, L500.3400, L3100.5310, L3400.3800, L501.56753, L501.9520, L506.0400 ####[facility] [address] [place], [address] T4 Free Directon 05-19-2024 T4 FREE DIRECT 1.11 ng/dL Normal 0.76-1.46 [facility] Comment on above: Order Comment: N Performed By: #### L 3100.5400, L503.6550, L500.3400, L3100.5310, L3400.3800, L501.32817, L501.9520, L506.0400 ####[facility] [address] [place], [address] Thyroid Stim Hormone (TSH)on 05-19-2024 TSH 4.700 uIU/mL High 0.358-3.740 [facility] Comment on above: Order Comment: N Performed By: #### L 3100.5400, L503.6550, L500.3400, L3100.5310, L3400.3800, L501.89529, L501.9520, L506.0400 ####[facility] [address] [place], [address] Chest without Contraston Chest without Contrast [facility] [address] [place] [address] Chest without Contrast MR#: [id number] Acct: [id number] Name: HERVE RAMSEY Jr. Rep #: [id number] : 1975 M 48 From: Tomasa flores MD PCP: Dr. Alma Rosa Cornelius MD Status: REG CLI Study: Chest without Contrast Date of Exam: 05/17/24 Exam# [id number] Ordering Dr: Elva Olmstead NP FAMILY PSYCHOLOGIST-C [id number] HISTORY: FOLLOW NODULE HIGH RISK PATIENT. TECHNIQUE: Helically acquired images were obtained of the chest without contrast. A radiation dose optimization technique was used for this scan. 898 images. COMPARISON: CT 12/09/2023. PET-CT 01/27/2024. FINDINGS: LARGE AIRWAYS: Patent. LUNGS: Mild emphysema. 2 mm left lower lobe nodule medially with mild linear scarring, 6 mm on prior PET and [address] Chronic mild tree-in-bud nodular opacities in the right lower lobe and small calcified granuloma. No new suspicious nodule or acute alveolar consolidation. PLEURA: No pneumothorax or significant pleural effusion. HEART/PERICARDIUM: Heart within normal limits in size with trace coronary artery calcification. No pericardial effusion. VESSELS: Thoracic aorta nondilated. MEDIASTINUM/LIANNA: No pathologically enlarged adenopathy. UPPER ABDOMEN: Nodular liver with varices. Gallstones. BONES: Intact. CT/Chest without Contrast IMPRESSION: Mild emphysema with further interval decrease in size of left lower lobe pulmonary nodule. Lung-RADS category 2: Continue annual screening with low dose CT. Electronically Signed: Tomasa Ribeiro MD at 9:40 EDT Reading Location ID and State: [facility] / [place] Tel , Service support , CC: IMANI Olmstead; Dr. Alma Rosa Cornelius MD Public Health Technologist: Signed Normal [facility] Ammoniaon 05-12-2024 Ammonia (P) [Moles/Vol] 50.0 umol/L High 11-32 [facility] Comment on above: Order Comment: B12, VITD,NAMRATA,AM FOR DR BENNETT,PRO,TEST,TRANS FOR DR BRADLEY Performed By: #### L 506.1000, L3400.3800, L3100.5310, L3100.5400, L509.6000, L503.0105, L501.9520, L503.5510 ####[facility] [address] [place], [address] CORTISOL SERUMon 05-12-2024 CORTISOL 14.10 ug/dL Normal 3.44-22.45 [facility] Comment on above: Order Comment: B12, VITD,NAMRATA,AM FOR DR BENNETT,PRO,TEST,TRANS FOR DR BRADLEY Result Comment: Adul t (AM) 5.27 - 22.45 ug/dL Adult (PM) 3.44 - 16.76 ug/dL Performed By: #### L 506.1000, L3400.3800, L3100.5310, L3100.5400, L509.6000, L503.0105, L501.9520, L503.5510 ####[facility] [address] [place], [place], [address] Thyroid Stim Hormone (TSH)on 05-12-2024 TSH 4.340 uIU/mL High 0.358-3.740 [facility] Comment on above: Order Comment: B12, VITD,NAMRATA,AM FOR DR BENNETT,PRO,TEST,TRANS FOR DR BRADLEY Performed By: #### L 506.1000, L3400.3800, L3100.5310, L3100.5400, L509.6000, L503.0105, L501.9520, L503.5510 ####[facility] [address], [address] Vitamin B12on 05-12-2024 Cobalamin (Vitamin B12) [Mass/Vol] 806 pg/mL Normal 211-911 [facility] Comment on above: Order Comment: B12, VITD,NAMRATA,AM FOR DR BENNETT,,TEST,TRANS FOR DR BRADLEY Performed By: #### L 506.1000, L3400.3800, L3100.5310, L3100.5400, L509.6000, L503.0105, L501.9520, L503.5510 ####[facility] [address] [place], [place], [id number] Vitamin D,25 Hydroxyon 05-12 Vitamin D 25-OH 29.5 ng/mL Normal [facility] Comment on above: Order Comment: B12, VITD,NAMRATA,AM FOR PRO CORKY,TEST,TRANS FOR DR BRADLEY Result Comment: Betty min D 25(OH) Status Range Deficiency <20 ng/mL (50nmol/L) Insufficiency 20 - 30 ng/mL (50 - 75 nmol/L) Sufficiency 30 - 100 ng/mL (75 - 250 nmol/L) Toxicity >100 ng/mL (>250 nmol/L) Performed By: #### L 506.1000, L3400.3800, L3100.5310, L3100.5400, L509.6000, L503.0105, L501.9520, L503.5510 ####[facility] [address] [place], [address] Pulmonary Visit Reporton Pulmonary Visit Report [facility] [address] [place] [address] OFFICE VISIT Date of Service: 02/02/24 MR#: [id number] Acct: [id number] Name: HERVE RAMSEY Hillary Hi Rep #: [id number] : 1975 Provider: IMANI Olmstead Age/Sex: 48/M Location: [facility].PMW Status: Signed Assessment and Plan Assessment and Plan (1) Asthma-COPD overlap syndrome: Status: Chronic Comment: FEV1 37% of predicted Plan: He does not appear to be an exacerbation of asthma/COPD today. No need for prednisone or antibiotic. Starting him on a maintenance inhaler. Given his asthma/COPD overlap syndrome, of a severe degree, I am going to place him on triple therapy. Ordering Breztri 2 puffs twice daily. The patient was personally instructed to rinse his mouth out after each use. No additional testing at this time. Contact the office for any new or worsening symptoms. An acute visit and typically be arranged within 1-2 days. Follow-up in 4 months. (2) Lung nodule: Status: Chronic Plan: Recent PET scan negative. The patient is at high risk for lung cancer. Will ensure stability by repeating a diagnostic CT of the chest in 3 months. Follow-up in the office in 4 months to discuss test results. Contact the office with any new or worsening symptoms in the meantime. Orders: Orders Chest without Contrast 3 Months R91.1 - Solitary pulmonary nodule Alpha One Screening Test Today J44.89 - Other specified chronic obstructive pulmonary disease Medications: New ubofwklsgl-vdtvrqdq-bikhsw glen 160-9-4.8 mcg/actuation (Breztri Aerosphere) 2 inhalations inhalation BID 3 ea 3RF Plan Details Follow Up: 4 Months ([facility]) HPI 6 wk FU Chief Complaint: Test results HPI Comments Details: This patient presents to the office today to discuss test results. He is ambulatory and accompanied today by his . He has not recently been seen in the ED or urgent care for any respiratory illness. He has not required any antibiotics or prednisone for any breathing problems. He successfully quit smoking October 30, 2023. He does not currently have any maintenance inhalers. He does have shortness of breath that is worse with exertion. He is exerted easily. He denies any cough, sputum production or hemoptysis. He denies any wheezing, chest tightness, chest pain or palpitations. He denies any fever, chills or body aches. The patient reports that he has supplemental oxygen and wears it at times with exertion. Test results personally viewed patient: Walking oximetry completed on December 18, 2023. The patient was able to ambulate 590 feet over the course of 6 minutes. He did become hypoxic it is recommended that he utilize 2 L/min of supplemental oxygen on exertion. Pulmonary function test completed on December 17, 2023. Impression is partially reversible severe large airway obstructive ventilatory defect with associated air trapping and mild reduction diffusing capacity. FEV1 37% of predicted. Intake Vital Signs 12/10/23 07:27 12/18/23 12:30 02/02/24 07:45 Height 5 ft 7 in 5 ft 7 in 5 ft 7 in Weight: 235 lb BMI 36.8 BP 150/88 H Blood Pressure Location Rt brachial Position Sitting Respiration 14 Pulse 74 Pulse Source Monitor Temp 97.4 F L Temperature Source Temporal Artery Pulse Oximetry (%) 94 Oxygen Delivery Method room air Intake Visit Reasons: 6 wk FU Senior Radiation Protection Technician Required: No DME Vendor: [employer] Accompanied by: Is patient in pain?: No Allergies No Known Allergies Allergy (Verified 02/02/24 10:07) Medications ???Medication ???Instructions ???Recorded ???Confirmed ???Type brexpiprazole 2 mg tablet (Rexulti) 2 mg PO DAILY uns 10/07/22 02/02/24 History cholecalciferol (vitamin D3) 50 50 mcg PO DAILY 11/02/23 02/02/24 History mcg (2,000 unit) capsule (Vitamin D3) albuterol sulfate 90 mcg/actuation 1 inh inhalation Q6H PRN shortness 11/04/23 02/02/24 Rx aerosol inhaler of breath or wheezing #8.5 grams budesonide 160 mcg-glycopyr 9 2 inh inhalation BID #3 ea 02/02/24 02/02/24 Rx mcg-formot 4.8 mcg/actuation HFA inhaler (Breztri Aerosphere) Have you fallen in the past year?: No PFSH Medical History Abnormal CT lung screening Lung nodule History of tobacco use Encounter for screening for malignant neoplasm of lung COPD (chronic obstructive pulmonary disease) Kidney stone Schizophrenia Social History household members: none Smoking Status: Former smoker (Quit smoking 10/30/23.) quit date: 10/30/23 Tobacco: How many years used: 35 substance use type: does not use FEV1% FEV1%: 37 Exam Const Constitutional: Positive conversant, cooperative, in no acute respiratory distre (more content not included)... Normal [facility] PET/CT Tumor Base -Thigh Ini ton 01-27-2024 PET/CT Tumor Base -Thigh Init [facility] [address] [place] [address] [id number] PET/CT Tumor Base -Thigh Init MR#: [id number] Acct: [id number] Name: HERVE RAMSEY JrNathalia Rep #: [id number] : 1975 M 48 From: Dany Brunner PCP: Dr. Alma Rosa Cornelius MD Status: REG CLI Study: PET/CT Tumor Base -Thigh Init Date of Exam: Exam# [id number] Ordering Dr: Cole Zhou DO [id number] EXAMINATION: FDG PET/CT ? INDICATIONS: 48-year-old male with a history of pulmonary nodularity. ? COMPARISON EXAMINATION: CT of the chest report dated 12/09/2023. ? TECHNIQUE: Following the intravenous administration of mCi of F-18 deoxyglucose via the , multiplanar image acquisitions of the head, neck, chest, abdomen and pelvis to the level of the midthigh, obtained at one-hour post radiopharmaceutical administration contemporaneously interpreted with the current CT of the chest, abdomen and pelvis dated 01/27/[address] of the chest report dated 12/09/2023 via coregistration reveal: ? SERUM GLUCOSE LEVEL:? 94 mg/dL? HEIGHT:?? 67 inches WEIGHT:?? 233 pounds ? FINDINGS: ? HEAD/NECK:? There is no evidence of abnormal increased glucose metabolism in the pharyngeal mucosal space, parapharyngeal space, oropharynx, bilateral-lateral and anterior neck, hypopharynx and distribution of the larynx. Facilitated uptake is noted in the bilateral strap musculature; muscle tension artifact is demonstrated. ? The visualized portion of the cerebral cortical-subcortical structures demonstrate symmetric and preserved glucose metabolism. ? CHEST:? There is no quantitative scintigraphic evidence of abnormal increased glucose metabolism within the context of the bilateral hemithorax pulmonary parenchyma, right and left hemithorax at the pleural interface, mediastinal structures, and left-right thoracic perihilum. The left ventricular myocardium visualization is consistent with the [place]. ? CT of the chest demonstrates the following anatomic characteristics: Parenchymal density defined in the right lower posteromedial lung zone is ametabolic. Right and left axillary soft tissue densities with fatty hilus formation are ametabolic. ? ABDOMEN/PELVIS:? Normal physiologic distribution of the radiopharmaceutical is identified in the hepatic and splenic parenchyma, both renal units, urinary bladder, and visualized intestinal tract. Prominent uptake is noted in the bilateral upper abdomen-diaphragmatic crura. ? CT of the abdomen and pelvis is remarkable for the following: Cholelithiasis is defined. Calcification is noted within the right renal unit. Dystrophic prostatic calcification is demonstrated. Right and left inguinal soft tissue densities are nonglucose avid. Colonic diverticulosis is noted without evidence of diverticulitis. ? SKELETAL:? There is no evidence of quantitatively significant enhanced glucose metabolism on meticulous inspection of the appendicular and axial skeletal structures. ? Degenerative changes defined in the thoracic and lumbar spine demonstrate no evidence of increased glucose metabolism. There are no sclerotic, mixed sclerotic-lytic, or primarily lytic changes defined in the axial skeletal structures with evidence of increased FDG uptake. ? PET/PET/CT Tumor Base -Thigh Init IMPRESSION: ? 1. NEGATIVE EXAMINATION. There is no definitive quantitative scintigraphic evidence of viable neoplasm. 2. Anatomic stability may be ensured with repeat FDG-PET CT of the thorax in 3-6 months if clinically indicated. (Corrina, Seminars in Thoracic and Cardiovascular surgery, 14:292, 2002). Electronic Signature Dany Kelley D.O. Accurate Quantification of SUVs for this report are calculated using the exclusive [employer] Technology. (U.S. Patent No. 10, 674, 983 B2 [phone] [place] patent [id number] [id number]). Standardization and correction of the FDG SUV metric via [employer] technology allow for vendor non-specific objective quantitative examination comparison and optimization of the sensitivity and specificity of the FDG PET-CT examination. . [email or web address] Electronically Signed: Dany Kelley DO at 22:43 EDT , CC: Dr. Cole Zhou DO; Dr. Alma Rosa Cornelius MD Public Health Technologist: Signed Normal [facility] Basophil percentageOrdered B y: Eber Araujo on 11-04-2023 Hemoglobin (Bld) [Mass/Vol] 15.3 g/dL 13.0-16.5 [facility] WBC (Bld) [#/Vol] 23.9 10*3/uL 4.4-11.0 [facility] Determination of erythrocyte mean corpuscular volume (MCV)Ordered By: Eber Araujo on 11-04-2023 MCV (RBC) [Entitic vol] 102.3 fL 80-94 [facility] Erythrocyte distribution wid th ratioOrdered By: Eber Araujo on 11-04-2023 Erythrocyte distribution width (RBC) [Ratio] 12.8 % 11.6-14.6 [facility] Erythrocyte distribution wid th standard deviationOrdered By: Eber Araujo on 11-04-2023 Erythrocyte distribution width (RBC) [Entitic vol] 48.4 fL 35.1-43.9 [facility] Hematocrit Auto (Bld) [Volum e fraction]Ordered By: Eber Araujo on 11-04-2023 Hematocrit (Bld) [Volume fraction] 48.4 % 40-54 [facility] Laboratory - Hematology and Cell countsOrdered By: Eber Araujo on 11-04-2023 MCH (RBC) [Entitic mass] 32.3 pg 27.0-32.0 [facility] MCHC (RBC) [Mass/Vol] 31.6 g/dL 32-36 [facility] Platelet mean volume (Bld) [Entitic vol] 8.9 fL 6.2-12.0 [facility] Platelets (Bld) [#/Vol] 328 10*3/uL 150-450 [facility] RBC Auto (Bld) [#/Vol]Ordere d By: Eber Araujo on 11-04-2023 RBC (Bld) [#/Vol] 4.73 10*6/uL 4.6-6.2 [facility] Absolute lymphocyte countOrd ered By: Mik Rodriguez on 11-03-2023 Lymphocytes Auto (Unsp spec) [#/Vol] 2.01 10*3/uL 0.83-4.51 [facility] Automated lymphocyte count a s percentage of total leukocytesOrdered By: Mik Rodriguez on 11-03-2023 Lymphocytes/100 WBC Auto (Unsp spec) 7.6 % 19-41 [facility] Basophil percentageOrdered B y: Mik Rodriguez on 11-03-2023 Basophils/100 WBC (Bld) 0.5 % 0-1 [facility] Chloride [Moles/Vol] 101 mmol/L 98-[address] [facility] Eosinophils/100 WBC (Bld) 0.2 % 0-5 [facility] Glucose [Mass/Vol] 192 mg/dL 74-106 [facility] Comment on above: Fasting Glucose resu lt greater than or equal to 126 mg/dL suggests DIABETES MELLITUS per A.D.A. criteria. Monocytes/100 WBC (Bld) 5.9 % 0-10 [facility] Neutrophils (Bld) [#/Vol] 22.5 10*3/uL 2.0-7.7 [facility] Neutrophils/100 WBC (Bld) 84.5 % 47-70 [facility] Potassium [Moles/Vol] 4.0 mmol/L 3.5-5.1 [facility] Sodium [Moles/Vol] 139 mmol/L 136-145 [facility] Immature granulocytes/100 WB C Auto (Bld)Ordered By: Mik Rodriguez on 11-03-2023 Immature granulocytes/100 WBC (Bld) 1.300 % 0.0-0.9 [facility] Comment on above: IG% - Immature Granu locytes (promyelocytes, myelocytes and metamyelocytes) > 1% indicates that a LEFT SHIFT is Present. Laboratory - Chemistry and C hemistry - challengeOrdered By: Mik Rodriguez on 11-03-2023 CO2 [Moles/Vol] 36.0 mmol/L 21.0-32.0 [facility] Urea nitrogen/Creatinine [Mass ratio] 13.6 mg/mg 10-20 [facility] - Hematology and Cell countsOrdered By: Mik Rodriguez on 11-03-2023 Nucleated RBC/100 WBC (Bld) [Ratio] 0 % 0-5 [facility] No Panel InformationOrdered By: iMk Rodriguez on 11-03-2023 Estimated Creatinine Clearance Calc 114.84 ml/min [facility] Estimated GFR (MDRD) Amer 117 mL/min >60 [facility] Comment on above: GFR Calc Estimated GFR (MDRD) Non-Af Amer 97 mL/min >60 [facility] Comment on above: Non- GFR Calc Reactive Lymphocytes 1+ [facility] Review by pathologistOrdered By: Mik Rodriguez on 11-03-2023 Pathologist review Cole (Unsp spec) [Interp] Reviewed [facility] Comment on above: Previous reported re sult: Jeane birch Edited by: TONEY on 11/03/23:1310Neutrophilic left with shift.Macrocytosis.Clinical correlation necessary.Humberto Snider M.D. 11/03/23 AMENDED REPORT 11/03/23 1310 PATH REV previously reported as: Jeane birch Serum or plasma calcium vladimir urement (mass/volume)Ordered By: Mik Rodriguez on 11-03-2023 Calcium [Mass/Vol] 8.8 mg/dL 8.5-10.1 [facility] Serum or plasma creatinine m easurement (mass/volume)Ordered By: Mik Rodriguez on 11-03-2023 Creatinine [Mass/Vol] 0.88 mg/dL 0.70-1.30 [facility] Comment on above: The validity of the calculated GFR & GFRAA in patients over 70 years has not been determined. Clinical correlation is essential. Serum or plasma urea nitroge n measurement (mass/volume)Ordered By: Mik Rodriguez on 11-03-2023 Urea nitrogen [Mass/Vol] 12 mg/dL 7-18 [facility] Thin prep Papanicolaou smear with manual screeningOrdered By: Mik Rodriguez on 11-03-2023 Thin prep Papanicolaou smear with manual screening 2 5-15 [facility] Absolute lymphocyte countOrd ered By: Ana Jaquez on 11-02-2023 Lymphocytes Auto (Unsp spec) [#/Vol] 3.51 10*3/uL 0.83-4.51 [facility] Automated lymphocyte count a s percentage of total leukocytesOrdered By: Ana Jaquez on 11-02-2023 Lymphocytes/100 WBC Auto (Unsp spec) 16.3 % 19-41 [facility] Basophil percentageOrdered B y: Ana Jaquez on 11-02-2023 Basophils/100 WBC (Bld) 0.8 % 0-1 [facility] Chloride [Moles/Vol] 100 mmol/L 98-[address] [facility] Eosinophils/100 WBC (Bld) 0.4 % 0-5 [facility] Glucose [Mass/Vol] 121 mg/dL 74-106 [facility] Comment on above: Fasting Glucose resu lt from 100 to 125 mg/dL suggests IMPAIRED HOMEOSTASIS per A.D.A. criteria. Hemoglobin (Bld) [Mass/Vol] 16.1 g/dL 13.0-16.5 [facility] Monocytes/100 WBC (Bld) 10.4 % 0-10 [facility] Neutrophils (Bld) [#/Vol] 15.4 10*3/uL 2.0-7.7 [facility] Neutrophils/100 WBC (Bld) 71.2 % 47-70 [facility] Potassium [Moles/Vol] 3.2 mmol/L 3.5-5.1 [facility] Sodium [Moles/Vol] 138 mmol/L 136-145 [facility] WBC (Bld) [#/Vol] 21.6 10*3/uL 4.4-11.0 [facility] Blood platelet adequacy dete ction by light microscopyOrdered By: Ana Jaquez on 11-02-2023 Platelets LM Ql (Bld) ADEQUATE ADEQ [facility] Determination of erythrocyte mean corpuscular volume (MCV)Ordered By: Ana Jaquez on 11-02-2023 MCV (RBC) [Entitic vol] 103.1 fL 80-94 [facility] Erythrocyte distribution wid th ratioOrdered By: Ana Jaquez on 11-02-2023 Erythrocyte distribution width (RBC) [Ratio] 12.9 % 11.6-14.6 [facility] Erythrocyte distribution wid th standard deviationOrdered By: Ana Jaquez on 11-02-2023 Erythrocyte distribution width (RBC) [Entitic vol] 49.2 fL 35.1-43.9 [facility] Gram stain for investigation of transfusion reactionOrdered By: Mik Rodriguez on 11-02-2023 Microscopic observation Gram stain Nom (Unsp spec) [facility] Hematocrit Auto (Bld) [Volum e fraction]Ordered By: Ana Jaquez on 11-02-2023 Hematocrit (Bld) [Volume fraction] 50.4 % 40-54 [facility] Immature granulocytes/100 WB C Auto (Bld)Ordered By: Ana Jaquez on 11-02-2023 Immature granulocytes/100 WBC (Bld) 0.900 % 0.0-0.9 [facility] Comment on above: IG% - Immature Granu locytes (promyelocytes, myelocytes and metamyelocytes) > 1% indicates that a LEFT SHIFT is Present. Laboratory - Chemistry and C hemistry - challengeOrdered By: Ana Jaquez on 11-02-2023 CO2 [Moles/Vol] 33.0 mmol/L 21.0-32.0 [facility] Natriuretic peptide B (Bld) [Mass/Vol] 22.6 pg/mL 0-100 [facility] Urea nitrogen/Creatinine [Mass ratio] 9.5 mg/mg 10-20 [facility] Laboratory - Hematology and Cell countsOrdered By: Ana Jaquez on 11-02-2023 MCH (RBC) [Entitic mass] 32.9 pg 27.0-32.0 [facility] MCHC (RBC) [Mass/Vol] 31.9 g/dL 32-36 [facility] Nucleated RBC/100 WBC (Bld) [Ratio] 0 % 0-5 [facility] Platelet mean volume (Bld) [Entitic vol] 8.8 fL 6.2-12.0 [facility] Platelets (Bld) [#/Vol] 285 10*3/uL 150-450 [facility] Laboratory - Microbiology an d Antimicrobial susceptibilityOrdered By: Ana Jaquez on 11-02-2023 SARS-CoV-2 (COVID-19) RNA ISAURO+probe Ql (Unsp spec) [facility] Macrocytes detectionOrdered By: Ana Jaquez on 11-02-2023 Macrocytes Ql (Bld) 1+ [facility] No Panel InformationOrdered By: Ana Jaquez on 11-02-2023 Troponin I High Sensitivity 16 pg/mL 3.0-78.0 [facility] Comment on above: Please Note: New Sofia t Units and Gender Specific Reference Ranges. For more information see Policy Stat Procedure [place] High Sensitivity Troponin (TNIH) and attachments. Estimated Creatinine Clearance Calc 105.87 ml/min [facility] Estimated GFR (MDRD) Amer 108 mL/min >60 [facility] Comment on above: GFR Calc Estimated GFR (MDRD) Non-Af Amer 89 mL/min >60 [facility] Comment on above: Non- GFR Calc RBC Auto (Bld) [#/Vol]Ordere d By: Ana Jaquez on 11-02-2023 RBC (Bld) [#/Vol] 4.89 10*6/uL 4.6-6.2 [facility] Serum or plasma calcium vladimir urement (mass/volume)Ordered By: Ana Jaquez on 11-02-2023 Calcium [Mass/Vol] 8.5 mg/dL 8.5-10.1 [facility] Serum or plasma creatinine m easurement (mass/volume)Ordered By: Ana Jaquez on 11-02-2023 Creatinine [Mass/Vol] 0.95 mg/dL 0.70-1.30 [facility] Comment on above: The validity of the calculated GFR & GFRAA in patients over 70 years has not been determined. Clinical correlation is essential. Serum or plasma urea nitroge n measurement (mass/volume)Ordered By: Ana Jaquez on 11-02-2023 Urea nitrogen [Mass/Vol] 9 mg/dL 7-18 [facility] Thin prep Papanicolaou smear with manual screeningOrdered By: Ana Jaquez on 11-02-2023 Thin prep Papanicolaou smear with manual screening 5 5-15 [facility] S. pyogenes Ag IF Ql (Throat )Ordered By: Ana Jaquez on 08-03-2023 S. pyogenes Ag IA Ql (Unsp spec) Beta Strep NOT Group A [facility] S. pyogenes Ag IA Ql (Unsp spec) Beta Strep NOT Group A [facility] Absolute lymphocyte countOrd ered By: Laura Juares on 07-31-2023 Lymphocytes Auto (Unsp spec) [#/Vol] 2.91 10*3/uL 0.83-4.51 [facility] Basophil percentageOrdered B y: Laura Juares on 07-31-2023 Ammonia (P) [Moles/Vol] 35.0 umol/L 11-32 [facility] Basophils/100 WBC (Bld) 1.1 % 0-1 [facility] Bilirubin [Mass/Vol] 0.70 mg/dL 0.20-1.[address] [facility] Comment on above: For patients on eltr ombopag therapy, use of Dimension [place] TBIL is not recommended. Chloride [Moles/Vol] 105 mmol/L 98-[address] [facility] Cholesterol [Mass/Vol] 192 mg/dL <200 [facility] Comment on above: <200 mg/dL Desirable 200-240 mg/dL Borderline >240 mg/dL High Risk Eosinophils/100 WBC (Bld) 2.3 % 0-5 [facility] Glucose [Mass/Vol] 96 mg/dL 74-106 [facility] Neutrophils (Bld) [#/Vol] 6.0 10*3/uL 2.0-7.7 [facility] Neutrophils/100 WBC (Bld) 58.2 % 47-70 [facility] Potassium [Moles/Vol] 3.8 mmol/L 3.5-5.1 [facility] Protein [Mass/Vol] 7.9 g/dL 6.4-8.2 [facility] Sodium [Moles/Vol] 140 mmol/L 136-145 [facility] Triglyceride [Mass/Vol] 210 mg/dL <199 [facility] Comment on above: The drugs N-Acetylcy steine and Metamizole may falsely depress this assay.Serum Triglycerides Reference Interval Normal <150 mg/dL Borderline high 150 - 199 mg/dL High 200 - 499 mg/dL Very High > or = 500 mg/dL WBC (Bld) [#/Vol] 10.2 10*3/uL 4.4-11.0 [facility] Blood erythrocytes count (nu mber/volume)Ordered By: Laura Juares on 07-31-2023 RBC (Bld) [#/Vol] 5.09 10*6/uL 4.6-6.2 [facility] Blood hemoglobin measurement (mass/volume)Ordered By: Laura Juares on 07-31-2023 Hemoglobin (Bld) [Mass/Vol] 16.3 g/dL 13.0-16.5 [facility] Blood lymphocytes/100 leukoc ytesOrdered By: Laura Juares on 07-31-2023 Lymphocytes/100 WBC (Bld) 28.5 % 19-41 [facility] Blood monocytes/100 leukocyt esOrdered By: Laura Juares on 07-31-2023 Monocytes/100 WBC (Bld) 9.2 % 0-10 [facility] Blood platelet mean volumeOr dered By: Laura Juares on 07-31-2023 Platelet mean volume (Bld) [Entitic vol] 8.7 fL 6.2-12.0 [facility] Determination of erythrocyte mean corpuscular volume (MCV)Ordered By: Laura Juares on 07-31-2023 MCV (RBC) [Entitic vol] 99.0 fL 80-94 [facility] Hematocrit Auto (Bld) [Volum e fraction]Ordered By: Laura Juares on 07-31-2023 Hematocrit (Bld) [Volume fraction] 50.4 % 40-54 [facility] Laboratory - Chemistry and C hemistry - challengeOrdered By: Laura Juares on 07-31-2023 ALP [Catalytic activity/Vol] 100 U/L 45-117 [facility] ALT [Catalytic activity/Vol] 119 U/L 16-61 [facility] CO2 [Moles/Vol] 30.0 mmol/L 21.0-32.0 [facility] Free T4 [Mass/Vol] 0.93 ng/dL 0.76-1.46 [facility] Globulin (S) [Mass/Vol] 4.6 g/dL 2.2-4.2 [facility] Urea nitrogen/Creatinine [Mass ratio] 12.8 mg/mg 10-20 [facility] Laboratory - Hematology and Cell countsOrdered By: Laura Juares on 07-31-2023 Erythrocyte distribution width (RBC) [Entitic vol] 46.0 fL 35.1-43.9 [facility] Erythrocyte distribution width (RBC) [Ratio] 12.6 % 11.6-14.6 [facility] Immature granulocytes/100 WBC (Bld) 0.700 % 0.0-0.9 [facility] Comment on above: IG% - Immature Granu locytes (promyelocytes, myelocytes and metamyelocytes) > 1% indicates that a LEFT SHIFT is Present. MCH (RBC) [Entitic mass] 32.0 pg 27.0-32.0 [facility] Nucleated RBC/100 WBC (Bld) [Ratio] 0 % 0-5 [facility] MCHC Auto (RBC) [Mass/Vol]Or dered By: Laura Juares on 07-31-2023 MCHC (RBC) [Mass/Vol] 32.3 g/dL 32-36 [facility] No Panel InformationOrdered By: Laura Juares on 07-31-2023 Estimated GFR (MDRD) Amer 121 mL/min >60 [facility] Comment on above: GFR Calc Estimated GFR (MDRD) Non-Af Amer 100 mL/min >60 [facility] Comment on above: Non- GFR Calc Free Triiodothyronine (T3) pg/dL 3.1 pg/mL 2.18-3.98 [facility] Thyroid Stimulating Hormone (TSH) 3.31 uIU/mL 0.358-3.74 [facility] Vitamin D 25-Hydroxy 13.1 ng/mL [facility] Comment on above: Vitamin D 25(OH) Sta tus Range Deficiency <20 ng/mL (50nmol/L) Insufficiency 20 - 30 ng/mL (50 - 75 nmol/L) Sufficiency 30 - 100 ng/mL (75 - 250 nmol/L) Toxicity >100 ng/mL (>250 nmol/L) Platelets bldOrdered By: Dodie Juares on 07-31-2023 Platelets (Bld) [#/Vol] 248 10*3/uL 150-450 [facility] Serum or plasma albumin vladimir urement (mass/volume)Ordered By: Laura Juares on 07-31-2023 Albumin [Mass/Vol] 3.3 g/dL 3.2-5.0 [facility] Serum or plasma albumin/glob ulin mass ratioOrdered By: Laura Juares on 07-31-2023 Albumin/Globulin [Mass ratio] 0.7 {ratio} 0.9-2.4 [facility] Serum or plasma calcium vladimir urement (mass/volume)Ordered By: Laura Juares on 07-31-2023 Calcium [Mass/Vol] 8.6 mg/dL 8.5-10.1 [facility] Serum or plasma cholesterol in HDL measurement (mass/volume)Ordered By: Laura Juares on 07-31-2023 Cholesterol in HDL [Mass/Vol] 32 mg/dL >40 [facility] Comment on above: The drugs N-Acetylcy steine and Metamizole may falsely depress this assay. Reference Range HDL <40 mg/dL Low HDL Cholesterol HDL >or= 60 mg/dL High HDL Cholesterol Serum or plasma cholesterol in VLDL measurement (mass/volume)Ordered By: Laura Juares on 07-31-2023 Cholesterol in VLDL [Mass/Vol] 42 mg/dL 5-40 [facility] Serum or plasma creatinine m easurement (mass/volume)Ordered By: Laura Juares on 07-31-2023 Creatinine [Mass/Vol] 0.86 mg/dL 0.70-1.30 [facility] Comment on above: The validity of the calculated GFR & GFRAA in patients over 70 years has not been determined. Clinical correlation is essential. Serum or plasma low density lipoprotein (LDL) cholesterol measurement (mass/volume)Ordered By: Laura Juares on 07-31-2023 Cholesterol in LDL [Mass/Vol] 118 mg/dL 0-130 [facility] Serum or plasma prolactin me asurement (mass/volume)Ordered By: Laura Juares on 07-31-2023 Prolactin [Mass/Vol] 9.7 ng/mL [facility] Comment on above: NORMAL REFERENCE RAN GES FEMALE NON- 2.2 - 30.3 ng/mL 8.1 - 347.6 ng/mL POST-MENOPAUSAL 0.7 - 31.5 ng/mL MALE 2.5 - 17.4 ng/mL Serum or plasma urea nitroge n measurement (mass/volume)Ordered By: Laura Juares on 07-31-2023 Urea nitrogen [Mass/Vol] 11 mg/dL 7-18 [facility] Thin prep Papanicolaou smear with manual screeningOrdered By: Laura Juares on 07-31-2023 Thin prep Papanicolaou smear with manual screening 70 U/L 15-37 [facility] Thin prep Papanicolaou smear with manual screening 5 5-15 [facility] Office Visiton 01-10-2023 Follow-up visit [id number] Pako Ramsey 1975 M Date Provider Department Center 01/10/2023 [id number] [facility]IGU[facility] None No family history on file Level of Service:88800 DC OFFICE/OUTPATIENT NEW LOW MDM 30-44 MINUTES Reason for Visit and Comments: New Patient [542] - Hx Kidney stones, Pt states they passed stones in July, October and December, Pt currently asymptomatic [facility] Progress Noteon 01-10-2023 Progress Note Faxed record release 01-10-23, 2nd attempt 01-15-23 [facility] Progress Note After multiple faxed requests, CT added to media Normal [facility] Progress Note José Miguel Joe MD 01/10/2023 [...] proposed. José Miguel Joe M.D. PATIENT NAME: Herve Ramsey DATE OF : 1975 TODAY'S DATE: 01/10/2023 Chief Complaint: Chief Complaint Patient presents with New Patient Hx Kidney stones, Pt states they passed stones in July, October and December, Pt currently asymptomatic HISTORY OF PRESENT ILLNESS: Mr. Ramsey is a 47 y.o. male who presents with renal calculi. He was seen at [facility]. Pain gone now. REVIEW OF SYSTEMS: [...] Judgment: Judgment normal. DATA: Radiology Review: Impression/Plan Herve was seen today for new patient. Diagnoses [...] try to get the CT report from [place] Check KUB to see if stones are [...] José Miguel Joe MD 01/10/23 3:54 PM Normal [facility] Absolute lymphocyte countOrd ered By: Dr. Presley on 12-11-2022 Lymphocytes Auto (Unsp spec) [#/Vol] 1.91 10*3/uL 0.83-4.51 [facility] Basophil percentageOrdered B y: ED PROVIDER on 12-11-2022 Basophil percentage 0 SEEN /hpf 0-[address] [facility] Basophil percentageOrdered B y: Dr. Presley on 12-11-2022 Basophils/100 WBC (Bld) 0.6 % 0-1 [facility] Chloride [Moles/Vol] 103 mmol/L 98-[address] [facility] Eosinophils/100 WBC (Bld) 0.5 % 0-5 [facility] Glucose [Mass/Vol] 108 mg/dL 74-106 [facility] Comment on above: Fasting Glucose resu lt from 100 to 125 mg/dL suggests IMPAIRED HOMEOSTASIS per A.D.A. criteria. Neutrophils (Bld) [#/Vol] 9.7 10*3/uL 2.0-7.7 [facility] Neutrophils/100 WBC (Bld) 76.2 % 47-70 [facility] Potassium [Moles/Vol] 4.5 mmol/L 3.5-5.1 [facility] Comment on above: Moderate Hemolysis, Result may be falsely increased. Sodium [Moles/Vol] 137 mmol/L 136-145 [facility] WBC (Bld) [#/Vol] 12.7 10*3/uL 4.4-11.0 [facility] Bilirubin Test strip Ql (U)O rdered By: ED PROVIDER on 12-11-2022 Bilirubin Ql (U) Negative Negative [facility] Blood erythrocytes count (nu mber/volume)Ordered By: Dr. Presley on 12-11-2022 RBC (Bld) [#/Vol] 5.58 10*6/uL 4.6-6.2 [facility] Blood hemoglobin measurement (mass/volume)Ordered By: Dr. Presley on 12-11-2022 Hemoglobin (Bld) [Mass/Vol] 18.1 g/dL 13.0-16.5 [facility] Comment on above: CRITICAL VALUE VERIF IED. CALLED TO [id number] Leigh Ann Myers.RESULTS READ BACK BY SAME . Blood lymphocytes/100 leukoc ytesOrdered By: Dr. Presley on 12-11-2022 Lymphocytes/100 WBC (Bld) 15.1 % 19-41 [facility] Blood monocytes/100 leukocyt esOrdered By: Dr. Presley on 12-11-2022 Monocytes/100 WBC (Bld) 7.2 % 0-10 [facility] Blood platelet mean volumeOr dered By: Dr. Presley on 12-11-2022 Platelet mean volume (Bld) [Entitic vol] 8.6 fL 6.2-12.0 [facility] Determination of erythrocyte mean corpuscular volume (MCV)Ordered By: Dr. Presley on 12-11-2022 MCV (RBC) [Entitic vol] 96.1 fL 80-94 [facility] Hematocrit Auto (Bld) [Volum e fraction]Ordered By: Dr. Presley on 12-11-2022 Hematocrit (Bld) [Volume fraction] 53.6 % 40-54 [facility] Ketones Test strip Ql (U)Ord ered By: ED PROVIDER on 12-11-2022 Ketones Ql (U) 5 mg/dl Negative [facility] Laboratory - Chemistry and C hemistry - challengeOrdered By: Dr. Presley on 12-11-2022 CO2 [Moles/Vol] 26.0 mmol/L 21.0-32.0 [facility] Urea nitrogen/Creatinine [Mass ratio] 14.2 mg/mg 10-20 [facility] - Hematology and Cell countsOrdered By: Dr. Presley on 12-11-2022 Erythrocyte distribution width (RBC) [Entitic vol] 43.6 fL 35.1-43.9 [facility] Erythrocyte distribution width (RBC) [Ratio] 12.2 % 11.6-14.6 [facility] Immature granulocytes/100 WBC (Bld) 0.400 % 0.0-0.9 [facility] Comment on above: IG% - Immature Granu locytes (promyelocytes, myelocytes and metamyelocytes) > 1% indicates that a LEFT SHIFT is Present. MCH (RBC) [Entitic mass] 32.4 pg 27.0-32.0 [facility] Nucleated RBC/100 WBC (Bld) [Ratio] 0 % 0-5 [facility] MCHC Auto (RBC) [Mass/Vol]Or dered By: Dr. Presley on 12-11-2022 MCHC (RBC) [Mass/Vol] 33.8 g/dL 32-36 [facility] Mucus LM Ql (Urine sed)Order ed By: ED PROVIDER on 12-11-2022 Mucus Ql (Urine sed) 0 SEEN /hpf [facility] Nitrite Test strip Ql (U)Ord ered By: ED PROVIDER on 12-11-2022 Nitrite Ql (U) Negative Negative [facility] No Panel InformationOrdered By: Dr. Presley on 12-11-2022 Estimated Creatinine Clearance Calc 74.46 ml/min [facility] Estimated GFR (MDRD) Amer 83 mL/min >60 [facility] Comment on above: GFR Calc Estimated GFR (MDRD) Non-Af Amer 68 mL/min >60 [facility] Comment on above: Non- GFR Calc Platelets bldOrdered By: Dr. Presley on 12-11-2022 Platelets (Bld) [#/Vol] 234 10*3/uL 150-450 [facility] Protein Test strip Ql (U)Ord ered By: ED PROVIDER on 12-11-2022 Protein Ql (U) 30 mg/dl Negative [facility] Serum or plasma calcium vladimir urement (mass/volume)Ordered By: Dr. Presley on 12-11-2022 Calcium [Mass/Vol] 8.7 mg/dL 8.5-10.1 [facility] Serum or plasma creatinine m easurement (mass/volume)Ordered By: Dr. Presley on 12-11-2022 Creatinine [Mass/Vol] 1.20 mg/dL 0.70-1.30 [facility] Comment on above: The validity of the calculated GFR & GFRAA in patients over 70 years has not been determined. Clinical correlation is essential. Serum or plasma urea nitroge n measurement (mass/volume)Ordered By: Dr. Presley on 12-11-2022 Urea nitrogen [Mass/Vol] 17 mg/dL 7-18 [facility] Squamous epithelial cells de tection in urine sediment by light microscopyOrdered By: ED PROVIDER on 12-11-2022 Epithelial cells.squamous LM Ql (Urine sed) 0 SEEN /hpf 0-5 [facility] Thin prep Papanicolaou smear with manual screeningOrdered By: Dr. Presley on 12-11-2022 Thin prep Papanicolaou smear with manual screening 8 5-15 [facility] Urine blood detectionOrdered By: ED PROVIDER on 12-11-2022 RBC Ql (U) 150 /ul Negative [facility] RBC Ql (U) 0-5 SEEN /hpf 0-5 [facility] Urine clarityOrdered By: ED PROVIDER on 12-11-2022 Clarity (U) Turbid Clear [facility] Urine color determinationOrd ered By: ED PROVIDER on 12-11-2022 Color (U) Yellow Yellow [facility] Urine glucose detectionOrder ed By: ED PROVIDER on 12-11-2022 Glucose Ql (U) Normal mg/dl Normal [facility] Urine leukocyte esterase det ection by dipstickOrdered By: ED PROVIDER on 12-11-2022 Leukocyte esterase Test strip Ql (U) 25 /ul Negative [facility] Urine pHOrdered By: ED PROVI CODI on 12-11-2022 pH (U) 5.0 [pH] 5.0 - 8.0 [facility] Urine sediment bacteria coun t by microscopy (number/high power field)Ordered By: ED PROVIDER on 12-11-2022 Bacteria LM.HPF (Urine sed) [#/Area] 4 /[HPF] None Seen [facility] Urine specific gravity measu rementOrdered By: ED PROVIDER on 12-11-2022 Specific gravity (U) [Rel density] 1.020 1.002-1.030 [facility] Urobilinogen Auto test strip Ql (U)Ordered By: ED PROVIDER on 12-11-2022 Urobilinogen Ql (U) 1 mg/dl Normal [facility] Absolute lymphocyte countOrd ered By: Dr. Jaquez on 10-07-2022 Lymphocytes Auto (Unsp spec) [#/Vol] 2.47 10*3/uL 0.83-4.51 [facility] Basophil percentageOrdered B y: Dr. Jaquez on 10-07-2022 Basophil percentage 0 SEEN /hpf 0-[address] [facility] Basophils/100 WBC (Bld) 0.6 % 0-1 [facility] Chloride [Moles/Vol] 104 mmol/L 98-[address] [facility] Eosinophils/100 WBC (Bld) 1.6 % 0-5 [facility] Glucose [Mass/Vol] 159 mg/dL 74-106 [facility] Comment on above: Fasting Glucose resu lt greater than or equal to 126 mg/dL suggests DIABETES MELLITUS per A.D.A. criteria. Neutrophils (Bld) [#/Vol] 7.4 10*3/uL 2.0-7.7 [facility] Neutrophils/100 WBC (Bld) 66.9 % 47-70 [facility] Potassium [Moles/Vol] 4.0 mmol/L 3.5-5.1 [facility] Comment on above: Slight Hemolysis, Re sult may be falsely increased. Sodium [Moles/Vol] 140 mmol/L 136-145 [facility] WBC (Bld) [#/Vol] 11.1 10*3/uL 4.4-11.0 [facility] Bilirubin Test strip Ql (U)O rdered By: Dr. Jaquez on 10-07-2022 Bilirubin Ql (U) Negative Negative [facility] Blood erythrocytes count (nu mber/volume)Ordered By: Dr. Jaquez on 10-07-2022 RBC (Bld) [#/Vol] 5.53 10*6/uL 4.6-6.2 [facility] Blood hemoglobin measurement (mass/volume)Ordered By: Dr. Jaquez on 10-07-2022 Hemoglobin (Bld) [Mass/Vol] 17.9 g/dL 13.0-16.5 [facility] Blood lymphocytes/100 leukoc ytesOrdered By: Dr. Jaquez on 10-07-2022 Lymphocytes/100 WBC (Bld) 22.3 % 19-41 [facility] Blood monocytes/100 leukocyt esOrdered By: Dr. Jaquez on 10-07-2022 Monocytes/100 WBC (Bld) 8.3 % 0-10 [facility] Blood platelet mean volumeOr dered By: Dr. Jaquez on 10-07-2022 Platelet mean volume (Bld) [Entitic vol] 9.6 fL 6.2-12.0 [facility] Determination of erythrocyte mean corpuscular volume (MCV)Ordered By: Dr. Jaquez on 10-07-2022 MCV (RBC) [Entitic vol] 97.8 fL 80-94 [facility] Hematocrit Auto (Bld) [Volum e fraction]Ordered By: Dr. Jaquez on 10-07-2022 Hematocrit (Bld) [Volume fraction] 54.1 % 40-54 [facility] Ketones Test strip Ql (U)Ord ered By: Dr. Jaquez on 10-07-2022 Ketones Ql (U) 5 mg/dl Negative [facility] - Chemistry and C hemistry - challengeOrdered By: Dr. Jaquez on 10-07-2022 CO2 [Moles/Vol] 30.0 mmol/L 21.0-32.0 [facility] Urea nitrogen/Creatinine [Mass ratio] 12.8 mg/mg 10-20 [facility] - Hematology and Cell countsOrdered By: Dr. Jaquez on 10-07-2022 Erythrocyte distribution width (RBC) [Entitic vol] 45.1 fL 35.1-43.9 [facility] Erythrocyte distribution width (RBC) [Ratio] 12.4 % 11.6-14.6 [facility] Immature granulocytes/100 WBC (Bld) 0.300 % 0.0-0.9 [facility] Comment on above: IG% - Immature Granu locytes (promyelocytes, myelocytes and metamyelocytes) > 1% indicates that a LEFT SHIFT is Present. MCH (RBC) [Entitic mass] 32.4 pg 27.0-32.0 [facility] Nucleated RBC/100 WBC (Bld) [Ratio] 0 % 0-5 [facility] MCHC Auto (RBC) [Mass/Vol]Or dered By: Dr. Jaquez on 10-07-2022 MCHC (RBC) [Mass/Vol] 33.1 g/dL 32-36 [facility] Mucus LM Ql (Urine sed)Order ed By: Dr. Jaquez on 10-07-2022 Mucus Ql (Urine sed) 0 SEEN /hpf [facility] Nitrite Test strip Ql (U)Ord ered By: Dr. Jaquez on 10-07-2022 Nitrite Ql (U) Negative Negative [facility] No Panel InformationOrdered By: Dr. Jaquez on 10-07-2022 Estimated Creatinine Clearance Calc 74.70 ml/min [facility] Estimated GFR (MDRD) Amer 85 mL/min >60 [facility] Comment on above: GFR Calc Estimated GFR (MDRD) Non-Af Amer 70 mL/min >60 [facility] Comment on above: Non- GFR Calc Platelets bldOrdered By: Dr. Jaquez on 10-07-2022 Platelets (Bld) [#/Vol] 242 10*3/uL 150-450 [facility] Protein Test strip Ql (U)Ord ered By: Dr. Jaquez on 10-07-2022 Protein Ql (U) 30 mg/dl Negative [facility] Serum or plasma calcium vladimir urement (mass/volume)Ordered By: Dr. Jaquez on 10-07-2022 Calcium [Mass/Vol] 8.9 mg/dL 8.5-10.1 [facility] Serum or plasma creatinine m easurement (mass/volume)Ordered By: Dr. Jaquez on 10-07-2022 Creatinine [Mass/Vol] 1.17 mg/dL 0.70-1.30 [facility] Comment on above: The validity of the calculated GFR & GFRAA in patients over 70 years has not been determined. Clinical correlation is essential. Serum or plasma urea nitroge n measurement (mass/volume)Ordered By: Dr. Jaquez on 10-07-2022 Urea nitrogen [Mass/Vol] 15 mg/dL 7-18 [facility] Squamous epithelial cells de tection in urine sediment by light microscopyOrdered By: Dr. Jaquez on 10-07-2022 Epithelial cells.squamous LM Ql (Urine sed) 0 SEEN /hpf 0-5 [facility] Thin prep Papanicolaou smear with manual screeningOrdered By: Dr. Jaquez on 10-07-2022 Thin prep Papanicolaou smear with manual screening 6 5-15 [facility] Urine blood detectionOrdered By: Dr. Jaquez on 10-07-2022 RBC Ql (U) 250 /ul Negative [facility] RBC Ql (U) 0-5 SEEN /hpf 0-5 [facility] Urine clarityOrdered By: Dr. Jaquez on 10-07-2022 Clarity (U) Clear Clear [facility] Urine color determinationOrd ered By: Dr. Jaquez on 10-07-2022 Color (U) Yellow Yellow [facility] Urine glucose detectionOrder ed By: Dr. Jaquez on 10-07-2022 Glucose Ql (U) Normal mg/dl Normal [facility] Urine leukocyte esterase det ection by dipstickOrdered By: Dr. Jaquez on 10-07-2022 Leukocyte esterase Test strip Ql (U) 25 /ul Negative [facility] Urine pHOrdered By: Dr. Daryl lockhart on 10-07-2022 pH (U) 5.0 [pH] 5.0 - 8.0 [facility] Urine sediment bacteria coun t by microscopy (number/high power field)Ordered By: Dr. Jaquez on 10-07-2022 Bacteria LM.HPF (Urine sed) [#/Area] 0 /[HPF] None Seen [facility] Urine specific gravity measu rementOrdered By: Dr. Jaquez on 10-07-2022 Specific gravity (U) [Rel density] 1.025 1.002-1.030 [facility] Urobilinogen Auto test strip Ql (U)Ordered By: Dr. Jaquez on 10-07-2022 Urobilinogen Ql (U) 1 mg/dl Normal [facility] Absolute lymphocyte countOrd ered By: Yobany Corley on 07-27-2022 Lymphocytes Auto (Unsp spec) [#/Vol] 2.34 10*3/uL 0.83-4.51 [facility] Basophil percentageOrdered B y: Yobany Corley on 07-27-2022 Basophil percentage 0-5 SEEN /hpf 0-5 [facility] Basophils/100 WBC (Bld) 0.6 % 0-1 [facility] Bilirubin [Mass/Vol] 0.50 mg/dL 0.20-1.[address] [facility] Comment on above: For patients on eltr ombopag therapy, use of Dimension [place] TBIL is not recommended. Chloride [Moles/Vol] 105 mmol/L 98-[address] [facility] Eosinophils/100 WBC (Bld) 1.1 % 0-5 [facility] Glucose [Mass/Vol] 119 mg/dL 74-106 [facility] Comment on above: Fasting Glucose resu lt from 100 to 125 mg/dL suggests IMPAIRED HOMEOSTASIS per A.D.A. criteria. Neutrophils (Bld) [#/Vol] 9.2 10*3/uL 2.0-7.7 [facility] Neutrophils/100 WBC (Bld) 72.5 % 47-70 [facility] Potassium [Moles/Vol] 3.9 mmol/L 3.5-5.1 [facility] Protein [Mass/Vol] 8.1 g/dL 6.4-8.2 [facility] Sodium [Moles/Vol] 138 mmol/L 136-145 [facility] WBC (Bld) [#/Vol] 12.7 10*3/uL 4.4-11.0 [facility] Bilirubin Test strip Ql (U)O rdered By: Yobany Corley on 07-27-2022 Bilirubin Ql (U) Negative Negative [facility] Blood erythrocytes count (nu mber/volume)Ordered By: Yobany Corley on 07-27-2022 RBC (Bld) [#/Vol] 5.39 10*6/uL 4.6-6.2 [facility] Blood hemoglobin measurement (mass/volume)Ordered By: Yobany Corley on 07-27-2022 Hemoglobin (Bld) [Mass/Vol] 17.2 g/dL 13.0-16.5 [facility] Blood lymphocytes/100 leukoc ytesOrdered By: Yobany Corley on 07-27-2022 Lymphocytes/100 WBC (Bld) 18.4 % 19-41 [facility] Blood monocytes/100 leukocyt esOrdered By: Yobany Corley on 07-27-2022 Monocytes/100 WBC (Bld) 6.9 % 0-10 [facility] Blood platelet mean volumeOr dered By: Yobany Corely on 07-27-2022 Platelet mean volume (Bld) [Entitic vol] 8.7 fL 6.2-12.0 [facility] Determination of erythrocyte mean corpuscular volume (MCV)Ordered By: Yobany Corley on 07-27-2022 MCV (RBC) [Entitic vol] 97.2 fL 80-94 [facility] Direct bilirubinOrdered By: Yobany Corley on 07-27-2022 Bilirubin.direct [Mass/Vol] 0.16 mg/dL 0.00-0.30 [facility] Hematocrit Auto (Bld) [Volum e fraction]Ordered By: Yobany Corley on 07-27-2022 Hematocrit (Bld) [Volume fraction] 52.4 % 40-54 [facility] Hyaline casts LM.LPF (Urine sed) [#/Area]Ordered By: Yobany Corley on 07-27-2022 Hyaline casts (Urine sed) [#/Area] 0 /[LPF] 0-5 [facility] Ketones Test strip Ql (U)Ord ered By: Yobany Corley on 07-27-2022 Ketones Ql (U) 5 mg/dl Negative [facility] - Chemistry and C hemistry - challengeOrdered By: Yobany Corley on 07-27-2022 ALP [Catalytic activity/Vol] 80 U/L 45-117 [facility] ALT [Catalytic activity/Vol] 80 U/L 16-61 [facility] CO2 [Moles/Vol] 28.0 mmol/L 21.0-32.0 [facility] Globulin (S) [Mass/Vol] 4.4 g/dL 2.2-4.2 [facility] Lipase [Catalytic activity/Vol] 76 U/L 73-393 [facility] Urea nitrogen/Creatinine [Mass ratio] 12.8 mg/mg 10-20 [facility] - Hematology and Cell countsOrdered By: Yobany Corley on 07-27-2022 Erythrocyte distribution width (RBC) [Entitic vol] 46.4 fL 35.1-43.9 [facility] Erythrocyte distribution width (RBC) [Ratio] 12.9 % 11.6-14.6 [facility] Immature granulocytes/100 WBC (Bld) 0.500 % 0.0-0.9 [facility] Comment on above: IG% - Immature Granu locytes (promyelocytes, myelocytes and metamyelocytes) > 1% indicates that a LEFT SHIFT is Present. MCH (RBC) [Entitic mass] 31.9 pg 27.0-32.0 [facility] Nucleated RBC/100 WBC (Bld) [Ratio] 0 % 0-5 [facility] MCHC Auto (RBC) [Mass/Vol]Or dered By: Yobany Corley on 07-27-2022 MCHC (RBC) [Mass/Vol] 32.8 g/dL 32-36 [facility] Mucus LM Ql (Urine sed)Order ed By: Yobany Corley on 07-27-2022 Mucus Ql (Urine sed) 0 SEEN /hpf [facility] Nitrite Test strip Ql (U)Ord ered By: Yobany Corley on 07-27-2022 Nitrite Ql (U) Negative Negative [facility] No Panel InformationOrdered By: Yobany Corley on 07-27-2022 Estimated Creatinine Clearance Calc 85.58 ml/min [facility] Estimated GFR (MDRD) Amer 93 mL/min >60 [facility] Comment on above: GFR Calc Estimated GFR (MDRD) Non-Af Amer 77 mL/min >60 [facility] Comment on above: Non- GFR Calc Platelets bldOrdered By: Stanley Corley on 07-27-2022 Platelets (Bld) [#/Vol] 277 10*3/uL 150-450 [facility] Protein Test strip Ql (U)Ord ered By: Yobany Corley on 07-27-2022 Protein Ql (U) 30 mg/dl Negative [facility] Serum or plasma albumin vladimir urement (mass/volume)Ordered By: Yobany Corley on 07-27-2022 Albumin [Mass/Vol] 3.7 g/dL 3.2-5.0 [facility] Serum or plasma calcium vladimir urement (mass/volume)Ordered By: Yobany Corley on 07-27-2022 Calcium [Mass/Vol] 8.9 mg/dL 8.5-10.1 [facility] Serum or plasma creatinine m easurement (mass/volume)Ordered By: Yobany Corley on 07-27-2022 Creatinine [Mass/Vol] 1.09 mg/dL 0.70-1.30 [facility] Comment on above: The validity of the calculated GFR & GFRAA in patients over 70 years has not been determined. Clinical correlation is essential. Serum or plasma urea nitroge n measurement (mass/volume)Ordered By: Yobany Corley on 07-27-2022 Urea nitrogen [Mass/Vol] 14 mg/dL 7-18 [facility] Squamous epithelial cells de tection in urine sediment by light microscopyOrdered By: Yobany Corley on 07-27-2022 Epithelial cells.squamous LM Ql (Urine sed) 0-5 SEEN /hpf 0-5 [facility] Thin prep Papanicolaou smear with manual screeningOrdered By: Yobany Corley on 07-27-2022 Thin prep Papanicolaou smear with manual screening 43 U/L 15-37 [facility] Thin prep Papanicolaou smear with manual screening 5 5-15 [facility] Urine blood detectionOrdered By: Yobany Corley on 07-27-2022 RBC Ql (U) 150 /ul Negative [facility] RBC Ql (U) 0-5 SEEN /hpf 0-5 [facility] Urine clarityOrdered By: Stanley Corley on 07-27-2022 Clarity (U) Clear Clear [facility] Urine color determinationOrd ered By: Yobany Corley on 07-27-2022 Color (U) Yellow Yellow [facility] Urine glucose detectionOrder ed By: Yobany Corley on 07-27-2022 Glucose Ql (U) Normal mg/dl Normal [facility] Urine leukocyte esterase det ection by dipstickOrdered By: Yobany Corley on 07-27-2022 Leukocyte esterase Test strip Ql (U) 25 /ul Negative [facility] Urine pHOrdered By: Yobany mchugh on 07-27-2022 pH (U) 5.0 [pH] 5.0 - 8.0 [facility] Urine sediment bacteria coun t by microscopy (number/high power field)Ordered By: Yobany Corley on 07-27-2022 Bacteria LM.HPF (Urine sed) [#/Area] 0 /[HPF] None Seen [facility] Urine specific gravity measu rementOrdered By: Yobany Corley on 07-27-2022 Specific gravity (U) [Rel density] 1.025 1.002-1.030 [facility] Urobilinogen Auto test strip Ql (U)Ordered By: Yobany Corley on 07-27-2022 Urobilinogen Ql (U) Normal mg/dl Normal [facility] CNOVon 05-02-2022 CNOV Office Visit (UCWSTR ) -- HERVE RAMSEY JR. ([id number]) 1975 M Date Time Provider Department 05/02/22 7:30 PM AKUA GREY WSTR During your visit today, we recorded the following information about you: Temperature Pulse Respiration Blood pressure 98.9 degrees 84/minute 16/minute 142/80 Weight 99.7 kg Akua Grey APRN.ASHLEY 05/02/2022 7:38 PM Signed Triage Note: Patient presented to [facility] with sever headache and pain behind [...] and lack of investigative tools available at [facility], and pain out of proportion for sinusitis, recommend patient be seen at nearest ED for further work up. Patient will go to [place] ED Diagnosis and treatment plan were discussed and questions were answered to the patient's satisfaction. Pt acknowledged understanding of concepts and follow up plan. Specific signs and symptoms that would indicate the need for higher level of care were discussed in detail warranting prompt ER evaluation. Akua Grey APRN.ASHLEY Referring Provider: SELF [[id number]] Allergies As of [...] Status:Closed by AKUA GREY on 05/02/22 Normal [facility] Vital Signs Date Time Vital Sign Value Performing Clinician Facility 12-16-2024 00:28-0400 Body temperature 98.7 [degF] Dr. Alma Rosa Cornelius MD Work Phone: [facility] 12-16-2024 00:28-0400 Diastolic blood pressure 92 mm[Hg] Dr. Alma Rosa Cornelius MD Work Phone: [facility] 12-16-2024 00:28-0400 Heart rate 95 /min Dr. Alma Rosa Cornelius MD Work Phone: [facility] 12-16-2024 00:28-0400 Respiratory rate 18 /min Dr. Alma Rosa Cornelius MD Work Phone: [facility] 12-16-2024 00:28-0400 SaO2% (BldA) [Mass fraction] 94 % Dr. Alma Rosa Cornelius MD Work Phone: [facility] 12-16-2024 00:28-0400 Systolic blood pressure 143 mm[Hg] Dr. Alma Rosa Cornleius MD Work Phone: [facility] 12-15-2024 17:08-0400 Body height 170.[address] Alma Rosa Cornelius MD Work Phone: [facility] 12-15-2024 17:08-0400 Body mass index (BMI) [Ratio] 36 kg/m2 Dr. Alma Rosa Cornelius MD Work Phone: [facility] 12-15-2024 17:08-0400 Body weight 104.[address] Alma Rosa Cornelius MD Work Phone: [facility] 11-10-2024 13:03-0400 Body height 170.[address] Alma Rosa Cornelius MD Work Phone: [facility] 11-10-2024 13:03-0400 Body mass index (BMI) [Ratio] 34.4 kg/m2 Dr. Alma Rosa Cornelius MD Work Phone: [facility] 11-10-2024 13:03-0400 Body weight 99.[address] Alma Rosa Cornelius MD Work Phone: [phone] [place] [address] 11-10-2024 13:03-0400 Diastolic blood pressure 74 mm[Hg] Dr. Alma Rosa Cornelius MD Work Phone: [phone] [place] [address] 11-10-2024 13:03-0400 Heart rate 83 /min Dr. Alma Rosa Cornelius MD Work Phone: [facility] 11-10-2024 13:03-0400 Respiratory rate 16 /min Dr. Alma Rosa Cornelius MD Work Phone: [facility] 11-10-2024 13:03-0400 SaO2% (BldA) [Mass fraction] 94 % Dr. Alma Rosa Cornelius MD Work Phone: [facility] 11-10-2024 13:03-0400 Systolic blood pressure 126 mm[Hg] Dr. Alma Rosa Cornelius MD Work Phone: [facility] 09-29-2024 12:48-0500 Body mass index (BMI) [Ratio] 34 kg/m2 Dr. Alma Rosa Cornelius MD Work Phone: [facility] 09-29-2024 12:48-0500 Body temperature 97.4 [degF] Dr. Alma Rosa Cornelius MD Work Phone: [facility] 09-29-2024 12:48-0500 Body weight 98.[address] Alma Rosa Cornelius MD Work Phone: [facility] 09-29-2024 12:48-0500 Diastolic blood pressure 83 mm[Hg] Dr. Alma Rosa Cornelius MD Work Phone: [facility] 09-29-2024 12:48-0500 Heart rate 64 /min Dr. Alma Rosa Cornelius MD Work Phone: [facility] 09-29-2024 12:48-0500 Respiratory rate 18 /min Dr. Alma Rosa Cornelius MD Work Phone: [facility] 09-29-2024 12:48-0500 SaO2% (BldA) [Mass fraction] 94 % Dr. Alma Rosa Cornelius MD Work Phone: [facility] 09-29-2024 12:48-0500 Systolic blood pressure 131 mm[Hg] Dr. Alma Rosa Cornelius MD Work Phone: [facility] 11-04-2023 13:50-0400 Body temperature 98.2 [degF] No Primary Care Physician [facility] 11-04-2023 13:50-0400 Diastolic blood pressure 87 mm[Hg] No Primary Care Physician [facility] 11-04-2023 13:50-0400 Heart rate 84 /min No Primary Care Physician [facility] 11-04-2023 13:50-0400 Inhaled oxygen flow rate 4 L/min No Primary Care Physician [facility] 11-04-2023 13:50-0400 Respiratory rate 18 /min No Primary Care Physician [facility] 11-04-2023 13:50-0400 SaO2% (BldA) [Mass fraction] 92 % No Primary Care Physician [facility] 11-04-2023 13:50-0400 Systolic blood pressure 149 mm[Hg] No Primary Care Physician [facility] 11-04-2023 10:28-0400 Body height 170.18 cm No Primary Care Physician [facility] 11-04-2023 10:28-0400 Body weight 102.96 kg No Primary Care Physician [facility] 11-02-2023 13:28-0400 Body mass index (BMI) [Ratio] 35.5 kg/m2 No Primary Care Physician [facility] 11-02-2023 12:45-0400 Body temperature 98 [degF] [facility] 11-02-2023 12:45-0400 Diastolic blood pressure 76 mm[Hg] [facility] 11-02-2023 12:45-0400 Heart rate 102 /min [facility] 11-02-2023 12:45-0400 Respiratory rate 26 /min [facility] 11-02-2023 12:45-0400 SaO2% (BldA) [Mass fraction] 89 % [facility] 11-02-2023 12:45-0400 Systolic blood pressure 133 mm[Hg] [facility] 11-02-2023 12:00-0400 Inhaled oxygen flow rate 5 L/min [facility] 11-02-2023 09:17-0400 Body mass index (BMI) [Ratio] 35.2 kg/m2 [facility] 11-02-2023 09:17-0400 Body weight 102 kg [facility] 11-02-2023 09:16-0400 Body height 170.18 cm [facility] 08-03-2023 12:45-0500 Diastolic blood pressure 86 mm[Hg] [facility] 08-03-2023 12:45-0500 Heart rate 90 /min [facility] 08-03-2023 12:45-0500 Respiratory rate 16 /min [facility] 08-03-2023 12:45-0500 SaO2% (BldA) [Mass fraction] 94 % [facility] 08-03-2023 12:45-0500 Systolic blood pressure 165 mm[Hg] [facility] 08-03-2023 11:19-0500 Body height 175.26 cm [facility] 08-03-2023 11:19-0500 Body mass index (BMI) [Ratio] 34.6 kg/m2 [facility] 08-03-2023 11:19-0500 Body temperature 98.4 [degF] [facility] 08-03-2023 11:19-0500 Body weight 106.3 kg [facility] 01-10-2023 10:07-0400 Body height 175.3 cm José Miguel Joe MD Work Phone: [facility] 01-10-2023 10:07-0400 Body mass index (BMI) [Ratio] 31.9 kg/m2 José Miguel Joe MD Work Phone: [facility] 01-10-2023 10:07-0400 Body weight 97.98 kg José Miguel Joe MD Work Phone: [facility] 01-10-2023 10:07-0400 Diastolic blood pressure 79 mm[Hg] José Miguel Joe MD Work Phone: [facility] 01-10-2023 10:07-0400 Heart rate 84 /min José Miguel Joe MD Work Phone: [facility] 01-10-2023 10:07-0400 Systolic blood pressure 143 mm[Hg] José Miguel Joe MD Work Phone: [facility] 12-11-2022 21:37-0400 Heart rate 74 /min [facility] 12-11-2022 21:37-0400 Respiratory rate 18 /min [facility] 12-11-2022 21:37-0400 SaO2% (BldA) [Mass fraction] 94 % [facility] 12-11-2022 19:37-0400 Body height 175.26 cm [facility] 12-11-2022 19:37-0400 Body mass index (BMI) [Ratio] 31.6 kg/m2 [facility] 12-11-2022 19:37-0400 Body temperature 98.1 [degF] [facility] 12-11-2022 19:37-0400 Body weight 97.06 kg [facility] 12-11-2022 19:37-0400 Diastolic blood pressure 96 mm[Hg] [facility] 12-11-2022 19:37-0400 Systolic blood pressure 149 mm[Hg] [facility] 10-07-2022 15:11-0500 Body height 172.72 cm [facility] 10-07-2022 15:11-0500 Body mass index (BMI) [Ratio] 33.4 kg/m2 [facility] 10-07-2022 15:11-0500 Body temperature 98.2 [degF] [facility] 10-07-2022 15:11-0500 Body weight 99.79 kg [facility] 10-07-2022 15:11-0500 Diastolic blood pressure 89 mm[Hg] [facility] 10-07-2022 15:11-0500 Heart rate 90 /min [facility] 10-07-2022 15:11-0500 Respiratory rate 14 /min [facility] 10-07-2022 15:11-0500 SaO2% (BldA) [Mass fraction] 93 % [facility] 10-07-2022 15:11-0500 Systolic blood pressure 165 mm[Hg] [facility] 07-27-2022 06:59-0500 Diastolic blood pressure 104 mm[Hg] [facility] 07-27-2022 06:59-0500 Heart rate 76 /min [facility] 07-27-2022 06:59-0500 Respiratory rate 18 /min [facility] 07-27-2022 06:59-0500 SaO2% (BldA) [Mass fraction] 95 % [facility] 07-27-2022 06:59-0500 Systolic blood pressure 159 mm[Hg] [facility] 07-27-2022 05:26-0500 Body height 177.8 cm [facility] Work Phone: 07-27-2022 05:26-0500 Body mass index (BMI) [Ratio] 31.5 kg/m2 [facility] 07-27-2022 05:26-0500 Body temperature 96.7 [degF] [facility] 07-27-2022 05:26-0500 Body weight 99.79 kg [facility] 05-02-2022 20:41-0400 Respiratory rate 18 /min [facility] Work Phone: 05-02-2022 20:24-0400 Body height 170.18 cm [facility] Work Phone: 05-02-2022 20:24-0400 Body mass index (BMI) [Ratio] 34.2 kg/m2 [facility] Work Phone: 05-02-2022 20:24-0400 Body temperature 98.4 [degF] [facility] Work Phone: 05-02-2022 20:24-0400 Body weight 99.33 kg [facility] Work Phone: 05-02-2022 20:24-0400 Diastolic blood pressure 95 mm[Hg] [facility] Work Phone: 05-02-2022 20:24-0400 Heart rate 80 /min [facility] Work Phone: 05-02-2022 20:24-0400 SaO2% (BldA) [Mass fraction] 94 % [facility] Work Phone: 05-02-2022 20:24-0400 Systolic blood pressure 137 mm[Hg] [facility] Work Phone: 05-02-2022 19:28-0400 Body temperature 98.91 [degF] Akua Matilda [employer]ARAGUS BUNCHER.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 Work Phone: [facility] 05-02-2022 19:28-0400 Body weight 99.7 kg Akua Matilda ASPAR[employer] B[employer]CHER.BIN 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 Work Phone: [facility] 05-02-2022 19:28-0400 Diastolic blood pressure 80 mm[Hg] Akua Matilda ASPAR[employer] B[employer]CHER.BIN 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 Work Phone: [facility] 05-02-2022 19:28-0400 Heart rate 84 /min Akua Matilda ASPARAGUS B[employer]CHER.BIN 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 Work Phone: [facility] 05-02-2022 19:28-0400 Respiratory rate 16 /min Akua Matilda ASPARAGUS B[employer]CHER.BIN 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 Work Phone: [facility] 05-02-2022 19:28-0400 SaO2% (BldA) [Mass fraction] 96 % Akua Matilda ASPARAG[employer] B[employer]CHER.BIN 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 Work Phone: [facility] 05-02-2022 19:28-0400 Systolic blood pressure 142 mm[Hg] Akua Matilda [employer]AR[employer] B[employer]CHER.BIN 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 Work Phone: [facility] Encounters Encounter Date Encounter Type Care Provider Facility Start: 12-15-2024 End: 12-16-2024 Emergency department patient visit Dr. Alma Rosa Cornelius MD Work Phone: -Emergency Department Work Phone: Start: 11-26-2024 End: 11-26-[address] Get Boggs MD -Ultrasound [facility] Work Phone: Start: 11-26-2024 End: 11-26-2024 ambulatory [facility] Start: 11-12-2024 End: 11-12-[address] Alma Rosa Cornelius MD Work Phone: [facility] Work Phone: Start: 11-12-2024 End: 11-12-[address] Get Boggs MD -Laboratory Work Phone: Start: 11-12-2024 End: 11-12-2024 ambulatory Alma Rosa Mibrittany Facility:[facility] Start: 11-10-2024 End: 11-10-2024 ambulatory [facility] Start: 11-10-2024 End: 11-10-[address] Get Boggs MD -[facility] Work Phone: Start: 09-29-2024 End: 09-29-2024 Patient encounter procedure PARRISH Maza -[facility] Work Phone: Start: 09-29-2024 End: 09-29-20[facility] Start: 07-20-2024 End: 07-20-2024 Patient encounter procedure PARRISH Maza -Sleep Lab Work Phone: Start: 07-20-2024 End: 07-20-2024 ambulatory [facility] Start: 06-30-2024 End: 06-30-2024 ambulatory [facility] Start: 06-17-2024 End: 06-17-2024 ambulatory [facility] Start: 06-08-2024 End: 06-08-2024 ambulatory [facility] Start: 06-03-2024 End: 06-03-2024 ambulatory [facility] Start: 05-19-2024 End: 05-19-2024 ambulatory [facility] Start: 05-17-2024 End: 05-17-2024 ambulatory [facility] Start: 05-12-2024 End: 05-12-2024 ambulatory [facility] Start: 02-02-2024 End: 02-02-2024 ambulatory [facility] Start: 01-27-2024 End: 01-27-2024 ambulatory [facility] Start: 11-03-2023 Non-patient / Non-visit No Primary Care Physician [facility] Work Phone: Start: 11-02-2023 Non-patient / Non-visit No Primary Care Physician [facility] Work Phone: Start: 11-02-2023 End: 11-04-2023 Evaluation and management of inpatient [facility] 3 Work Phone: Start: 08-03-2023 End: 08-03-2023 Emergency department patient visit [facility]Emergency [facility] Work Phone: Start: 07-31-2023 End: 07-31-2023 ambulatory [facility] Work Phone: Start: 07-31-2023 End: 07-31-2023 Patient encounter procedure [facility]Laboratory Work Phone: Start: 01-10-2023 End: 01-10-2023 ambulatory [facility] Start: 01-10-2023 End: 01-10-2023 Office outpatient new 30 minutes José Miguel Joe MD Work Phone: [facility] Comment on above: Calculus, kidney (Pr imary Dx) Start: 12-11-2022 End: 12-11-2022 Emergency department patient visit [facility] Start: 10-07-2022 End: 10-07-2022 Emergency department patient visit [facility] Start: 07-27-2022 End: 07-27-2022 Emergency department patient visit [facility]Emer[facility] Start: 05-02-2022 End: 05-02-2022 ambulatory Facility:[facility] Start: 05-02-2022 End: 05-02-2022 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 Deysi Cornelius MD Work Phone: Start: 12-15-2024 Methadone measurement, urine Dr. Alma Rosa Cornelius MD Work Phone: Start: 11-26-2024 Ultrasound elastography of liver Dr. Jasvir Cornelius MD Work Phone: Start: 11-12-2024 Albumin/Globulin ratio Dr. Alma Rosa Cornelius MD Work Phone: Start: 11-12-2024 [id number] measurement Dr. Meet Cornelius MD Work Phone: Comment on above: [facility] Electrochemiluminescen ce Immunoassay(ECLIA)Values obtained with different assay methods or kits cannotbe used interchangeably. Results cannot be interpreted asabsolute evidence of the presence or absence of malignantdisease.This test is not interpretable in females. Start: 11-12-[address] Alma Rosa Cornelius MD Work Phone: Comment on above: Performed at: [address] [id number] Director: Diaz Perdomo PhD, Phone: [phone] Start: 11-12-2024 Antibody to centromere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 Mik Rodriguez [facility] November 02, 2023 1:53pm Note Date/Time November 02, 2023 12: 32pm [facility] Medical Records Department [address] [place] [address] H&P Exam - Hospitalist 11/02/23 1226 MR#: [id number] Acct: [id number] Name: HERVE RAMSEY Jr. Rep #:[id number] : 1975 48 From: Mik cardenas MD PCP: Care Physician,No Primary Status :ADM IN Location: [facility] [id number] HPI - General General Date of Admission: 11/02/23 HPI Narrative HERVE RAMSEY, is a 48 M who presents to the hospital with increasing shortness of breath over the last week or so. He states he does have a history of COPD but he does not use any inhalers. Denies any fevers or chills but he was noted to have a white count of 21,000 when he presented to the ER. Chest x-ray was unremarkable. He has not been on any steroids as an outpatient so he did receive a dose of Rocephin and azithromycin in the ER. He does not chronically wear oxygen at home and when he presented to the hospital he was 71% on room airand is currently maintaining his oxygen saturations on 5 L nasal cannula. [facility] Medical History COPD (chronic obstructive pulmonary disease) Kidney stone Schizophrenia Home Medications brexpiprazole 2 mg tablet (Rexulti) 2 mg PO DAILY uns 10/07/22 [History Last Taken 11/02/23 05:00] bupropion HCl 150 mg 24 hr tablet, extended release 150 mg PO DAILY depres 11/02/23 [History Last Taken Unknown] bupropion HCl 75 mg tablet 75 mg PO DAILY depresison 11/02/23 [History Last Taken 11/02/23 05:00] cholecalciferol (vitamin D3) 50 mcg (2,000 unit) capsule (Vitamin D3) 50 mcg PO DAILY 11/02/23 [History Last Taken Unknown] Allergy/AdvReac Type Severity Reaction Status Date / Time No Known Allergies Allergy Verified 11/02/23 09:19 Social History household members: none Smoking Status: Current every day smoker tobacco type: cigarettes substance use type: does not use ROS Constitutional Constitutional: Denies chills, fatigue, fever(s) or malaise Eyes Eyes: Denies blurry vision ENT HEENT: Denies headache(s) or nasal discharge Cardiovascular Cardiovascular: Reports chest pain; Denies dyspnea on exertion or syncope Respiratory/Chest Respiratory/Chest: Reports productive cough, shortness of breath at rest and shortness of breath with exertion; Denies cough Gastrointestinal Gastrointestinal: Denies constipation, diarrhea, nausea or vomiting Genitourinary Genitourinary: Denies dysuria Neurologic Neurologic: Denies focal weakness, numbness or tremor(s) Psychiatric Psychiatric: Denies anxiety or depression Vital Signs Vital Signs Vital Signs: 11/02/23 09:16 11/02/23 09:15 11/02/23 09:17 Temperature 97.6 F L 97.6 F L Temperature Source Temporal Temporal Pulse Rate 115 H 114 H Respiratory Rate 24 H 22 H Respiratory Effort Short of Breath Respiratory Pattern Tachypnea Blood Pressure 146/91 H 115/80 Blood Pressure Mean 109 91 Pulse Ox 84 71 Oxygen Delivery Method Room Air Room Air Room Air Oxygen Flow Rate (L/min) 11/02/23 09:50 11/02/23 10:17 11/02/23 10:00 Temperature 98.1 F Temperature Source Temporal Pulse Rate 100 101 H 102 H Respiratory Rate 16 26 H 18 Respiratory Effort Respiratory Pattern Blood Pressure 132/81 H 118/73 Blood Pressure Mean 98 87 Pulse Ox 92 87 Oxygen Delivery Method Nasal Cannula Oxygen Flow Rate (L/min) 5 11/02/23 10:30 11/02/23 10:45 11/02/23 11:00 Temperature Temperature Source Pulse Rate 102 H 101 H 101 H Respiratory Rate 30 H 24 H 33 H Respiratory Effort Respiratory Pattern Blood Pressure 132/81 H 119/77 133/78 H Blood Pressure Mean 94 92 92 Pulse Ox 90 90 89 Oxygen Delivery Method Oxygen Flow Rate (L/min) 11/02/23 11:00 11/02/23 12:00 11/02/23 11:30 Temperature 97.4 F L 97.8 F Temperature Source Temporal Temporal Pulse Rate 109 H 97 98 Respiratory Rate 17 26 H 27 H Respiratory Effort Respiratory Pattern Blood Pressure 132/85 H 134/85 H 132/86 H Blood Pressure Mean 100 101 100 Pulse Ox 92 94 91 Oxygen Delivery Method Nasal Cannula Nasal Cannula Oxygen Flow Rate (L/min) 5 5 11/02/23 12:00 Temperature Temperature Source Pulse Rate 95 Respiratory Rate 20 H Respiratory Effort Respiratory Pattern Blood Pressure 134/85 H Blood Pressure Mean 99 Pulse Ox 89 Oxygen Delivery Method Oxygen Flow Rate (L/min) Weight Weight: 224 lb 13.944 oz Body Mass Index (BMI) 35.2 Physical Exam Narrative General: Alert, Oriented x3, Cooperative, mild to moderate respiratory distress HEENT: Atraumatic, PERRLA, EOMI, Normocephalic, left eye with mucousy discharge and what appears to be a hematoma denies trauma Oral: Moist Mucosa, poor dentition Neck: Supple, No JVD Lungs: Diminished, poor air movement, No rhonchi, No wheeze, No rales, tachypneic Cardiovascular: Tachycardic, Regular Rhythm, Normal S1, Normal S2, No murmurs Abdomen: Soft, Non Tender, Non-Distended, No Hepato-splenomegaly Extremities: No edema, Capillary Refill Less than 3 Seconds Skin: No rashes, No breakdown Musculoskeletal: No Tenderness to Palpation of Joints or Extremities Neurological: No focal neurological deficits, Motor Exam 5/5 strength throughout, Sensory exam intact to light touch and pain Psych/Mental Status: Normal Affect, Appropriate Results Lab / Micro Data 11/02/23 09:37 11/02/23 09:37 Labs: Laboratory Results - last 24 hr 11/02/23 09:37: WBC 21.6 H, RBC 4.89, Hgb 16.1, Hct 50.4, MCV 103.1 H, MCH 32.9 H, MCHC 31.9 L, RDW Std Deviation 49.2 H, RDW Coeff of Carlene 12.9, Plt Count 285, MPV 8.8, Immature Gran % (Auto) 0.900, Neut % (Auto) 71.2 H, Lymph % (Auto) 16.3L, Newton % (Auto) 10.4 H, Eos % (Auto) 0.4, Baso % (Auto) 0.8, Absolute Neuts (auto) 15.4 H, Absolute Lymphs (auto) 3.51, Nucleated RBC % 0, Platelet EstimateADEQUATE, Macrocytosis 1+, Sodium 138, Potassium 3.2 L, Chloride 100, Carbon Dioxide 33.0 H, Anion Gap 5, BUN 9, Creatinine 0.95, Estim Creat Clear Calc 105.87, Est GFR (MDRD) Af Amer 108, Est GFR (MDRD) Non-Af 89, BUN/Creatinine Ratio 9.5 L, Glucose 121 H, Calcium 8.5, Troponin I High Sens 15, B-Natriuretic Peptide 22.6 Micro: Microbiology 11/02/23 09:42 Mucosa - Nose SARS-CoV-2, Influenza & RSV (PCR) - Final Imaging Radiology Impression Chest X-Ray 11/02/23 10:05 IMPRESSION: No acute process Electronically Signed: Conrad Velázquez MD at 11:10 EDT Reading Location ID and State: [address] [place] [address] , Service support , Assessment & Plan Assessment/Plan (1) COPD exacerbation: (2) Acute respiratory failure with hypoxia: PLAN: Plan 1. Acute hypoxic respiratory failure secondary to COPD exacerbation/tobacco abuse ? Continue with inhalers and steroids ? Will obtain a sputum culture ? Given his elevated white count we will empirically treat with Rocephin and azithromycin ? Viral studies with COVID, flu, RSV were negative ? He will need to follow-up with pulmonology as an outpatient and discontinue tobacco use ? Discussed cessation, he does not feel he will need a nicotine patch ? Does not appear to have conjunctivitis, will provide artificial tears 2. Mood disorder ? He is on Rexulti and Wellbutrin ? Stable, will continue ? Family to bring in Rexulti DVT: Lovenox 75 minutes was spent on direct patient care, including documentation as well as chart review and collaboration with colleagues Charges/Coding Visit Charges Inpatient E&M: 81717 Init Hosp L3 11/02/23 1353 <Electronically signed by Mik Rodriguez MD> Cosigner Signature (if applicable): CC: Dr. Mik Rodriguez MD; No Primary Care Physician~ Signed [facility] Work Phone: [phone]) 634-303203-31-2024 Discharge summary Author Ana Jaquez [facility] November 02, 2023 1:23pm Note Date/Time November 02, 2023 9:4 3am [facility] Medical Records Department [address] [place] [address] Emergency Department Summary 11/02/23 MR#: [id number] Acct: [id number] Name: HERVE RAMSEY Jr. Rep #:[id number] : 1975 48 From: Ana Jaquez MD PCP: Care Physician,No Primary Status :ADM IN Location: [address] History of Present Illness Chief Complaint: Shortness of Breath Informant: patient Onset/Context/Timing Onset: Days (5 days) Context: Gradual Onset Timing: Waxes and wanes Narrative Narrative: Patient presents with a 5-day history of increasing shortness of breath and cough. He is bringing up some yellow-tinged sputum. He states he has some slight left posterior lower chest pain with coughing. No blood in his sputum. Patient does have a history of COPD. He states he does not have any inhalers athome. He continues to smoke. Patient's pulse ox in triage was noted to be 84%. Nursing staff states in the room prior to initiation of oxygen he was 71%. [facility] Medical History COPD (chronic obstructive pulmonary disease) Kidney stone Schizophrenia Home Medications brexpiprazole 2 mg tablet (Rexulti) 2 mg PO DAILY 10/07/22 [History Last Taken Unknown] bupropion HCl 150 mg 24 hr tablet, extended release 150 mg PO DAILY 11/02/23 [History Last Taken Unknown] cholecalciferol (vitamin D3) 50 mcg (2,000 unit) capsule (Vitamin D3) 50 mcg PO DAILY 11/02/23 [History Last Taken Unknown] Allergy/AdvReac Type Severity Reaction Status Date / Time No Known Allergies Allergy Verified 11/02/23 09:19 Social History household members: none Smoking Status: Current every day smoker tobacco type: cigarettes substance use type: does not use ROS ROS ED Constitutional Constitutional ED: Denies chills or fever(s) Eyes Eyes: Denies discharge from eye(s) ENT ENT ED: Denies discharge from eye(s), rhinorrhea or sore throat Cardiovascular Cardiovascular: Reports chest pain; Denies palpitations Respiratory/Chest Respiratory/Chest: Reports cough, dyspnea and sputum Gastrointestinal Gastrointestinal: Denies abdominal pain, nausea or vomiting Musculoskeletal Musculoskeletal: Reports back pain; Denies extremity pain Integumentary Denies Abrasions or rash Neurologic Neurologic: Denies headache(s) or weakness Psychiatric Psychiatric: Denies anxiety or depression Allergic/Immunologic Allergic/Immunologic ED: Denies lip swelling or urticaria EXAM Physical Exam Const Vital Signs: 11/02/23 09:16 11/02/23 09:15 11/02/23 09:17 Temperature 97.6 F L 97.6 F L Temperature Source Temporal Temporal Pulse Rate 115 H 114 H Respiratory Rate 24 H 22 H Respiratory Effort Short of Breath Respiratory Pattern Tachypnea Blood Pressure 146/91 H 115/80 Blood Pressure Mean 109 91 Pulse Ox 84 71 Oxygen Delivery Method Room Air Room Air Room Air Oxygen Flow Rate (L/min) 11/02/23 09:50 11/02/23 10:17 11/02/23 10:00 Temperature 98.1 F Temperature Source Temporal Pulse Rate 100 101 H 102 H Respiratory Rate 16 26 H 18 Respiratory Effort Respiratory Pattern Blood Pressure 132/81 H 118/73 Blood Pressure Mean 98 87 Pulse Ox 92 87 Oxygen Delivery Method Nasal Cannula Oxygen Flow Rate (L/min) 5 11/02/23 10:30 11/02/23 10:45 11/02/23 11:00 Temperature Temperature Source Pulse Rate 102 H 101 H 101 H Respiratory Rate 30 H 24 H 33 H Respiratory Effort Respiratory Pattern Blood Pressure 132/81 H 119/77 133/78 H Blood Pressure Mean 94 92 92 Pulse Ox 90 90 89 Oxygen Delivery Method Oxygen Flow Rate (L/min) 11/02/23 11:00 Temperature 97.4 F L Temperature Source Temporal Pulse Rate 109 H Respiratory Rate 17 Respiratory Effort Respiratory Pattern Blood Pressure 132/85 H Blood Pressure Mean 100 Pulse Ox 92 Oxygen Delivery Method Nasal Cannula Oxygen Flow Rate (L/min) 5 Positive well nourished and well developed General Appearance ED: well developed HEENT Reports moist mucous membranes Eyes EOMs intact bilaterally Chest Wall inspection of chest normal and palpation of chest normal Resp Resp Narrative: Mild tachypnea with decreased air movement bilaterally. Cardio regular rhythm Rate: tachycardic GI non-tender Palpation: soft Extremity normal to inspection Extremity Narrative: No calf tenderness or edema. Neuro oriented x3 and no sensory deficits noted Motor Exam: strength 5/5 throughout Psych mental status grossly normal Skin no rashes or lesions noted MDM MDM MDM Narrative Medical decision making narrative: Patient is on 5 L nasal cannula at the time of my exam with O2 sats in the low 90s. IV line initiated. Aerosol started. Chest x-ray obtained to evaluate foracute lung pathology, cardiac size, or mediastinal abnormality. Labwork obtained to evaluate for leukocytosis, anemia, and electrolyte derangement. Swab for COVID, influenza, and RSV will be obtained. Patient given IV Solu-Medrol secondary to COPD flare. History & Record Review Discussion w/independent historian: Patient and Significant other Lab Data Attestation: I reviewed the patient's lab results. Labs: Laboratory Results - last 24 hr 11/02/23 09:37 WBC 21.6 H RBC 4.89 Hgb 16.1 Hct 50.4 MCV 103.1 H MCH 32.9 H MCHC 31.9 L RDW Std Deviation 49.2 H RDW Coeff of Carlene 12.9 Plt Count 285 MPV 8.8 Immature Gran % (Auto) 0.900 Neut % (Auto) 71.2 H Lymph % (Auto) 16.3 L Newton % (Auto) 10.4 H Eos % (Auto) 0.4 Baso % (Auto) 0.8 Absolute Neuts (auto) 15.4 H Absolute Lymphs (auto) 3.51 Nucleated RBC % 0 Platelet Estimate ADEQUATE Macrocytosis 1+ Sodium 138 Potassium 3.2 L Chloride 100 Carbon Dioxide 33.0 H Anion Gap 5 BUN 9 Creatinine 0.95 Estim Creat Clear Calc 105.87 Est GFR (MDRD) Af Amer 108 Est GFR (MDRD) Non-Af 89 BUN/Creatinine Ratio 9.5 L Glucose 121 H Calcium 8.5 Troponin I High Sens 15 B-Natriuretic Peptide 22.6 Radiography Chest X-Ray - ED: 1 View, Read by ED Physician, Chronic Changes and No Infiltrates Diagnostic Testing: Clinical Impression(s) from Imaging Studies Chest X-Ray 11/02/23 10:05 IMPRESSION: No acute process Electronically Signed: Conrad Velázquez MD at 11:10 EDT Reading Location ID and State: [facility] / [place] , Service support , EKG Initial EKG: Attestation: I personally reviewed and interpreted this EKG as follows: Interpretation: Sinus Rhythm (Sinus at 93 with no acute ischemia.) Treatment and Re-Evaluation :: CBC reveals a white count of 21.6 with 71% neutrophils. Hemoglobin 16.1. Chemistry studies significant for potassium of 3.2. This is replaced orally. Renal function is normal. Glucose is 121. Troponin is normal at 15 and BNP is normal at 22. Swab for COVID, influenza, and RSV is negative. Portable chest x-ray per my interpretation was chronic changes with no obvious infiltrate. Radiology interpretation reviewed and agrees. On repeat examination patient appears much more comfortable. He continues to have decreased air movement bilaterally with mild expiratory wheeze. Overall hedoes have better air movement than prior to his treatments. Patient is still requiring 5 L nasal cannula with O2 sat of 92%. He will be given Rocephin and Zithromax for his COPD exacerbation and has already received steroids. I will speak with hospitalist regarding admission. Discharge Plan Triage Chief Complaint: Shortness of Breath ED Provider: Ana Jaquez Dx/Rx/DC Orders Clinical Impression: Respiratory failure, COPD exacerbation Prescriptions: No Action Rexulti 2 mg tablet 2 mg PO DAILY bupropion HCl 150 mg tablet extended release 24 hr 150 mg PO DAILY cholecalciferol (vitamin D3) [Vitamin D3] 50 mcg (2,000 unit) capsule 50 mcg PO DAILY Primary Care Provider: Care Physician,No Primary Referrals: Care Physician,No Primary [Primary Care Provider] - Disposition Disposition: Acute Care Hospital [facility] What to do if you have Problems For any increased pain, shortness of breath, bleeding, nausea or vomiting, chestpain, or any unexpected problems, contact your Primary Care Provider. Call [facility] ([phone]) or report to the closest Emergency Room. Call 911 if necessary. 11/02/23 1323 <Electronically signed by Ana Jaquez MD> Cosigner Signature (if applicable): CC: No Primary Care Physician ~ Signed [facility] Work Phone: [phone] 546-426906-09-2023 History of Present illness Narrative* José Miguel Joe MD - 01/10/2023 10:00 AM EDT Images from the original note were not [...] proposed. José Miguel Joe M.D. PATIENT NAME: Herve Ramsey DATE OF : 1975 TODAY'S DATE: 01/10/2023 Chief Complaint: Chief Complaint Patient presents with New Patient Hx Kidney stones, Pt states they passed stones in July, October and December, Pt currently asymptomatic HISTORY OF PRESENT ILLNESS: Mr. Ramsey is a 47 y.o. male who presents with renal calculi. He was seen at [facility]. Pain gone now. REVIEW OF SYSTEMS: [...] Judgment: Judgment normal. DATA: Radiology Review: Impression/Plan Herve was seen today for new patient. Diagnoses [...] try to get the CT report from [place] Check KUB to see if stones are [...] José Miguel Joe MD 01/10/23 3:54 PM * Florencia [place] - 01/10/2023 10:00 AM EDT Faxed record release 01-10-23, 2nd attempt 01-15-23 * Florencia [place] - 01/10/2023 10:00 AM EDT After multiple faxed requests, CT added to media documented in this [facility]09-29-2022 NoteHNO ID: [id number] Author: Akua Grey APRN.ASHLEY Service: ? Author Type: Nurse Practitioner Type: Progress Notes Filed: 05/02/2022 7:38 PM Note Text: Triage Note: Patient presented to [facility] care with sever headache and pain [...] and lack of investigative tools available at [facility], and pain out of proportion for sinusitis, recommend patient be seen at nearest ED for further work up. Patient will go to [place] ED Diagnosis and treatment plan were discussed and questions were answered to the patient's satisfaction. Pt acknowledged understanding of concepts and follow up plan. Specific signs and symptoms that would indicate the need for higher level of care were discussed in detail warranting prompt ER evaluation. Akua Grey APRN.CNPLouis [facility]09-29-2022 History of Present illness Narrative* Akua Grey APRN.CNP - 05/02/2022 7:34 PM EDT Triage Note: Patient presented to [facility] with sever headache and pain behind right eye. He denies any blurred vision, loss of vision, or sinus drainage or pressure. He has not been ill in the past month. Hehas recently been treated by an urgent care [...] and lack of investigative tools available at [facility], andpain out of proportion for sinusitis, recommend patient be seen at nearest ED for further work up. Patient will go to [place] ED Diagnosis and treatment plan were discussed and questions were answered to the patient's satisfaction. Pt acknowledged understanding of concepts and follow up plan. Specific signs and symptoms that would indicate the need for higher level of care were discussed indetail warranting prompt ER evaluation. Akua Grey APRN.ASHLEY documented in this encounterMinto ClinicDischarge summary Author Eber Araujo [facility] November 04, 2023 1:09pm Note Date/Time November 04, 2023 12:1 1pm [facility] Medical Records Department [address] [place] [address] Instructions for Home/Discharge Instructions 11/04/23 1211 MR#: [id number] Acct: [id number] Name: HERVE RAMSEY Jr. Rep #:[id number] 06 : 1975 48 From: Eber rubi DO PCP: Care Physician,No Primary Status :ADM IN Discharge Instructions Diet Discharge Diet: No restrictions Activity Discharge Activity: No Restrictions Weight Bearing Status: Full weight bearing Follow Up Care Test Results: Test results from this visit will be discussed in further detail at your follow- up appointment, if applicable. Discharge Plan Admission Admit Date/Time: 11/02/23 12:02 Primary Reason for Your Visit: Shortness of breath Attending Provider: Eber Araujo Primary Care Provider: Care Physician,No Primary Consulting Providers: Mik Rodriguez Instructions Additional Instructions / Restrictions: Please take 3 more days worth of prednisone and azithromycin to complete 5-day courses of steroids and antibiotics total. Use the albuterol inhaler as needed for shortness of breath. Please discuss with your PCP about them placing a pulmonology consult to establish with a lung doctor in the office. Discharge Orders/Prescriptions Prescriptions: New prednisone 20 mg Tablet 40 mg PO BREAKFAST 3 Days Qty: 6 0RF azithromycin 500 mg tablet 500 mg PO DAILY 3 Days Qty: 3 0RF albuterol sulfate 90 mcg/actuation HFA aerosol inhaler 1 inh inhalation Q6H PRN (Reason: shortness of breath or wheezing) Qty: 8.5 1RF Continued Rexulti 2 mg tablet 2 mg PO DAILY cholecalciferol (vitamin D3) [Vitamin D3] 50 mcg (2,000 unit) capsule 50 mcg PO DAILY bupropion HCl 75 mg tablet 75 mg PO DAILY Discontinued bupropion HCl 150 mg tablet extended release 24 hr 150 mg PO DAILY Referrals / Follow Up: Care Physician,No Primary [Primary Care Provider] - Disposition Disposition (needs filled in before D/C Order can be placed): Home, Self Care 11/04/23 1309<Electronically signed by Eber Araujo DO>Eber Araujo DO CC: Dr. Mik Rodriguez MD; No Primary Care Physician ~ Signed [facility] Work Phone: Evaluation noteNo assessment information available [facility] Work Phone: Evaluation note* Diagnosis Headache, unspecified headache type- Primary Eye pressure Other ill-defined disorder of eye [facility] Diagnosis Calculus, kidney- Primary Calculus of kidney [facility]* Diagnosis Onset Date Resolution Status Acute respiratory failure with hypoxia acute Respiratory failure acute COPD exacerbation chronic [facility] Work Phone: Hospital Discharge instructions Additional Instructions Your work-up today shows a 10 mm kidney stone as a cause of your pain. Please take the medication as directed to help control your pain and help facilitate passing the stone. Please keep yourself well-hydrated and stay active as this could help pass the stone as well. If your pain is not controlled with the prescribed medication or you develop a fever over 100.4 please return to the ER for repeat evaluation.[facility] Work Phone: Reason for referral (narrative)No reason for referral information availableWBerger Hospital Work Phone: Chief Complaint and Reason for Visit Chief Complaint FACIAL EDEMA/INFECTI ON Chief Complaint FACIAL EDEMA/INFECTI ON flank Chief Complaint flank right flank Chief Complaint right flank RIGHT FLANK PAIN Chief Complaint cold sx Chief Complaint cold sx COPD EXACERBATION Reason for Visit Acute respiratory fa ilure with hypoxia Respiratory failure COPD exacerbation Chief Complaint cold sx COPD EXACERBATION COPD EXACERBATION COPD EXACERBATION Reason for Visit Acute respiratory fa ilure with hypoxia Respiratory failure COPD exacerbation Chief Complaint Admit Date PAT July 20, 2024 11:00am 6 W FU September 29, 2024 3:12pm 3 M FU November 10, 2024 12:5 3pm E ORDERS November 12, 2024 8:2 7am Reason for Visit Admit Date [id number]-[id number] deficiency September 29, 2024 3:12pm Obstructive sleep apnea September 29, 025 3:12pm Asthma-COPD overlap syndrome September 292024 3:12pm Lung nodule September 29, 2024 3:12pm Elevated liver enzymes November 10, 2024 1 2:53pm Metabolic dysfunction-associ ated steatotic liver disease (MASLD) November 10, 2024 12:53pm RUQ pain November 10, 2024 12:5 3pm Chief Complaint Admit Date 6 W FU September 29, 2024 3:12pm 3 M FU November 10, 2024 12:5 3pm E ORDERS November 12, 2024 8:2 7am ADVANCED FIBROSIS,OCC RUQ PAIN November 8:27am suicidal December 15, 2024 5:08p m Advance Directives No Advanced Directives Records Found Advance Directive Response Recorded Date/ Time Living Will No May 02, 2022 9:05pm Power of Him Coder No April 9:05pm Advance Directive Response Recorded Date/ Time Living Will No July 27, 2 022 5:29am Power of Him Coder No July 27, 2022 5:29am Advance Directive Response Recorded Date/ Time Living Will No October 07, 2022 3:16pm Power of Him Coder No October 07 3:16pm Advance Directive Response Recorded Date/ Time Living Will No December 11, 2022 7 :55pm Power of Him Coder No December 11, 2022 7:55pm Advance Directive Response Recorded Date/ Time Living Will No August 03 023 11:34am Power of Him Coder No August 03, 2023 11:34am Advance Directive Response Recorded Date/ Time Living Will No November 02, 2023 9:15am Power of Him Coder No November 01 9:15am Advance Directive Response Recorded Date/ Time Living Will No November 02, 2023 1:28pm Power of Him Coder No November 01 1:28pm Advance Directive Response Recorded Date/ Time Living Will No November 02, 2023 1:28pm Do you have a Healthcare Power of Him Coder? No November 02, 2023 1:28pm Advance Directive Response Recorded Date/ Time Living Will No November 02, 2023 1:28pm Do you have a Healthcare Power of Him Coder? No November 02, 2023 1:28pm Do you have a Healthcare Power of Him Coder? No December 15, 2024 5:08pm Summary Purpose Family History No Family History Records Found Relationship Condition Age at Onset Recorded Date/T allyson father Lymphoma Unknown mother Disorder of kidney Unknown Additional Source Comments Goals (unrecognized section and content) Goals may be documented in a n alternate sectionGoals may be documented in an alternate sectionGoals may be documented in an alternate sectionGoals may be documented in an alternate sectionGoals may be documented in an alternate sectionGoals may be documented in an alternate sectionGoals may be documented in an alternate sectionGoals may be documented in an alternate sectionGoals may be documented in an alternate section Source Comments (unrecognize d section and content) In the event this informatio n is protected by the Federal Confidentiality of Alcohol and Drug Abuse Patient Records regulations: The Federal rules restrict any use of the information to criminally investigate or prosecute any alcohol or drug abuse patient.[facility] Reason for Visit (unrecogniz ed section and content) Reason Comments pain right side of face X 4 days Reason Comments New Patient Hx Kidney stones, Pt states they passed stones in July, October and December, Pt currently asymptomatic (unrecognized sect ion and content) No Status Records FoundNo Status Records FoundNo Status Records Found INFORMATION SOURCE (unrecogn ized section and content) DATE CREATED AUTHOR 05/06/2022 [facility] DATE CREATED AUTHOR AUTHOR'S ORGANIZ ATION 01/28/2023 [facility] DATE CREATED AUTHOR AUTHOR'S ORGANIZ ATION [facility] Care Teams (unrecognized sec tion and content) Team Status: Active Member Role Status Dates No Primary Care Physician Family Provider Active No Primary Care Physician Primary Care Provider Active Team Status: Inactive Member Role Status Dates No Primary Care Physician Primary Care Provider Active Dr. Yobany Corley DO Attending Provider, Emergency Pr ovider Active Team Status: Inactive Member Role Status Dates No Primary Care Physician Primary Care Provider Active Dr. Ana Jaquez MD Emergency Provider Active Team Status: Inactive Member Role Status Dates No Primary Care Physician Primary Care Provider Active Dr. Ana Jaquez MD Attending Provider, Emergency Provider Active Team Status: Inactive Member Role Status Dates No Primary Care Physician Primary Care Provider Active Dr. Yoon Presley DO Emergency Provider Active Detective Private Eye Relationship Specialty Start Date End Date José Miguel Joe MD [address] [place] [address] Surgeon Urology 01/10/23 Team Status: Active Member Role Status Dates No Primary Care Physician Primary Care Provider Active Laura Juares FAMILY PSYCHOLOGIST, FAMILY PSYCHOLOGIST-C Attending Provider, Referring Provider Active Team Status: Inactive Member Role Status Dates No Primary Care Physician Primary Care Provider Active Laura Juares FAMILY PSYCHOLOGIST, FAMILY PSYCHOLOGIST-C Attending Provider, Referring Provider Active Team Status: Active Member Role Status Dates No Primary Care Physician Primary Care Provider Active Dr. Ana Jaquez MD Emergency Provider Active Dr. Mik Rodriguez MD Admit Provider, Attending Provider Active Team Status: Active Member Role Status Dates No Primary Care Physician Primary Care Provider Active Dr. Ana Jaquez MD Emergency Provider Active Dr. Mik Rodriguez MD Admit Provi codi, Attending Provider, Other Provider Active Team Status: Active Member Role Status Dates No Primary Care Physician Primary Care Provider Active Dr. Ana Jaquez MD Emergency Provider Active Dr. Mik Rodriguez MD Admit Provider, Other Pro vider Active Dr. Eber Araujo DO Attending Provider, Other Provider Active Team Status: Inactive Member Role Status Dates No Primary Care Physician Primary Care Provider Active Dr. Ana Jaquez MD Emergency Provider Active Dr. Mik Rodriguez MD Admit Provider, Other Pro vider Active Dr. Eber Araujo DO Attending Provider Active Team Status: Active Member Role Status Dates Dr. Alma Rosa Cornelius MD Primary Care Provider Active Team Status: Inactive Member Role Status Dates Dr. Alma Rosa Cornelius MD Primary Care Provider Active Start: July 20, 2024 End: July 20, 2024 IMANI Flannery Attending Provider Active Start: July 20, 2024 End: July 20, 2024 Team Status: Inactive Member Role Status Dates Dr. Alma Rosa Cornelius MD Primary Care Provider Active Start: September 29, 2024 End: September 29, 2024 Dr. Alma Rosa Cornelius MD Referring Provider Active Start: September 29, 2024 End: September 29, 2024 IMANI Flannery Attending Provider Active Start: September 29, 2024 End: September 29, 2024 Team Status: Inactive Member Role Status Dates Dr. Alma Rosa Cornelius MD Primary Care Provider Active Start: November 10, 2024 End: November 10, 2024 Dr. Alma Rosa Cornelius MD Referring Provider Active Start: November 10, 2024 End: November 10, 2024 Dr. Get Boggs MD Attending Provider Active Start: November 10, 2024 End: November 10, 2024 Team Status: Inactive Member Role Status Dates Dr. Alma Rosa Cornelius MD Primary Care Provider Active Start: November 12, 2024 End: November 12, 2024 Dr. Get Boggs MD Attending Provider Active Start: November 12, 2024 End: November 12, 2024 Dr. Get Boggs MD Referring Provider Active Start: November 12, 2024 End: November 12, 2024 Team Status: Inactive Member Role Status Dates Dr. Alma Rosa Cornelius MD Primary Care Provider Active Start: November 26, 2024 End: November 26, 2024 Dr. Get Boggs MD Attending Provider Active Start: November 26, 2024 End: November 26, 2024 Dr. Get Boggs MD Referring Provider Active Start: November 26, 2024 End: November 26, 2024 Team Status: Inactive Member Role Status Dates Dr. Alma Rosa Cornelius MD Primary Care Provider Active Start: December 15, 2024 End: December 16, 2024 Dr. Chilango Nielsen DO Emergency Provider Active Start: December 15, 2024 End: December 16, 2024 FOR RECORDS PERTAINING TO PATIENTS WHO ARE [...] BE BASED ON THE PRIMARY CLINICAL RECORDS. [facility] [employer] provides no warranty or guarantee of the accuracy or completeness of information in this document.
[2025-01-11 02:51] LABS: Troponin T High Sens 2 HR 9 ng/L (<=22)
[2025-01-11] MEDS: Doxycycline 100 MG CAPSULE PO (03:10)
== END 2025-01-11 03:12 | disposition home or self-care (01) ==
PROVIDERS: Emergency Provider Emergency Medicine; PCP Family Medicine; Visit Provider Emergency Medicine
DX: J44.1 Chronic obstructive pulmonary disease with (acute) exacerbation (principal); Z87.891 Personal history of nicotine dependence
CPT/HCPCS: 71046; 80048; 83880; 84484; 85025; 93005; 94640; 99285; A4216

== ENCOUNTER 2025-05-25 20:21 | Emergency (ER) | payer MEDICARE, MEDICAID, SELFPAY ==
[2025-05-25 20:22] VITALS: BP 148/82; PULSE 85; RESP 18; TEMP 35.8; O2SAT 96; BMI 39.0
[2025-05-25 22:21] VITALS: BP 159/86; PULSE 91; RESP 14; O2SAT 91
[2025-05-25 22:47] LABS: Hematocrit 44.4 % (40-54); Hemoglobin 15.3 g/dL (13.0-16.5); Immature Granulocytes Count 0.020 X10^3/uL (0.0-0.0); Mean Corp Hgb Conc 34.5 g/dL (32-36); Mean Corpuscular Volume 96.5 fL (80-94); Mean Platelet Vol. 9.0 fl (6.2-12.0); NRBC Flagged by Analyzer 0 % (0-5); Platelet Count 178 K/mm3 (150-450); RBC Distribution Width CV 13.0 % (11.6-14.6); RBC Distribution Width SD 46.4 fl (35.1-43.9); Red Blood Count 4.60 M/mm3 (4.6-6.2); White Blood Count 8.0 K/mm3 (4.4-11.0)
[2025-05-25 23:29] LABS: Anion Gap 10 (5-15); BUN 12 mg/dL (4-19); BUN/Creat Ratio 16.4 RATIO (10-20); Calcium,Total 8.9 mg/dL (7.6-11.0); Carbon Dioxide 25.1 mmol/L (21.0-32.0); Chloride 104 mmol/L (98-108); Estimated Creatinine Clearance 143.81 ml/min (50-250); Glucose 126 mg/dL (70-99); Potassium 3.4 mmol/L (3.3-5.1); Pro- Brain NATRIURETIC PEPTIDE 58 pg/mL (<=900)
[2025-05-26 00:22] VITALS: BP 127/68; PULSE 87; RESP 16; TEMP 36.6; O2SAT 98
== END 2025-05-26 00:34 | disposition home or self-care (01) ==
PROVIDERS: Emergency Provider Emergency Medicine; PCP Family Medicine; Visit Provider Emergency Medicine
DX: R60.0 Localized edema (principal); F20.9 Schizophrenia, unspecified; J44.9 Chronic obstructive pulmonary disease, unspecified; F32.A Depression, unspecified; E66.9 Obesity, unspecified; Z79.899 Other long term (current) drug therapy; Z87.891 Personal history of nicotine dependence
CPT/HCPCS: 71046; 80048; 83880; 85025; 99283; A4216

== ENCOUNTER 2025-06-19 00:21 | Emergency (ER) | payer MEDICARE, MEDICAID, SELFPAY ==
[2025-06-19] VITALS (8 sets, daily range): BP systolic 108–142; BP diastolic 72–86; PULSE 84–107; RESP 16–24; TEMP 36.1–37.1; O2SAT 90–94; BMI 38.1
--- NOTE | 2025-06-19 00:40 | EDS_ITS ---
HPI History of Present Illness Chief Complaint: Shortness of Breath Informant: patient Narrative Narrative: Patient is a 49-year-old male with a history of COPD presenting with dyspnea and cough. - Reports dyspnea and cough for the past 2-3 days. - Dyspnea initially occurred at rest; currently improved. - Associated symptoms include wheezing and productive cough with clear sputum. - Denies hemoptysis, chest pain, facial pain, throat pain, abdominal pain, or r ecent leg swelling. - Denies fevers, recent travel, or recent hospitalization. - Has a home oxygen concentrator, which malfunctioned today; also uses a pulse oximeter at home. - Has maintenance inhalers but does not use them regularly; unable to locate rescue inhaler. - Denies recent use of prednisone. - Reports 37% lung function, usually stable at this level. - Followed by a nurse practitioner in Dr. Zhou's office in [place]. [facility] Medical History Depression Fatty liver Abnormal CT lung screening Lung nodule History of tobacco use Encounter for screening for malignant neoplasm of lung COPD (chronic obstructive pulmonary disease) Kidney stone Schizophrenia Home Medications Medication Instructions Recorded Last Taken Type albuterol sulfate 90 mcg/actuation 1 inh inhalation Q6 H PRN shortness 11/04/23 Unknown Rx aerosol inhaler of breath or wheezing #8.5 g alberto doxycycline monohydrate 100 mg 100 mg PO BID #14 CAPSU LES 06/19/25 Unknown Rx capsule prednisone 20 mg tablet 40 mg (2 x 20 mg) PO DAILY 5 days 06/19/25 Unknown Rx #10 tabs Allergy/AdvReac Type Severity Reaction Status Date / Time brexpiprazole (From [facility]) Allergy Other Verified 06/19/25 00:22 Family History Father Lymphoma Mother Kidney disease Social History household members: none Smoking Status: Current every day smoker tobacco type: cigarettes Tobacco: How many years used: 35 alcohol intake: current alcohol intake frequency: holidays/special occasions only substance use type: does not use ROS ROS ED Constitutional Constitutional ED: Denies chills or fever(s) Eyes Eyes: Denies change in vision or diplopia ENT ENT ED: Reports nasal congestion; Denies ear pain, rhinorrhea, sinus pain or sore throat Cardiovascular Cardiovascular: Denies chest pain or palpitations Respiratory/Chest Respiratory/Chest: Reports cough, dyspnea, dyspnea on exertion and sputum Gastrointestinal Gastrointestinal: Denies abdominal pain, diarrhea, nausea or vomiting Genitourinary Genitourinary ED: Denies dysuria or hematuria Musculoskeletal Musculoskeletal: Denies back pain or neck pain Integumentary Denies abscess or rash Neurologic Neurologic: Denies headache(s), paresthesias or weakness Psychiatric Psychiatric: Denies anxiety or suicidal thoughts EXAM Physical Exam Const Vital Signs: 06/19/25 00:21 06/19/25 00:21 06/19/25 00:25 Temperature 98.8 F 98.8 F Temperature Source Oral Oral Pulse Rate 98 107 H Respiratory Rate 24 H 24 H Respiratory Effort Short of Breath Respiratory Pattern Tachypnea Blood Pressure 142/86 H 142/86 H Blood Pressure Mean 104 104 Pulse Ox 92 92 Oxygen Delivery Method Room Air Room Air Room Air 06/19/25 00:44 06/19/25 01:21 06/19/25 02:00 Temperature 98.6 F Temperature Source Oral Pulse Rate 92 89 87 Respiratory Rate 18 16 20 H Respiratory Effort Respiratory Pattern Normal Blood Pressure 126/82 H 118/73 Blood Pressure Mean 96 88 Pulse Ox 94 92 Oxygen Delivery Method Room Air Room Air 06/19/25 03:00 Temperature 98.4 F Temperature Source Oral Pulse Rate 97 Respiratory Rate 20 H Respiratory Effort Respiratory Pattern Blood Pressure 108/72 Blood Pressure Mean 84 Pulse Ox 93 Oxygen Delivery Method Room Air Positive well nourished and well developed General Appearance ED: well developed and NAD HEENT Reports moist mucous membranes normocephalic and atraumatic Eyes PERRL and EOMs intact bilaterally Neck full ROM, supple, no meningeal signs and no JVD Resp normal respiratory effort Resp Narrative: Severely diminished throughout, symmetrically. Expiratory wheezes and prolonged expiratory phase. Conversive in full sentences. Cardio regular rate, regular rhythm and no murmurs Rate: Negative for tachycardic GI non-tender and non-distended Auscultation: normoactive bowel sounds Palpation: soft Back/Spine no CVA tenderness General Back: other FROM Extremity normal to inspection General Extremety ED: Negative for edema, pulses abnormal or tenderness General Extremity: Negative for edema or pulses abnormal Neuro oriented x3, CN's II-XII intact bilaterally and no sensory deficits noted Sensorium / Orientation: awake and alert Motor Exam: strength 5/5 throughout Skin no rashes or lesions noted and no wounds MDM MDM MDM Narrative Medical decision making narrative: Chest X-ray (two views), based on my interpretation, shows no acute pneumonia or pneumothorax, which is in agreement with radiology findings. Nothing acute is noted. In the meantime, he was given a couple of aerosol treatments and felt better. He is able to ambulate and becomes slightly dyspneic, but overall he ambulated well. His pulse oximetry dropped to 86% on room air but recovered quickly. He felt well and wants to go home, which I think is reasonable. He states he has extra oxygen canisters at home to use through the weekend. On Friday, he plans to visit the local medical supply company to have his concentrator evaluated and either fixed or replaced. I agree this is ap propriate. I am prescribing prednisone; he received the first dose here. We will also provide a rescue inhaler for him to take home and start a broad-spectrum antibiotic to prevent bacterial superinfection. He is comfortable with this plan, and we discussed the reasons for returning. I believe this is a straightforward COPD exacerbation. Although I considered other tests such as EKG and blood work, I do not think they are indicated or necessary at this point, since he has no chest pain or symptoms of acute coronary syndrome. Radiography Diagnostic Testing: Clinical Impression(s) from Imaging Studies Chest X-Ray 06/19/25 01:10 IMPRESSION: NO ACUTE FINDINGS. Reading Location: [facility] Discharge Plan Triage Chief Complaint: Shortness of Breath ED Provider: Renato Zamora Dx/Rx/DC Orders Clinical Impression: COPD exacerbation, Acute bronchitis Instructions: ED COPD Flare Prescriptions: New prednisone 20 mg tablet 40 mg PO DAILY 5 Days Qty: 10 0RF doxycycline monohydrate 100 mg capsule 100 mg PO BID Qty: 14 0RF No Action albuterol sulfate 90 mcg/actuation HFA aerosol inhaler 1 inh inhalation Q6H PRN (Reason: shortness of breath or wheezing) Qty: 8.5 1RF Primary Care Provider: Alma Rosa Cornelius Referrals: Alma Rosa Cornelius MD [Primary Care Provider, Family Practice] - 3-5 Days if not improving Referral Note: or Dr. Zhou, pulmonary Print Language: Uzbek Disposition Disposition: Home, Self Care
[2025-06-19] MEDS: Albuterol 2.5 MG/3 ML VIAL.NEB. INHALATION (00:44)
--- NOTE | 2025-06-19 01:10 | RAD_ITS ---
PROCEDURE: CHEST PA AND LATERAL 06/18/2025 REASON FOR EXAM: SOB, COUGH, COPD TECHNIQUE: Procedure Code: RADCXR Modality: DX Procedure: CHEST PA AND LATERAL COMPARISON: 05/25/2025 FINDINGS: Hardware: None. Heart: The heart size is normal. Mediastinum: The mediastinal contour is unremarkable. Lungs: Bibasilar atelectasis. No focal consolidation, pneumothorax, or sizable pleural effusion. Bones: The bones are unremarkable. RAD/Chest PA and Lateral IMPRESSION: NO ACUTE FINDINGS. Reading [facility]
--- OUTSIDE RECORDS SUMMARY | 2025-06-19 01:22 | XMS RPT_ITS | CCD ---
Author Organization [facility] Care Team Providers Care Cotton Classer Name Role Phone Unavailable Primary Care Provider UnavailJosé Miguel Salinas MD Unavailable JOSÉ MIGUEL JOE Attending Unavailable Care Physician, No Primary Primary Care Provider Unavailable Dr. Ana Jaquez Emergency Provider Dr. Mik Rodriguez Admit Provider Dr. Mik Rodriguez Attending Provider Dr. Mik Rodriguez Other Provider Dr. Eber Araujo Attending Provider Dr. Eber Araujo Other Provider Dr. Alma Rosa Cornelius MD Primary Care Provider Niki Munoz Attending Provider Dr. Alma Rosa Cornelius MD Referring Provider Dr. Get Boggs MD Attending Provider Dr. Get Boggs MD Referring Provider Dr. Alma Rosa Cornelius MD Primary Care Provider Niki Munoz Attending Provider Dr. Chilango Nielsen DO Emergency Provider Dr. Chilango Nielsen DO Attending Provider Dr. Anderson Reddy DO Emergency Provider Deysi Corneliush Primary Care Unavailable Niki Maza Attending Unavailable [facility], Alma Rosa Referring Unavailable Miedel, [place] Primary Care Unavailable Ambrose, Get Attending Unavailable Mied, Alma Rosa Referring Unavailable Anderson Reddy Attending Unavailable Miedel, Alma Rosa Primary Care Unavailable Yobany Corley Attending Unavailable Mied, [place] Primary Care Unavailable Ambrose, Get Attending Unavailable Ambrose, Get Referring Unavailable Miedel, [place] Primary Care Unavailable Miedel, [place] Primary Care Unavailable Chilango Nielsen Attending Unavailable Miedel, [place] Primary Care Unavailable Ishan MOLD YARD SUPERVISOR, Elva Attending Unavailable Miedel, Alma Rosa Referring Unavailable Miedel, [place] Primary Care Unavailable Ambrose, Get Attending Unavailable Miedel, Alma Rosa Referring Unavailable Miedel, [place] Primary Care Unavailable Niki Maza Attending Unavailable Niki Maza Referring Unavailable Ambrose, Get Attending Unavailable Ambrose, Get Referring Unavailable Mied, [place] Primary Care Unavailable Niki Maza Attending Unavailable Mied, [place] Primary Care Unavailable Adryan OLEA, Dr. St Primary Care Physician Dr. Yobany Corley DO Attending Physician Dr. Yobany Corley DO Emergency Department Physic virgilio Allergies Allergy Classification Reported Allergen(s) Allergy Type Date of Onset Reaction(s) Facility (2 sources) brexpiprazole Drug Allergy 01-10-2025 Other [facility] Comment on above: pain, neuro sx (1 source) brexpiprazole Drug Allergy 05-25-2025 [facility] Repository Medications Current Medications Medication Drug Class(es) Dates [...] Active 1 TABLET PO EVERY 6 HOURS 20 July 27, 2022 [id number] 200 actuat albuterol 0.09 mg/actuat metered dose inhaler (5 sources) beta2-Adrenergic Agonist Start: 11-04-2023 Albut glen Sulfate 90 mcg/actuation HFA aerosol inhaler Active 1 NMA INHALATION EVERY 6 HOURS as needed for shortness of breath or wheezing 8.5 November 03, 2023 11:00pm Non-compliance of drug therapy Start: 11-04-2023 Albuterol Sulf ate Active 1 INH INHALATION EVERY 6 HOURS 8.November 04, 2023 12:00am asenapine 2.5 mg sublingual tablet (1 source) Atypical Antipsychotic Start: 08-02-2020 take 2.5 mg by mouth once daily Asenapine Maleate Active 2.5 MG PO DAILY August 02, 2020 1:00am brexpiprazole 2 mg oral tablet (13 sources) Atypical Antipsychotic Start: 10-07-2022 take 1 tablet by mouth once daily Brexpiprazole (Rexulti) 2 mg tablet Active 2 mg PO DAILY October 07, 2022 12:00am uns Non-compliance of drug therapy Start: 08-31-2019 take 1 tablet by mikhail th once daily REXULTI 2 mg tab Take 1 tablet by mouth once daily. 0 08/31/2019 Active Start: 05-19-2019 take 1 tablet by mikhail th once daily brexpiprazole (REXULTI) 1 mg tablet Take 1 tablet by mouth once daily. 0 05/19/2019 Active Comment on above: Take 1 tablet by mikhail th once daily. cholecalciferol 1.25 mg oral tablet (10 sources) Vitamin D Start: 06-30-20 take 1 tablet by mouth every week Cholecalciferol (Vitamin D3) 1,250 mcg (50,000 unit) tablet Active 1250 ug PO EVERY WEEK June 30, 2024 12:00am Non-compliance of drug therapy Start: 06-30-2024 take 1 tablet by mikhail th every week Cholecalciferol (Vitamin D3) 1,250 mcg (50,000 unit) tablet Active 1250 ug PO EVERY WEEK 11 29June 30, 2024 1:00am Start: 11-02-2023 End: 06-30-2024 take 1 capsule by mouth once daily Cholecalciferol (Vitamin D3) (Vitamin D3) 50 mcg (2,000 unit) capsule Discontinued 50 ug PO DAILY November 01, 2023 11:00pm June 30, 2024 2:03pm clindamycin 300 mg oral capsule (1 source) [...] Active 10 MG PO EVERY 6 HOURS 21 12July 27, 2022 6:51am naproxen 500 mg oral [...] / HYDROcodone bitartrate 5 mg oral tablet (20 sources) Opioid Agonist Start: 10-07-2022 End: 11-02-2023 Hydrocodone-Acetami nophen 5-325 mg tablet Discontinued 1 {tbl} PO EVERY 4 HOURS NEEDED as needed for Pain 15 3 0 December 11, 2022 November 02, 2023 8:29am Urolithiasis Urinary calculus, unspecified Start: 10-07-2022 End: 11-02-2023 take 1 tablet by mouth every four hours as needed Hydrocodone-Acetaminophen Discontinued 1 TABLET PO EVERY 4 HOURS NEEDED 15 3 December 11, 2022 November 02, 2023 9:29am Start: 05-02-2022 take 1 tablet by mikhail th every six hours as needed Hydrocodone-Acetaminophen Active 1 TABLE T PO EVERY 6 HOURS NEEDED 10 3 May 02, 2022 amoxicillin 875 mg / clavulanate 125 mg oral tablet (9 sources) Penicillin-class Antibacterial Start: 08-03-2023 End: 11-02-2023 Amoxicillin-Pot Clavulanate 875-125 mg tablet Discontinued 1 {tbl} PO TWICE A DAY August 03, 2023 12:00am November 02, 2023 8:29am Start: 08-03-2023 End: 11-02-2023 take 1 tablet by mouth twice daily Amoxicillin-Pot Clavulanate Discontinued 1 TABLET PO TWICE A DAY August 03, 2023 1:00am November 02, 2023 9:29am Start: 01-05-2021 take 875 mg by mouth every twelve hours Amoxicillin-Pot Clavulanate Active 875 MG PO Q12H January 05, 2021 12:00am azithromycin 500 mg oral tablet (5 sources) Macrolide Antimicrobial Start: 11-04-2023 End: 12-09-2023 take 1 tablet by mouth once daily Azithromycin 500 mg tablet Discontinued 500 mg PO DAILY 3 3 November 03, 2023 11:00pm December 09, 2023 12:22pm Budesonide-Glycopyr -Formoterol (4 sources) Corticosteroid, beta2-Adrenergic Agonist Start: 02-02-2024 End: 11-10-2024 Budesonide-Glycopy r-Formoterol (Breztri Aerosphere) 160-9-4.8 mcg/actuation HFA aerosol inhaler Discontinued 2 NMA INHALATION TWICE A DAY 3 3 February 01, 2024 11:00pm November 10, 2024 11:59am Start: 02-02-2024 End: 11-10-2024 Tqtcsbnwky-Mgjlrolb-Ogwuraqt ol (Breztri Aerosphere) 160-9-4.8 mcg/actuation HFA aerosol inhaler Discontinued 2 NMA INHALATION TWICE A DAY 3 February 02, 2024 12:00am November 10, 2024 12:59pm 24 hr buPROPion hydrochloride 150 mg extended release oral tablet (11 sources) Aminoketone Start: 11-02-2023 End: 11-04-2023 take 1 tablet by mouth once daily Bupropion Hcl 150 mg tablet extended release 24 hr Discontinued 150 mg PO DAILY November 01, 2023 11:00pm November 04, 2023 12:06pm depres Start: 11-02-2023 End: 12-09-2023 take 1 tablet by mouth once daily Bupropion Hcl 75 mg tablet Discontinued 75 mg PO DAILY November 01, 2023 11:00pm December 09, 2023 12:22pm depresison doxycycline hyclate 100 mg oral capsule (3 sources) Tetracycline-class Drug Start: 01-11-2025 End: 05-25-2025 take 1 capsule by mouth twice daily Doxycycline Hyclate 100 mg capsule Discontinued 100 mg PO TWICE A DAY January 10, 2025 11:00pm May 25, 2025 10:04pm Start: 01-24-2020 take 1 tablet by mikhail th twice daily doxycycline monohydrate 100 mg tablet Take 1 tablet by mouth twice daily. 20 tablet 0 01/24/2020 Active Comment on above: Take 1 tablet by mikhail th twice daily. ibuprofen 600 mg oral tablet (11 sources) Nonsteroidal Anti-inflammatory Drug Start: 10-08-19 End: 11-02-19 take 1 tablet by mouth every eight hours as needed for pain Ibuprofen 600 mg tablet Discontinued 600 mg PO EVERY 8 HOURS NEEDED as needed for pain October 07, 2022 12:00am November 02, 2023 8:29am lamoTRIgine 25 mg oral tablet (4 sources) Mood Stabilizer, Anti-epileptic Agent Start: 06-08-20 End: 11-11-19 take 1 tablet by mouth once daily Lamotrigine 25 mg tablet Discontinued 25 mg PO daily June 08, 2024 12:00am November 10, 2024 12:00pm ondansetron 4 mg disintegrating oral tablet (20 sources) Serotonin-3 Receptor Antagonist Start: 10-08-19 End: 11-02-19 take 1 tablet by mouth every eight hours as needed for nausea Ondansetron 4 mg tablet,disintegratin g Discontinued 4 mg PO EVERY 8 HOURS NEEDED as needed for Nausea December 10, 2022 11:00pm November 02, 2023 8:29am Start: 07-27-2022 take 4 mg by mouth t hree times daily Ondansetron Active 4 MG PO THREE TIMES A DAY July 27, 2022 6:50am predniSONE 50 mg oral tablet (7 sources) Start: 01-11-2025 End: 05-25-2025 take 1 tablet by mouth once daily Prednisone 50 mg tablet Discontinued 50 mg PO DAILY 5 5 0 January 10, 2025 11:00pm May 25, 2025 10:04pm Start: 11-04-2023 End: 12-09-2023 take 2 tablets by mouth at breakfast Prednisone 20 mg Tablet Discontinued 40 mg PO WITH BREAKFAST 6 3 0 November 03, 2023 11:00pm December 09, 2023 12:23pm Start: 11-04-2023 take 40 mg by mouth at breakfa st Prednisone Active 40 MG PO WITH BREAKFAST 6 3 November 04, 2023 12:00am tamsulosin hydrochloride 0.4 mg oral capsule (11 sources) alpha-Adrenergic Iqra Start: 10-07-2022 End: 11-02-2023 take 1 capsule by mouth once daily Tamsulosin (Flomax) 0.4 mg capsule Discontinued 0.4 mg PO DAILY 7 0 October 07, 2022 12:00am November 02, 2023 8:29am Start: 07-27-2022 take 1 capsule by mo uth once daily Tamsulosin (Flomax) 0.4 mg capsule Active 0.4 MG PO DAILY July 27, 2022 12:00am Problems Active Problems Problem Classification Problem Date Documented Date Episodic/Chronic Abdominal pain (7 sources) Right upper quadrant pain; Translations: [Right upper quadrant pain] 11-10-2024 Episodic Asthma (7 sources) Asthma-chronic obstructive pulmonary disease overlap syndrome; Translations: [Asthma-chronic obstructive pulmonary disease overlap syndrome] 02-02-2024 Chronic Comment on above: FEV1 37% of predicte d Calculus of urinary tract (20 sources) Renal colic; Translations: [Unspecified renal colic] Onset: 01-10-2023 08-04-2022 Episodic Chronic obstructive pulmonary disease and bronchiectasis (9 sources) Acute exacerbation of chronic obstructive airways disease; Translations: [Chronic obstructive pulmonary disease with (acute) exacerbation] 11-02-2023 Chronic Chronic obstructive pulmonary disease and bronchiectasis (1 source) Chronic obstructive pulmonary disease and bronchiectasis; Translations: [Other specified chronic obstructive pulmonary disease] Onset: 06-18-2024 Disorders of lipid metabolism (1 source) Hyperlipidemia, unspecified; Translations: [Hyperlipidemia, unspecified] Onset: 12-31-2024 Chronic Disorders of teeth and jaw (12 sources) Dental plaque induced gingivitis; Translations: [Chronic gingivitis, plaque induced] 05-10-2022 Chronic Disorders of teeth and jaw (20 sources) Carious exposure of pulp ; Translations: [Dental caries, unspecified] 05-10-2022 Episodic Essential hypertension (12 sources) Hypertensive disorder; Translations: [Essential (primary) hypertension] 08-03-2020 Chronic Headache; including migraine (1 source) Headache; Translations: [Headache, unspecified headache type] Episodic Hepatitis (1 source) Nonalcoholic steatohepatitis; Translations: [Nonalcoholic steatohepatitis (KEITH)] Onset: 05-22-2019 05-22-2019 Chronic Other diseases of kidney and ureters (11 sources) Hydronephrosis; Translations: [Unspecified hydronephrosis] 08-04-2022 Episodic Other eye disorders (6 sources) Subconjunctival hemorrhage; Translations: [Conjunctival hemorrhage, right eye] 08-03-2020 Episodic Other eye disorders (1 source) Disorder of eye; Translations: [Unspecified disorder of eye and adnexa] Episodic Other eye disorders (6 sources) Subconjunctival hemorrhage of right eye; Translations: [Conjunctival hemorrhage, right eye] 08-03-2020 Episodic Other liver diseases (8 sources) Fatty (change of) liver, not elsewhere classified; Translations: [Metabolic dysfunction-associate d steatotic liver disease (MASLD)] Onset: 11-30-2024 11-10-2024 Chronic Other liver diseases (7 sources) Elevated liver enzymes level; Translations: [Abnormal levels of other serum enzymes] 06-30-2024 Episodic Other lower respiratory disease (7 sources) Nodule of lung; Translations: [Solitary pulmonary nodule] 02-02-2024 Episodic Other lower respiratory disease (4 sources) Computed tomography result abnormal; Translations: [Other nonspecific abnormal finding of lung field] 12-09-2023 Episodic Other nutritional; endocrine; and metabolic disorders (7 sources) Rakgc-6-roepxczmcjd deficiency; Translations: [Bfgpk-6-uamggorzkql deficiency] 06-08-2024 Chronic Comment on above: Screening M/Z Other nutritional; endocrine; and metabolic disorders (1 source) Aofhv-5-myvlrdcvpeg deficiency; Translations: [Grdrf-9-fiobouvopzf deficiency] Onset: 06-18-2024 Chronic Other screening for suspected conditions (not mental disorders or infectious disease) (4 sources) Patient encounter status; Translations: [Encounter for screening for malignant neoplasm of respiratory organs] 12-09-2023 Episodic Other upper respiratory disease (12 sources) Cellulitis of external nose ; Translations: [Abscess, furuncle and carbuncle of nose] 12-10-2017 Episodic Other upper respiratory infections (12 sources) Acute sinusitis; Translations: [Acute sinusitis, unspecified] 01-05-2021 Episodic Rehabilitation care; fitting of prostheses; and adjustment of devices (1 source) Encounter for fitting and adjustment of other specified devices; Translations: [Encounter for fitting and adjustment of other specified devices] Onset: 08-20-2024 Chronic Residual codes; unclassified (7 sources) Obstructive sleep apnea syndrome; Translations: [Obstructive sleep apnea (adult) (pediatric)] 09-29-2024 Chronic Residual codes; unclassified (4 sources) Daytime hypersomnia; Translations: [Hypersomnia, unspecified] 06-09-2024 Chronic Residual codes; unclassified (1 source) Hypersomnia, unspecified; Translations: [Hypersomnia, unspecified] Onset: 07-15-2024 Chronic Residual codes; unclassified (1 source) Localized edema; Translations: [Localized edema] Onset: 06-04-2025 Episodic Residual codes; unclassified (1 source) Peripheral edema; Translations: [Localized edema] 06-03-2025 Episodic Respiratory failure; insufficiency; arrest (adult) (12 sources) Acute respiratory failure; Translations: [Acute respiratory failure with hypoxia] 11-02-2023 Episodic Schizophrenia and other psychotic disorders (2 sources) Schizoaffective disorder; Translations: [Schizoaffective disorder, unspecified] Onset: 05-19-2019 05-19-2019 Chronic Screening and history of mental health and substance abuse codes (4 sources) Tobacco use and exposure - finding; Translations: [Personal history of nicotine dependence] 12-09-2023 Episodic Substance-related disorders (4 sources) 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; Translations: [Nicotine dependence, cigarettes, in remission] 12-10-2023 Chronic Past or Other Problems Problem Classification Problem Date Documented Da te Episodic/Chronic Other lower respiratory disease (1 source) Shortness of breath; Translations: [Shortness of breath] Onset: 01-17-2025 Episodic Other lower respiratory disease (1 source) Wheezing; Translations: [Wheezing] Onset: 06-18-2024 Episodic Other lower respiratory disease (1 source) Solitary pulmonary nodule; Translations: [Solitary pulmonary nodule] Onset: 06-18-2024 Episodic Suicide and intentional self-inflicted injury (1 source) Suicidal ideations; Translations: [Suicidal ideations] Onset: 12-21-2024 Episodic Results Test Name Value Interpretation Reference Range Facility Emergency Department Summary on 05-26-2025 Emergency Department Summary [facility] Medical Records Department [address] [place] [address] Emergency Department Summary 05/26/25 MR#: [id number] Acct: [id number] Name: HERVE RAMSEY Rep #: [id number] : 1975 49 From: Yobany Corley DO PCP: Dr. Alma Rosa Cornelius MD Status:DEP ER Location: ED HPI History of Present Illness Chief Complaint: Edema Informant: patient Narrative Narrative: Patient is a 49-year-old male with past medical history of COPD and schizophrenia. He states that he has noticed his legs have been swollen recently. He states that it is swelling to both legs and feet. He denies any trauma. He denies any recent surgery travel or history of DVT/PE. He denies any history of congestive heart failure. He states that his family was concerned based on the swelling and therefore recommended he come in for evaluation. [facility] Medical History Depression Fatty liver Abnormal CT lung screening Lung nodule History of tobacco use Encounter for screening for malignant neoplasm of lung COPD (chronic obstructive pulmonary disease) Kidney stone Schizophrenia Home Medications ???Medication ???Instructions ???Recorded ???Last Taken ???Type brexpiprazole 2 mg tablet (Rexulti) 2 mg PO DAILY uns 10/07/22/08/27 05:00 History albuterol sulfate 90 mcg/actuation 1 inh inhalation Q6H PRN shortne ss 11/04/23 Unknown Rx aerosol inhaler of breath or wheezing #8.5 grams cholecalciferol (vitamin D3) 1,250 1,250 mcg PO QWEEK 4 weeks #4 ta bs 06/30/24 Unknown Rx mcg (50,000 unit) tablet Allergy/AdvReac Type Severity Reaction Status Date / Time brexpiprazole (From Rexulti) Allergy Other Verified 05/25/25 20:22 Family History Father Lymphoma Mother Kidney disease Social History household members: none Smoking Status: Former smoker quit date: 10/30/23 Tobacco: How many years used: 35 alcohol intake: current alcohol intake frequency: holidays/special occasions only substance use type: does not use ROS ROS ED Constitutional Constitutional ED: Denies chills or fever(s) ENT ENT ED: Denies sore throat Cardiovascular Cardiovascular: Denies chest pain Respiratory/Chest Respiratory/Chest: Denies cough or dyspnea Gastrointestinal Gastrointestinal: Denies abdominal pain, diarrhea, nausea or vomiting Musculoskeletal Musculoskeletal: Reports other Details: Positive bilateral leg swelling ; Denies myalgias Integumentary Denies rash Neurologic Neurologic: Denies headache(s) Hematologic/Lymphatic Hematologic/Lymphatic: Denies easy bleeding or easy bruising EXAM Physical Exam Const Vital Signs: 05/25/25 20:22 05/25/25 21:07 05/25/25 22:21 Temperature 96.5 F L Temperature Source Oral Pulse Rate 85 91 Respiratory Rate 18 14 Respiratory Effort Normal Respiratory Pattern Normal Blood Pressure 148/82 H 159/86 H Blood Pressure Mean 104 110 Pulse Ox 96 91 Oxygen Delivery Method Room Air Room Air 05/26/25 00:22 Temperature 97.9 F Temperature Source Pulse Rate 87 Respiratory Rate 16 Respiratory Effort Respiratory Pattern Blood Pressure 127/68 H Blood Pressure Mean 87 Pulse Ox 98 Oxygen Delivery Method Positive well nourished, well developed and obese General Appearance ED: well developed; Negative for pallor Nutritional Appearance: obese HEENT HEENT Narrative: Normocephalic atraumatic Eyes PERRL and EOMs intact bilaterally General Eye ED: Negative for scleral icterus Neck supple and no JVD Resp normal respiratory effort Resp Narrative: Breath sounds are diminished throughout with faint expiratory wheeze and rhonchi in the bilateral bases consistent with history of COPD No signs of respiratory distress No crackles to suggest pleural effusion/CHF Cardio regular rate and regular rhythm Rate: other Other Details: Heart is regular rate and rhythm without murmurs rubs or gallops Radial and carotid pulses are equal and symmetric GI normal to inspection, nondistended, normoactive bowel sounds, non-tender, non-distended and no masses GI Narrative: No fluid wave noted Auscultation: normoactive bowel sounds Palpation: soft Extremity Extremity Narrative: Patient has +3-4 pitting edema to the bilateral lower extremities starting from the dorsum of the feet and extending up to just below the knee The edema is symmetric. Negative Homans' sign bilaterally No overlying soft tissue changes to suggest infection Neuro oriented x3, CN's II-XII intact bilaterally and no sensory deficits noted Sensorium / Orientation: alert Motor Exam: strength 5/5 throughout Psych ment (more content not included)... Normal [facility] Absolute lymphocyte countOrd ered By: Yobany Corley on 05-25-2025 Lymphocytes Auto (Unsp spec) [#/Vol] 2.69 10*3/uL 0.83-4.51 [facility] Absolute neutrophil countOrd ered By: Yobany Corley on 05-25-2025 Neutrophils (Bld) [#/Vol] 4.4 10*3/uL 2.0-7.7 [facility] Anion gap in Serum or Plasma Ordered By: Yobany Corley on 05-25-2025 Anion gap [Moles/Vol] 10 mmol/L 5-15 [facility] Automated lymphocyte count a s percentage of total leukocytesOrdered By: Yobany Corley on 05-25-2025 Lymphocytes/100 WBC Auto (Unsp spec) 33.5 % 19-41 [facility] BUN/creatinine ratioOrdered By: Yobany Corley on 05-25-2025 Urea nitrogen/Creatinine [Mass ratio] 16.4 mg/mg - [facility] Basic Metabolic Profile (BMP )on 05-25-2025 BUN/CRE 16.4 RATIO Normal 05-23 [facility] Comment on above: Performed By: #### L 886.5939, L500.2500, L100.0100 #### [facility] [address] [place], [address] Calcium [Mass/Vol] 8.9 mg/dL Normal 7.6-11.0 [facility] Comment on above: Performed By: #### L 503.7505, L500.2500, L100.0100 #### [facility] [address] [place], [address] Chloride [Moles/Vol] 104 mmol/L Normal 98-108 [facility] Comment on above: Performed By: #### L 503.7505, L500.2500, L100.0100 #### [facility] [address] [place], [address] CO2 [Moles/Vol] 25.1 mmol/L Normal 21.0-32.0 [facility] Comment on above: Performed By: #### L 503.7505, L500.2500, L100.0100 #### [facility] [address] [place], [address] Creatinine [Mass/Vol] 0.73 mg/dL Normal 0.70-1.20 [facility] Comment on above: Performed By: #### L 503.7505, L500.2500, L100.0100 #### [facility] [address] [place], [address] ECRCL 143.81 ml/min Normal 50-250 [facility] Comment on above: Performed By: #### L 503.7505, L500.2500, L100.0100 #### [facility] [address] [place], [address] GAP 10 Normal 5-15 [facility] Comment on above: Performed By: #### L 503.7505, L500.2500, L100.0100 #### [facility] [address] [place], [address] GFR/1.73 sq M.predicted among non-blacks MDRD (S/P/Bld) [Vol rate/Area] 110 mL/min/{1.73_m2} Normal >60 [facility] Comment on above: Result Comment: mL/m in/1.73m2 CKD-EPI Creatinine Equation (2020) Performed By: #### L 503.7505, L500.2500, L100.0100 #### [facility] [address] [place], [address] Glucose [Mass/Vol] 126 mg/dL High 70-99 [facility] Comment on above: Performed By: #### L 503.7505, L500.2500, L100.0100 #### [facility] [address] [place], [address] Potassium [Moles/Vol] 3.4 mmol/L Normal 3.3-5.1 [facility] Comment on above: Performed By: #### L 503.7505, L500.2500, L100.0100 #### [facility] [address] [place], [address] Sodium [Moles/Vol] 139 mmol/L Normal 133-145 [facility] Comment on above: Performed By: #### L 503.7505, L500.2500, L100.0100 #### [facility] [address] [place], [address] Urea nitrogen [Mass/Vol] 12 mg/dL Normal 4-19 [facility] Comment on above: Performed By: #### L 503.7505, L500.2500, L100.0100 #### [facility] [address] [place], [address] Basophil percentageOrdered B y: Yobany Corley on 05-25-2025 Basophils/100 WBC (Bld) 0.9 % 0-1 [facility] CBC W/Diff, Automatedon 05-05 Absolute Lymph 2.69 X10 3/uL Normal 0.83-4.51 [facility] Comment on above: Performed By: #### L 503.7505, L500.2500, L100.0100 #### [facility] [address] [place], [address] Absolute Neut 4.4 X10 3/uL Normal 2.0-7.7 [facility] Comment on above: Performed By: #### L 503.7505, L500.2500, L100.0100 #### [facility] [address] [place], [address] Basophils/100 WBC (Bld) 0.9 % Normal 0-1 [facility] Comment on above: Performed By: #### L 503.7505, L500.2500, L100.0100 #### [facility] [address] [place], [address] Eosinophils/100 WBC (Bld) 1.5 % Normal 0-5 [facility] Comment on above: Performed By: #### L 503.7505, L500.2500, L100.0100 #### [facility] [address] [place], [address] Erythrocyte distribution width (RBC) [Ratio] 13.0 % Normal 11.6-14.6 [facility] Comment on above: Performed By: #### L 503.7505, L500.2500, L100.0100 #### [facility] [address] [place], [address] Hematocrit (Bld) [Volume fraction] 44.4 % Normal 40-54 [facility] Comment on above: Performed By: #### L 503.7505, L500.2500, L100.0100 #### [facility] [address] [place], [address] Hemoglobin (Bld) [Mass/Vol] 15.3 g/dL Normal 13.0-16.5 [facility] Comment on above: Performed By: #### L 503.7505, L500.2500, L100.0100 #### [facility] [address] [place], [address] IG% 0.200 Normal 0.0-0.9 [facility] Comment on above: Result Comment: IG% - Immature Granulocytes (promyelocytes, myelocytes and metamyelocytes) > 1% indicates that a LEFT SHIFT is Present. Performed By: #### L 503.7505, L500.2500, L100.0100 #### [facility] [address] [place], [address] Lymphocytes/100 WBC (Bld) 33.5 % Normal 19-41 [facility] Comment on above: Performed By: #### L 503.7505, L500.2500, L100.0100 #### [facility] [address] [place], [address] MCH (RBC) [Entitic mass] 33.3 pg High 27.0-32.0 [facility] Comment on above: Performed By: #### L 503.7505, L500.2500, L100.0100 #### [facility] [address] [place], [address] MCHC (RBC) [Mass/Vol] 34.5 g/dL Normal 32-36 [facility] Comment on above: Performed By: #### L 503.7505, L500.2500, L100.0100 #### [facility] [address] [place], [address] MCV (RBC) [Entitic vol] 96.5 fL High 80-94 [facility] Comment on above: Performed By: #### L 503.7505, L500.2500, L100.0100 #### [facility] [address] [place], [address] Monocytes/100 WBC (Bld) 9.1 % Normal 0-10 [facility] Comment on above: Performed By: #### L 503.7505, L500.2500, L100.0100 #### [facility] [address] [place], [address] Neutrophils/100 WBC (Bld) 54.8 % Normal 47-70 [facility] Comment on above: Performed By: #### L 503.7505, L500.2500, L100.0100 #### [facility] [address] [place], [address] Nucleated RBC (Bld) [#/Vol] 0 10*3/uL Normal 0-5 [facility] Comment on above: Performed By: #### L 503.7505, L500.2500, L100.0100 #### [facility] [address] [place], [address] Platelet mean volume (Bld) [Entitic vol] 9.0 fL Normal 6.2-12.0 [facility] Comment on above: Performed By: #### L 503.7505, L500.2500, L100.0100 #### [facility] [address] [place], [address] Platelets (Bld) [#/Vol] 178 10*3/uL Normal 150-450 [facility] Comment on above: Performed By: #### L 503.7505, L500.2500, L100.0100 #### [facility] [address] [place], [address] RBC (Bld) [#/Vol] 4.60 10*6/uL Normal 4.6-6.2 [facility] Comment on above: Performed By: #### L 503.7505, L500.2500, L100.0100 #### [facility] [address] [place], [address] RDW SD 46.4 fl High 35.1-43.9 [facility] Comment on above: Performed By: #### L 503.7505, L500.2500, L100.0100 #### [facility] [address] [place], [address] WBC (Bld) [#/Vol] 8.0 10*3/uL Normal 4.4-11.0 [facility] Comment on above: Performed By: #### L 503.7505, L500.2500, L100.0100 #### [facility] [address] [place], [address] Carbon dioxide, total [Moles /volume] in Central venous bloodOrdered By: Yobany Corley on 05-25-2025 CO2 [Moles/Vol] 25.1 mmol/L 21.0-32.0 [facility] Chest PA and Lateralon 05-25 Chest PA and Lateral [facility] Imaging Services [address] [place], [place] [address] Chest PA and Lateral MR#: [id number] Acct: [id number] Name: HERVE RAMSEY Jr. Rep #: [id number] : 1975 M 49 From: Paulino Jason MD PCP: Dr. Alma Rosa Cornelius MD Status: [facility] ER Study: Chest PA and Lateral Date of Exam: 05/25/25 Exam# [id number] Ordering Dr: Yobany Corley DO PROCEDURE: CHEST PA AND LATERAL 05/25/2025 REASON FOR EXAM: COUGH TECHNIQUE: Procedure Code: RADCXR Modality: DX Procedure: CHEST PA AND LATERAL COMPARISON: 01/21/2025. FINDINGS: The heart is normal in size. The lungs are clear. No acute osseous abnormalities. RAD/Chest PA and Lateral IMPRESSION: NO ACUTE FINDINGS. Reading Location: [address] CC: Dr. Alma Rosa Cornelius MD; Yobany Corley DO Drag Out Worker: Signed Normal [facility] Chloride assayOrdered By: Doreen Corley on 05-25-2025 Chloride [Moles/Vol] 104 mmol/L 98-108 [facility] Eosinophil percentageOrdered By: Yobany Corley on 05-25-2025 Eosinophils/100 WBC (Bld) 1.5 % 0-5 [facility] Erythrocyte distribution wid th ratioOrdered By: Yobany Corley on 05-25-2025 Erythrocyte distribution width (RBC) [Ratio] 13.0 % 11.6-14.6 [facility] Erythrocyte distribution wid th standard deviationOrdered By: Yobany Corley on 05-25-2025 Erythrocyte distribution width (RBC) [Ratio] 46.4 fl High 35.1-43.9 [facility] Glomerular filtration rate ( GFR) estimation/1.73 sq m using serum, plasma, or whole bOrdered By: Yobany Corley on 05-25-2025 GFR/1.73 sq M.predicted among non-blacks MDRD (S/P/Bld) [Vol rate/Area] 110 mL/min/{1.73_m2} >60 [facility] Comment on above: mL/min/1.73m2 CKD-EP I Creatinine Equation (2020) Hematocrit Auto (Bld) [Volum e fraction]Ordered By: Yobany Corley on 05-25-2025 Hematocrit (Bld) [Volume fraction] 44.4 % 40-54 [facility] Hemoglobin measurementOrdere d By: Yobany Corley on 05-25-2025 Hemoglobin (Bld) [Mass/Vol] 15.3 g/dL 13.0-16.5 [facility] Immature granulocytes/100 WB C Auto (Bld)Ordered By: Yobany Corley on 05-25-2025 Immature granulocytes/100 WBC (Bld) 0.200 % 0.0-0.9 [facility] Comment on above: IG% - Immature Granu locytes (promyelocytes, myelocytes and metamyelocytes) > 1% indicates that a LEFT SHIFT is Present. MCV (mean corpuscular volume ) determinationOrdered By: Yobany Corley on 05-25-2025 MCV (RBC) [Entitic vol] 96.5 fL High 80-94 [facility] Mean corpuscular hemoglobin (MCH) determinationOrdered By: Yobany Corley 05-25-2025 MCH (RBC) [Entitic mass] 33.3 pg High 27.0-32.0 [facility] Mean corpuscular hemoglobin concentration (MCHC) determinationOrdered By: Yobany Corley 05-25-2025 MCHC (RBC) [Mass/Vol] 34.5 g/dL 32-36 [facility] Mean platelet volume determi nationOrdered By: Yobany Corley on 05-25-2025 Platelet mean volume (Bld) [Entitic vol] 9.0 fL 6.2-12.0 [facility] Monocyte percentageOrdered B y: Yobany Corley on 05-25-2025 Monocytes/100 WBC (Bld) 9.1 % 0-10 [facility] Natriuretic peptide.B prohor randy N-Terminal [Mass/volume] in Serum or PlasmaOrdered By: Yobany Corley on 05-25-2025 Natriuretic peptide.B prohormone N-Terminal [Mass/Vol] 58 pg/mL <900 [facility] Comment on above: Heart Failure Unlike ly: < 300 pg/mLHeart Failure Likely< 50 Years: > 450 pg/mL50-75 Years: > 900 pg/mL>75 Years: > 1800 pg/mL Neutrophil percentageOrdered By: Yobany Corley on 05-25-2025 Neutrophils/100 WBC (Bld) 54.8 % 47-70 [facility] Nucleated red blood cell per centageOrdered By: Yobany Corley on 05-25-2025 Nucleated RBC/100 WBC (Bld) [Ratio] 0 % 0-5 [facility] Platelet countOrdered By: Doreen Corley on 05-25-2025 Platelets (Bld) [#/Vol] 178 10*3/uL 150-450 [facility] Potassium measurement (mass/ volume)Ordered By: Yobany Corley on 05-25-2025 Potassium (Unsp spec) [Mass/Vol] 3.4 mmol/L 3.3-5.1 [facility] Pro- Brain NATRIURETIC PEPTI Paul 05-25-2025 Natriuretic peptide B (Bld) [Mass/Vol] 58 pg/mL Normal <=900 [facility] Comment on above: Result Comment: Hear t Failure Unlikely: < 300 pg/mL Heart Failure Likely < 50 Years: > 450 pg/mL 50-75 Years: > 900 pg/mL >75 Years: > 1800 pg/mL Performed By: #### L 503.7505, L500.2500, L100.0100 #### [facility] [address] [place], [address] RBC Auto (Bld) [#/Vol]Ordere d By: Yobany Corley on 05-25-2025 RBC (Bld) [#/Vol] 4.60 10*6/uL 4.6-6.2 [facility] Serum creatinine measurement (mass/volume)Ordered By: Yobany Corley on 05-25-2025 Creatinine [Mass/Vol] 0.73 mg/dL 0.70-1.20 [facility] Serum glucose measurement (m ass/volume)Ordered By: Yobany Corley on 05-25-2025 Glucose [Mass/Vol] 126 mg/dL High 70-99 [facility] Serum or plasma calcium vladimir urement (mass/volume)Ordered By: Yobany Corley on 05-25-2025 Calcium [Mass/Vol] 8.9 mg/dL 7.6-11.0 [facility] Serum or plasma urea nitroge n measurement (mass/volume)Ordered By: Yobany Corley on 05-25-2025 Urea nitrogen [Mass/Vol] 12 mg/dL 4-19 [facility] Sodium levelOrdered By: Maxx Corley on 05-25-2025 Sodium [Moles/Vol] 139 mmol/L 133-145 [facility] White blood cell (WBC) count Ordered By: Yobany Corley on 05-25-2025 WBC (Bld) [#/Vol] 8.0 10*3/uL 4.4-11.0 [facility] Basic Metabolic Profile (BMP )on 01-11-2025 BUN/CRE 13.2 RATIO Normal - [facility] Comment on above: Performed By: #### L 503.7505, L500.2500, L100.0100 #### [facility] [address] [place], [address] Calcium [Mass/Vol] 8.7 mg/dL Normal 7.6-11.0 [facility] Comment on above: Performed By: #### L 503.7505, L500.2500, L100.0100 #### [facility] [address] [place], [address] Chloride [Moles/Vol] 106 mmol/L Normal 98-108 [facility] Comment on above: Performed By: #### L 503.7505, L500.2500, L100.0100 #### [facility] [address] [place], [address] CO2 [Moles/Vol] 25.0 mmol/L Normal 21.0-32.0 [facility] Comment on above: Performed By: #### L 503.7505, L500.2500, L100.0100 #### [facility] [address] [place], [address] Creatinine [Mass/Vol] 0.82 mg/dL Normal 0.70-1.20 [facility] Comment on above: Performed By: #### L 503.7505, L500.2500, L100.0100 #### [facility] [address] [place], [address] ECRCL 123.27 ml/min Normal 50-250 [facility] Comment on above: Performed By: #### L 503.7505, L500.2500, L100.0100 #### [facility] [address] [place], [address] GAP 9 Normal 5-15 [facility] Comment on above: Performed By: #### L 503.7505, L500.2500, L100.0100 #### [facility] [address] [place], [address] GFR/1.73 sq M.predicted among non-blacks MDRD (S/P/Bld) [Vol rate/Area] 106 mL/min/{1.73_m2} Normal >60 [facility] Comment on above: Result Comment: mL/m in/1.73m2 CKD-EPI Creatinine Equation (2020) Performed By: #### L 503.7505, L500.2500, L100.0100 #### [facility] [address] [place], [address] Glucose [Mass/Vol] 120 mg/dL High 70-99 [facility] Comment on above: Performed By: #### L 503.7505, L500.2500, L100.0100 #### [facility] [address] [place], [address] Potassium [Moles/Vol] 3.8 mmol/L Normal 3.3-5.1 [facility] Comment on above: Performed By: #### L 503.7505, L500.2500, L100.0100 #### [facility] [address] [place], [address] Sodium [Moles/Vol] 140 mmol/L Normal 133-145 [facility] Comment on above: Performed By: #### L 503.7505, L500.2500, L100.0100 #### [facility] [address] [place], [address] Urea nitrogen [Mass/Vol] 11 mg/dL Normal 4-19 [facility] Comment on above: Performed By: #### L 503.7505, L500.2500, L100.0100 #### [facility] [address] [place], [address] CBC W/Diff, Automatedon 06-1 0-2024 Absolute Lymph 3.11 X10 3/uL Normal 0.83-4.51 [facility] Comment on above: Performed By: #### L 503.7505, L500.2500, L100.0100 #### [facility] [address] [place], [address] Absolute Neut 5.8 X10 3/uL Normal 2.0-7.7 [facility] Comment on above: Performed By: #### L 503.7505, L500.2500, L100.0100 #### [facility] [address] [place], [address] Basophils/100 WBC (Bld) 0.7 % Normal 0-1 [facility] Comment on above: Performed By: #### L 503.7505, L500.2500, L100.0100 #### [facility] [address] [place], [address] Eosinophils/100 WBC (Bld) 2.4 % Normal 0-5 [facility] Comment on above: Performed By: #### L 503.7505, L500.2500, L100.0100 #### [facility] [address] [place], [address] Erythrocyte distribution width (RBC) [Ratio] 12.6 % Normal 11.6-14.6 [facility] Comment on above: Performed By: #### L 503.7505, L500.2500, L100.0100 #### [facility] [address] [place], [address] Hematocrit (Bld) [Volume fraction] 43.7 % Normal 40-54 [facility] Comment on above: Performed By: #### L 503.7505, L500.2500, L100.0100 #### [facility] [address] [place], [address] Hemoglobin (Bld) [Mass/Vol] 14.8 g/dL Normal 13.0-16.5 [facility] Comment on above: Performed By: #### L 503.7505, L500.2500, L100.0100 #### [facility] [address] [place], [address] IG% 1.100 High 0.0-0.9 [facility] Comment on above: Result Comment: IG% - Immature Granulocytes (promyelocytes, myelocytes and metamyelocytes) > 1% indicates that a LEFT SHIFT is Present. Performed By: #### L 503.7505, L500.2500, L100.0100 #### [facility] [address] [place], [address] Lymphocytes/100 WBC (Bld) 30.7 % Normal 19-41 [facility] Comment on above: Performed By: #### L 503.7505, L500.2500, L100.0100 #### [facility] [address] [place], [address] MCH (RBC) [Entitic mass] 33.9 pg High 27.0-32.0 [facility] Comment on above: Performed By: #### L 503.7505, L500.2500, L100.0100 #### [facility] [address] [place], [address] MCHC (RBC) [Mass/Vol] 33.9 g/dL Normal 32-36 [facility] Comment on above: Performed By: #### L 503.7505, L500.2500, L100.0100 #### [facility] [address] [place], [address] MCV (RBC) [Entitic vol] 100.0 fL High 80-94 [facility] Comment on above: Performed By: #### L 503.7505, L500.2500, L100.0100 #### [facility] [address] [place], [address] Monocytes/100 WBC (Bld) 7.8 % Normal 0-10 [facility] Comment on above: Performed By: #### L 503.7505, L500.2500, L100.0100 #### [facility] [address] [place], [address] Neutrophils/100 WBC (Bld) 57.3 % Normal 47-70 [facility] Comment on above: Performed By: #### L 503.7505, L500.2500, L100.0100 #### [facility] [address] [place], [address] Nucleated RBC (Bld) [#/Vol] 0 10*3/uL Normal 0-5 [facility] Comment on above: Performed By: #### L 503.7505, L500.2500, L100.0100 #### [facility] [address] [place], [address] Platelet mean volume (Bld) [Entitic vol] 8.8 fL Normal 6.2-12.0 [facility] Comment on above: Performed By: #### L 503.7505, L500.2500, L100.0100 #### [facility] [address] [place], [address] Platelets (Bld) [#/Vol] 195 10*3/uL Normal 150-450 [facility] Comment on above: Performed By: #### L 503.7505, L500.2500, L100.0100 #### [facility] [address] [place], [address] RBC (Bld) [#/Vol] 4.37 10*6/uL Low 4.6-6.2 [facility] Comment on above: Performed By: #### L 503.7505, L500.2500, L100.0100 #### [facility] [address] [place], [address] RDW SD 46.9 fl High 35.1-43.9 [facility] Comment on above: Performed By: #### L 503.7505, L500.2500, L100.0100 #### [facility] [address] [place], [address] WBC (Bld) [#/Vol] 10.1 10*3/uL Normal 4.4-11.0 [facility] Comment on above: Performed By: #### L 503.7505, L500.2500, L100.0100 #### [facility] [address] [place], [address] Emergency Department Summary on 01-11-2025 Emergency Department Summary [facility] Medical Records Department [address] [place] [address] Emergency Department Summary 01/11/25 MR#: [id number] Acct: [id number] Name: HERVE RAMSEY Jr. Rep #: [id number] : 1975 49 From: Anderson Reddy DO PCP: Dr. Alma Rosa Cornelius MD Status:REG ER Location: ED HPI History of Present Illness Chief Complaint: Shortness of Breath Narrative Narrative: Patient is a 49-year-old male with past medical history of depression, COPD, schizophrenia, kidney stones, alpha 1 antitrypsin deficiency, PAT who presents to the emergency department with a chief co mplaint of cough, chest pain and shortness of breath. Patient states that he recently was released from a mental health facility and several individuals there were sick. He states that he tried to isolate himself from these people however he states that will after he got home he noted that he had a scratchy throat and then developed worsening symptoms from there. Patient states that he has been coughing up stuff more than normal and notes that tonight when he got a shower and attempted to put his pajamas on he felt very short of breath he checked his pulse ox and noted that it was 85% prompting him to come here for further evaluation management. When inquiring about the patient's chest pain he states that is when he coughs. [facility] Medical History Depression Fatty liver Abnormal CT [...] 06/30/24 Unknown Rx mcg (50,000 unit) tablet doxycycline hyclate 100 mg capsule 100 mg PO BID #14 caps 01/11/25 Unknown Rx prednisone 50 mg tablet 50 mg PO DAILY 5 days #5 tabs 01/02 Unknown Rx Allergy/AdvReac Type Severity Reaction Status Date / Time brexpiprazole (From [facility]) Allergy Other Verified 01/10/25 23:20 Family History Father Lymphoma Mother Kidney disease Social History household members: none Smoking Status: Former smoker quit date: 10/30/23 Tobacco: How many years used: 35 alcohol intake: current alcohol intake frequency: holidays/special occasions only substance use type: does not use ROS ROS ED ROS Narrative Constitutional: Complains of chills denies fevers Eyes: Denies changes double vision blurry vision Cardiovascular: Complaint of chest pain as noted above denies palpitations Respiratory: Planes of cough and shortness of breath as noted above Abdomen: Denies abdominal pain nausea vomit diarrhea : Denies urinary symptoms Neurological: Denies numbness, weakness, tingling Musculoskeletal: Denies back pain Skin: Denies any rashes or lesions EXAM Physical Exam Narrative Exam Narrative: General: Patient lying in bed rest comfortably did not appear to be in acute distress Head: Atraumatic, normocephalic Eyes: PERRL bilaterally, EOMI bilaterally, no conjunctival injection noted Neck: Soft, supple, trachea midline Cardiovascular: Regular in rhythm no murmurs gallops rubs noted Respiratory: Patient has diminished breath sounds bilaterally Abdomen: Soft, nondistended, tender to palpation Extremities: +5/5 strength noted in the bilateral upper and lower extremities, no pedal edema on exam Neurological: Patient following commands knew that he was at [facility] the year is 2024 Skin: Warm, dry, intact no rashes or lesions noted Const Vital Signs: 01/10/25 23:18 01/10/25 23:19 01/10/25 23:52 Temperature 98.2 F 98.2 F Temperature Source Oral Oral Pulse Rate 82 82 Respiratory Rate 16 16 Respiratory Effort Respiratory Depth Respiratory Pattern Blood Pressure 100/60 100/60 Blood Pressure Mean 73 73 Pulse Ox 95 95 Oxygen Delivery Method Room Air Room Air Room Air 01/10/25 23:55 01/10/25 23:56 01/10/25 23:58 Temperature Temperature Source Pulse Rate 80 Respiratory Rate 20 H Respiratory Effort Normal Normal Respiratory Depth Normal Respiratory Pattern Normal Tachypnea Blood Pressure Blood Pressure Mean Pulse Ox Oxygen Delivery Method Room Air 01/11/25 00:15 01/11/25 00:19 01/11/25 01:00 Temperature 98.2 F Temperature Source Oral Pu (more content not included)... Normal [facility] L499.0042on 01-11-2025 Trop T High Sen 9 ng/L Normal <=22 [facility] Comment on above: Performed By: #### L 499.0042 #### [facility] [address] [place], [address] L499.0043on 01-11-2025 Trop T High Sen Normal <=22 [facility] Comment on above: Result Comment: Canc elled via OM: Order cancelled - Patient discharged Performed By: #### L 499.0043 #### [facility] [address] [place], [address] L501.4021on 01-11-2025 Trop T High Sen 9 ng/L Normal <=22 [facility] Comment on above: Performed By: #### L 503.7505, L500.2500, L100.0100 #### [facility] [address] [place], [address] L503.7505on 01-11-2025 Natriuretic peptide B (Bld) [Mass/Vol] 68 pg/mL Normal <=900 [facility] Comment on above: Result Comment: Hear t Failure Unlikely: < 300 pg/mL Heart Failure Likely < 50 Years: > 450 pg/mL 50-75 Years: > 900 pg/mL >75 Years: > 1800 pg/mL Performed By: #### L 503.7505, L500.2500, L100.0100 #### [facility] [address] [place], [address] Troponin T.cardiac [Mass/vol ume] in Serum or Plasma by High sensitivity methodOrdered By: Anderson Reddy on 01-11-2025 Troponin T.cardiac High sensitivity method [Mass/Vol] 9 ng/L <22 [facility] 12 Lead EKGon 01-10-2025 12 Lead EKG [facility] Cardiovascular Services [address] [place] [address] 12 Lead EKG 01/10/25 2339 MR#: [id number] Acct: [id number] Name: HERVE RAMSEY Jr. Rep #: [id number] : 1975 49 From: Robson Pathak MD Attending Dr: Status: DEP ER Ordering Dr: Anderson Reddy DO Date: 01/10/25 Location: ED Sex: M C Admitted: Test Reason : DYSRHYTHMIA Blood Pressure : */* mmHG Vent. Rate : 77 BPM Atrial Rate : 77 BPM P-R Int : 142 ms QRS Dur : 90 ms QT Int : 382 ms P-R-T Axes : 54 66 47 degrees QTcB Int : 432 ms Normal sinus rhythm Normal ECG Confirmed by Robson Pathak ([id number]), photograph editor JAMIA DIEHL ([id number]) on 01/11/2025 11:17:40 AM Referred By: TB Confirmed By: Robson Pathak 01/11/25 1117 Date Robson Pathak MD CC: Dr. Alma Rosa Cornelius MD; Dr. Anderson Reddy DO Signed Normal [facility] Absolute lymphocyte countOrd ered By: Anderson Reddy on 01-10-2025 Lymphocytes Auto (Unsp spec) [#/Vol] 3.11 10*3/uL 0.83-4.51 [facility] Absolute neutrophil countOrd ered By: Anderson Reddy on 01-10-2025 Neutrophils (Bld) [#/Vol] 5.8 10*3/uL 2.0-7.7 [facility] Anion gap in Serum or Plasma Ordered By: Anderson Reddy on 01-10-2025 Anion gap [Moles/Vol] 9 mmol/L 5-15 [facility] Automated lymphocyte count a s percentage of total leukocytesOrdered By: Anderson Reddy on 01-10-2025 Lymphocytes/100 WBC Auto (Unsp spec) 30.7 % 19-41 [facility] BUN/creatinine ratioOrdered By: Anderson Reddy on 01-10-2025 Urea nitrogen/Creatinine [Mass ratio] 13.2 mg/mg 10-20 [facility] Basophil percentageOrdered B y: Anderson Reddy on 01-10-2025 Basophils/100 WBC (Bld) 0.7 % 0-1 [facility] Carbon dioxide, total [Moles /volume] in Central venous bloodOrdered By: Anderson Reddy on 01-10-2025 CO2 [Moles/Vol] 25.0 mmol/L 21.0-32.0 [facility] Chest PA and Lateralon 01-10 Chest PA and Lateral [facility] Imaging Services [address] [place] [address] [id number] Chest PA and Lateral MR#: [id number] Acct: [id number] Name: HERVE RAMSEY Hillary Castillo. Rep #: [id number] : 1975 M 49 From: Pati flores MD PCP: Dr. Alma Rosa Cornelius MD Status: PRE ER Study: Chest PA and Lateral Date of Exam: 01/10/25 Exam# [id number] Ordering Dr: Anderson Reddy DO PROCEDURE: CHEST PA AND LATERAL 01/11/2025 REASON FOR EXAM: CHEST PAIN TECHNIQUE: Frontal and lateral views of the chest. COMPARISON: CT scan of the chest on 05/17/2024. FINDINGS: The lungs are emphysematous. There is no demonstrated acute parenchymal abnormality. There is no demonstrated pleural abnormality. Normal heart and pericardium. Normal mediastinum and breezy. Normal visualized pulmonary arteries. Normal visualized aortic arch and descending thoracic aorta. Normal visualized thoracic spine. Normal visualized ribs, clavicles, and shoulders. There is no demonstrated abnormality of the visualized soft tissue structures of the upper abdomen. RAD/Chest PA and Lateral IMPRESSION: No radiographic evidence of an acute abnormality. Reading [facility] CC: Dr. Alma Rosa Cornelius MD; Dr. Anderson Reddy DO Drag Out Worker: Signed Normal [facility] Chloride assayOrdered By: Geraldo Reddy on 01-10-2025 Chloride [Moles/Vol] 106 mmol/L 98-108 [facility] Eosinophil percentageOrdered By: Anderson Reddy on 01-10-2025 Eosinophils/100 WBC (Bld) 2.4 % 0-5 [facility] Erythrocyte distribution wid th ratioOrdered By: Anderson Reddy on 01-10-2025 Erythrocyte distribution width (RBC) [Ratio] 12.6 % 11.6-14.6 [facility] Erythrocyte distribution wid th standard deviationOrdered By: Anderson Reddy on 01-10-2025 Erythrocyte distribution width (RBC) [Ratio] 46.9 fl High 35.1-43.9 [facility] Glomerular filtration rate ( GFR) estimation/1.73 sq m using serum, plasma, or whole bOrdered By: Anderson Reddy on 01-10-2025 GFR/1.73 sq M.predicted among non-blacks MDRD (S/P/Bld) [Vol rate/Area] 106 mL/min/{1.73_m2} >60 [facility] Comment on above: mL/min/1.73m2 CKD-EP I Creatinine Equation (2020) Hematocrit Auto (Bld) [Volum e fraction]Ordered By: Anderson Reddy on 01-10-2025 Hematocrit (Bld) [Volume fraction] 43.7 % 40-54 [facility] Hemoglobin measurementOrdere d By: Anderson Reddy on 01-10-2025 Hemoglobin (Bld) [Mass/Vol] 14.8 g/dL 13.0-16.5 [facility] Immature granulocytes/100 WB C Auto (Bld)Ordered By: Anderson Reddy on 01-10-2025 Immature granulocytes/100 WBC (Bld) 1.100 % High 0.0-0.9 [facility] Comment on above: IG% - Immature Granu locytes (promyelocytes, myelocytes and metamyelocytes) > 1% indicates that a LEFT SHIFT is Present. MCV (mean corpuscular volume ) determinationOrdered By: Anderson Reddy on 01-10-2025 MCV (RBC) [Entitic vol] 100.0 fL High 80-94 [facility] Mean corpuscular hemoglobin (MCH) determinationOrdered By: Anderson Reddy on 01-10-2025 MCH (RBC) [Entitic mass] 33.9 pg High 27.0-32.0 [facility] Mean corpuscular hemoglobin concentration (MCHC) determinationOrdered By: Anderson Reddy on 01-10-2025 MCHC (RBC) [Mass/Vol] 33.9 g/dL 32-36 [facility] Mean platelet volume determi nationOrdered By: Anderson Reddy on 01-10-2025 Platelet mean volume (Bld) [Entitic vol] 8.8 fL 6.2-12.0 [facility] Monocyte percentageOrdered B y: Anderson Reddy on 01-10-2025 Monocytes/100 WBC (Bld) 7.8 % 0-10 [facility] Natriuretic peptide.B prohor randy N-Terminal [Mass/volume] in Serum or PlasmaOrdered By: Anderson Reddy on 01-10-2025 Natriuretic peptide.B prohormone N-Terminal [Mass/Vol] 68 pg/mL <900 [facility] Comment on above: Heart Failure Unlike ly: < 300 pg/mLHeart Failure Likely< 50 Years: > 450 pg/mL50-75 Years: > 900 pg/mL>75 Years: > 1800 pg/mL Neutrophil percentageOrdered By: Anderson Reddy on 01-10-2025 Neutrophils/100 WBC (Bld) 57.3 % 47-70 [facility] Nucleated red blood cell per centageOrdered By: Anderson Reddy on 01-10-2025 Nucleated RBC/100 WBC (Bld) [Ratio] 0 % 0-5 [facility] Platelet countOrdered By: Geraldo Reddy on 01-10-2025 Platelets (Bld) [#/Vol] 195 10*3/uL 150-450 [facility] Potassium measurement (mass/ volume)Ordered By: Anderson Reddy on 01-10-2025 Potassium (Unsp spec) [Mass/Vol] 3.8 mmol/L 3.3-5.1 [facility] RBC Auto (Bld) [#/Vol]Ordere d By: Anderson Reddy on 01-10-2025 RBC (Bld) [#/Vol] 4.37 10*6/uL Low 4.6-6.2 [facility] Serum creatinine measurement (mass/volume)Ordered By: Anderson Reddy on 01-10-2025 Creatinine [Mass/Vol] 0.82 mg/dL 0.70-1.20 [facility] Serum glucose measurement (m ass/volume)Ordered By: Anderson Reddy on 01-10-2025 Glucose [Mass/Vol] 120 mg/dL High 70-99 [facility] Serum or plasma calcium vladimir urement (mass/volume)Ordered By: Anderson Reddy on 01-10-2025 Calcium [Mass/Vol] 8.7 mg/dL 7.6-11.0 [facility] Serum or plasma urea nitroge n measurement (mass/volume)Ordered By: Anderson Reddy on 01-10-2025 Urea nitrogen [Mass/Vol] 11 mg/dL 4-19 [facility] Sodium levelOrdered By: Kinza Reddy on 01-10-2025 Sodium [Moles/Vol] 140 mmol/L 133-145 [facility] Troponin T.cardiac [Mass/vol ume] in Serum or Plasma by High sensitivity methodOrdered By: Anderson Reddy on 01-10-2025 Troponin T.cardiac High sensitivity method [Mass/Vol] 9 ng/L <22 [facility] White blood cell (WBC) count Ordered By: Anderson Reddy on 01-10-2025 WBC (Bld) [#/Vol] 10.1 10*3/uL 4.4-11.0 [facility] Absolute lymphocyte countOrd ered By: Chilango Nielsen on 12-15-2024 Lymphocytes Auto (Unsp spec) [#/Vol] 2.05 10*3/uL 0.83-4.51 [facility] Absolute neutrophil countOrd ered By: Chilango Nielsen on 12-15-2024 Neutrophils (Bld) [#/Vol] 5.5 10*3/uL 2.0-7.7 [facility] Alcohol, Blood (Medical)-Ser umon 12-15-2024 SERUM ETOH < 10.1 Normal <=10.0 [facility] Comment on above: Result Comment: This test is for medical purposes only. The legal definition of intoxication varies according to local law. Performed By: #### L 501.9100, L505.5000, L500.2500, L100.0100 #### [facility] [address] [place], [address] Amphetamine detection with 1 000 ng/mL as cutoffOrdered By: Chilango Nielsen on 12-15-2024 Amphetamines Screen method >1000 ng/mL Ql (U) Negative < 200 ng/mL [facility] Anion gap in Serum or Plasma Ordered By: Chilango Nielsen on 12-15-2024 Anion gap [Moles/Vol] 13 mmol/L 12-16 [facility] Automated lymphocyte count a s percentage of total leukocytesOrdered By: Chilango Nielsen on 12-15-2024 Lymphocytes/100 WBC Auto (Unsp spec) 23.9 % [facility] BUN/creatinine ratioOrdered By: Chilango Nielsen on 12-15-2024 Urea nitrogen/Creatinine [Mass ratio] 16.0 mg/mg - [facility] Basic Metabolic Profile (BMP )on 12-15-2024 BUN/CRE 16.0 RATIO Normal - [facility] Comment on above: Performed By: #### L 501.9100, L505.5000, L500.2500, L100.0100 #### [facility] [address] [place], [address] Calcium [Mass/Vol] 8.8 mg/dL Normal 7.6-11.0 [facility] Comment on above: Performed By: #### L 501.9100, L505.5000, L500.2500, L100.0100 #### [facility] [address] [place], [address] Chloride [Moles/Vol] 103 mmol/L Normal 98-108 [facility] Comment on above: Performed By: #### L 501.9100, L505.5000, L500.2500, L100.0100 #### [facility] [address] [place], [address] CO2 [Moles/Vol] 18.9 mmol/L Low 21.0-32.0 [facility] Comment on above: Performed By: #### L 501.9100, L505.5000, L500.2500, L100.0100 #### [facility] [address] [place], [address] Creatinine [Mass/Vol] 0.80 mg/dL Normal 0.70-1.20 [facility] Comment on above: Performed By: #### L 501.9100, L505.5000, L500.2500, L100.0100 #### [facility] [address] [place], [address] ECRCL 125.76 ml/min Normal 50-250 [facility] Comment on above: Performed By: #### L 501.9100, L505.5000, L500.2500, L100.0100 #### [facility] [address] [place], [address] GAP 13 Normal 5-15 [facility] Comment on above: Performed By: #### L 501.9100, L505.5000, L500.2500, L100.0100 #### [facility] [address] [place], [address] GFR/1.73 sq M.predicted among non-blacks MDRD (S/P/Bld) [Vol rate/Area] 107 mL/min/{1.73_m2} Normal >60 [facility] Comment on above: Result Comment: mL/m in/1.73m2 CKD-EPI Creatinine Equation (2020) Performed By: #### L 501.9100, L505.5000, L500.2500, L100.0100 #### [facility] [address] [place], [address] Glucose [Mass/Vol] 292 mg/dL High 70-99 [facility] Comment on above: Performed By: #### L 501.9100, L505.5000, L500.2500, L100.0100 #### [facility] [address] [place], [address] Potassium [Moles/Vol] 3.8 mmol/L Normal 3.3-5.1 [facility] Comment on above: Result Comment: Hemo lysis present, Results??could be affected. ?? Performed By: #### L 501.9100, L505.5000, L500.2500, L100.0100 #### [facility] [address] [place], [address] Sodium [Moles/Vol] 136 mmol/L Normal 133-145 [facility] Comment on above: Performed By: #### L 501.9100, L505.5000, L500.2500, L100.0100 #### [facility] [address] [place], [address] Urea nitrogen [Mass/Vol] 13 mg/dL Normal 4-19 [facility] Comment on above: Performed By: #### L 501.9100, L505.5000, L500.2500, L100.0100 #### [facility] [address] [place], [address] Basophil percentageOrdered B y: Chilango Nielsen on 12-15-2024 Basophils/100 WBC (Bld) 0.9 % 0-1 [facility] CBC W/Diff, Automatedon - Absolute Lymph 2.05 X10 3/uL Normal 0.83-4.51 [facility] Comment on above: Performed By: #### L 501.9100, L505.5000, L500.2500, L100.0100 #### [facility] [address] [place], [address] Absolute Neut 5.5 X10 3/uL Normal 2.0-7.7 [facility] Comment on above: Performed By: #### L 501.9100, L505.5000, L500.2500, L100.0100 #### [facility] [address] [place], [address] Basophils/100 WBC (Bld) 0.9 % Normal 0-1 [facility] Comment on above: Performed By: #### L 501.9100, L505.5000, L500.2500, L100.0100 #### [facility] [address] [place], [address] Eosinophils/100 WBC (Bld) 1.8 % Normal 0-5 [facility] Comment on above: Performed By: #### L 501.9100, L505.5000, L500.2500, L100.0100 #### [facility] [address] [place], [address] Erythrocyte distribution width (RBC) [Ratio] 13.0 % Normal 11.6-14.6 [facility] Comment on above: Performed By: #### L 501.9100, L505.5000, L500.2500, L100.0100 #### [facility] [address] [place], [address] Hematocrit (Bld) [Volume fraction] 46.8 % Normal 40-54 [facility] Comment on above: Performed By: #### L 501.9100, L505.5000, L500.2500, L100.0100 #### [facility] [address] [place], [address] Hemoglobin (Bld) [Mass/Vol] 16.0 g/dL Normal 13.0-16.5 [facility] Comment on above: Performed By: #### L 501.9100, L505.5000, L500.2500, L100.0100 #### [facility] [address] [place], [address] IG% 0.700 Normal 0.0-0.9 [facility] Comment on above: Result Comment: IG% - Immature Granulocytes (promyelocytes, myelocytes and metamyelocytes) > 1% indicates that a LEFT SHIFT is Present. Performed By: #### L 501.9100, L505.5000, L500.2500, L100.0100 #### [facility] [address] [place], [address] Lymphocytes/100 WBC (Bld) 23.9 % Normal 19-41 [facility] Comment on above: Performed By: #### L 501.9100, L505.5000, L500.2500, L100.0100 #### [facility] [address] [place], [address] MCH (RBC) [Entitic mass] 34.3 pg High 27.0-32.0 [facility] Comment on above: Performed By: #### L 501.9100, L505.5000, L500.2500, L100.0100 #### [facility] [address] [place], [address] MCHC (RBC) [Mass/Vol] 34.2 g/dL Normal 32-36 [facility] Comment on above: Performed By: #### L 501.9100, L505.5000, L500.2500, L100.0100 #### [facility] [address] [place], [address] MCV (RBC) [Entitic vol] 100.2 fL High 80-94 [facility] Comment on above: Performed By: #### L 501.9100, L505.5000, L500.2500, L100.0100 #### [facility] [address] [place], [address] Monocytes/100 WBC (Bld) 8.9 % Normal 0-10 [facility] Comment on above: Performed By: #### L 501.9100, L505.5000, L500.2500, L100.0100 #### [facility] [address] [place], [address] Neutrophils/100 WBC (Bld) 63.8 % Normal 47-70 [facility] Comment on above: Performed By: #### L 501.9100, L505.5000, L500.2500, L100.0100 #### [facility] [address] [place], [address] Nucleated RBC (Bld) [#/Vol] 0 10*3/uL Normal 0-5 [facility] Comment on above: Performed By: #### L 501.9100, L505.5000, L500.2500, L100.0100 #### [facility] [address] [place], [address] Platelet mean volume (Bld) [Entitic vol] 9.7 fL Normal 6.2-12.0 [facility] Comment on above: Performed By: #### L 501.9100, L505.5000, L500.2500, L100.0100 #### [facility] [address] [place], [address] Platelets (Bld) [#/Vol] 199 10*3/uL Normal 150-450 [facility] Comment on above: Performed By: #### L 501.9100, L505.5000, L500.2500, L100.0100 #### [facility] [address] [place], [address] RBC (Bld) [#/Vol] 4.67 10*6/uL Normal 4.6-6.2 [facility] Comment on above: Performed By: #### L 501.9100, L505.5000, L500.2500, L100.0100 #### [facility] [address] [place], [address] RDW SD 48.1 fl High 35.1-43.9 [facility] Comment on above: Performed By: #### L 501.9100, L505.5000, L500.2500, L100.0100 #### [facility] [address] [place], [address] WBC (Bld) [#/Vol] 8.6 10*3/uL Normal 4.4-11.0 [facility] Comment on above: Performed By: #### L 501.9100, L505.5000, L500.2500, L100.0100 #### [facility] [address] [place], [address] Carbon dioxide, total [Moles /volume] in Central venous bloodOrdered By: Chilango Nielsen on 12-15-2024 CO2 [Moles/Vol] 18.9 mmol/L Low 21.0-32.0 [facility] Chloride assayOrdered By: Favian Nielsen on 12-15-2024 Chloride [Moles/Vol] 103 mmol/L 98-108 [facility] Emergency Department Summary on 12-15-2024 Emergency Department Summary [facility] Medical Records Department [address] [place] [address] Emergency Department Summary 12/15/24 MR#: [id number] Acct: [id number] Name: HERVE RAMSEY JrNathalia Rep #: [id number] : 1975 49 From: Chilango Nielsen DO PCP: Dr. Alma Rosa Cornelius MD Status:REG ER Location: ED HPI History of Present Illness Chief Complaint: [facility] Medical History Depression Fatty liver Abnormal CT [...] presents with concern for suicide ideation. Per [place] PD patient was found with a gun to his mouth. States he went to kill himself. Patient then states is a misunderstanding. Notes some domestic issues with his "ex". Notes med noncompliance. REVIEW OF SYSTEMS: Pertinent [...] others: [place] Consults: behavioral health social worker delinquency prevention MDM Narrative: The patient was initially tachycardic [...] This excludes (more content not included)... Normal [facility] Eosinophil percentageOrdered By: Chilango Nielsen on 12-15-2024 Eosinophils/100 WBC (Bld) 1.8 % 0-5 [facility] Erythrocyte distribution wid th ratioOrdered By: Chilango Nielsen on 12-15-2024 Erythrocyte distribution width (RBC) [Ratio] 13.0 % 11.6-14.6 [facility] Erythrocyte distribution wid th standard deviationOrdered By: Chilango Nielsen on 12-15-2024 Erythrocyte distribution width (RBC) [Ratio] 48.1 fl High 35.1-43.9 [facility] Glomerular filtration rate ( GFR) estimation/1.73 sq m using serum, plasma, or whole bOrdered By: Chilango Nielsen on 12-15-2024 GFR/1.73 sq M.predicted among non-blacks MDRD (S/P/Bld) [Vol rate/Area] 107 mL/min/{1.73_m2} >60 [facility] Comment on above: mL/min/1.73m2 CKD-EP I Creatinine Equation (2020) Hematocrit Auto (Bld) [Volum e fraction]Ordered By: Chilango Nielsen on 12-15-2024 Hematocrit (Bld) [Volume fraction] 46.8 % 40-54 [facility] Hemoglobin measurementOrdere d By: Chilango Nielsen on 12-15-2024 Hemoglobin (Bld) [Mass/Vol] 16.0 g/dL 13.0-16.5 [facility] Immature granulocytes/100 WB C Auto (Bld)Ordered By: Chilango Nielsen on 12-15-2024 Immature granulocytes/100 WBC (Bld) 0.700 % 0.0-0.9 [facility] Comment on above: IG% - Immature Granu locytes (promyelocytes, myelocytes and metamyelocytes) > 1% indicates that a LEFT SHIFT is Present. MCV (mean corpuscular volume ) determinationOrdered By: Chilango Nielsen on 12-15-2024 MCV (RBC) [Entitic vol] 100.2 fL High 80-94 [facility] Mean corpuscular hemoglobin (MCH) determinationOrdered By: Chilango Nielsen on 12-15-2024 MCH (RBC) [Entitic mass] 34.3 pg High 27.0-32.0 [facility] Mean corpuscular hemoglobin concentration (MCHC) determinationOrdered By: Chilango Nielsen on 12-15-2024 MCHC (RBC) [Mass/Vol] 34.2 g/dL 32-36 [facility] Mean platelet volume determi nationOrdered By: Chilango Nielsen on 12-15-2024 Platelet mean volume (Bld) [Entitic vol] 9.7 fL 6.2-12.0 [facility] Monocyte percentageOrdered B y: Chilango Nielsen on 12-15-2024 Monocytes/100 WBC (Bld) 8.9 % 0-10 [facility] Neutrophil percentageOrdered By: Chilango Nielsen on 12-15-2024 Neutrophils/100 WBC (Bld) 63.8 % 47-70 [facility] No Panel InformationOrdered By: Chilango Nielsen on 12-15-2024 Urine Buprenorphine Qualitative Negative < 200 ng/mL [facility] Urine Oxycodone Screen Negative < 100 ng/mL [facility] Nucleated red blood cell per centageOrdered By: Chilango Nielsen on 12-15-2024 Nucleated RBC/100 WBC (Bld) [Ratio] 0 % 0-5 [facility] Platelet countOrdered By: Favian Nielsen on 12-15-2024 Platelets (Bld) [#/Vol] 199 10*3/uL 150-450 [facility] Potassium measurement (mass/ volume)Ordered By: Chilango Nielsen on 12-15-2024 Potassium (Unsp spec) [Mass/Vol] 3.8 mmol/L 3.3-5.1 [facility] Comment on above: Hemolysis present, R esults could be affected. Quantitative urine opiates m easurementOrdered By: Chilango Nielsen on 12-15-2024 Opiates Ql (U) Negative < 300 ng/mL [facility] RBC Auto (Bld) [#/Vol]Ordere d By: Chilango Nielsen on 12-15-2024 RBC (Bld) [#/Vol] 4.67 10*6/uL 4.6-6.2 [facility] Screening urine fentanyl lisa surementOrdered By: Chilango Nielsen on 12-15-2024 fentaNYL Screen Ql (U) Negative [facility] Serum creatinine measurement (mass/volume)Ordered By: Chilango Nielsen on 12-15-2024 Creatinine [Mass/Vol] 0.80 mg/dL 0.70-1.20 [facility] Serum glucose measurement (m ass/volume)Ordered By: Chilango Nielsen on 12-15-2024 Glucose [Mass/Vol] 292 mg/dL High 70-99 [facility] Serum or plasma calcium vladimir urement (mass/volume)Ordered By: Chilango Nielsen on 12-15-2024 Calcium [Mass/Vol] 8.8 mg/dL 7.6-11.0 [facility] Serum or plasma ethanol vladimir urement (mass/volume)Ordered By: Chilango Nielsen on 12-15-2024 Ethanol [Mass/Vol] mg/dL <10.1 [facility] Comment on above: This test is for med ical purposes only. The legal definition of intoxication varies according to local law. Serum or plasma urea nitroge n measurement (mass/volume)Ordered By: Chilango Nielsen on 12-15-2024 Urea nitrogen [Mass/Vol] 13 mg/dL 4-19 [facility] Sodium levelOrdered By: Sha Nielsen on 12-15-2024 Sodium [Moles/Vol] 136 mmol/L 133-145 [facility] Urine Drug Screen (VISTA)on 12-15-2024 AMPHETAMINES Negative Normal <1000 ng/mL [facility] Comment on above: Performed By: #### L 501.9100, L505.5000, L500.2500, L100.0100 #### [facility] [address] [place] [address] BARBITIURATES Negative Normal < 200 ng/mL [facility] Comment on above: Performed By: #### L 501.9100, L505.5000, L500.2500, L100.0100 #### [facility] [address] [place] [address] BENZODIAZIPINE Negative Normal < 200 ng/mL [facility] Comment on above: Performed By: #### L 501.9100, L505.5000, L500.2500, L100.0100 #### [facility] [address] [place], [facility] BUP Ur Drug Scr Negative Normal < 200 ng/mL [facility] Comment on above: Performed By: #### L 501.9100, L505.5000, L500.2500, L100.0100 #### [facility] [address] [place], [address] COCAINE Negative Normal < 300 ng/mL [facility] Comment on above: Performed By: #### L 501.9100, L505.5000, L500.2500, L100.0100 #### [facility] [address] [place], [address] Fentanyl Negative Normal [facility] Comment on above: Performed By: #### L 501.9100, L505.5000, L500.2500, L100.0100 #### [facility] [address] [place], [address] METHADONE Negative Normal < 300 ng/mL [facility] Comment on above: Performed By: #### L 501.9100, L505.5000, L500.2500, L100.0100 #### [facility] [address] [place], [address] OPIATES Negative Normal < 300 ng/mL [facility] Comment on above: Performed By: #### L 501.9100, L505.5000, L500.2500, L100.0100 #### [facility] [address] [place], [address] OXYCODONE Negative Normal < 100 ng/mL [facility] Comment on above: Performed By: #### L 501.9100, L505.5000, L500.2500, L100.0100 #### [facility] [address] [place], [address] PCP Negative Normal < 25 ng/mL [facility] Comment on above: Performed By: #### L 501.9100, L505.5000, L500.2500, L100.0100 #### [facility] [address] [place], [address] THC Negative Normal < 50 ng/mL [facility] Comment on above: Performed By: #### L 501.9100, L505.5000, L500.2500, L100.0100 #### [facility] [address] [place], [address] Urine benzodiazepine levelOr dered By: Chilango Nielsen on 12-15-2024 Benzodiazepines Ql (U) Negative < 200 ng/mL [facility] Urine cocaine levelOrdered B y: Chilango Nielsen on 12-15-2024 Cocaine Ql (U) Negative < 300 ng/mL [facility] Urine lpbbf-6-sichoucqzjslmk abinol (THC) measurementOrdered By: Chilango Nielsen on 12-15-2024 Cannabinoids Screen Ql (U) Negative < 50 ng/mL [facility] Urine phencyclidine (PCP) de tectionOrdered By: Chilango Nielsen on 12-15-2024 Phencyclidine Ql (U) Negative < 25 ng/mL [facility] White blood cell (WBC) count Ordered By: Chilango Nielsen on 12-15-2024 WBC (Bld) [#/Vol] 8.6 10*3/uL 4.4-11.0 [facility] ABD Limited w/ Elastographyo n 11-26-2024 ABD Limited w/ Elastography [facility] Imaging Services [address] [place] [address] ABD Limited w/ Elastography MR#: [id number] Acct: [id number] Name: HERVE RAMSEY Hillary Hi Rep #: [id number] : 1975 M 49 From: Too caceres MD PCP: Dr. Alma Rosa Cornelius MD Status: REG CLI Study: ABD Limited w/ Elastography Date of Exam: 11/03 12/26 Exam# [id number] Ordering Dr: Get Boggs MD PROCEDURE: ABD [...] measurement may be in question. Reading Location: [place] [address] CC: Dr. Alma Rosa Cornelius MD; Dr. Get Boggs MD Drag Out Worker: Signed Normal [facility] AFP, Tumor Markeron 11-21-19 AFP TUMOR PAIGE 4.7 ng/mL Normal 0.0-8.4 [facility] Comment on above: Order Comment: Test( s) 372439-Fhibee, Serum or Plasmawas developed and its performance characteristicsdetermined by [employer]. It has not been cleared or approvedby the Food and Drug Administration.N Result Comment: [employer] Electrochemiluminescence Immunoassay (ECLIA) Values obtained with different assay methods or kits cannot be used interchangeably. Results cannot be interpreted as absolute evidence of the presence or absence of malignant disease. This test is not interpretable in females. Performed By: #### L 503.7505, L500.2500, L100.0100 #### [facility] [place], [address] Anti-Smooth Muscle ABSon ANTISMOOTH MUSC 6 Units Normal 0-19 [facility] Comment on above: Order Comment: Test( s) 023512-Iqixep, Serum or Plasmawas developed and its performance characteristicsdetermined by [facility]. It has not been cleared or approvedby the Food and Drug Administration. Result Comment: Nega tive 0 - 19 Weak positive 20 - 30 Moderate to strong positive >30 Actin Antibodies are found in 52-85% of patients with autoimmune hepatitis or chronic active hepatitis and in 22% of patients with primary biliary cirrhosis. Performed By: #### L 503.7505, L500.2500, L100.0100 #### [facility] [address] [place], [address] Ceruloplasminon 11-20-2024 CERULOPLASMIN 23.4 mg/dL Normal 16.0-31.0 [facility] Comment on above: Order Comment: Test( s) 047212-Sqyjzu, Serum or Plasmawas developed and its performance characteristicsdetermined by [email or web address]. It has not been cleared or approvedby the Food and Drug Administration. Performed By: #### L 503.7505, L500.2500, L100.0100 #### [facility] [address] [place], [place], [address] Copper, Serum or Plasmaon COPPER, SERUM 92 ug/dL Normal 69-132 [facility] Comment on above: Order Comment: Test( s) 396498-Duraoa, Serum or Plasmawas developed and its performance characteristicsdetermined by [email or web address]. It has not been cleared or approvedby the Food and Drug Administration. Result Comment: Dete ction Limit = 5 Performed at: [address] [id number] Sterile Supervisor: Diaz Perdomo PhD, Phone: [phone] Performed at: [address] [id number] Sterile Supervisor: Gabi Funes MD, Phone: [phone] Performed By: #### L 503.7505, L500.2500, L100.0100 #### [facility] [address] [place], [address] Hepatitis Panel Acuteon - COMMENT Comment Normal . [facility] Comment on above: Order Comment: Test( s) 147740-Lyforz, Serum or Plasmawas developed and its performance characteristicsdetermined by [facility]. It has not been cleared or approvedby the Food and Drug Administration. Result Comment: Not infected with HCV unless early or acute infection is suspected (which may be delayed in an immunocompromised individual), or other evidence exists to indicate HCV infection. Performed By: #### L 503.7505, L500.2500, L100.0100 #### [facility] [address] [place], [address] HEP B CORE,IgM Negative Normal Negative [facility] Comment on above: Order Comment: Test( s) 536968-Vrngvi, Serum or Plasmawas developed and its performance characteristicsdetermined by [facility]. It has not been cleared or approvedby the Food and Drug Administration. Performed By: #### L 503.7505, L500.2500, L100.0100 #### [facility] [address] [place], [address] HEP B SURF AG Negative Normal Negative [facility] Comment on above: Order Comment: Test( s) 560694-Hqqzyc, Serum or Plasmawas developed and its performance characteristicsdetermined by [facility]. It has not been cleared or approvedby the Food and Drug Administration. Performed By: #### L 503.7505, L500.2500, L100.0100 #### [facility] [address] [place], [address] HEP C VIRUS AB Non-Reactive Normal Non Reactive [facility] Comment on above: Order Comment: Test( s) 427134-Kkhqrs, Serum or Plasmawas developed and its performance characteristicsdetermined by [facility]. It has not been cleared or approvedby the Food and Drug Administration. Performed By: #### L 503.7505, L500.2500, L100.0100 #### [facility] [address] [place], [address] HEPATITIS A-IgM Negative Normal Negative [facility] Comment on above: Order Comment: Test( s) 679259-Bjxufw, Serum or Plasmawas developed and its performance characteristicsdetermined by [employer]. It has not been cleared or approvedby the Food and Drug Administration. Result Comment: A ne gative anti-HAV IgM result suggests no recent or current HAV infection. Performed By: #### L 503.7505, L500.2500, L100.0100 #### [facility] [address] [place], [address] HERBERT + Protein Elect, Serumon 11-20-2024 Albumin [Mass/Vol] 3.4 g/dL Normal 2.9-4.4 [facility] Comment on above: Order Comment: Test( s) 753089-Tetvug, Serum or Plasmawas developed and its performance characteristicsdetermined by [employer]. It has not been cleared or approvedby the Food and Drug Administration.N Performed By: #### L 503.7505, L500.2500, L100.0100 #### [facility] [address] [place], [address] Albumin/Globulin [Mass ratio] 1.0 {ratio} Normal 0.7-1.7 [facility] Comment on above: Order Comment: Test( s) 233519-Vzlfps, Serum or Plasmawas developed and its performance characteristicsdetermined by [employer]. It has not been cleared or approvedby the Food and Drug Administration.N Performed By: #### L 503.7505, L500.2500, L100.0100 #### [facility] [address] [place], [address] ZYOBF-7-VITO 0.2 g/dL Normal 0.0-0.4 [facility] Comment on above: Order Comment: Test( s) 207046-Oejidy, Serum or Plasmawas developed and its performance characteristicsdetermined by [employer]. It has not been cleared or approvedby the Food and Drug Administration.N Performed By: #### L 503.7505, L500.2500, L100.0100 #### [facility] [address] [place], [address] YWKLK-9-FCIS 0.7 g/dL Normal 0.4-1.0 [facility] Comment on above: Order Comment: Test( s) 536373-Yiiads, Serum or Plasmawas developed and its performance characteristicsdetermined by [employer]. It has not been cleared or approvedby the Food and Drug Administration.N Performed By: #### L 503.7505, L500.2500, L100.0100 #### [facility] [address] [place], [address] BETA GLOBULIN 1.4 g/dL High 0.7-1.3 [facility] Comment on above: Order Comment: Test( s) 794060-Bbisss, Serum or Plasmawas developed and its performance characteristicsdetermined by [employer]. It has not been cleared or approvedby the Food and Drug Administration.N Performed By: #### L 503.7505, L500.2500, L100.0100 #### [facility] [address] [place], [address] GAMMA GLOBULIN 1.4 g/dL Normal 0.4-1.8 [facility] Comment on above: Order Comment: Test( s) 693869-Anzqnb, Serum or Plasmawas developed and its performance characteristicsdetermined by [employer]. It has not been cleared or approvedby the Food and Drug Administration.N Performed By: #### L 503.7505, L500.2500, L100.0100 #### [facility] [address] [place], [address] Globulin (S) [Mass/Vol] 3.7 g/dL Normal 2.2-3.9 [facility] Comment on above: Order Comment: Test( s) 386504-Rxhjhh, Serum or Plasmawas developed and its performance characteristicsdetermined by [employer]. It has not been cleared or approvedby the Food and Drug Administration.N Performed By: #### L 503.7505, L500.2500, L100.0100 #### [facility] [address] [place], [address] HERBERT RESULT,S Comment Normal . [facility] Comment on above: Order Comment: Test( s) 204970-Sfwrok, Serum or Plasmawas developed and its performance characteristicsdetermined by [employer]. It has not been cleared or approvedby the Food and Drug Administration.N Result Comment: No m onoclonality detected. Performed By: #### L 503.7505, L500.2500, L100.0100 #### [facility] [address] [place], [address] IMMUNOGLOB A QN 590 mg/dL High 90-386 [facility] Comment on above: Order Comment: Test( s) 015735-Ozwbsv, Serum or Plasmawas developed and its performance characteristicsdetermined by [employer]. It has not been cleared or approvedby the Food and Drug Administration.N Performed By: #### L 503.7505, L500.2500, L100.0100 #### [facility] [address] [place], [address] IMMUNOGLOB G QN 1517 mg/dL Normal 603-1613 [facility] Comment on above: Order Comment: Test( s) 492943-Appxkg, Serum or Plasmawas developed and its performance characteristicsdetermined by [employer]. It has not been cleared or approvedby the Food and Drug Administration.N Performed By: #### L 503.7505, L500.2500, L100.0100 #### [facility] [address] [place], [address] IMMUNOGLOB M QN 213 mg/dL High 20-172 [facility] Comment on above: Order Comment: Test( s) 504621-Uoxbvi, Serum or Plasmawas developed and its performance characteristicsdetermined by [employer]. It has not been cleared or approvedby the Food and Drug Administration.N Performed By: #### L 503.7505, L500.2500, L100.0100 #### [facility] [address] [place], [address] M-Mustapha Not Observed Normal Not Observed [facility] Comment on above: Order Comment: Test( s) 017295-Iqtsng, Serum or Plasmawas developed and its performance characteristicsdetermined by [employer]. It has not been cleared or approvedby the Food and Drug Administration.N Performed By: #### L 503.7505, L500.2500, L100.0100 #### [facility] [address] [place], [address] NOTE: Comment Normal . [facility] Comment on above: Order Comment: Test( s) 415052-Zouqhb, Serum or Plasmawas developed and its performance characteristicsdetermined by [employer]. It has not been cleared or approvedby the Food and Drug Administration.N Result Comment: Prot ein electrophoresis scan will follow via computer, mail, or machine bender delivery. Performed By: #### L 503.7505, L500.2500, L100.0100 #### [facility] [address] [place], [address] Protein [Mass/Vol] 7.1 g/dL Normal 6.0-8.5 [facility] Comment on above: Order Comment: Test( s) 239336-Xplxzi, Serum or Plasmawas developed and its performance characteristicsdetermined by [employer]. It has not been cleared or approvedby the Food and Drug Administration.N Performed By: #### L 503.7505, L500.2500, L100.0100 #### [facility] [address] [place], [address] Immunoglobulins G/A/M/Meliton IMMUNOGLOB E QN 56 IU/mL Normal 6-495 [facility] Comment on above: Order Comment: Test( s) 138789-Fqwcev, Serum or Plasmawas developed and its performance characteristicsdetermined by [employer]. It has not been cleared or approvedby the Food and Drug Administration.N Performed By: #### L 503.7505, L500.2500, L100.0100 #### [facility] [address] [place], [place], [address] L501.5101on 11-20-2024 GGTP 69 IU/L Abnormal 0-65 [facility] Comment on above: Order Comment: Test( s) 126398-Bbdenm, Serum or Plasmawas developed and its performance characteristicsdetermined by [facility]. It has not been cleared or approvedby the Food and Drug Administration. Performed By: #### L 503.7505, L500.2500, L100.0100 #### [facility] [address] [place], [place], [address] [facility].on 11-19-2024 [facility]. COMMENT Normal . [facility] Comment on above: Order Comment: 92048 3RED SERUM RT POUR OFF Result Comment: Test Ordered: 074998 Fvusp-9-Kqxntefjxkh Phenotyp Fgpzg-5-Gfkqzmmhter, Serum mg/dL CB Reference Range: . Please refer to the following specimen for additional lab results. Please refer to [phone] for results. Phenotype (PI) NOLAB Reference Range: . Test not performed Performed at: [address] [id number] Sterile Supervisor: Diaz Perdomo PhD, Phone: [phone]. AMENDED REPORT 11/19/24 1146 [facility].4 previously reported as: COMMENT Test Ordered: 322430 Mjdjy-0-Nsfvqmabayu Phenotyp Jpotm-2-Ovcnghbawtg, Serum mg/dL CB Reference Range: . Please refer to the following specimen for additional lab results. Please refer to [phone] for results. Phenotype (PI) NOLAB Reference Range: . Test not performed Performed at: [address] [id number] Sterile Supervisor: Diaz Perdomo PhD, Phone: [phone] Performed By: #### L 503.7505, L500.2500, L100.0100 #### [facility] [address] [place], [place], [address] [place] w/ Reflex Mult Confirmon 11-15-2024 [place],DIRECT Negative Normal Negative [facility] Comment on above: Result Comment: Perf ormed at: CB - [facility] [place] [address] [place], [place] [id number] Sterile Supervisor: Diaz Perdomo PhD, Phone: [phone] Performed By: #### L 800.1280, L506.0200, L100.0100, L3100.5450, L803.2200, L3400.0700, L501.5101, L3890.6006, L501.9985, L506.0400, L300.3900, L3300.0700, L3100.3425, L503.6550, L504.2610, L503.0106, L503.6030, L3000.0375, L500.4100, L501.6710, L501.9520, L3410.9998, L3890.6202, L3300.0100, L3200.1100, L500.4050 #### [facility] [address] [place], [place], [address] Anti-Mitochondrial ABon - ANTIMITOCHON AB <20.0 Normal 0.0-20.0 [facility] Comment on above: Result Comment: Nega tive 0.0 - 20.0 Equivocal 20.1 - 24.9 Positive >24.9 Mitochondrial (M2) Antibodies are found in 90-96% of patients with primary biliary cirrhosis. Performed By: #### L 503.7505, L500.2500, L100.0100 #### [facility] [address] [place], [place], [address] [place] serumOrdered By: Get Boggs on 11-12-2024 Anti-Nuclear Antibody Screen Negative Negative [facility] Comment on above: Performed at: CB - [facility] [id number] [place], [place] [id number] Director: Diaz Perdomo PhD, Phone: [phone] Absolute lymphocyte countOrd ered By: Get Boggs on 11-12-2024 Lymphocytes Auto (Unsp spec) [#/Vol] 2.99 10*3/uL 0.83-4.51 [facility] Absolute neutrophil countOrd ered By: Get Boggs on 11-12-2024 Neutrophils (Bld) [#/Vol] 7.0 10*3/uL 2.0-7.7 [facility] Albumin Elph [Mass/Vol]Order ed By: Get Boggs on 11-12-2024 Albumin [Mass/Vol] 3.4 g/dL 2.9-4.4 [facility] Anion gap in Serum or Plasma Ordered By: Get Boggs on 11-12-2024 Anion gap [Moles/Vol] 11 mmol/L 5-15 [facility] Automated lymphocyte count a s percentage of total leukocytesOrdered By: Get Boggs on 11-12-2024 Lymphocytes/100 WBC Auto (Unsp spec) 26.9 % 19-41 [facility] BUN/creatinine ratioOrdered By: Get Boggs on 11-12-2024 Urea nitrogen/Creatinine [Mass ratio] 14.4 mg/mg 10-20 [facility] Basophil percentageOrdered B y: Get Boggs on 11-12-2024 Basophils/100 WBC (Bld) 0.8 % 0- [facility] Bilirubin, totalOrdered By: Get Boggs on 11-12-2024 Bilirubin [Mass/Vol] 0.82 mg/dL 0.00-1.30 [facility] CBC W/Diff, Automatedon 11-02 Absolute Lymph 2.99 X10 3/uL Normal 0.83-4.51 [facility] Comment on above: Performed By: #### L 503.7505, L500.2500, L100.0100 #### [facility] [address] [place], [place], [address] Absolute Neut 7.0 X10 3/uL Normal 2.0-7.7 [facility] Comment on above: Performed By: #### L 503.7505, L500.2500, L100.0100 #### [facility] [address] [place], [address] Basophils/100 WBC (Bld) 0.8 % Normal 0-1 [facility] Comment on above: Performed By: #### L 503.7505, L500.2500, L100.0100 #### [facility] [address] [place], [address] Eosinophils/100 WBC (Bld) 1.9 % Normal 0-5 [facility] Comment on above: Performed By: #### L 503.7505, L500.2500, L100.0100 #### [facility] [address] [place], [address] Erythrocyte distribution width (RBC) [Ratio] 13.1 % Normal 11.6-14.6 [facility] Comment on above: Performed By: #### L 503.7505, L500.2500, L100.0100 #### [facility] [address] [place], [address] Hematocrit (Bld) [Volume fraction] 45.1 % Normal 40-54 [facility] Comment on above: Performed By: #### L 503.7505, L500.2500, L100.0100 #### [facility] [address] [place], [address] Hemoglobin (Bld) [Mass/Vol] 15.5 g/dL Normal 13.0-16.5 [facility] Comment on above: Performed By: #### L 503.7505, L500.2500, L100.0100 #### [facility] [address] [place], [address] IG% 0.500 Normal 0.0-0.9 [facility] Comment on above: Result Comment: IG% - Immature Granulocytes (promyelocytes, myelocytes and metamyelocytes) > 1% indicates that a LEFT SHIFT is Present. Performed By: #### L 503.7505, L500.2500, L100.0100 #### [facility] [address] [place], [address] Lymphocytes/100 WBC (Bld) 26.9 % Normal 19-41 [facility] Comment on above: Performed By: #### L 503.7505, L500.2500, L100.0100 #### [facility] [address] [place], [address] MCH (RBC) [Entitic mass] 33.8 pg High 27.0-32.0 [facility] Comment on above: Performed By: #### L 503.7505, L500.2500, L100.0100 #### [facility] [address] [place], [address] MCHC (RBC) [Mass/Vol] 34.4 g/dL Normal 32-36 [facility] Comment on above: Performed By: #### L 503.7505, L500.2500, L100.0100 #### [facility] [address] [place], [address] MCV (RBC) [Entitic vol] 98.5 fL High 80-94 [facility] Comment on above: Performed By: #### L 503.7505, L500.2500, L100.0100 #### [facility] [address] [place], [address] Monocytes/100 WBC (Bld) 7.5 % Normal 0-10 [facility] Comment on above: Performed By: #### L 503.7505, L500.2500, L100.0100 #### [facility] [address] [place], [address] Neutrophils/100 WBC (Bld) 62.4 % Normal 47-70 [facility] Comment on above: Performed By: #### L 503.7505, L500.2500, L100.0100 #### [facility] [address] [place], [address] Nucleated RBC (Bld) [#/Vol] 0 10*3/uL Normal 0-5 [facility] Comment on above: Performed By: #### L 503.7505, L500.2500, L100.0100 #### [facility] [address] [place], [address] Platelet mean volume (Bld) [Entitic vol] 8.9 fL Normal 6.2-12.0 [facility] Comment on above: Performed By: #### L 503.7505, L500.2500, L100.0100 #### [facility] [address] [place], [address] Platelets (Bld) [#/Vol] 246 10*3/uL Normal 150-450 [facility] Comment on above: Performed By: #### L 503.7505, L500.2500, L100.0100 #### [facility] [address] [place], [address] RBC (Bld) [#/Vol] 4.58 10*6/uL Low 4.6-6.2 [facility] Comment on above: Performed By: #### L 503.7505, L500.2500, L100.0100 #### [facility] [address] [place], [address] RDW SD 47.0 fl High 35.1-43.9 [facility] Comment on above: Performed By: #### L 503.7505, L500.2500, L100.0100 #### [facility] [address] [place], [address] WBC (Bld) [#/Vol] 11.1 10*3/uL High 4.4-11.0 [facility] Comment on above: Performed By: #### L 503.7505, L500.2500, L100.0100 #### [facility] [address] [place], [address] CRPon 11-12-2024 C-REACTIVE PROT 6.42 mg/L High 0.0-3.0 [facility] Comment on above: Performed By: #### L 503.7505, L500.2500, L100.0100 #### [facility] [address] [place], [address] CRP [Mass/Vol]Ordered By: Jaime Boggs on 11-12-2024 C-Reactive Protein Extended Range 6.42 mg/L High 0.0-3.0 [facility] Calculated total iron bindin g capacityOrdered By: Get Boggs on 11-12-2024 Total Iron Binding Capacity 240 ug/dL Low 250-450 [facility] Calculated very low density lipoprotein (VLDL) cholesterol measurementOrdered By: Get Boggs on 11-12-2024 Calculated very low density lipoprotein (VLDL) cholesterol measurement 35 mg/dL 5-40 [facility] VLDL Cholesterol 35 mg/dL 5-40 [facility] Carbon dioxide, total [Moles /volume] in Central venous bloodOrdered By: Get Boggs on 11-12-2024 CO2 [Moles/Vol] 26.3 mmol/L 21.0-32.0 [facility] Centromere B antibody assayO rdered By: Get Boggs on 11-12-2024 [facility] on above: Test not performed Chloride assayOrdered By: Jaime Boggs on 11-12-2024 Chloride [Moles/Vol] 105 mmol/L 98-108 [facility] Chromatin antibody assayOrde red By: Get Boggs on 11-12-2024 Antichromatin Antibodies TNP [facility] Comment on above: Test not performed Comprehensive Metabolic Prof ilon 11-12-2024 Albumin [Mass/Vol] 4.0 g/dL Normal 3.5-5.0 [facility] Comment on above: Performed By: #### L 503.7505, L500.2500, L100.0100 #### [facility] [address] [place], [address] Albumin/Globulin [Mass ratio] 1.2 {ratio} Normal 0.9-2.4 [facility] Comment on above: Performed By: #### L 503.7505, L500.2500, L100.0100 #### [facility] [address] [place], [address] ALK PHOS 109 U/L Normal 40-129 [facility] Comment on above: Performed By: #### L 503.7505, L500.2500, L100.0100 #### [facility] [address] [place], [address] ALT [Catalytic activity/Vol] 86 U/L High <=46 [facility] Comment on above: Performed By: #### L 503.7505, L500.2500, L100.0100 #### [facility] [address] [place], [address] AST [Catalytic activity/Vol] 69 U/L High <=37 [facility] Comment on above: Performed By: #### L 503.7505, L500.2500, L100.0100 #### [facility] [address] [place], [address] Bilirubin [Mass/Vol] 0.82 mg/dL Normal 0.00-1.30 [facility] Comment on above: Performed By: #### L 503.7505, L500.2500, L100.0100 #### [facility] [address] [place], [address] BUN/CRE 14.4 RATIO Normal 10-20 [facility] Comment on above: Performed By: #### L 503.7505, L500.2500, L100.0100 #### [facility] [address] [place], [address] Calcium [Mass/Vol] 9.1 mg/dL Normal 7.6-11.0 [facility] Comment on above: Performed By: #### L 503.7505, L500.2500, L100.0100 #### [facility] [address] [place], [address] Chloride [Moles/Vol] 105 mmol/L Normal 98-108 [facility] Comment on above: Performed By: #### L 503.7505, L500.2500, L100.0100 #### [facility] [address] [place], [address] CO2 [Moles/Vol] 26.3 mmol/L Normal 21.0-32.0 [facility] Comment on above: Performed By: #### L 503.7505, L500.2500, L100.0100 #### [facility] [address] [place], [address] Creatinine [Mass/Vol] 0.74 mg/dL Normal 0.70-1.20 [facility] Comment on above: Performed By: #### L 503.7505, L500.2500, L100.0100 #### [facility] [address] [place], [address] GAP 11 Normal 5-15 [facility] Comment on above: Performed By: #### L 503.7505, L500.2500, L100.0100 #### [facility] [address] [place], [address] GFR/1.73 sq M.predicted among non-blacks MDRD (S/P/Bld) [Vol rate/Area] 110 mL/min/{1.73_m2} Normal >60 [facility] Comment on above: Result Comment: mL/m in/1.73m2 CKD-EPI Creatinine Equation (2020) Performed By: #### L 503.7505, L500.2500, L100.0100 #### [facility] [address] [place], [address] Globulin (S) [Mass/Vol] 3.4 g/dL Normal 2.2-4.2 [facility] Comment on above: Performed By: #### L 503.7505, L500.2500, L100.0100 #### [facility] [address] [place], [address] Glucose [Mass/Vol] 88 mg/dL Normal 70-99 [facility] Comment on above: Performed By: #### L 503.7505, L500.2500, L100.0100 #### [facility] [address] [place], [address] Potassium [Moles/Vol] 3.9 mmol/L Normal 3.3-5.1 [facility] Comment on above: Performed By: #### L 503.7505, L500.2500, L100.0100 #### [facility] [address] [place], [address] Sodium [Moles/Vol] 143 mmol/L Normal 133-145 [facility] Comment on above: Performed By: #### L 503.7505, L500.2500, L100.0100 #### [facility] [address] [place], [address] T PROT 7.4 g/dL Normal 5.9-8.4 [facility] Comment on above: Performed By: #### L 503.7505, L500.2500, L100.0100 #### [facility] [address] [place], [address] Urea nitrogen [Mass/Vol] 11 mg/dL Normal 4-19 [facility] Comment on above: Performed By: #### L 503.7505, L500.2500, L100.0100 #### [facility] [address] [place], [address] DNA double strand Ab Qn (S)O rdered By: Get Boggs on 04-11-2025 Anti-Double Strand DNA Antibody TNP [facility] Comment on above: Test not performed Eosinophil percentageOrdered By: Get Boggs on 11-12-2024 Eosinophils/100 WBC (Bld) 1.9 % 0-5 [facility] Erythrocyte distribution wid th (RBC) [Ratio]Ordered By: Get Boggs on 11-12-2024 Erythrocyte distribution width (RBC) [Entitic vol] 47.0 fL High 35.1-43.9 [facility] Erythrocyte distribution wid th ratioOrdered By: Get Boggs on 11-12-2024 Erythrocyte distribution width (RBC) [Ratio] 13.1 % 11.6-14.6 [facility] Erythrocyte distribution wid th standard deviationOrdered By: Get Boggs on 11-12-2024 Erythrocyte distribution width (RBC) [Ratio] 47.0 fl High 35.1-43.9 [facility] Ferritinon 11-12-2024 Ferritin [Mass/Vol] 871 ng/mL High 37-417 [facility] Comment on above: Performed By: #### L 503.7505, L500.2500, L100.0100 #### [facility] [address] [place], [place], [id number] Folate [Moles/Vol]Ordered By : Get Boggs on 11-12-2024 Serum Folate 7.39 ng/mL 4.60-34.80 [facility] Comment on above: Hemolysis, Results w ill be affected, Requires Recollection. Folate [Moles/volume] in Ser um or PlasmaOrdered By: Get Boggs on 11-12-2024 Folate [Moles/Vol] 7.39 ng/mL 4.60-34.80 [facility] Comment on above: Hemolysis, Results w ill be affected, Requires Recollection. Folates,Serum (Folic Acid)on 11-12-2024 FOLATES,SERUM 7.39 ng/mL Normal 4.60-34.80 [facility] Comment on above: Order Comment: N Result Comment: Hemo lysis, Results will be affected, Requires Recollection. Performed By: #### L 503.7505, L500.2500, L100.0100 #### [facility] [address] [place], [place], [id number] GFR/1.73 sq M.predicted berta g non-blacks MDRD (S/P/Bld) [Vol rate/Area]Ordered By: Get Boggs on 11-12-2024 Estimated GFR (MDRD) Non-Af Amer 110 >60 [facility] Comment on above: mL/min/1.73m2 CKD-EP I Creatinine Equation (2020) Gamma glutamyl transferase ( GGT) measurementOrdered By: Get Boggs on 11-12-2024 Amylase [Catalytic activity/Vol] 69 U/L High 0-65 [facility] Glomerular filtration rate ( GFR) estimation/1.73 sq m using serum, plasma, or whole bOrdered By: Get Boggs on 11-12-2024 GFR/1.73 sq M.predicted among non-blacks MDRD (S/P/Bld) [Vol rate/Area] 110 mL/min/{1.73_m2} >60 [facility] Comment on above: mL/min/1.73m2 CKD-EP I Creatinine Equation (2020) HBV surface Ab Ql (S)Ordered By: Get Boggs on 11-12-2024 Hepatitis B Surface Antibody Non-Reactive [facility] Comment on above: <8.5 mIU/mL: Non-Herminia ctive8.5<= x <11.5 mIU/mL: Indeterminate>=11.5 mIU/mL: Reactive Non Reactive: Inconsistent with immunity less than <10 mIU/mL Reactive: Consistent with immunity greater than or equal to 10 mIU/mL HIVon 11-12-2024 HIV Non-Reactive Normal Nonreactive [facility] Comment on above: Result Comment: Non- Reactive Reactive Repeatedly reactive samples must be confirmed according to CDC recommended confirmatory algorithms. The subresults for either HIVAG or AHIV can be used as an aid in the selection of the confirmation algorithm for reactive samples. Send out specimens with Reactive results to [facility] for confirmation. Order the HIV antibody detection and differentiation: lc#[id number] Performed By: #### L 503.7505, L500.2500, L100.0100 #### [facility] [address] [place], [address] Hematocrit Auto (Bld) [Volum e fraction]Ordered By: Get Boggs on 11-12-2024 Hematocrit (Bld) [Volume fraction] 45.1 % 40-54 [facility] Hemoglobin A1con 11-12-2024 HbA1c (Bld) [Mass fraction] 5.6 % Normal <=5.6 [facility] Comment on above: Result Comment: Norm al < 5.7 % Prediabetic 5.7 - 6.4 % Diabetic >or= 6.5 % Please note range changes. Performed By: #### L 503.7505, L500.2500, L100.0100 #### [facility] [address] [place], [address] Hemoglobin A1c percentageOrd ered By: Get Boggs on 11-12-2024 HbA1c (Bld) [Mass fraction] 5.6 % <5.7 [facility] Comment on above: Normal < 5.7 % Predi abetic 5.7 - 6.4 % Diabetic >or= 6.5 % Please note range changes. Hemoglobin measurementOrdere d By: Get Boggs on 11-12-2024 Hemoglobin (Bld) [Mass/Vol] 15.5 g/dL 13.0-16.5 [facility] Hepatitis B Surface Antibody on 11-12-2024 HEP B Surf Ab Non-Reactive Normal [facility] Comment on above: Result Comment: <8.5 mIU/mL: Non-Reactive 8.5<= x <11.5 mIU/mL: Indeterminate >=11.5 mIU/mL: Reactive Non Reactive: Inconsistent with immunity less than <10 mIU/mL Reactive: Consistent with immunity greater than or equal to 10 mIU/mL Performed By: #### L 503.7505, L500.2500, L100.0100 #### [facility] [address] [place], [address] IgEOrdered By: Get Boggs on 11-12-2024 IgE 56 IU/mL 6-495 [facility] Immature granulocytes/100 WB C Auto (Bld)Ordered By: Get Boggs on 11-12-2024 Immature granulocytes/100 WBC (Bld) 0.500 % 0.0-0.9 [facility] Comment on above: IG% - Immature Granu locytes (promyelocytes, myelocytes and metamyelocytes) > 1% indicates that a LEFT SHIFT is Present. International normalized rat io (INR) calculationOrdered By: Get Boggs on 11-12-2024 INR Coag (Bld) [Relative time] 1.1 {INR} [facility] Interpretation of serum or p lasma protein pattern by immunofixation (narrative resultOrdered By: Get Boggs on 11-12-2024 Protein Fractions Immunofixation Cole [Interp] Not Observed g/dL Not Observed [facility] Iron (Unsp spec) [Mass/Mass] Ordered By: Get Boggs on 11-12-2024 Iron [Mass/Vol] 110 ug/dL 65-175 [facility] Iron measurement (mass/mass) Ordered By: Get Boggs on 11-12-2024 Iron (Unsp spec) [Mass/Mass] 110 ug/dL 65-175 [facility] Iron saturation [Mass fracti on]Ordered By: Get Boggs on 11-12-2024 Iron Saturation 46.0 % 9-55 [facility] Iron+Iron Binding Capacityon 11-12-2024 Iron [Mass/Vol] 110 ug/dL Normal 65-175 [facility] Comment on above: Performed By: #### L 503.7505, L500.2500, L100.0100 #### [facility] [address] [place], [address] IRON SATURATION 46.0 Normal 9-55 [facility] Comment on above: Performed By: #### L 503.7505, L500.2500, L100.0100 #### [facility] [address] [place], [address] TIBC 240 ug/dL Low 250-450 [facility] Comment on above: Performed By: #### L 503.7505, L500.2500, L100.0100 #### [facility] [address] [place], [address] UIBC 130 ug/dL Low 228-428 [facility] Comment on above: Performed By: #### L 503.7505, L500.2500, L100.0100 #### [facility] [address] [place], [place], [id number] Tiana-1 antibody assayOrdered B y: Get Boggs on 11-12-2024 TIANA-1 Antibody TNP [facility] Comment on above: Test not performed LDHon 11-12-2024 LDH 173 U/L Normal 87-241 [facility] Comment on above: Order Comment: 1 Performed By: #### L 503.7505, L500.2500, L100.0100 #### [facility] [address] [place], [address] LDL calc ser/plasOrdered By: Get Boggs on 11-12-2024 Cholesterol in LDL [Mass/Vol] 133 mg/dL [facility] Comment on above: Unkvwcvdcr=645-153 m g/dL & Higher Txbo=453 mg/dL or greater LDL Cholesterol, Calculated 133 mg/dL [facility] Comment on above: Trnynlmjoe=936-425 m g/dL & Higher Wdon=741 mg/dL or greater Laboratory - Chemistry and C hemistry - challengeOrdered By: Get Boggs on 11-12-2024 AST [Catalytic activity/Vol] 69 U/L High <38 [facility] Lactate dehydrogenase (LDH) measurementOrdered By: Get Boggs on 11-12-2024 LDH [Catalytic activity/Vol] 173 U/L 87-241 [facility] Lipid Profileon 11-12-2024 CHOL:HDL 5.16 Normal [facility] Comment on above: Performed By: #### L 503.7505, L500.2500, L100.0100 #### [facility] [address] [place], [place], [address] Cholesterol [Mass/Vol] 209 mg/dL High <=200 [facility] Comment on above: Result Comment: Chol esterol level, Desirable <200 mg/dL Borderline high cholesterol 200-239 mg/dL High cholesterol >=240 mg/dL Recommendations of the NCEP Adult Treatment Panel for the following risk-cutoff thresholds for the [place] population. Performed By: #### L 503.7505, L500.2500, L100.0100 #### [facility] [address] [place], [address] Cholesterol in HDL [Mass/Vol] 41 mg/dL Normal [facility] Comment on above: Result Comment: Valerie onal Cholesterol Education Program (NCEP) guidelines: <40 mg/dL: Low HDL-cholesterol (major risk factor for CHD) >= 60 mg/dL: High HDL-cholesterol (negative risk factor for CHD) HDL-cholesterol is affected by a number of factors, e.g. smoking, exercise, hormones, sex and age. Performed By: #### L 503.7505, L500.2500, L100.0100 #### [facility] [address] [place], [address] Cholesterol in LDL [Mass/Vol] 133 mg/dL Normal [facility] Comment on above: Result Comment: Bord wclthv=384-417 mg/dL Higher Cfia=150 mg/dL or greater Performed By: #### L 503.7505, L500.2500, L100.0100 #### [facility] [address] [place], [address] Cholesterol in VLDL [Mass/Vol] 35 mg/dL Normal 5-40 [facility] Comment on above: Performed By: #### L 503.7505, L500.2500, L100.0100 #### [facility] [address] [place], [address] Triglyceride [Mass/Vol] 177 mg/dL Normal [facility] Comment on above: Result Comment: The drugs N-Acetylcysteine and Metamizole may falsely depress this assay. Normal range: <150 mg/dL Borderline High: 150-199 mg/dL High: 200-499 mg/dL Very High: >500 mg/dL Performed By: #### L 503.7505, L500.2500, L100.0100 #### [facility] [place], [address] Lymphocytes Auto (Unsp spec) [#/Vol]Ordered By: Get Boggs on 11-12-2024 Lymphocytes (Bld) [#/Vol] 2.99 10*3/uL 0.83-4.51 [facility] Lymphocytes/100 WBC Auto (Un sp spec)Ordered By: Get Boggs on 11-12-2024 Lymphocytes/100 WBC (Bld) 26.9 % 19-41 [facility] MCV (mean corpuscular volume ) determinationOrdered By: Gte Boggs on 11-12-2024 MCV (RBC) [Entitic vol] 98.5 fL High 80-94 [facility] Mean corpuscular hemoglobin (MCH) determinationOrdered By: Get Boggs on 11-12-2024 MCH (RBC) [Entitic mass] 33.8 pg High 27.0-32.0 [facility] Mean corpuscular hemoglobin concentration (MCHC) determinationOrdered By: Get Boggs on 11-12-2024 MCHC (RBC) [Mass/Vol] 34.4 g/dL 32-36 [facility] Mean platelet volume determi nationOrdered By: Get Boggs on 11-12-2024 Platelet mean volume (Bld) [Entitic vol] 8.9 fL 6.2-12.0 [facility] Mitochondria Ab Ql (S)Ordere d By: Get Boggs on 11-12-2024 Anti-Mitochondrial Antibody <20.0 Units 0.0-20.0 [facility] Comment on above: Negative 0.0 - 20.0 Equivocal 20.1 - 24.9 Positive >24.9Mitochondrial (M2) Antibodies are found in 90-96% ofpatients with primary biliary cirrhosis. Monocyte percentageOrdered B y: Get Boggs on 11-12-2024 Monocytes/100 WBC (Bld) 7.5 % 0-10 [facility] Neutrophil percentageOrdered By: Get Boggs on 11-12-2024 Neutrophils/100 WBC (Bld) 62.4 % 47-70 [facility] No Panel InformationOrdered By: Get Boggs on 11-12-2024 Miscellaneous Test 4 COMMENT . [facility] Comment on above: Test Ordered: [id number] Vrzrb-4-Djocqlwxupp NizhhgxpFoxco-6-Jeoyarwbkej, Serum mg/dL CB Reference Range: .Please refer to the following specimen for additional labresults.Please refer to [phone] for results.Phenotype (PI) NOLAB Reference Range: .Test not performedPerformed at: [address] [id number] Director: Diaz Perdomo PhD, Phone: [phone].Previous reported result: COMMENT Edited by: SAVANNAH on 11/19/24:1146 AMENDED REPORT 11/19/24 1146 [facility] Mis.4 previously reported as: COMMENT Test Ordered: [id number] Ekopi-2-Qoauuweqejt BqbiltcvFatsl-8-Fqjgqxlotsd, Serum mg/dL CB Reference Range: .Please refer to the following specimen for additional labresults.Please refer to [phone] for results.Phenotype (PI) NOLAB Reference Range: .Test not performedPerformed at: [address] [id number] Director: Diaz Perdomo PhD, Phone: [phone] Addendum Document Comment . [facility] Comment on above: Protein electrophore sis scan will follow via computer,mail, or machine bender delivery. Hepatitis C Antibody Comment Comment . [facility] Comment on above: Not infected with HC V unless early or acute infection issuspected (which may be delayed in an immunocompromisedindividual), or other evidence exists to indicate HCVinfection. HIV (1&2) Antibody Non-Reactive Nonreactive [facility] Comment on above: Non-ReactiveReactive Repeatedly reactive samples must be confirmed according to CDC recommended confirmatory algorithms. The subresults for either HIVAG or AHIV can be used as an aid in the selection of the confirmation algorithm for reactive samples.Send out specimens with Reactive results to [facility] for confirmation.Order the HIV antibody detection and differentiation: #[id number] Unsaturated Iron Binding Capacity 130 ug/dL Low 228-428 [facility] Nucleated red blood cell per centageOrdered By: Get Boggs on 11-12-2024 Nucleated RBC/100 WBC (Bld) [Ratio] 0 % 0-5 [facility] Platelet countOrdered By: Jaime Boggs on 11-12-2024 Platelets (Bld) [#/Vol] 246 10*3/uL 150-450 [facility] Potassium (Unsp spec) [Mass/ Vol]Ordered By: Get Boggs on 11-12-2024 Potassium [Moles/Vol] 3.9 mmol/L 3.3-5.1 [facility] Potassium measurement (mass/ volume)Ordered By: Get Boggs on 11-12-2024 Potassium (Unsp spec) [Mass/Vol] 3.9 mmol/L 3.3-5.1 [facility] Prothrombin Time w/INRon INR Coag (PPP) [Relative time] 1.1 {INR} Normal [facility] Comment on above: Performed By: #### L 503.7505, L500.2500, L100.0100 #### [facility] [address] [place], [address] PT Coag (PPP) [Time] 14.0 s Normal 11.7-14.9 [facility] Comment on above: Performed By: #### L 503.7505, L500.2500, L100.0100 #### [facility] [address] [place], [address] Prothrombin timeOrdered By: Get Boggs on 11-12-2024 PT Coag (PPP) [Time] 14.0 s 11.7-14.9 [facility] RBC Auto (Bld) [#/Vol]Ordere d By: Get Boggs on 11-12-2024 RBC (Bld) [#/Vol] 4.58 10*6/uL Low 4.6-6.2 [facility] DATA PROCESSING MANAGER abOrdered By: Get Marie and on 11-12-2024 DATA PROCESSING MANAGER Antibody TNP [facility] Comment on above: Test not performed SCL-70 extractable nuclear A b Qn (S)Ordered By: Get Boggs on 11-12-2024 Scl-70 (Scleroderma) Antibody [facility] Comment on above: Test not performed SS-A IgG antibody assayOrder ed By: Get Boggs on 11-12-2024 SS-A/Ro IgG Antibody [facility] Comment on above: Test not performed SS-B IgG antibody assayOrder ed By: Get Boggs on 11-12-2024 SS-B/La IgG Antibody [facility] Comment on above: Test not performed Screening total cholesterol/ high density lipoprotein (HDL) cholesterol ratioOrdered By: Get Boggs on 11-12-2024 Cholesterol.total/Chol esterol in HDL [Mass ratio] 5.16 {ratio} [facility] Serum DNA double strand anti body assay (units/volume)Ordered By: Get Boggs on 11-12-2024 DNA double strand Ab Qn (S) [facility] Comment on above: Test not performed Serum Scl-70 antibody assay (units/volume)Ordered By: Get Boggs on 11-12-2024 SCL-70 extractable nuclear Ab Qn (S) [facility] Comment on above: Test not performed Serum creatinine measurement (mass/volume)Ordered By: Get Boggs on 11-12-2024 Creatinine [Mass/Vol] 0.74 mg/dL 0.70-1.20 [facility] Serum globulin measurementOr dered By: Get Boggs on 11-12-2024 Globulin (S) [Mass/Vol] 3.4 g/dL 2.2-4.2 [facility] Serum globulin measurement ( mass/volume)Ordered By: Get Boggs on 11-12-2024 Globulin (S) [Mass/Vol] 3.7 g/dL 2.2-3.9 [facility] Serum glucose measurement (m ass/volume)Ordered By: Get Boggs on 11-12-2024 Glucose [Mass/Vol] 88 mg/dL 70-99 [facility] Serum hepatitis B virus surf winnie antibody detectionOrdered By: Get Boggs on 11-12-2024 HBV surface Ab Ql (S) Non-Reactive [facility] Comment on above: <8.5 mIU/mL: Non-Herminia ctive8.5<= x <11.5 mIU/mL: Indeterminate>=11.5 mIU/mL: Reactive Non Reactive: Inconsistent with immunity less than <10 mIU/mL Reactive: Consistent with immunity greater than or equal to 10 mIU/mL Serum mitochondria antibody detectionOrdered By: Get Boggs on 11-12-2024 Mitochondria Ab Ql (S) <20.0 Units 0.0-20.0 [facility] Comment on above: Negative 0.0 - 20.0 Equivocal 20.1 - 24.9 Positive >24.9Mitochondrial (M2) Antibodies are found in 90-96% ofpatients with primary biliary cirrhosis. Serum or plasma C reactive p rotein measurement (mass/volume)Ordered By: Get Boggs on 11-12-2024 CRP [Mass/Vol] 6.42 mg/L High 0.0-3.0 [facility] Serum or plasma IgA measurem ent (mass/volume)Ordered By: Get Boggs on 11-12-2024 IgA [Mass/Vol] 590 mg/dL High 90-386 [facility] Serum or plasma IgG measurem ent (mass/volume)Ordered By: Get Boggs on 11-12-2024 IgG [Mass/Vol] 1517 mg/dL 603-1613 [facility] Serum or plasma actin IgG an tibody assay (units/volume)Ordered By: Get Boggs on 11-12-2024 Actin IgG Qn 6 Units 0-19 [facility] Comment on above: Negative 0 - 19 Weak positive 20 - 30 Moderate to strong positive >30 Actin Antibodies are found in 52-85% of patients with autoimmune hepatitis or chronic active hepatitis and in 22% of patients with primary biliary cirrhosis. Serum or plasma alanine beltre otransferase (ALT) measurementOrdered By: Get Boggs on 11-12-2024 ALT [Catalytic activity/Vol] 86 U/L High <47 [facility] Serum or plasma albumin vladimir urement (mass/volume)Ordered By: Get Boggs on 11-12-2024 Albumin [Mass/Vol] 4.0 g/dL 3.5-5.0 [facility] Serum or plasma albumin/glob ulin mass ratioOrdered By: Get Boggs on 11-12-2024 Albumin/Globulin [Mass ratio] 1.2 {ratio} 0.9-2.4 [facility] Serum or plasma alkaline les sphatase measurementOrdered By: Get Boggs on 11-12-2024 ALP [Catalytic activity/Vol] 109 U/L 40-129 [facility] Serum or plasma alpha 1 glob ulin measurement by electrophoresis (mass/volume)Ordered By: Get Boggs on 11-12-2024 Alpha 1 globulin Elph [Mass/Vol] 0.2 g/dL 0.0-0.4 [facility] Alpha 1 globulin Elph [Mass/Vol] 0.7 g/dL 0.4-1.0 [facility] Serum or plasma beta globuli n measurement by electrophoresis (mass/volume)Ordered By: Get Boggs on 11-12-2024 Beta globulin Elph [Mass/Vol] 1.4 g/dL High 0.7-1.3 [facility] Serum or plasma calcium vladimir urement (mass/volume)Ordered By: Get Boggs 11-12-2024 Calcium [Mass/Vol] 9.1 mg/dL 7.6-11.0 [facility] Serum or plasma cholesterol in HDL measurement (mass/volume)Ordered By: Get Boggs on 11-12-2024 Cholesterol in HDL [Mass/Vol] 41 mg/dL >40 [facility] Comment on above: National Cholesterol Education Program (NCEP) guidelines:<40 mg/dL: Low HDL-cholesterol (major risk factor for CHD)>= 60 mg/dL: High HDL-cholesterol (negative risk factor for CHD)HDL-cholesterol is affected by a number of factors, e.g. smoking, exercise, hormones, sex and age. Serum or plasma cholesterol measurement (mass/volume)Ordered By: Get Boggs on 11-12-2024 Cholesterol [Mass/Vol] 209 mg/dL High <201 [facility] Comment on above: Cholesterol level, D esirable <200 mg/dLBorderline high cholesterol 200-239 mg/dLHigh cholesterol >=240 mg/dLRecommendations of the NCEP Adult Treatment Panel for the following risk-cutoff thresholds for the [place] population. Serum or plasma ferritin lisa surement (mass/volume)Ordered By: Get Boggs on 11-12-2024 Ferritin [Mass/Vol] 871 ng/mL High 37-417 [facility] Serum or plasma gamma globul in measurement by electrophoresis (mass/volume)Ordered By: Get Boggs on 11-12-2024 Gamma globulin Elph [Mass/Vol] 1.4 g/dL 0.4-1.8 [facility] Serum or plasma hepatitis B virus surface antigen detection by immunoassayOrdered By: Get Boggs on 11-12-2024 HBV surface Ag IA Ql Negative Negative [facility] Serum or plasma immunoelectr ophoresis interpretation (nominal result)Ordered By: Get Boggs on 11-12-2024 Interpretation IEP [Interp] Comment . [facility] Comment on above: No monoclonality det ected. Serum or plasma iron saturat ion measurement (mass fraction)Ordered By: Get Boggs on 11-12-2024 Iron saturation [Mass fraction] 46.0 % 9-55 [facility] Serum or plasma protein vladimir urement (mass/volume)Ordered By: Get Boggs on 11-12-2024 Protein [Mass/Vol] 7.1 g/dL 6.0-8.5 [facility] Serum or plasma urea nitroge n measurement (mass/volume)Ordered By: Get Boggs on 11-12-2024 Urea nitrogen [Mass/Vol] 11 mg/dL 4-19 [facility] Jack antibody assayOrdered By: Get Boggs on 11-12-2024 SM Antibody TNP [facility] Comment on above: Test not performed Sodium levelOrdered By: Cherise Boggs on 11-12-2024 Sodium [Moles/Vol] 143 mmol/L 133-145 [facility] T4 Free Directon 11-12-2024 T4 FREE DIRECT 0.90 ng/dL Normal 0.76-1.46 [facility] Comment on above: Performed By: #### L 503.7501, L500.2500, L100.0100 #### [facility] [address] [place], [address] T4 freeOrdered By: Get gresham on 11-12-2024 Free T4 [Mass/Vol] 0.90 ng/dL 0.76-1.46 [facility] TSH DL <= 0.005 mIU/L QnOrde red By: Get Boggs on 11-12-2024 Thyroid Stimulating Hormone (TSH) 3.340 uIU/mL 0.300-4.200 [facility] TSH Qn 3.340 uIU/mL 0.300-4.200 [facility] Thyroid Stim Hormone (TSH)on 11-12-2024 TSH 3.340 uIU/mL Normal 0.300-4.200 [facility] Comment on above: Performed By: #### L 503.7505, L500.2500, L100.0100 #### [facility] [address] [place], [place], [address] Total proteinOrdered By: Jackelin Boggs on 11-12-2024 Protein [Mass/Vol] 7.4 g/dL 5.9-8.4 [facility] Triglycerides measurementOrd ered By: Get Boggs on 11-12-2024 Triglyceride [Mass/Vol] 177 mg/dL <199 [facility] Comment on above: The drugs N-Acetylcy steine and Metamizole may falsely depress this assay. Normal range: <150 mg/dLBorderline High: 150-199 mg/dLHigh: 200-499 mg/dLVery High: >500 mg/dL Vitamin B12on 11-12-2024 Cobalamin (Vitamin B12) [Mass/Vol] 857 pg/mL Normal 180-914 [facility] Comment on above: Performed By: #### L 503.7505, L500.2500, L100.0100 #### [facility] [address] [place], [place], [address] Vitamin B12 ser/plasOrdered By: Get Boggs on 11-12-2024 Cobalamin (Vitamin B12) [Mass/Vol] 857 pg/mL 180-914 [facility] White blood cell (WBC) count Ordered By: Get Boggs on 11-12-2024 WBC (Bld) [#/Vol] 11.1 10*3/uL High 4.4-11.0 [facility] Gastroenterology Visit Repor ton 11-10-2024 Gastroenterology Visit Report [facility]enterology [address] [place] [address] OFFICE VISIT Date of Service: 11/10/24 MR#: [id number] Acct: [id number] Name: HERVE RAMSEY Jr. Rep #: [id number] 1 : 1975 Provider: Dr. Get ahmadi MD Age/Sex: 49/M [place] [facility] [place]: [place] Intake Vital Signs 06/30/24 13:00 [...] room air Intake Visit Reasons: 3 M Contract Designer Required: No Accompanied by: Is patient in pain?: No Allergies No Known Allergies Allergy (Verified 11/10/24 12:58) Medications ???Medication ???Instructions ???Recorded ???Confirmed ???Type brexpiprazole 2 mg tablet (Rexulti) 2 mg PO DAILY uns 10/07/22 0404/28 History albuterol sulfate 90 mcg/actuation 1 inh [...] the office today for [employer] Elastography 06.03.24 - The liver [...] membranes Ey (more content not included)... Normal [facility] Pulmonary Visit Reporton Pulmonary Visit Report [facility] [place] [address] [place] [address] OFFICE VISIT Date of Service: 09/29/24 MR#: [id number] Acct: [id number] Name: HERVE RAMSEY Rep #: [id number] 0 : 1975 Provider: Niki Maza NP Age/Sex: 48/M [place] [facility] [place] Status: Signed Assessment and Plan Assessment and [...] practice if worsening respiratory symptoms occur. (3) Kdtqw-4-[id number] deficiency: Status: Acute Comment: Screening M/Z Plan: [...] Additional Comments: This note was generated with [employer] software. It may contain incorrect words, spelling, [...] He indicates that he trialed it for "a few days ". He has also changed his diet with the recent diagnosis of fatty liver disease. He indicates that he has stopped drinking "diet soda ". Today he does report that he experiences [...] use supplemental oxygen if he takes a "long walk ". He indicates that his oxygen saturation tends [...] mood stabilizer and has also stopped utilizing "edible marijuana "for the last 2 months and reports that he has been able to fall asleep without overactive thoughts. He has a PAP device now with a nasal mask. He feels like it is too much pressure. He felt uncomfortable with tubes on his face. He did attempt to wear the device (more content not included)... Normal [facility] Gastroenterology Visit Repor ton 06-30-2024 Gastroenterology Visit Report [facility]enter[facility] [address] [place] [address] OFFICE VISIT Date of Service: 06/30/24 MR#: [id number] Acct: [id number] Name: HERVE RAMSEY JrNathalia Rep #: [id number] 1 : 1975 Provider: Dr. Get ahmadi MD Age/Sex: 48/M [place] [facility] [place]: Signed Intake Vital Signs 02/02/24 07:45 [...] external nose (more content not included)... Normal [facility] Pulmonary Visit Reporton Pulmonary Visit Report [facility] [place] [address] [place], [place] [id number] OFFICE VISIT Date of Service: 06/08/24 MR#: [id number] Acct: [id number] Name: HERVE RAMSEY Jr. Rep #: [id number] 3 : 1975 Provider: Niki Maza NP Age/Sex: 48/M Location: [facility] Status: Signed Assessment and Plan Assessment and [...] He has declined influenza vaccine today. (3) Rgpam-0-sntqinhgaeo deficiency: Status: Acute Comment: Screening M/Z Plan: Quantitative alpha-1 antitrypsin level is pending. (4) Lung nodule: Status: Chronic Plan: Noncontrasted chest CT in 12 months which would complete the follow-up for the solitary pulmonary nodule and then the patient will return to the low-dose screening lung CT program. 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 It may contain incorrect words, spelling, [...] He indicates that he trialed it for "a few days ". He has also changed his diet with the recent diagnosis of fatty liver disease. He indicates that he has stopped drinking "diet soda ". Today he denies shortness of breath. He [...] use supplemental oxygen if he takes a "long walk ". He indicates that his oxygen saturation tends [...] mood stabilizer and has also stopped utilizing "edible marijuana "for the last 2 months and reports that [...] results pe (more content not included)... Normal [facility] Basophil percentageOrdered B y: Eber Araujo on 11-04-2023 Hemoglobin (Bld) [Mass/Vol] 15.3 g/dL 13.0-16.5 [facility] WBC (Bld) [#/Vol] 23.9 10*3/uL 4.4-11.0 [facility] Determination of erythrocyte mean corpuscular volume (MCV)Ordered By: Eber Araujo on 11-04-2023 MCV (RBC) [Entitic vol] 102.3 fL 80-94 [facility] Erythrocyte distribution wid th ratioOrdered By: Eber Gayle on 11-04-2023 Erythrocyte distribution width (RBC) [Ratio] 12.8 % 11.6-14.6 [facility] Erythrocyte distribution wid th standard deviationOrdered By: Eber Araujo on 11-04-2023 Erythrocyte distribution width (RBC) [Entitic vol] 48.4 fL 35.1-43.9 [facility] Hematocrit Auto (Bld) [Volum e fraction]Ordered By: Eber Araujo on 11-04-2023 Hematocrit (Bld) [Volume fraction] 48.4 % 40-54 [facility] Laboratory - Hematology and Cell countsOrdered By: Eber Araujo on 11-04-2023 MCH (RBC) [Entitic mass] 32.3 pg 27.0-32.0 [facility] MCHC (RBC) [Mass/Vol] 31.6 g/dL 32-36 [facility] Platelet mean volume (Bld) [Entitic vol] 8.9 fL 6.2-12.0 [facility] Platelets (Bld) [#/Vol] 328 10*3/uL 150-450 [facility] RBC Auto (Bld) [#/Vol]Ordere d By: Eber Maldonadobaldomero on 11-04-2023 RBC (Bld) [#/Vol] 4.73 10*6/uL 4.6-6.2 [facility] Absolute lymphocyte countOrd ered By: Mik Rodriguez on 11-03-2023 Lymphocytes Auto (Unsp spec) [#/Vol] 2.01 10*3/uL 0.83-4.51 [facility] Automated lymphocyte count a s percentage of total leukocytesOrdered By: Mik Rodriguez on 11-03-2023 Lymphocytes/100 WBC Auto (Unsp spec) 7.6 % 19-41 [facility] Basophil percentageOrdered B y: Mik Rodriguez on 11-03-2023 Basophils/100 WBC (Bld) 0.5 % 0-1 [facility] Chloride [Moles/Vol] 101 mmol/L 98-107 [facility] Eosinophils/100 WBC (Bld) 0.2 % 0-5 [facility] Glucose [Mass/Vol] 192 mg/dL 74-106 [facility] Comment on above: Fasting Glucose resu lt greater than or equal to 126 mg/dL suggests DIABETES MELLITUS per A.D.A. criteria. Monocytes/100 WBC (Bld) 5.9 % 0-10 [facility] Neutrophils (Bld) [#/Vol] 22.5 10*3/uL 2.0-7.7 [facility] Neutrophils/100 WBC (Bld) 84.5 % 47-70 [facility] Potassium [Moles/Vol] 4.0 mmol/L 3.5-5.1 [facility] Sodium [Moles/Vol] 139 mmol/L 136-145 [facility] Immature granulocytes/100 WB C Auto (Bld)Ordered By: Mki Rodriguez on 11-03-2023 Immature granulocytes/100 WBC (Bld) 1.300 % 0.0-0.9 [facility] Comment on above: IG% - Immature Granu locytes (promyelocytes, myelocytes and metamyelocytes) > 1% indicates that a LEFT SHIFT is Present. Laboratory - Chemistry and C hemistry - challengeOrdered By: Mik Rodriguez on 11-03-2023 CO2 [Moles/Vol] 36.0 mmol/L 21.0-32.0 [facility] Urea nitrogen/Creatinine [Mass ratio] 13.6 mg/mg 10-20 [facility] Laboratory - Hematology and Cell countsOrdered By: Mik Rodriguez on 11-03-2023 Nucleated RBC/100 WBC (Bld) [Ratio] 0 % 0-5 [facility] No Panel InformationOrdered By: Mik Rodriugez on 11-03-2023 Estimated Creatinine Clearance Calc 114.84 ml/min [facility] Estimated GFR (MDRD) Amer 117 mL/min >60 [facility] Comment on above: GFR Calc Estimated GFR (MDRD) Non-Af Amer 97 mL/min >60 [facility] Comment on above: Non- GFR Calc Reactive Lymphocytes 1+ [facility] Review by pathologistOrdered By: Mik Rodriguez on 11-03-2023 Pathologist review Cole (Unsp spec) [Interp] Reviewed [facility] Comment on above: Previous reported re sult: Jeane birch Edited by: TONEY on 11/03/23:1310Neutrophilic left with shift.Macrocytosis.Clinical correlation necessary.Humberto Snider M.D. 11/03/23 AMENDED REPORT 11/03/23 1310 PATH REV previously reported as: Jeane birch Serum or plasma calcium vladimir urement (mass/volume)Ordered By: Mik Rodriguez on 11-03-2023 Calcium [Mass/Vol] 8.8 mg/dL 8.5-10.1 [facility] Serum or plasma creatinine m easurement (mass/volume)Ordered By: Mik Rodriguez on 11-03-2023 Creatinine [Mass/Vol] 0.88 mg/dL 0.70-1.30 [facility] Comment on above: The validity of the calculated GFR & GFRAA in patients over 70 years has not been determined. Clinical correlation is essential. Serum or plasma urea nitroge n measurement (mass/volume)Ordered By: Mik Rodriguez on 11-03-2023 Urea nitrogen [Mass/Vol] 12 mg/dL 7-18 [facility] Thin prep Papanicolaou smear with manual screeningOrdered By: Mik Rodriguez on 11-03-2023 Thin prep Papanicolaou smear with manual screening 2 5-15 [facility] Absolute lymphocyte countOrd ered By: Ana Jaquez on 11-02-2023 Lymphocytes Auto (Unsp spec) [#/Vol] 3.51 10*3/uL 0.83-4.51 [facility] Automated lymphocyte count a s percentage of total leukocytesOrdered By: Ana Jaquez on 11-02-2023 Lymphocytes/100 WBC Auto (Unsp spec) 16.3 % 19-41 [facility] Basophil percentageOrdered B y: Ana Jaquez on 11-02-2023 Basophils/100 WBC (Bld) 0.8 % 0-1 [facility] Chloride [Moles/Vol] 100 mmol/L 98-107 [facility] Eosinophils/100 WBC (Bld) 0.4 % 0-5 [facility] Glucose [Mass/Vol] 121 mg/dL 74-106 [facility] Comment on above: Fasting Glucose resu lt from 100 to 125 mg/dL suggests IMPAIRED HOMEOSTASIS per A.D.A. criteria. Hemoglobin (Bld) [Mass/Vol] 16.1 g/dL 13.0-16.5 [facility] Monocytes/100 WBC (Bld) 10.4 % 0-10 [facility] Neutrophils (Bld) [#/Vol] 15.4 10*3/uL 2.0-7.7 [facility] Neutrophils/100 WBC (Bld) 71.2 % 47-70 [facility] Potassium [Moles/Vol] 3.2 mmol/L 3.5-5.1 [facility] Sodium [Moles/Vol] 138 mmol/L 136-145 [facility] WBC (Bld) [#/Vol] 21.6 10*3/uL 4.4-11.0 [facility] Blood platelet adequacy dete ction by light microscopyOrdered By: Ana Jaquez on 11-02-2023 Platelets LM Ql (Bld) ADEQUATE ADEQ [facility] Determination of erythrocyte mean corpuscular volume (MCV)Ordered By: Ana Jaquez on 11-02-2023 MCV (RBC) [Entitic vol] 103.1 fL 80-94 [facility] Erythrocyte distribution wid th ratioOrdered By: Ana Jaquez on 11-02-2023 Erythrocyte distribution width (RBC) [Ratio] 12.9 % 11.6-14.6 [facility] Erythrocyte distribution wid th standard deviationOrdered By: Ana Jaquez on 11-02-2023 Erythrocyte distribution width (RBC) [Entitic vol] 49.2 fL 35.1-43.9 [facility] Gram stain for investigation of transfusion reactionOrdered By: Mik Rodriguez on 11-02-2023 Microscopic observation Gram stain Nom (Unsp spec) [facility] Hematocrit Auto (Bld) [Volum e fraction]Ordered By: Ana Jaquez on 11-02-2023 Hematocrit (Bld) [Volume fraction] 50.4 % 40-54 [facility] Immature granulocytes/100 WB C Auto (Bld)Ordered By: Ana Jaquez on 11-02-2023 Immature granulocytes/100 WBC (Bld) 0.900 % 0.0-0.9 [facility] Comment on above: IG% - Immature Granu locytes (promyelocytes, myelocytes and metamyelocytes) > 1% indicates that a LEFT SHIFT is Present. Laboratory - Chemistry and C hemistry - challengeOrdered By: Ana Jaquez on 11-02-2023 CO2 [Moles/Vol] 33.0 mmol/L 21.0-32.0 [facility] Natriuretic peptide B (Bld) [Mass/Vol] 22.6 pg/mL 0-100 [facility] Urea nitrogen/Creatinine [Mass ratio] 9.5 mg/mg 10-20 [facility] Laboratory - Hematology and Cell countsOrdered By: Ana Jaquez on 11-02-2023 MCH (RBC) [Entitic mass] 32.9 pg 27.0-32.0 [facility] MCHC (RBC) [Mass/Vol] 31.9 g/dL 32-36 [facility] Nucleated RBC/100 WBC (Bld) [Ratio] 0 % 0-5 [facility] Platelet mean volume (Bld) [Entitic vol] 8.8 fL 6.2-12.0 [facility] Platelets (Bld) [#/Vol] 285 10*3/uL 150-450 [facility] Laboratory - Microbiology an d Antimicrobial susceptibilityOrdered By: Ana Jaquez on 11-02-2023 SARS-CoV-2 (COVID-19) RNA ISAURO+probe Ql (Unsp spec) [facility] Macrocytes detectionOrdered By: Ana Jaquez on 11-02-2023 Macrocytes Ql (Bld) 1+ [facility] No Panel InformationOrdered By: Ana Jaquez on 11-02-2023 Troponin I High Sensitivity 16 pg/mL 3.0-78.0 [facility] Comment on above: Please Note: New Sofia t Units and Gender Specific Reference Ranges. For more information see Policy Stat Procedure [place] High Sensitivity Troponin (TNIH) and attachments. Estimated Creatinine Clearance Calc 105.87 ml/min [facility] Estimated GFR (MDRD) Amer 108 mL/min >60 [facility] Comment on above: GFR Calc Estimated GFR (MDRD) Non-Af Amer 89 mL/min >60 [facility] Comment on above: Non- GFR Calc RBC Auto (Bld) [#/Vol]Ordere d By: Ana Jaquez on 11-02-2023 RBC (Bld) [#/Vol] 4.89 10*6/uL 4.6-6.2 [facility] Serum or plasma calcium vladimir urement (mass/volume)Ordered By: Ana Jaquez on 11-02-2023 Calcium [Mass/Vol] 8.5 mg/dL 8.5-10.1 [facility] Serum or plasma creatinine m easurement (mass/volume)Ordered By: Ana Jaquez on 11-02-2023 Creatinine [Mass/Vol] 0.95 mg/dL 0.70-1.30 [facility] Comment on above: The validity of the calculated GFR & GFRAA in patients over 70 years has not been determined. Clinical correlation is essential. Serum or plasma urea nitroge n measurement (mass/volume)Ordered By: Ana Jaquez on 11-02-2023 Urea nitrogen [Mass/Vol] 9 mg/dL 7-18 [facility] Thin prep Papanicolaou smear with manual screeningOrdered By: Ana Jaquez on 11-02-2023 Thin prep Papanicolaou smear with manual screening 5 5-15 [facility] S. pyogenes Ag IF Ql (Throat )Ordered By: Ana Jaquez on 08-03-2023 S. pyogenes Ag IA Ql (Unsp spec) Beta Strep NOT Group A [facility] S. pyogenes Ag IA Ql (Unsp spec) Beta Strep NOT Group A [facility] Absolute lymphocyte countOrd ered By: Laura Juares on 07-31-2023 Lymphocytes Auto (Unsp spec) [#/Vol] 2.91 10*3/uL 0.83-4.51 [facility] Basophil percentageOrdered B y: Laura Juares on 07-31-2023 Ammonia (P) [Moles/Vol] 35.0 umol/L 11-32 [facility] Basophils/100 WBC (Bld) 1.1 % 0-1 [facility] Bilirubin [Mass/Vol] 0.70 mg/dL 0.20-1.00 [facility] Comment on above: For patients on eltr ombopag therapy, use of Dimension [place] TBIL is not recommended. Chloride [Moles/Vol] 105 mmol/L 98-107 [facility] Cholesterol [Mass/Vol] 192 mg/dL <200 [facility] Comment on above: <200 mg/dL Desirable 200-240 mg/dL Borderline >240 mg/dL High Risk Eosinophils/100 WBC (Bld) 2.3 % 0-5 [facility] Glucose [Mass/Vol] 96 mg/dL 74-106 [facility] Neutrophils (Bld) [#/Vol] 6.0 10*3/uL 2.0-7.7 [facility] Neutrophils/100 WBC (Bld) 58.2 % 47-70 [facility] Potassium [Moles/Vol] 3.8 mmol/L 3.5-5.1 [facility] Protein [Mass/Vol] 7.9 g/dL 6.4-8.2 [facility] Sodium [Moles/Vol] 140 mmol/L 136-145 [facility] Triglyceride [Mass/Vol] 210 mg/dL <199 [facility] Comment on above: The drugs N-Acetylcy steine and Metamizole may falsely depress this assay.Serum Triglycerides Reference Interval Normal <150 mg/dL Borderline high 150 - 199 mg/dL High 200 - 499 mg/dL Very High > or = 500 mg/dL WBC (Bld) [#/Vol] 10.2 10*3/uL 4.4-11.0 [facility] Blood erythrocytes count (nu mber/volume)Ordered By: Laura Juares on 07-31-2023 RBC (Bld) [#/Vol] 5.09 10*6/uL 4.6-6.2 [facility] Blood hemoglobin measurement (mass/volume)Ordered By: Laura Juares on 07-31-2023 Hemoglobin (Bld) [Mass/Vol] 16.3 g/dL 13.0-16.5 [facility] Blood lymphocytes/100 leukoc ytesOrdered By: Laura Juares on 07-31-2023 Lymphocytes/100 WBC (Bld) 28.5 % 19-41 [facility] Blood monocytes/100 leukocyt esOrdered By: Laura Juares on 07-31-2023 Monocytes/100 WBC (Bld) 9.2 % 0-10 [facility] Blood platelet mean volumeOr dered By: Laura Juares on 07-31-2023 Platelet mean volume (Bld) [Entitic vol] 8.7 fL 6.2-12.0 [facility] Determination of erythrocyte mean corpuscular volume (MCV)Ordered By: Laura Juares on 07-31-2023 MCV (RBC) [Entitic vol] 99.0 fL 80-94 [facility] Hematocrit Auto (Bld) [Volum e fraction]Ordered By: Laura Juares on 07-31-2023 Hematocrit (Bld) [Volume fraction] 50.4 % 40-54 [facility] Laboratory - Chemistry and C hemistry - challengeOrdered By: Laura Juares on 07-31-2023 ALP [Catalytic activity/Vol] 100 U/L 45-117 [facility] ALT [Catalytic activity/Vol] 119 U/L 16-61 [facility] CO2 [Moles/Vol] 30.0 mmol/L 21.0-32.0 [facility] Free T4 [Mass/Vol] 0.93 ng/dL 0.76-1.46 [facility] Globulin (S) [Mass/Vol] 4.6 g/dL 2.2-4.2 [facility] Urea nitrogen/Creatinine [Mass ratio] 12.8 mg/mg 10-20 [facility] Laboratory - Hematology and Cell countsOrdered By: Larua Juares on 07-31-2023 Erythrocyte distribution width (RBC) [Entitic vol] 46.0 fL 35.1-43.9 [facility] Erythrocyte distribution width (RBC) [Ratio] 12.6 % 11.6-14.6 [facility] Immature granulocytes/100 WBC (Bld) 0.700 % 0.0-0.9 [facility] Comment on above: IG% - Immature Granu locytes (promyelocytes, myelocytes and metamyelocytes) > 1% indicates that a LEFT SHIFT is Present. MCH (RBC) [Entitic mass] 32.0 pg 27.0-32.0 [facility] Nucleated RBC/100 WBC (Bld) [Ratio] 0 % 0-5 [facility] MCHC Auto (RBC) [Mass/Vol]Or dered By: Laura Juares on 07-31-2023 MCHC (RBC) [Mass/Vol] 32.3 g/dL 32-36 [facility] No Panel InformationOrdered By: Laura Juares on 07-31-2023 Estimated GFR (MDRD) Amer 121 mL/min >60 [facility] Comment on above: GFR Calc Estimated GFR (MDRD) Non-Af Amer 100 mL/min >60 [facility] Comment on above: Non- GFR Calc Free Triiodothyronine (T3) pg/dL 3.1 pg/mL 2.18-3.98 [facility] Thyroid Stimulating Hormone (TSH) 3.31 uIU/mL 0.358-3.74 [facility] Vitamin D 25-Hydroxy 13.1 ng/mL [facility] Comment on above: Vitamin D 25(OH) Sta tus Range Deficiency <20 ng/mL (50nmol/L) Insufficiency 20 - 30 ng/mL (50 - 75 nmol/L) Sufficiency 30 - 100 ng/mL (75 - 250 nmol/L) Toxicity >100 ng/mL (>250 nmol/L) Platelets bldOrdered By: Dodie Juares on 07-31-2023 Platelets (Bld) [#/Vol] 248 10*3/uL 150-450 [facility] Serum or plasma albumin vladimir urement (mass/volume)Ordered By: Laura Juares on 07-31-2023 Albumin [Mass/Vol] 3.3 g/dL 3.2-5.0 [facility] Serum or plasma albumin/glob ulin mass ratioOrdered By: Laura Juares on 07-31-2023 Albumin/Globulin [Mass ratio] 0.7 {ratio} 0.9-2.4 [facility] Serum or plasma calcium vladimir urement (mass/volume)Ordered By: Laura Juares on 07-31-2023 Calcium [Mass/Vol] 8.6 mg/dL 8.5-10.1 [facility] Serum or plasma cholesterol in HDL measurement (mass/volume)Ordered By: Laura Juares on 07-31-2023 Cholesterol in HDL [Mass/Vol] 32 mg/dL >40 [facility] Comment on above: The drugs N-Acetylcy steine and Metamizole may falsely depress this assay. Reference Range HDL <40 mg/dL Low HDL Cholesterol HDL >or= 60 mg/dL High HDL Cholesterol Serum or plasma cholesterol in VLDL measurement (mass/volume)Ordered By: Laura Juares on 07-31-2023 Cholesterol in VLDL [Mass/Vol] 42 mg/dL 5-40 [facility] Serum or plasma creatinine m easurement (mass/volume)Ordered By: Laura Juares on 07-31-2023 Creatinine [Mass/Vol] 0.86 mg/dL 0.70-1.30 [facility] Comment on above: The validity of the calculated GFR & GFRAA in patients over 70 years has not been determined. Clinical correlation is essential. Serum or plasma low density lipoprotein (LDL) cholesterol measurement (mass/volume)Ordered By: Laura Juares on 07-31-2023 Cholesterol in LDL [Mass/Vol] 118 mg/dL 0-130 [facility] Serum or plasma prolactin me asurement (mass/volume)Ordered By: Laura Juares on 07-31-2023 Prolactin [Mass/Vol] 9.7 ng/mL [facility] Comment on above: NORMAL REFERENCE RAN GES FEMALE NON- 2.2 - 30.3 ng/mL 8.1 - 347.6 ng/mL POST-MENOPAUSAL 0.7 - 31.5 ng/mL MALE 2.5 - 17.4 ng/mL Serum or plasma urea nitroge n measurement (mass/volume)Ordered By: Laura Juares on 07-31-2023 Urea nitrogen [Mass/Vol] 11 mg/dL 7-18 [facility] Thin prep Papanicolaou smear with manual screeningOrdered By: Laura Juares on 07-31-2023 Thin prep Papanicolaou smear with manual screening 70 U/L 15-37 [facility] Thin prep Papanicolaou smear with manual screening 5 5-15 [facility] Office Visiton 01-10-2023 Follow-up visit [id number] Pako Ramsey 1975 M Date Provider Department Center 01/10/2023 [id number] MIGUEL JOE [facility] None No family history on file Level of Service:52733 [place] OFFICE/OUTPATIENT NEW LOW [facility] 30-44 MINUTES Reason for Visit and Comments: New Patient [542] - Hx Kidney stones, Pt states they passed stones in July, October and December, Pt currently asymptomatic [facility] Progress Noteon 01-10-2023 Progress Note Faxed record release 01-10-23, 2nd attempt 01-15-23 [facility] Progress Note After multiple faxed requests, CT added to media Normal [facility] Progress Note José Miguel Joe MD [...] in July, and December, Pt currently asymptomatic HISTORY OF PRESENT ILLNESS: Mr. Ramsey is a 47 y.o. male who presents with renal calculi. He was seen at [facility]. Pain gone now. REVIEW OF SYSTEMS: Review [...] BP (!) 143/79 Pulse 84 Ht 5' 9" (1.753 m) Wt 216 lb (98 kg) [...] try to get the CT report from [place] Check KUB to see if stones are [...] Miguel Joe MD 01/10/23 3:54 PM Normal [facility] Absolute lymphocyte countOrd ered By: Dr. Presley on 12-11-2022 Lymphocytes Auto (Unsp spec) [#/Vol] 1.91 10*3/uL 0.83-4.51 [facility] Basophil percentageOrdered B y: ED PROVIDER on 12-11-2022 Basophil percentage 0 SEEN /hpf 0-5 [facility] Basophil percentageOrdered B y: Dr. Presley on 12-11-2022 Basophils/100 WBC (Bld) 0.6 % 0-1 [facility] Chloride [Moles/Vol] 103 mmol/L 98-107 [facility] Eosinophils/100 WBC (Bld) 0.5 % 0-5 [facility] Glucose [Mass/Vol] 108 mg/dL 74-106 [facility] Comment on above: Fasting Glucose resu lt from 100 to 125 mg/dL suggests IMPAIRED HOMEOSTASIS per A.D.A. criteria. Neutrophils (Bld) [#/Vol] 9.7 10*3/uL 2.0-7.7 [facility] Neutrophils/100 WBC (Bld) 76.2 % 47-70 [facility] Potassium [Moles/Vol] 4.5 mmol/L 3.5-5.1 [facility] Comment on above: Moderate Hemolysis, Result may be falsely increased. Sodium [Moles/Vol] 137 mmol/L 136-145 [facility] WBC (Bld) [#/Vol] 12.7 10*3/uL 4.4-11.0 [facility] Bilirubin Test strip Ql (U)O rdered By: ED PROVIDER on 12-11-2022 Bilirubin Ql (U) Negative Negative [facility] Blood erythrocytes count (nu mber/volume)Ordered By: Dr. Presley on 12-11-2022 RBC (Bld) [#/Vol] 5.58 10*6/uL 4.6-6.2 [facility] Blood hemoglobin measurement (mass/volume)Ordered By: Dr. Presley on 12-11-2022 Hemoglobin (Bld) [Mass/Vol] 18.1 g/dL 13.0-16.5 [facility] Comment on above: CRITICAL VALUE VERIF IED. CALLED TO [id number] Leigh Ann Myers.RESULTS READ BACK BY SAME . Blood lymphocytes/100 leukoc ytesOrdered By: Dr. Presley on 12-11-2022 Lymphocytes/100 WBC (Bld) 15.1 % 19-41 [facility] Blood monocytes/100 leukocyt esOrdered By: Dr. Presley on 12-11-2022 Monocytes/100 WBC (Bld) 7.2 % 0-10 [facility] Blood platelet mean volumeOr dered By: Dr. Presley on 12-11-2022 Platelet mean volume (Bld) [Entitic vol] 8.6 fL 6.2-12.0 [facility] Determination of erythrocyte mean corpuscular volume (MCV)Ordered By: Dr. Presley on 12-11-2022 MCV (RBC) [Entitic vol] 96.1 fL 80-94 [facility] Hematocrit Auto (Bld) [Volum e fraction]Ordered By: Dr. Presley on 12-11-2022 Hematocrit (Bld) [Volume fraction] 53.6 % 40-54 [facility] Ketones Test strip Ql (U)Ord ered By: ED PROVIDER on 12-11-2022 Ketones Ql (U) 5 mg/dl Negative [facility] Laboratory - Chemistry and C hemistry - challengeOrdered By: Dr. Presley on 12-11-2022 CO2 [Moles/Vol] 26.0 mmol/L 21.0-32.0 [facility] Urea nitrogen/Creatinine [Mass ratio] 14.2 mg/mg 10-20 [facility] Laboratory - Hematology and Cell countsOrdered By: Dr. Presley on 12-11-2022 Erythrocyte distribution width (RBC) [Entitic vol] 43.6 fL 35.1-43.9 [facility] Erythrocyte distribution width (RBC) [Ratio] 12.2 % 11.6-14.6 [facility] Immature granulocytes/100 WBC (Bld) 0.400 % 0.0-0.9 [facility] Comment on above: IG% - Immature Granu locytes (promyelocytes, myelocytes and metamyelocytes) > 1% indicates that a LEFT SHIFT is Present. MCH (RBC) [Entitic mass] 32.4 pg 27.0-32.0 [facility] Nucleated RBC/100 WBC (Bld) [Ratio] 0 % 0-5 [facility] MCHC Auto (RBC) [Mass/Vol]Or dered By: Dr. Presley on 12-11-2022 MCHC (RBC) [Mass/Vol] 33.8 g/dL 32-36 [facility] Mucus LM Ql (Urine sed)Order ed By: ED PROVIDER on 12-11-2022 Mucus Ql (Urine sed) 0 SEEN /hpf [facility] Nitrite Test strip Ql (U)Ord ered By: ED PROVIDER on 12-11-2022 Nitrite Ql (U) Negative Negative [facility] No Panel InformationOrdered By: Dr. Presley on 12-11-2022 Estimated Creatinine Clearance Calc 74.46 ml/min [facility] Estimated GFR (MDRD) Amer 83 mL/min >60 [facility] Comment on above: GFR Calc Estimated GFR (MDRD) Non-Af Amer 68 mL/min >60 [facility] Comment on above: Non- GFR Calc Platelets bldOrdered By: Dr. Presley on 12-11-2022 Platelets (Bld) [#/Vol] 234 10*3/uL 150-450 [facility] Protein Test strip Ql (U)Ord ered By: ED PROVIDER on 12-11-2022 Protein Ql (U) 30 mg/dl Negative [facility] Serum or plasma calcium vladimir urement (mass/volume)Ordered By: Dr. Presley on 12-11-2022 Calcium [Mass/Vol] 8.7 mg/dL 8.5-10.1 [facility] Serum or plasma creatinine m easurement (mass/volume)Ordered By: Dr. Presley on 12-11-2022 Creatinine [Mass/Vol] 1.20 mg/dL 0.70-1.30 [facility] Comment on above: The validity of the calculated GFR & GFRAA in patients over 70 years has not been determined. Clinical correlation is essential. Serum or plasma urea nitroge n measurement (mass/volume)Ordered By: Dr. Presley on 12-11-2022 Urea nitrogen [Mass/Vol] 17 mg/dL 7-18 [facility] Squamous epithelial cells de tection in urine sediment by light microscopyOrdered By: ED PROVIDER on 12-11-2022 Epithelial cells.squamous LM Ql (Urine sed) 0 SEEN /hpf 0-5 [facility] Thin prep Papanicolaou smear with manual screeningOrdered By: Dr. Presley on 12-11-2022 Thin prep Papanicolaou smear with manual screening 8 5-15 [facility] Urine blood detectionOrdered By: ED PROVIDER on 12-11-2022 RBC Ql (U) 150 /ul Negative [facility] RBC Ql (U) 0-5 SEEN /hpf 0-5 [facility] Urine clarityOrdered By: ED PROVIDER on 12-11-2022 Clarity (U) Turbid Clear [facility] Urine color determinationOrd ered By: ED PROVIDER on 12-11-2022 Color (U) Yellow Yellow [facility] Urine glucose detectionOrder ed By: ED PROVIDER on 12-11-2022 Glucose Ql (U) Normal mg/dl Normal [facility] Urine leukocyte esterase det ection by dipstickOrdered By: ED PROVIDER on 12-11-2022 Leukocyte esterase Test strip Ql (U) 25 /ul Negative [facility] Urine pHOrdered By: ED PROVI CODI on 12-11-2022 pH (U) 5.0 [pH] 5.0 - 8.0 [facility] Urine sediment bacteria coun t by microscopy (number/high power field)Ordered By: ED PROVIDER on 12-11-2022 Bacteria LM.HPF (Urine sed) [#/Area] 4 /[HPF] None Seen [facility] Urine specific gravity measu rementOrdered By: ED PROVIDER on 12-11-2022 Specific gravity (U) [Rel density] 1.020 1.002-1.030 [facility] Urobilinogen Auto test strip Ql (U)Ordered By: ED PROVIDER on 12-11-2022 Urobilinogen Ql (U) 1 mg/dl Normal [facility] Absolute lymphocyte countOrd ered By: Dr. Jaquez on 10-07-2022 Lymphocytes Auto (Unsp spec) [#/Vol] 2.47 10*3/uL 0.83-4.51 [facility] Basophil percentageOrdered B y: Dr. Jaquez on 10-07-2022 Basophil percentage 0 SEEN /hpf 0-5 [facility] Basophils/100 WBC (Bld) 0.6 % 0-1 [facility] Chloride [Moles/Vol] 104 mmol/L 98-107 [facility] Eosinophils/100 WBC (Bld) 1.6 % 0-5 [facility] Glucose [Mass/Vol] 159 mg/dL 74-106 [facility] Comment on above: Fasting Glucose resu lt greater than or equal to 126 mg/dL suggests DIABETES MELLITUS per A.D.A. criteria. Neutrophils (Bld) [#/Vol] 7.4 10*3/uL 2.0-7.7 [facility] Neutrophils/100 WBC (Bld) 66.9 % 47-70 [facility] Potassium [Moles/Vol] 4.0 mmol/L 3.5-5.1 [facility] Comment on above: Slight Hemolysis, Re sult may be falsely increased. Sodium [Moles/Vol] 140 mmol/L 136-145 [facility] WBC (Bld) [#/Vol] 11.1 10*3/uL 4.4-11.0 [facility] Bilirubin Test strip Ql (U)O rdered By: Dr. Jaquez on 10-07-2022 Bilirubin Ql (U) Negative Negative [facility] Blood erythrocytes count (nu mber/volume)Ordered By: Dr. Jaquez on 10-07-2022 RBC (Bld) [#/Vol] 5.53 10*6/uL 4.6-6.2 [facility] Blood hemoglobin measurement (mass/volume)Ordered By: Dr. Jaquez on 10-07-2022 Hemoglobin (Bld) [Mass/Vol] 17.9 g/dL 13.0-16.5 [facility] Blood lymphocytes/100 leukoc ytesOrdered By: Dr. Jaquez on 10-07-2022 Lymphocytes/100 WBC (Bld) 22.3 % 19-41 [facility] Blood monocytes/100 leukocyt esOrdered By: Dr. Jaquez on 10-07-2022 Monocytes/100 WBC (Bld) 8.3 % 0-10 [facility] Blood platelet mean volumeOr dered By: Dr. Jaquez on 10-07-2022 Platelet mean volume (Bld) [Entitic vol] 9.6 fL 6.2-12.0 [facility] Determination of erythrocyte mean corpuscular volume (MCV)Ordered By: Dr. Jaquez on 10-07-2022 MCV (RBC) [Entitic vol] 97.8 fL 80-94 [facility] Hematocrit Auto (Bld) [Volum e fraction]Ordered By: Dr. Jaquez on 10-07-2022 Hematocrit (Bld) [Volume fraction] 54.1 % 40-54 [facility] Ketones Test strip Ql (U)Ord ered By: Dr. Jaquez on 10-07-2022 Ketones Ql (U) 5 mg/dl Negative [facility] Laboratory - Chemistry and C hemistry - challengeOrdered By: Dr. Jaquez on 10-07-2022 CO2 [Moles/Vol] 30.0 mmol/L 21.0-32.0 [facility] Urea nitrogen/Creatinine [Mass ratio] 12.8 mg/mg 10-20 [facility] Laboratory - Hematology and Cell countsOrdered By: Dr. Jaquez on 10-07-2022 Erythrocyte distribution width (RBC) [Entitic vol] 45.1 fL 35.1-43.9 [facility] Erythrocyte distribution width (RBC) [Ratio] 12.4 % 11.6-14.6 [facility] Immature granulocytes/100 WBC (Bld) 0.300 % 0.0-0.9 [facility] Comment on above: IG% - Immature Granu locytes (promyelocytes, myelocytes and metamyelocytes) > 1% indicates that a LEFT SHIFT is Present. MCH (RBC) [Entitic mass] 32.4 pg 27.0-32.0 [facility] Nucleated RBC/100 WBC (Bld) [Ratio] 0 % 0-5 [facility] MCHC Auto (RBC) [Mass/Vol]Or dered By: Dr. Jaquez on 10-07-2022 MCHC (RBC) [Mass/Vol] 33.1 g/dL 32-36 [facility] Mucus LM Ql (Urine sed)Order ed By: Dr. Jaquez on 10-07-2022 Mucus Ql (Urine sed) 0 SEEN /hpf [facility] Nitrite Test strip Ql (U)Ord ered By: Dr. Jaquez on 10-07-2022 Nitrite Ql (U) Negative Negative [facility] No Panel InformationOrdered By: Dr. Jaquez on 10-07-2022 Estimated Creatinine Clearance Calc 74.70 ml/min [facility] Estimated GFR (MDRD) Amer 85 mL/min >60 [facility] Comment on above: GFR Calc Estimated GFR (MDRD) Non-Af Amer 70 mL/min >60 [facility] Comment on above: Non- GFR Calc Platelets bldOrdered By: Dr. Jaquez on 10-07-2022 Platelets (Bld) [#/Vol] 242 10*3/uL 150-450 [facility] Protein Test strip Ql (U)Ord ered By: Dr. Jaquez on 10-07-2022 Protein Ql (U) 30 mg/dl Negative [facility] Serum or plasma calcium vladimir urement (mass/volume)Ordered By: Dr. Jaquez on 10-07-2022 Calcium [Mass/Vol] 8.9 mg/dL 8.5-10.1 [facility] Serum or plasma creatinine m easurement (mass/volume)Ordered By: Dr. Jaquez on 10-07-2022 Creatinine [Mass/Vol] 1.17 mg/dL 0.70-1.30 [facility] Comment on above: The validity of the calculated GFR & GFRAA in patients over 70 years has not been determined. Clinical correlation is essential. Serum or plasma urea nitroge n measurement (mass/volume)Ordered By: Dr. Jaquez on 10-07-2022 Urea nitrogen [Mass/Vol] 15 mg/dL 7-18 [facility] Squamous epithelial cells de tection in urine sediment by light microscopyOrdered By: Dr. Jaquez on 10-07-2022 Epithelial cells.squamous LM Ql (Urine sed) 0 SEEN /hpf 0-5 [facility] Thin prep Papanicolaou smear with manual screeningOrdered By: Dr. Jaquez on 10-07-2022 Thin prep Papanicolaou smear with manual screening 6 5-15 [facility] Urine blood detectionOrdered By: Dr. Jaquez on 10-07-2022 RBC Ql (U) 250 /ul Negative [facility] RBC Ql (U) 0-5 SEEN /hpf 0-5 [facility] Urine clarityOrdered By: Dr. Jaquez on 10-07-2022 Clarity (U) Clear Clear [facility] Urine color determinationOrd ered By: Dr. Jaquez on 10-07-2022 Color (U) Yellow Yellow [facility] Urine glucose detectionOrder ed By: Dr. Jaquez on 10-07-2022 Glucose Ql (U) Normal mg/dl Normal [facility] Urine leukocyte esterase det ection by dipstickOrdered By: Dr. Jaquez on 10-07-2022 Leukocyte esterase Test strip Ql (U) 25 /ul Negative [facility] Urine pHOrdered By: Dr. Daryl lockhart on 10-07-2022 pH (U) 5.0 [pH] 5.0 - 8.0 [facility] Urine sediment bacteria coun t by microscopy (number/high power field)Ordered By: Dr. Jaquez on 10-07-2022 Bacteria LM.HPF (Urine sed) [#/Area] 0 /[HPF] None Seen [facility] Urine specific gravity measu rementOrdered By: Dr. Jaquez on 10-07-2022 Specific gravity (U) [Rel density] 1.025 1.002-1.030 [facility] Urobilinogen Auto test strip Ql (U)Ordered By: Dr. Jaquez on 10-07-2022 Urobilinogen Ql (U) 1 mg/dl Normal [facility] Absolute lymphocyte countOrd ered By: Yobany Corley on 07-27-2022 Lymphocytes Auto (Unsp spec) [#/Vol] 2.34 10*3/uL 0.83-4.51 [facility] Basophil percentageOrdered B y: Yobany Corley on 07-27-2022 Basophil percentage 0-5 SEEN /hpf 0-5 [facility] Basophils/100 WBC (Bld) 0.6 % 0-1 [facility] Bilirubin [Mass/Vol] 0.50 mg/dL 0.20-1.00 [facility] Comment on above: For patients on eltr ombopag therapy, use of Dimension [place] TBIL is not recommended. Chloride [Moles/Vol] 105 mmol/L 98-107 [facility] Eosinophils/100 WBC (Bld) 1.1 % 0-5 [facility] Glucose [Mass/Vol] 119 mg/dL 74-106 [facility] Comment on above: Fasting Glucose resu lt from 100 to 125 mg/dL suggests IMPAIRED HOMEOSTASIS per A.D.A. criteria. Neutrophils (Bld) [#/Vol] 9.2 10*3/uL 2.0-7.7 [facility] Neutrophils/100 WBC (Bld) 72.5 % 47-70 [facility] Potassium [Moles/Vol] 3.9 mmol/L 3.5-5.1 [facility] Protein [Mass/Vol] 8.1 g/dL 6.4-8.2 [facility] Sodium [Moles/Vol] 138 mmol/L 136-145 [facility] WBC (Bld) [#/Vol] 12.7 10*3/uL 4.4-11.0 [facility] Bilirubin Test strip Ql (U)O rdered By: Yobany Corley on 07-27-2022 Bilirubin Ql (U) Negative Negative [facility] Blood erythrocytes count (nu mber/volume)Ordered By: Yobany Corley on 07-27-2022 RBC (Bld) [#/Vol] 5.39 10*6/uL 4.6-6.2 [facility] Blood hemoglobin measurement (mass/volume)Ordered By: Yobany Corley on 07-27-2022 Hemoglobin (Bld) [Mass/Vol] 17.2 g/dL 13.0-16.5 [facility] Blood lymphocytes/100 leukoc ytesOrdered By: Yobany Corley on 07-27-2022 Lymphocytes/100 WBC (Bld) 18.4 % 19-41 [facility] Blood monocytes/100 leukocyt esOrdered By: Yobany Corley on 07-27-2022 Monocytes/100 WBC (Bld) 6.9 % 0-10 [facility] Blood platelet mean volumeOr dered By: Yobany Corley on 07-27-2022 Platelet mean volume (Bld) [Entitic vol] 8.7 fL 6.2-12.0 [facility] Determination of erythrocyte mean corpuscular volume (MCV)Ordered By: Yobany Corley on 07-27-2022 MCV (RBC) [Entitic vol] 97.2 fL 80-94 [facility] Direct bilirubinOrdered By: Yobany Corley on 07-27-2022 Bilirubin.direct [Mass/Vol] 0.16 mg/dL 0.00-0.30 [facility] Hematocrit Auto (Bld) [Volum e fraction]Ordered By: Yobany Corley on 07-27-2022 Hematocrit (Bld) [Volume fraction] 52.4 % 40-54 [facility] Hyaline casts LM.LPF (Urine sed) [#/Area]Ordered By: Yobany Corley on 07-27-2022 Hyaline casts (Urine sed) [#/Area] 0 /[LPF] 0-5 [facility] Ketones Test strip Ql (U)Ord ered By: Yobany Corley on 07-27-2022 Ketones Ql (U) 5 mg/dl Negative [facility] Laboratory - Chemistry and C hemistry - challengeOrdered By: Yobany Corley on 07-27-2022 ALP [Catalytic activity/Vol] 80 U/L 45-117 [facility] ALT [Catalytic activity/Vol] 80 U/L 16-61 [facility] CO2 [Moles/Vol] 28.0 mmol/L 21.0-32.0 [facility] Globulin (S) [Mass/Vol] 4.4 g/dL 2.2-4.2 [facility] Lipase [Catalytic activity/Vol] 76 U/L 73-393 [facility] Urea nitrogen/Creatinine [Mass ratio] 12.8 mg/mg 10-20 [facility] Laboratory - Hematology and Cell countsOrdered By: Yobany Corley on 07-27-2022 Erythrocyte distribution width (RBC) [Entitic vol] 46.4 fL 35.1-43.9 [facility] Erythrocyte distribution width (RBC) [Ratio] 12.9 % 11.6-14.6 [facility] Immature granulocytes/100 WBC (Bld) 0.500 % 0.0-0.9 [facility] Comment on above: IG% - Immature Granu locytes (promyelocytes, myelocytes and metamyelocytes) > 1% indicates that a LEFT SHIFT is Present. MCH (RBC) [Entitic mass] 31.9 pg 27.0-32.0 [facility] Nucleated RBC/100 WBC (Bld) [Ratio] 0 % 0-5 [facility] MCHC Auto (RBC) [Mass/Vol]Or dered By: Yobany Corley on 07-27-2022 MCHC (RBC) [Mass/Vol] 32.8 g/dL 32-36 [facility] Mucus LM Ql (Urine sed)Order ed By: Yobany Corley on 07-27-2022 Mucus Ql (Urine sed) 0 SEEN /hpf [facility] Nitrite Test strip Ql (U)Ord ered By: Yobany Corley on 07-27-2022 Nitrite Ql (U) Negative Negative [facility] No Panel InformationOrdered By: Yobany Corley on 07-27-2022 Estimated Creatinine Clearance Calc 85.58 ml/min [facility] Estimated GFR (MDRD) Amer 93 mL/min >60 [facility] Comment on above: GFR Calc Estimated GFR (MDRD) Non-Af Amer 77 mL/min >60 [facility] Comment on above: Non- GFR Calc Platelets bldOrdered By: Stanley Corley on 07-27-2022 Platelets (Bld) [#/Vol] 277 10*3/uL 150-450 [facility] Protein Test strip Ql (U)Ord ered By: Yobany Corley on 07-27-2022 Protein Ql (U) 30 mg/dl Negative [facility] Serum or plasma albumin vladimir urement (mass/volume)Ordered By: Yobany Corley on 07-27-2022 Albumin [Mass/Vol] 3.7 g/dL 3.2-5.0 [facility] Serum or plasma calcium vladimir urement (mass/volume)Ordered By: Yobany Corley on 07-27-2022 Calcium [Mass/Vol] 8.9 mg/dL 8.5-10.1 [facility] Serum or plasma creatinine m easurement (mass/volume)Ordered By: Yobany Corley on 07-27-2022 Creatinine [Mass/Vol] 1.09 mg/dL 0.70-1.30 [facility] Comment on above: The validity of the calculated GFR & GFRAA in patients over 70 years has not been determined. Clinical correlation is essential. Serum or plasma urea nitroge n measurement (mass/volume)Ordered By: Yobany Corley on 07-27-2022 Urea nitrogen [Mass/Vol] 14 mg/dL 7-18 [facility] Squamous epithelial cells de tection in urine sediment by light microscopyOrdered By: Yobany Corley on 07-27-2022 Epithelial cells.squamous LM Ql (Urine sed) 0-5 SEEN /hpf 0-5 [facility] Thin prep Papanicolaou smear with manual screeningOrdered By: Yobany Corley on 07-27-2022 Thin prep Papanicolaou smear with manual screening 43 U/L 15-37 [facility] Thin prep Papanicolaou smear with manual screening 5 5-15 [facility] Urine blood detectionOrdered By: Yobany Corley on 07-27-2022 RBC Ql (U) 150 /ul Negative [facility] RBC Ql (U) 0-5 SEEN /hpf 0-5 [facility] Urine clarityOrdered By: Stanley Corley on 07-27-2022 Clarity (U) Clear Clear [facility] Urine color determinationOrd ered By: Yobany Corley on 07-27-2022 Color (U) Yellow Yellow [facility] Urine glucose detectionOrder ed By: Yobany Corley on 07-27-2022 Glucose Ql (U) Normal mg/dl Normal [facility] Urine leukocyte esterase det ection by dipstickOrdered By: Yobany Corley on 07-27-2022 Leukocyte esterase Test strip Ql (U) 25 /ul Negative [facility] Urine pHOrdered By: Yobany mchugh on 07-27-2022 pH (U) 5.0 [pH] 5.0 - 8.0 [facility] Urine sediment bacteria coun t by microscopy (number/high power field)Ordered By: Yobany Corley on 07-27-2022 Bacteria LM.HPF (Urine sed) [#/Area] 0 /[HPF] None Seen [facility] Urine specific gravity measu rementOrdered By: Yobany Corley on 07-27-2022 Specific gravity (U) [Rel density] 1.025 1.002-1.030 [facility] Urobilinogen Auto test strip Ql (U)Ordered By: Yobany Corley on 07-27-2022 Urobilinogen Ql (U) Normal mg/dl Normal [facility] CNOVon 05-02-[address] [facility] Office Visit (UCWSTR ) -- HERVE RAMSEY JR. ([id number]) 1975 M Date Time Provider Department 05/02/22 7:30 PM AKUA GREY [facility] [[email or web address]] During your visit today, we recorded the following information about you: Temperature Pulse Respiration Blood pressure 98.9 degrees 84/minute 16/minute 142/80 Weight 99.7 kg Akua Grey APRN.HOSPITAL SECRETARY 05/02/2022 7:38 PM Signed Triage Note: Patient presented to express care with sever headache and pain behind [...] and lack of investigative tools available at [facility] Care, and pain out of proportion for sinusitis, recommend patient be seen at nearest ED for further work up. Patient will go to [facility] Diagnosis and treatment plan were discussed and questions were answered to the patient's satisfaction. Pt acknowledged understanding of concepts and follow up plan. Specific signs and symptoms that would indicate the need for higher level of care were discussed in detail warranting prompt ER evaluation. Akua Grey APRN.HOSPITAL SECRETARY Referring Provider: SELF [[id number]] Allergies As of [...] Status:Closed by AKUA GREY on 05/02/22 Normal [facility] Vital Signs Date Time Vital Sign Value Performing Clinician Facility 05-26-2025 00:22-0400 Body temperature 97.9 [degF] Dr. Alma Rosa Cornelius MD Work Phone: [facility] 05-26-2025 00:22-0400 Diastolic blood pressure 68 mm[Hg] Dr. Alma Rosa Cornelius MD Work Phone: [facility] 05-26-2025 00:22-0400 Heart rate 87 /min Dr. Alma Rosa Cornelius MD Work Phone: [facility] 05-26-2025 00:22-0400 Respiratory rate 16 /min Dr. Alma Rosa Cornelius MD Work Phone: [facility] 05-26-2025 00:22-0400 SaO2% (BldA) [Mass fraction] 98 % Dr. Alma Rosa Cornelius MD Work Phone: [facility] 05-26-2025 00:22-0400 Systolic blood pressure 127 mm[Hg] Dr. Alma Rosa Cornelius MD Work Phone: [facility] 05-25-2025 20:22-0400 Body height 170.[address] Alma Rosa Cornelisu MD Work Phone: [facility] 05-25-2025 20:22-0400 Body mass index (BMI) [Ratio] 39 kg/m2 Dr. Alma Rosa Cornelius MD Work Phone: [facility] 05-25-2025 20:22-0400 Body weight 113.[address] Alma Rosa Cornelius MD Work Phone: [facility] 01-11-2025 03:11-0400 Body temperature 98.3 [degF] Dr. Alma Rosa Cornelius MD Work Phone: [facility] 01-11-2025 03:11-0400 Diastolic blood pressure 82 mm[Hg] Dr. Alma Rosa Cornelius MD Work Phone: [facility] 01-11-2025 03:11-0400 Heart rate 82 /min Dr. Alma Rosa Cornelius MD Work Phone: [facility] 01-11-2025 03:11-0400 Respiratory rate 18 /min Dr. Alma Rosa Cornelius MD Work Phone: [facility] 01-11-2025 03:11-0400 SaO2% (BldA) [Mass fraction] 93 % Dr. Alma Rosa Cornelius MD Work Phone: [facility] 01-11-2025 03:11-0400 Systolic blood pressure 121 mm[Hg] Dr. Alma Rosa Cornelius MD Work Phone: [facility] 01-10-2025 23:18-0400 Body height 170.[address] Alma Rosa Cornelius MD Work Phone: [facility] 01-10-2025 23:18-0400 Body mass index (BMI) [Ratio] 36.3 kg/m2 Dr. Alma Rosa Cornelius MD Work Phone: [facility] 01-10-2025 23:18-0400 Body weight 105.[address] Alma Rosa Cornelius MD Work Phone: [facility] 12-16-2024 00:28-0400 Body temperature 98.7 [degF] Dr. Alma Rosa Cornelius MD Work Phone: [facility] 12-16-2024 00:28-0400 Diastolic blood pressure 92 mm[Hg] Dr. Alma Rosa Cornelius MD Work Phone: [facility] 12-16-2024 00:28-0400 Heart rate 95 /min Dr. Alma Rosa Cornelius MD Work Phone: [facility] 12-16-2024 00:28-0400 Respiratory rate 18 /min Dr. Alma Rosa Cornelius MD Work Phone: [facility] 12-16-2024 00:28-0400 SaO2% (BldA) [Mass fraction] 94 % Dr. Alma Rosa Cornelius MD Work Phone: [facility] 12-16-2024 00:28-0400 Systolic blood pressure 143 mm[Hg] Dr. Alma Rosa Cornelius MD Work Phone: [facility] 12-15-2024 17:08-0400 Body height 170.[address] Alma Rosa Cornelius MD Work Phone: [facility] 12-15-2024 17:08-0400 Body mass index (BMI) [Ratio] 36 kg/m2 Dr. Alma Rosa Cornelius MD Work Phone: [facility] 12-15-2024 17:08-0400 Body weight 104.[address] Alma Rosa Cornelius MD Work Phone: [facility] 11-10-2024 13:03-0400 Body height 170.[address] Alma Rosa Cornelius MD Work Phone: [facility] 11-10-2024 13:03-0400 Body mass index (BMI) [Ratio] 34.4 kg/m2 Dr. Alma Rosa Cornelius MD Work Phone: [facility] 11-10-2024 13:03-0400 Body weight 99.[address] Alma Rosa Cornelius MD Work Phone: [facility] 11-10-2024 13:03-0400 Diastolic blood pressure 74 mm[Hg] Dr. Alma Rosa Cornelius MD Work Phone: [facility] 11-10-2024 13:03-0400 Heart rate 83 /min Dr. Alma Rosa Cornelius MD Work Phone: [facility] 11-10-2024 13:03-0400 Respiratory rate 16 /min Dr. Alma Rosa Cornelius MD Work Phone: [facility] 11-10-2024 13:03-0400 SaO2% (BldA) [Mass fraction] 94 % Dr. Alma Rosa Cornelius MD Work Phone: [facility] 11-10-2024 13:03-0400 Systolic blood pressure 126 mm[Hg] Dr. Alma Rosa Cornelius MD Work Phone: [facility] 09-29-2024 12:48-0500 Body mass index (BMI) [Ratio] 34 kg/m2 Dr. Alma Rosa Cornelius MD Work Phone: [facility] 09-29-2024 12:48-0500 Body temperature 97.4 [degF] Dr. Alma Rosa Cornelius MD Work Phone: [facility] 09-29-2024 12:48-0500 Body weight 98.[address] Alma Rosa Cornelius MD Work Phone: [facility] 09-29-2024 12:48-0500 Diastolic blood pressure 83 mm[Hg] Dr. Alma Rosa Cornelius MD Work Phone: [facility] 09-29-2024 12:48-0500 Heart rate 64 /min Dr. Alma Rosa Cornelius MD Work Phone: [facility] 09-29-2024 12:48-0500 Respiratory rate 18 /min Dr. Alma Rosa Cornelius MD Work Phone: [facility] 09-29-2024 12:48-0500 SaO2% (BldA) [Mass fraction] 94 % Dr. Alma Rosa Cornelius MD Work Phone: [facility] 09-29-2024 12:48-0500 Systolic blood pressure 131 mm[Hg] Dr. Alma Rosa Cornelius MD Work Phone: [facility] 11-04-2023 13:50-0400 Body temperature 98.2 [degF] No Primary Care Physician [facility] 11-04-2023 13:50-0400 Diastolic blood pressure 87 mm[Hg] No Primary Care Physician [facility] 11-04-2023 13:50-0400 Heart rate 84 /min No Primary Care Physician [facility] 11-04-2023 13:50-0400 Inhaled oxygen flow rate 4 L/min No Primary Care Physician [facility] 11-04-2023 13:50-0400 Respiratory rate 18 /min No Primary Care Physician [facility] 11-04-2023 13:50-0400 SaO2% (BldA) [Mass fraction] 92 % No Primary Care Physician [facility] 11-04-2023 13:50-0400 Systolic blood pressure 149 mm[Hg] No Primary Care Physician [facility] 11-04-2023 10:28-0400 Body height 170.18 cm No Primary Care Physician [facility] 11-04-2023 10:28-0400 Body weight 102.96 kg No Primary Care Physician [facility] 11-02-2023 13:28-0400 Body mass index (BMI) [Ratio] 35.5 kg/m2 No Primary Care Physician [facility] 11-02-2023 12:45-0400 Body temperature 98 [degF] [facility] 11-02-2023 12:45-0400 Diastolic blood pressure 76 mm[Hg] [facility] 11-02-2023 12:45-0400 Heart rate 102 /min [facility] 11-02-2023 12:45-0400 Respiratory rate 26 /min [facility] 11-02-2023 12:45-0400 SaO2% (BldA) [Mass fraction] 89 % [facility] 11-02-2023 12:45-0400 Systolic blood pressure 133 mm[Hg] [facility] 11-02-2023 12:00-0400 Inhaled oxygen flow rate 5 L/min [facility] 11-02-2023 09:17-0400 Body mass index (BMI) [Ratio] 35.2 kg/m2 [facility] 11-02-2023 09:17-0400 Body weight 102 kg [facility] 11-02-2023 09:16-0400 Body height 170.18 cm [facility] 08-03-2023 12:45-0500 Diastolic blood pressure 86 mm[Hg] [facility] 08-03-2023 12:45-0500 Heart rate 90 /min [facility] 08-03-2023 12:45-0500 Respiratory rate 16 /min [facility] 08-03-2023 12:45-0500 SaO2% (BldA) [Mass fraction] 94 % [facility] 08-03-2023 12:45-0500 Systolic blood pressure 165 mm[Hg] [facility] 08-03-2023 11:19-0500 Body height 175.26 cm [facility] 08-03-2023 11:19-0500 Body mass index (BMI) [Ratio] 34.6 kg/m2 [facility] 08-03-2023 11:19-0500 Body temperature 98.4 [degF] [facility] 08-03-2023 11:19-0500 Body weight 106.3 kg [facility] 01-10-2023 10:07-0400 Body height 175.3 cm José Miguel Joe MD Work Phone: [facility] 01-10-2023 10:07-0400 Body mass index (BMI) [Ratio] 31.9 kg/m2 José Miguel Joe MD Work Phone: [facility] 01-10-2023 10:07-0400 Body weight 97.98 kg José Miguel Joe MD Work Phone: [facility] 01-10-2023 10:07-0400 Diastolic blood pressure 79 mm[Hg] José Miguel Joe MD Work Phone: [facility] 01-10-2023 10:07-0400 Heart rate 84 /min José Miguel Joe MD Work Phone: [facility] 01-10-2023 10:07-0400 Systolic blood pressure 143 mm[Hg] José Miguel oJe MD Work Phone: [facility] 12-11-2022 21:37-0400 Heart rate 74 /min [facility] 12-11-2022 21:37-0400 Respiratory rate 18 /min [facility] 12-11-2022 21:37-0400 SaO2% (BldA) [Mass fraction] 94 % [facility] 12-11-2022 19:37-0400 Body height 175.26 cm [facility] 12-11-2022 19:37-0400 Body mass index (BMI) [Ratio] 31.6 kg/m2 [facility] 12-11-2022 19:37-0400 Body temperature 98.1 [degF] [facility] 12-11-2022 19:37-0400 Body weight 97.06 kg [facility] 12-11-2022 19:37-0400 Diastolic blood pressure 96 mm[Hg] [facility] 12-11-2022 19:37-0400 Systolic blood pressure 149 mm[Hg] [facility] 10-07-2022 15:11-0500 Body height 172.72 cm [facility] 10-07-2022 15:11-0500 Body mass index (BMI) [Ratio] 33.4 kg/m2 [facility] 10-07-2022 15:11-0500 Body temperature 98.2 [degF] [facility] 10-07-2022 15:11-0500 Body weight 99.79 kg [facility] 10-07-2022 15:11-0500 Diastolic blood pressure 89 mm[Hg] [facility] 10-07-2022 15:11-0500 Heart rate 90 /min [facility] 10-07-2022 15:11-0500 Respiratory rate 14 /min [facility] 10-07-2022 15:11-0500 SaO2% (BldA) [Mass fraction] 93 % [facility] 10-07-2022 15:11-0500 Systolic blood pressure 165 mm[Hg] [facility] 07-27-2022 06:59-0500 Diastolic blood pressure 104 mm[Hg] [facility] 07-27-2022 06:59-0500 Heart rate 76 /min [facility] 07-27-2022 06:59-0500 Respiratory rate 18 /min [facility] 07-27-2022 06:59-0500 SaO2% (BldA) [Mass fraction] 95 % [facility] 07-27-2022 06:59-0500 Systolic blood pressure 159 mm[Hg] [facility] 07-27-2022 05:26-0500 Body height 177.8 cm [facility] Work Phone: 07-27-2022 05:26-0500 Body mass index (BMI) [Ratio] 31.5 kg/m2 [facility] 07-27-2022 05:26-0500 Body temperature 96.7 [degF] [facility] 07-27-2022 05:26-0500 Body weight 99.79 kg [facility] 05-02-2022 20:41-0400 Respiratory rate 18 /min [facility] Work Phone: 05-02-2022 20:24-0400 Body height 170.18 cm [facility] Work Phone: 05-02-2022 20:24-0400 Body mass index (BMI) [Ratio] 34.2 kg/m2 [facility] Work Phone: 05-02-2022 20:24-0400 Body temperature 98.4 [degF] [facility] Work Phone: 05-02-2022 20:24-0400 Body weight 99.33 kg [facility] Work Phone: 05-02-2022 20:24-0400 Diastolic blood pressure 95 mm[Hg] [facility] Work Phone: 05-02-2022 20:24-0400 Heart rate 80 /min [facility] Work Phone: 05-02-2022 20:24-0400 SaO2% (BldA) [Mass fraction] 94 % [facility] Work Phone: 05-02-2022 20:24-0400 Systolic blood pressure 137 mm[Hg] [facility] Work Phone: 05-02-2022 19:28-0400 Body temperature 98.91 [degF] Akua Grey WEB OPERATIONS MANAGER.HOSPITAL SECRETARY Work Phone: [facility] 05-02-2022 19:28-0400 Body weight 99.7 kg Akua Grey WEB OPERATIONS MANAGER.HOSPITAL SECRETARY Work Phone: [facility] 05-02-2022 19:28-0400 Diastolic blood pressure 80 mm[Hg] Akua Grey WEB OPERATIONS MANAGER.HOSPITAL SECRETARY Work Phone: [facility] 05-02-2022 19:28-0400 Heart rate 84 /min Akua Matilda WEB OPERATIONS MANAGER.HOSPITAL SECRETARY Work Phone: [facility] 05-02-2022 19:28-0400 Respiratory rate 16 /min Akua Matilda WEB OPERATIONS MANAGER.HOSPITAL SECRETARY Work Phone: [facility] 05-02-2022 19:28-0400 SaO2% (BldA) [Mass fraction] 96 % Akua Matilda WEB OPERATIONS MANAGER.HOSPITAL SECRETARY Work Phone: [facility] 05-02-2022 19:28-0400 Systolic blood pressure 142 mm[Hg] Akua Matilda WEB OPERATIONS MANAGER.HOSPITAL SECRETARY Work Phone: [facility] Encounters Encounter Date Encounter Type Care Provider Facility Start: 05-25-2025 End: 05-26-2025 Emergency department patient visit [facility] Facility:[facility] Start: 01-10-2025 End: 01-11-2025 Emergency department patient visit Dr. Alma Rosa Cornelius MD Work Phone: -Emergency Department Work Phone: Start: 12-15-2024 End: 12-16-2024 Emergency department patient visit Dr. Alma Rosa Cornelius MD Work Phone: -Emergency Department Work Phone: Start: 11-26-2024 End: 11-26-[address] Get Boggs MD -Ultrasound [facility] Work Phone: Start: 11-26-2024 End: 11-26-2024 ambulatory Get Boggs Facility:[facility] Start: 11-12-2024 End: 11-12-[address] Alma Rosa Cornelius MD Work Phone: [facility] Work Phone: Start: 11-12-2024 End: 11-12-[address] Get Boggs MD -Laboratory Work Phone: Start: 11-12-2024 End: 11-12-2024 ambulatory Get Boggs Facility:[facility] Start: 11-10-2024 End: 11-10-2024 ambulatory [facility] Facility:[facility] Start: 11-10-2024 End: 11-10-[address] Get Boggs MD -[facility] Work Phone: Start: 09-29-2024 End: 09-29-2024 Patient encounter procedure PARRISH Maza -[facility] Work Phone: Start: 09-29-2024 End: 09-29-2024 ambulatory [facility] Facility:[facility] Start: 07-20-2024 End: 07-20-2024 Patient encounter procedure PARRISH Maza -Sleep Lab Work Phone: Start: 07-20-2024 End: 07-20-2024 ambulatory Niki Maza Facility:[facility] Start: 06-30-2024 End: 06-30-2024 ambulatory [facility] Facility:[facility] Start: 06-17-2024 End: 06-17-2024 ambulatory [facility] Facility:[facility] Start: 06-08-2024 End: 06-08-2024 ambulatory [facility] Facility:[facility] Start: 11-03-2023 Non-patient / Non-visit No Primary Care Physician [facility] Work Phone: Start: 11-02-2023 Non-patient / Non-visit No Primary Care Physician [facility] Work Phone: Start: 11-02-2023 End: 11-04-2023 Evaluation and management of inpatient [facility] 3 Work Phone: Start: 08-03-2023 End: 08-03-2023 Emergency department patient visit [facility]Emer[facility] Work Phone: Start: 07-31-2023 End: 07-31-2023 ambulatory [facility] Work Phone: Start: 07-31-2023 End: 07-31-2023 Patient encounter procedure [facility]Laboratory Work Phone: Start: 01-10-2023 End: 01-10-2023 ambulatory JOSÉ MIGUEL JOE [facility] Start: 01-10-2023 End: 01-10-2023 Office outpatient new 30 minutes José Miguel Joe MD Work Phone: [facility] Comment on above: Calculus, kidney (Pr imary Dx) Start: 12-11-2022 End: 12-11-2022 Emergency department patient visit [facility] Start: 10-07-2022 End: 10-07-2022 Emergency department patient visit [facility] Start: 07-27-2022 End: 07-27-2022 [facility] Start: 05-02-2022 End: 05-02-2022 ambulatory Facility:[facility] Start: 05-02-2022 End: 05-02-2022 Emergency department patient visit [facility]Emergency [facility] Start: 05-02-2022 End: 05-02-2022 Patient encounter procedure Akua Grey NAVARRO.HOSPITAL SECRETARY Work Phone: [facility] Comment on above: Headache, unspecifie d headache type (Primary Dx); Eye pressure Procedures Date Procedure Procedure Detail Performing Clinician Start: 05-25-2025 Radiologic exam chest [address] Alma Rosa Cornelius MD Work Phone: Start: 05-25-[address] Deysi Cornelius MD Work Phone: Start: 01-10-[address] Deysi Cornelius MD Work Phone: Start: 01-10-2025 X-ray of chest, PA and lateral views Dr. Alma Rosa Cornelius MD Work Phone: Start: 12-15-[address] Deysi Cornelius MD Work Phone: Start: 12-15-2024 Methadone measurement, urine Dr. Alma Rosa Cornelius MD Work Phone: Start: 11-26-2024 Ultrasound elastography of liver Dr. Jasvir Cornelius MD Work Phone: Start: 11-12-2024 Albumin/Globulin ratio Dr. Alma Rosa Cornelius MD Work Phone: Start: 11-12-2024 [id number] measurement Dr. Meet Cornelius MD Work Phone: Comment on above: [employer]Lattice Electrochemiluminescen ce Immunoassay(ECLIA)Values obtained with different assay methods or kits cannotbe used interchangeably. Results cannot be interpreted asabsolute evidence of the presence or absence of malignantdisease.This test is not interpretable in females. Start: 11-12-[address] Alma Rosa Cornelius MD Work Phone: Comment on above: Performed at: [facility] [id number] Director: Diaz Perdomo PhD, Phone: [phone] Start: 11-12-2024 Antibody to centromere measurement Dr. [...] on above: Detection Limit = 5Performed at: [address] [id number] Director: Diaz Perdomo PhD, Phone: [phone] at: [facility] Lab[address] [id number] Director: Gabi Funes MD, Phone: [phone] Start: 11-12-2024 Hepatitis A virus antibody, IgM [...] Rosa Cornelius MD Work Phone: Start: 11-12-2024 DATA PROCESSING MANAGER antibody measurement Dr. Alma Rosa sanchez MD [...] Treatment Date Care Activity Detail Author Start: 05-26-2025 [facility] Start: 01-11-2025 End: 01-11-2025 [facility] Start: 01-10-2025 [facility] Start: 12-15-2024 [facility] Start: 12-15-2024 [facility] Start: 12-15-2024 Referral to service [facility] Start: 12-15-2024 Suicide precautions [facility] Start: 02-19-2024 LIPID SCREEN LIPID SCREEN [facility] Start: 11-04-2023 Patient discharge [facility] Start: 11-03-2023 Oxygen therapy [facility] Start: 11-02-2023 Ambulation without limitation [facility] Start: 11-02-2023 Assessment of risk o f venous thromboembolism [facility] Start: 11-02-2023 Incentive spirometry [facility] Start: 11-02-2023 Inhalation therapy procedure [facility] Start: 11-02-2023 Insertion of cathete r into peripheral vein [facility] Start: 11-02-2023 Providing care accor ding to standard [facility] Start: 11-02-2023 [facility] Start: 11-02-2023 Respiratory microbia l culture Respiratory Culture [facility] Start: 11-02-2023 Following clinical pathway protocol [facility] Start: 11-02-2023 Verification routine [facility] Start: 11-02-2023 Admission procedure [facility] Start: 11-02-2023 Hospital admission, emergency, from emergency room, medical nature [facility] Start: 11-02-2023 End: 11-02-2023 [facility] Start: 10-17-2023 Zoster Vaccines (1 of 2) Zoste r Vaccines (1 of 2) [facility] Start: 08-03-2023 Streptococcus pyogen es antigen assay Group A Streptococcus Rapid Screen [facility] Start: 08-03-2023 [facility] Start: 04-04-2023 Influenza vaccination Influenz a Vaccine (Season Ended) [facility] Start: 01-10-2023 End: 01-11-2024 Calcium, Urine Calcium, Urine Lab Routine Calculus, kidney Expected: 01/10/2023 (Approximate), Expires: 01/11/2024 [facility] [employer] [facility] Work Phone: Comment on above: Expected: 01/10/2023 (Approximate), Expires: 01/11/2024 Start: 01-10-2023 End: 01-11-2024 Citric Acid, Urine Citric Acid, Urine Lab Routine Calculus, kidney Expected: 01/10/2023 (Approximate), Expires: 01/11/2024 [facility] [employer] Comment on above: Expected: 01/10/2023 (Approximate), Expires: 01/11/2024 Start: 01-10-2023 End: 01-11-2024 Creatinine, urine, 24 hour Creatinine, urine, 24 hour Lab Routine Calculus, kidney Expected: 01/10/2023 (Approximate), Expires: 01/11/2024 [facility] [employer] Comment on above: Expected: 01/10/2023 (Approximate), Expires: 01/11/2024 Start: 01-10-2023 End: 01-11-2024 Oxalate, urine, 24 hour Oxalate, urine, 24 hour Lab Routine Calculus, kidney Expected: 01/10/2023 (Approximate), Expires: 01/11/2024 [facility] [employer] Comment on above: Expected: 01/10/2023 (Approximate), Expires: 01/11/2024 Start: 01-10-2023 End: 01-11-2024 Sodium, urine, 24 hour Sodium, urine, 24 hour Lab Routine Calculus, kidney Expected: 01/10/2023 (Approximate), Expires: 01/11/2024 [facility] Comment on above: Expected: 01/10/2023 (Approximate), Expires: 01/11/2024 Start: 01-10-2023 End: 01-11-2024 Uric acid, urine, 24 hour Uric acid, urine, 24 hour Lab Routine Calculus, kidney Expected: 01/10/2023 (Approximate), Expires: 01/11/2024 [facility] Comment on above: Expected: 01/10/2023 (Approximate), Expires: 01/11/2024 Start: 04-04-2022 Influenza vaccination INFLUENZA (#1) [facility] Start: 02-18-2022 DIABETES SCREEN DIABETES SCREEN [facility] Start: 08-04-2021 DEPRESSION ASSESSMENT DEPRESSION ASS ESSMENT [facility] Start: 01-18-2021 COVID-19 Vaccine (2 - Booster for Moderna series) COVID-19 Vaccine (2 - Booster for Moderna series) [facility] Start: 12-21-2020 COVID-19 VACCINE (2 - Moderna series) COVID-19 VACCINE (2 - Moderna series) [facility] Start: 2018 COLOGUARD (FIT-DNA) COLOGUARD (FIT-D NA) [facility] Start: 2018 Colonoscopy COLONOSCOPY [facility] Start: 2018 COLORECTAL CANCER SCREENING COLORECTAL CANCER SCREENING [facility] Start: [address] COLONOGRAPHY [facility] Start: 2018 FECAL OCCULT BLOOD FECAL OCCULT BLOO D [facility] Start: 2018 SIGMOIDOSCOPY SIGMOIDOSCOPY [facility] Start: 1992 DTaP/Tdap/Td Vaccine s (1 - Tdap) DTaP/Tdap/Td Vaccines (1 - Tdap) [facility] Start: 1992 Hepatitis A Vaccines (1 of 2 - Risk 2-dose series) Hepatitis A Vaccines (1 of 2 - Risk 2-dose series) [facility] Start: 1992 Urine microalbumin profile DTAP,TDAP,TD (1 - Tdap) [facility] Start: 10-17-1991 Hepatitis C screening Hepatitis C Sc reening [facility] Start: 10-17-1991 HIV SCREENING HIV SCREENING [facility] Start: 1985 Depression Screening Depression Scre ening [facility] Start: 10-17-1979 PNEUMOCOCCAL (1 - PCV) PNEUMOCOCCAL (1 - PCV) [facility] Start: 1974 MMR Vaccines (1 of 1 - Standard series) MMR Vaccines (1 of 1 - Standard series) [facility] Start: 1973 HEPATITIS B (1 of 3 - 3-dose series) HEPATITIS B (1 of 3 - 3-dose series) [facility] Start: 1973 Hepatitis B Vaccines (1 of 3 - 3-dose series) Hepatitis B Vaccines (1 of 3 - 3-dose series) [facility] Start: 1973 HIV screening HIV Screening [facility] Start: 1973 Lipid panel Lipid Panel [facility] Start: 1973 Screening for malign ant neoplasm of colon [facility] Albumin [Moles/volum e] in Serum or Plasma [facility] Albumin/Globulin ratio [facility] [id number]. tumor marker [Units/volume] in Serum or Plasma [facility] Ceruloplasmin [Mass/volume] in Serum or Plasma [facility] Copper [Moles/volume ] in Serum or Plasma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 Rate 16 Respiratory Effort Respiratory Pattern Blood Pressure 127/68 H Blood Pressure Mean 87 Pulse Ox 98 Oxygen Delivery Method Positive well nourished, well developed and obese General Appearance ED: well developed; Negative for pallor Nutritional Appearance: obese HEENT HEENT Narrative: Normocephalic atraumatic Eyes PERRL and EOMs intact bilaterally General Eye ED: Negative for scleral icterus Neck supple and no JVD Resp normal respiratory effort Resp Narrative: Breath sounds are diminished throughout with faint expiratory wheeze and rhonchiin the bilateral bases consistent with history of COPD No signs of respiratory distress No crackles to suggest pleural effusion/CHF Cardio regular rate and regular rhythm Rate: other Other Details: Heart is regular rate and rhythm without murmurs rubsor gallops Radial and carotid pulses are equal and symmetric GI normal to inspection, nondistended, normoactive bowel sounds, non-tender, non-distended and no masses GI Narrative: No fluid wave noted Auscultation: normoactive bowel sounds Palpation: soft Extremity Extremity Narrative: Patient has +3-4 pitting edema to the bilateral lower extremities starting from the dorsum of the feet and extending up to just below the knee The edema is symmetric. Negative Homans' sign bilaterally No overlying soft tissue changes to suggest infection Neuro oriented x3, CN's II-XII intact bilaterally and no sensory deficits noted Sensorium / Orientation: alert Motor Exam: strength 5/5 throughout Psych mental status grossly normal Skin no rashes or lesions noted General Skin Exam: Negative for jaundice or pallor MDM MDM MDM Narrative Medical decision making narrative: Patient arrived to the ER hypertensive but otherwise with stable vitals. With report of leg swelling there is concern for congestive heart failure versus acute kidney injury versus acute blood loss anemia. As the edema is equal and symmetric in bilateral I have low concern for DVT and I do not feel the need fora venous duplex. The patient's kidney function is normal his hemoglobin is normal his proBNP is normal and his x-ray does not show any signs of vascular congestion or pleural effusion. Therefore at this time as he is not showing signs of CHF or acute kidney injury this is most likely peripheral edema potentially from lymphedema. He can follow-up with his family doctor to discussfurther evaluation but there is no need for further workup in the ER and is otherwise safe for discharge. History & Record Review Discussion w/independent historian: Patient Lab Data Attestation: I reviewed the patient's lab results. Labs: Laboratory Results - last 24 hr 05/25/25 21:20 WBC 8.0 RBC 4.60 Hgb 15.3 Hct 44.4 MCV 96.5 H MCH 33.3 H MCHC 34.5 RDW Std Deviation 46.4 H RDW Coeff of Carlene 13.0 Plt Count 178 MPV 9.0 Immature Gran % (Auto) 0.200 Neut % (Auto) 54.8 Lymph % (Auto) 33.5 [place] % (Auto) 9.1 Eos % (Auto) 1.5 Baso % (Auto) 0.9 Absolute Neuts (auto) 4.4 Absolute Lymphs (auto) 2.69 Nucleated RBC % 0 Sodium 139 Potassium 3.4 Chloride 104 Carbon Dioxide 25.1 Anion Gap 10 BUN 12 Creatinine 0.73 Estim Creat Clear Calc 143.81 Est GFR (MDRD) Non-Af 110 BUN/Creatinine Ratio 16.4 Glucose 126 H Calcium 8.9 NT pro BNP II 58 Radiography Diagnostic Testing: Clinical Impression(s) from Imaging Studies Chest X-Ray 05/25/25 23:00 IMPRESSION: NO ACUTE FINDINGS. Reading Location: [address] Chest x-ray as interpreted by the emergency medicine physician reveals no acute infiltrate pneumothorax or pleural effusion. Discharge Plan Triage Chief Complaint: Edema ED Provider: Yobany Corley Dx/Rx/DC Orders Clinical Impression: Peripheral edema, COPD (chronic obstructive pulmonary disease), History of tobacco use, Schizophrenia Instructions: ED Peripheral Edema, Bilateral, ED Lymphedema Prescriptions: No Action cholecalciferol (vitamin D3) 1,250 mcg (50,000 unit) tablet 1,250 mcg PO QWEEK 28 Days Qty: 4 2RF Rexulti 2 mg tablet 2 mg PO DAILY albuterol sulfate 90 mcg/actuation HFA aerosol inhaler 1 inh inhalation Q6H PRN (Reason: shortness of breath or wheezing) Qty: 8.5 1RF Primary Care Provider: Alma Rosa Cornelius Referrals: Alma Rosa Cornelius MD [Primary Care Provider, Family Practice] Activity Restrictions/Additional Instructions: Your x-ray revealed no fluid within the lungs and your marker for heart failure is normal. You do not have any signs of kidney damage on your laboratory studies. Therefore the swelling in your leg is most likely due to lymphedema. Please wear compression stockings and talk to your family doctor about a potential referral to lymphedema clinic. Return to the ER should you have any further concerns Print Language: Danish Disposition Disposition: Home, Self Care Discharge Date/Time: 05/26/25 00:34 What to do if you have Problems For any increased pain, shortness of breath, bleeding, nausea or vomiting, chestpain, or any unexpected problems, contact your Primary Care Provider. Call [facility] ([phone]) or report to the closest Emergency Room. Call 911 if necessary. 05/26/25 0129 <Electronically signed by Yobany Corley DO> Cosigner Signature (if applicable): CC: Dr. Alma Rosa Cornelius MD ~ Signed [facility] Work Phone: Evaluation noteNo assessment information available [facility] Work Phone: Evaluation note* Diagnosis Headache, unspecified headache type- Primary Eye pressure Other ill-defined disorder of [facility] Calculus, kidney- Primary Calculus of [facility] Diagnosis Onset Date Resolution Status Acute respiratory failure with hypoxia acute Respiratory failure acute COPD exacerbation chronic [facility] Work Phone: Hospital Discharge instructions Additional Instructions [...] please return to the ER for repeat evaluation.[facility] Work Phone: Hospital Discharge instructions Additional Instructions Follow-up with your doctor in the outpatient setting. Return with worsening symptoms or any concerns. Take the antibiotics and steroids that were sent to your pharmacy as prescribed. Use inhaler as prescribedWCleveland Clinic [facility] Work Phone: Hospital Discharge instructionsAdditional Instructions Your x-ray revealed no fluid within the lungs and your marker for heart failure is normal. You do not have any signs of kidney damage on your laboratory studies. Therefore the swelling in your leg is most likely due to lymphedema. Please wear compression stockings and talk to your family doctor about a potential referral to lymphedema clinic. Return to the ER should you have any further concernsWCleveland Clinic [facility] Work Phone: Reason for referral (narrative)No reason for referral information availableWCleveland Clinic [facility] Work Phone: Chief Complaint and Reason for [...] 8:2 7am Reason for Visit Admit Date [place]us[place]-1-[id number] deficiency September 29, 2024 3:12pm Obstructive sleep apnea September 29, 2 025 3:12pm Asthma-COPD overlap syndrome September 292024 3:12pm Lung nodule September 29, 2024 3:12pm Elevated liver enzymes November 10, 2024 1 2:53pm Metabolic dysfunction-associ ated steatotic liver disease (MASLD) Kiley 9th, 2025 12:53pm RUQ pain November 10, 2024 12:5 3pm Chief Complaint Admit Date 6 W FU September 29, 2024 3:12pm 3 M FU November 10, 2024 12:5 3pm E ORDERS November 12, 2024 8:2 7am ADVANCED FIBROSIS,OCC RUQ PAIN November 8:27am suicidal December 15, 2024 5:08p m Chief Complaint Admit Date 6 W FU September 29, 2024 3:12pm 3 M FU November 10, 2024 12:5 3pm E ORDERS November 12, 2024 8:2 7am ADVANCED FIBROSIS,OCC RUQ PAIN November 8:27am suicidal December 15, 2024 5:08p m sob January 10, 2025 11:15 pm Chief Complaint Admit Date edema May 25, 2025 8 :21pm Advance Directives Advance Directive Response Recorded Date/ Time Living Will No May 02, 2022 9:05pm Power of Electromedical Equipment Technician No April 9:05pm Advance Directive Response Recorded Date/ Time Living Will No July 27, 2 022 5:29am Power of Electromedical Equipment Technician No July 27, 2022 5:29am Advance Directive Response Recorded Date/ Time Living Will No October 07, 2022 3:16pm Power of Electromedical Equipment Technician No October 07 3:16pm Advance Directive Response Recorded Date/ Time Living Will No December 11, 2022 7 :55pm Power of Electromedical Equipment Technician No December 11, 2022 7:55pm Advance Directive Response Recorded Date/ Time Living Will No August 03, 2 023 11:34am Power of Electromedical Equipment Technician No August 03, 2023 11:34am Advance Directive Response Recorded Date/ Time Living Will No November 02, 2023 9:15am Power of Electromedical Equipment Technician No November 01 9:15am Advance Directive Response Recorded Date/ Time Living Will No November 02, 2023 1:28pm Power of Electromedical Equipment Technician No November 01 1:28pm Advance Directive Response Recorded Date/ Time Living Will No November 02, 2023 1:28pm Do you have a Healthcare Power of Electromedical Equipment Technician? No November 02, 2023 1:28pm Advance Directive Response Recorded Date/ Time Living Will No November 02, 2023 1:28pm Do you have a Healthcare Power of Electromedical Equipment Technician? No November 02, 2023 1:28pm Do you have a Healthcare Power of Electromedical Equipment Technician? No December 15, 2024 5:08pm Advance Directive Response Recorded Date/ Time Living Will No November 02, 2023 1:28pm Do you have a Healthcare Power of Electromedical Equipment Technician? No November 02, 2023 1:28pm Do you have a Healthcare Power of Electromedical Equipment Technician? No December 15, 2024 5:08pm Do you have a Healthcare Power of Electromedical Equipment Technician? No January 10, 2025 11:53pm Advance Directive Response Recorded Date/ Time Do you have a Healthcare Power of Electromedical Equipment Technician? No May 25, 2025 8:07pm Summary Purpose Family History Relationship Condition Age at Onset Recorded Date/T [...] or prosecute any alcohol or drug abuse patient.[facility] Reason for Visit (unrecogniz ed section [...] section and content) DATE CREATED AUTHOR 05/06/2022 [facility] DATE CREATED AUTHOR AUTHOR'S ORGANIZ ATION 01/28/2023 [facility] DATE CREATED AUTHOR AUTHOR'S ORGANIZ ATION 06/05/2025 [facility] Care Teams (unrecognized sec tion and [...] Dr. Yoon Presley DO Emergency Provider Active Cotton Classer Relationship Specialty Start Date End Date José Miguel Joe MD [address] [place] [id number] Surgeon Urology 01/10/23 Team Status: Active Member Role Status Dates No Primary Care Physician Primary Care Provider Active Laura Juares MOLD YARD SUPERVISOR, MOLD YARD SUPERVISOR-C Attending Provider, Referring Provider Active Team Status: Inactive Member Role Status Dates No Primary Care Physician Primary Care Provider Active Laura Juares MOLD YARD SUPERVISOR, MOLD YARD SUPERVISOR-C Attending Provider, Referring Provider Active Team Status: [...] 12, 2024 End: November 12, 2024 Dr. eGt Boggs MD Attending Provider Active Start: November [...] December 15, 2024 End: December 16, 2024 Team Status: Inactive Member Role Status Dates Dr. Alm aRosa Cornelius MD Primary Care Provider Active Start: December 15, 2024 End: December 16, 2024 Dr. Chilango Nielsen DO Attending Provider Active Start: December 15, 2024 End: December 16, 2024 Dr. Chilango Nielsen DO Emergency Provider Active Start: December 15, 2024 End: December 16, 2024 Team Status: Inactive Member Role Status Dates Dr. Alma Rosa Cornelius MD Primary Care Provider Active Start: January 10, 2025 End: January 11, 2025 Dr. Anderson Reddy DO Emergency Provider Active Start: January 10, 2025 End: January 11, 2025 Team Status: Active Member Role/Relationship Status Dates Dr. Alma Rosa Cornelius MD Primary care physician Active Team Status: Inactive Member Role/Relationship Status Dates Dr. Alma Rosa Cornelius MD Primary care physician Active Start: May 25, 2025 End: May 26, 2025 Dr. Yobany Corley DO Attending physician Active Start: May 25, 2025 End: May 26, 2025 Dr. Yobany Corley DO Emergency Departor nt Physician Active Start: May 25, 2025 End: May 26, 2025 FOR RECORDS PERTAINING TO PATIENTS WHO ARE [...] BE BASED ON THE PRIMARY CLINICAL RECORDS. [employer] provides no warranty or guarantee of the accuracy or completeness of information in this document.
[2025-06-19] MEDS: Albuterol Sulfate 8 gm Inhaler (60 puffs) 2 PUFF INHALATION (04:14)
== END 2025-06-19 04:19 | disposition home or self-care (01) ==
PROVIDERS: Emergency Provider Emergency Medicine; PCP Family Medicine; Visit Provider Emergency Medicine
DX: J44.1 Chronic obstructive pulmonary disease with (acute) exacerbation (principal); J20.9 Acute bronchitis, unspecified; F17.210 Nicotine dependence, cigarettes, uncomplicated
CPT/HCPCS: 71046; 94640; 99282; A4216